=== PATIENT | female | born 1935 | race Caucasian/White ===

== ENCOUNTER → 2016-08-26 | Outpatient (CLI) | payer MEDICARE, OTHER ==
[~2016-08-26] MED LIST: ALPR.25 PO; ALPR.5 PO; ASPI-110 PO; ASPI1TAB69 PO; ATEN25TA PO; ATEN50TA PO; BIOT1SUB SL; CALC1TAB87 PO; CALC250 PO; COUM4TAB PO; DIFL100T PO; DYAZ37.5 PO; FERR325T20 PO; FOLI1TAB4 PO; FOLI1TAB6 PO; FURO20TA PO; GETGO ROLLING W1 MI1; HYDR-3583 PO; HYOS0.127 PO; IPRAAER INH; LACT PO; LACTCAP8 PO; LEVO.1 PO; MAXZ PO; MERO1INJ8 IV; MESA1TAB2 PO; OMEP40CA2 PO; POTA-243 PO; PRAV40TA PO; PROC10TA PO; PROM25TA5 PO; SPIRCAP INH; SYNT112T PO; VANC500I3 PO; VESI10TA PO; VITA100018 PO; VITA250T3 PO; VITA500T PO; WARF-23 PO; folic; shower tub chair
[2016-08-26 12:21] LABS: APTT (PATIENT) 43.9 SEC (24.3-30.1); INTERNATIONAL NORMALIZED RATIO 2.3 RATIO; PROTHROMBIN TIME - PATIENT 25.9 SEC (9.8-11.6)
[2016-08-26 12:41] LABS: ALKALINE PHOSPHATASE 83 U/L (45-117); ALT (GPT) 17 U/L (10-53); ANION GAP 8 MEQ/L (5-15); AST (GOT) 12 U/L (15-37); BICARBONATE 32.8 MEQ/L (21.0-32.0); BLOOD UREA NITROGEN 16 MG/DL (7-18); CHLORIDE 98 MEQ/L (98-107); GLOMERULAR FILTRATION RATE 74 ML/MIN (>89); GLUCOSE,FASTING 57 MG/DL (74-99); POTASSIUM 3.7 MEQ/L (3.5-5.1); SODIUM (NA) 139 MEQ/L (136-145); TOTAL BILIRUBIN ADULT 0.7 MG/DL (0.2-1.0)
[2016-08-26 12:50] LABS: BACTERIA, URINE RARE /hpf; BLOOD, URINE NEG (NEG); COMMENT (UR) CULT NOT INDICATED; CULTURE IF INDICATED CULT NOT INDICATED; GLUCOSE,URINE NEG (NEG); KETONE, URINE NEG (NEG); NITRITE,URINE NEG (NEG); PH, URINE 6.5 (5.0-8.5); SQUAMOUS EPITHELIAL CELL URINE <1 /hpf (0-5); URINE COLOR YELLOW (YELLW/STRAW)
[2016-08-26 13:25] LABS: AUTOMATED NEUTROPHIL # 8.6 TH/MM3 (1.8-7.7); BASOPHIL # 0.6 TH/MM3 (0-0.2); BASOPHIL % 6.2 % (0.0-2.0); EOSINOPHIL # 0.2 TH/MM3 (0-0.4); EOSINOPHIL % 2.2 % (0.0-4.0); HEMATOCRIT 42.7 % (35.0-46.0); LYMPH % 4.7 % (9.0-44.0); LYMPHOCYTE # 0.5 TH/MM3 (1.0-4.8); MEAN CELL VOLUME 62.6 FL (80.0-100.0); MEAN CORPUSCULAR HEMOGLOBIN 19.1 PG (27.0-34.0); MEAN CORPUSCULAR HGB CONC 30.6 % (32.0-36.0); MONO % 2.1 % (0.0-8.0); NEUT % 84.8 % (16.0-70.0); PLATELET COUNT 213 TH/MM3 (150-450); RED BLOOD COUNT 6.83 MIL/MM3 (4.00-5.30); RED CELL DISTRIBUTION WIDTH 22.7 % (11.6-17.2); WHITE BLOOD COUNT 10.1 TH/MM3 (4.0-11.0)
[2016-08-26 13:26] LABS: HEMO FLAGS AUTO DIFF
[2016-08-26 13:27] LABS: OVALOCYTES 2+ (NORMAL)
[2016-08-26 13:28] LABS: PLATELET ESTIMATE SMEAR LOW (NORMAL); PLATELET MORPHOLOGY ENLARGED (NORMAL); SCAN/DIFF AUTO DIFF CONFIRMED
== END ==
LOC: CPRE 09:41
PROVIDERS: ATTEND Neurological Surgery
DX: Z01.812 Encounter for preprocedural laboratory examination (principal); M51.26 Other intervertebral disc displacement, lumbar region; Z79.01 Long term (current) use of anticoagulants
CPT/HCPCS: 36415; 80053; 81001; 85025; 85610; 85730

== ENCOUNTER 2016-09-03 09:10 | Observation (INO) | payer MEDICARE, OTHER ==
[~2016-09-03] VITALS: Ht 165.1 cm; Wt 63.4 kg
[~2016-09-03 09:10] MED LIST changes: -ALPR.25 PO; -ALPR.5 PO; -ASPI-110 PO; -CALC250 PO; -COUM4TAB PO; -DIFL100T PO; -FERR325T20 PO; -FOLI1TAB6 PO; -GETGO ROLLING W1 MI1; -HYDR-3583 PO; -LACT PO; -MAXZ PO; -MERO1INJ8 IV; -MESA1TAB2 PO; -POTA-243 PO; -PROM25TA5 PO; -SPIRCAP INH; -VANC500I3 PO; -VITA250T3 PO; -folic; -shower tub chair
[2016-09-03] MEDS ORDERED: METOPROLOL TARTRATE 25 MG TAB PO PRN (10:15)
[2016-09-03] MEDS ORDERED: LACTATED RINGER'S 1000 ML IV PRN (10:15)
[2016-09-03] MEDS ORDERED: POVIDONE IODINE 5% (ANTISEPSIS KIT) 4 APPLICATIONS EACH NARE PRN (10:15)
[2016-09-03] MEDS ORDERED: VANCOMYCIN HCL 1000 MG ON-CALL/NS 250 ML IV SCH ×2 (10:15)
[2016-09-03] MEDS ORDERED: INSULIN HUMAN REGULAR 1,000 UNITS/10 ML VIAL SQ PRN (10:15)
[2016-09-03] MEDS ORDERED: CHLORHEXIDINE GLUCONATE 2 % 1 PACK (2 CLOTHS) TOPICAL PRN (10:15)
[2016-09-03] MEDS ORDERED: SODIUM CHLORID 0.9% 500 ML IV PRN (10:15)
[2016-09-03] MEDS ORDERED: SODIUM CHLOR 0.9% 1000 ML INJ 1,000 ML IV SCH (10:15)
[2016-09-03 10:27] VITALS: BP 159/64; PULSE 61; RESP 20; TEMP 98.3; O2SAT 96
[2016-09-03] MEDS ORDERED: GELATIN POWDER 1 GM PACKET ONE (11:21)
[2016-09-03] MEDS ORDERED: GENTAMICIN SULFATE 80 MG/2 ML VIAL ONE (11:21)
[2016-09-03] MEDS ORDERED: methylPREDNISolone ACETATE 40 MG/ML VIAL ONE (11:21)
[2016-09-03] MEDS ORDERED: ceFAZolin 2 GM PREMIX 50 ML ONE (11:21)
[2016-09-03] MEDS ORDERED: THROMBIN (TOPICAL) 5,000 UNIT VIAL ONE (11:21)
[2016-09-03] MEDS ORDERED: BUPIVACAINE/EPINEPHRINE 0.5% PF 10 ML VIAL ONE (11:21)
[2016-09-03] MEDS ORDERED: GELFOAM SIZE 100 ONE (11:22)
[2016-09-03 12:06] LABS: PROTHROMBIN TIME - PATIENT 11.5 SEC (9.8-11.6)
[2016-09-03] MEDS ORDERED: ACETAMINOPHEN 1000 MG/100 ML VIAL IV ONE (12:45)
[2016-09-03] MEDS ORDERED: fentaNYL CITRATE 250 MCG/5 ML AMP ONE (12:46)
[2016-09-03] MEDS ORDERED: MIDAZOLAM HCL 2 MG/2 ML VIAL ONE (12:46)
[2016-09-03] MEDS ORDERED: FAMOTIDINE 20 MG/2 ML VIAL ONE (12:46)
[2016-09-03] MEDS ORDERED: ARTIFICIAL TEARS OPTH OINT 3.5 APPLIC/3.5 GM TUBO ONE (12:46)
[2016-09-03] MEDS ORDERED: GENTAMICIN SULFATE 80 MG/2 ML VIAL IRRIGATION ONE (14:11)
[2016-09-03] MEDS ORDERED: BUPIVACAINE/EPINEPHRINE 0.5% PF 30 ML VIAL INFIL ONE (14:11)
[2016-09-03] MEDS ORDERED: THROMBIN (TOPICAL) 5,000 UNIT VIAL TOP ONE (14:11)
[2016-09-03] MEDS ORDERED: GELFOAM SIZE 100 TOP ONE (14:11)
[2016-09-03] MEDS ORDERED: ONDANSETRON HCL 4 MG/2 ML VIAL IV PUSH ONE (15:04)
[2016-09-03] MEDS ORDERED: PROPOFOL 200 MG/20 ML AMP IV ONE (15:04)
[2016-09-03] MEDS ORDERED: NEOSTIGMINE 3 MG/3 ML SYR IV ONE (15:04)
[2016-09-03] MEDS ORDERED: LACTATED RINGER'S 1000 ML INJ 1,000 ML IV ONE (15:05)
[2016-09-03] MEDS ORDERED: ACETAMINOPHEN 325 MG TAB PO PRN (15:45)
[2016-09-03] MEDS ORDERED: RESP: ALBUTEROL 2.5 MG/3 ML NEB (PRN) INH (15:45)
[2016-09-03] MEDS ORDERED: SODIUM CHLORIDE 0.9% FLUSH 5 ML FLUSH IVF PRN (15:45)
[2016-09-03] MEDS ORDERED: ONDANSETRON HCL 4 MG/2 ML VIAL IV PRN (15:45)
[2016-09-03] MEDS ORDERED: NON-FORMULARY DRUG (Ipratropium-Albuterol Inh (Combivent Respimat Inh) 2 PUFF) INH PRN (15:45)
[2016-09-03] MEDS ORDERED: CYCLOBENZAPRINE HCL 10 MG TAB PO PRN (15:45)
[2016-09-03] MEDS ORDERED: ACETAMINOPHEN/HYDROcodone 325 MG/10 MG TAB PO PRN (15:45)
[2016-09-03] MEDS ORDERED: FUROSEMIDE 20 MG TAB PO PRN (15:45)
[2016-09-03] MEDS ORDERED: ZOLPIDEM TARTRATE 5 MG TAB PO PRN (15:45)
[2016-09-03] MEDS ORDERED: MORPHINE SULFATE 4 MG/ML INJ IV PUSH PRN ×2 (15:45)
[2016-09-03] MEDS ORDERED: MENTHOL LOZENGE BUCCAL PRN (15:45)
[2016-09-03] MEDS ORDERED: HYDR-3583 PO (16:07)
[2016-09-03] MEDS ORDERED: ALBUTEROL SULFATE 90 MCG/ACT HFA 18 GM INHALER INH PRN (16:15)
[2016-09-03] MEDS: NS + KCL 20 MEQ INJ 1,000 ML IV SCH (16:24)
[2016-09-03] MEDS ORDERED: RESP: IPRATROPIUM 0.5 MG/2.5 ML NEB NEB PRN (16:30)
--- NOTE | 2016-09-03 16:45 | RADRPT ---
EXAM DATE/TIME: 09/03/2016 13:47 [facility] COMPARISON: No previous studies available for comparison. INDICATIONS : Level localization for a L5-S1 laminectomy. MEDICAL HISTORY : Unobtainable. SURGICAL HISTORY : Unobtainable. ENCOUNTER: Initial ACUITY: 1 day PAIN SCORE: Non-responsive. LOCATION: Lumbar. FINDINGS: Localization marker approaches L5-S1. CONCLUSION: Localization L5-S1 Dariel Bishop MD on September 03, 2016 at 16:43 Board Certified Radiologist. This report was verified electronically.
[2016-09-03] MEDS: ACETAMINOPHEN/HYDROcodone 325 MG/10 MG TAB PO PRN ×2 (17:54→23:14)
[2016-09-03 18:20] VITALS: BP 142/58; PULSE 61; RESP 14; TEMP 96.5; O2SAT 98
[2016-09-03 20:26] VITALS: O2SAT 98
--- NOTE | 2016-09-03 20:46 | PD.OP ---
Operative Report Date of Surgery: September 03, 2016 Preoperative Diagnosis: L5-S1 disk herniation Postoperative Diagnosis: L5-S1 disk herniation Procedure: Right L5-S1 hemilaminectomy and microdiscectomy Anesthesia: general Surgeon: Austin Arana Certified Driver Examiner(s): brandon borjas Operation and Findings: INDICATIONS FOR THE SURGICAL PROCEDURE Ms Dougherty is a 81 year-old female who presented with intractable mechanical back pain and clinical evidence of right S1 lower extremity radiculopathy. She was found to have a disk herniation and extrusion significant stenosis with significant mass effect on the neural structures which correlated with her clinical symptoms. She failed maximum nonsurgical management including multiple modalities of conservative treatment as well as pain management interventions by an interventional pain specialist. A surgical decompression were indicated as a last resort. The [id number] details of the procedure, indications, alternatives, risks and potential complications were fully discussed with the patient. The patient fully understood. All the questions were answered. No guarantees were given. The patient voiced requesting the procedure and signed informed consents. He was offered the alternative of delaying the procedure and continuing with nonsurgical management. DETAILS OF THE SURGICAL PROCEDURE After the induction of general anesthesia, endotracheal intubation was performed. A Vergara catheter, bilateral ANYI hose and sequential compression devices were placed and kept throughout the procedure. The patient was positioned prone on a Karl table over a Lyle frame. All pressure points were carefully padded with eggcrate mattress. The eyes were tapped shut after ointment was applied by the anesthesiologist to prevent corneal abrasion. A Thomas hugger was placed over the exposed lower body to maintain control of the core body temperature. The lower lumbar region was prepped and draped in the usual sterile fashion. A spinal needle was placed for localization and an x- ray performed with a C-arm. A skin incision was made in the midline over the spinous processes L5-S1 with a #10 blade. Small subcutaneous bleeders were controlled with a bipolar and the dissection was carried out through the lumbar fascia exposing the spinous processes. A subperiosteal dissection was performed with a Chandler elevator and a Bovie over the L5-S1 spinous process lamina and facets. A microdiscectomy self- retaining retractor was placed on the incision and an x-ray was obtained with an instrument placed underneath the lamina. At this point in the procedure the operating microscope was draped in the usual sterile fashion and brought to the field. The rest of the surgical procedure was performed using microsurgical dissection technique with exception of the closure. Once the level was confirmed, a decompressive laminectomy was performed at L5- S1 on the right side, using the TPS drill with an AM-8 drill bit. A medial facetectomy was performed and the superior free border of the ligamentum flavum was dissected with a ligament dissector and removed with a thin footplate 2 mm Kerrison The medial facetectomy allowed me to expose the right S1 nerve root, which was identified and followed towards its exit in the foramen. Epidural veins located laterally to the dural sac were coagulated with a bipolar and incised with microscissors. Gentle medial retraction of the dural sac allowed inspection of the disc space. The patient had a disc herniation, causing mass effect over the exiting nerve root. The annulus fibrosus of the disc was coagulated with the bipolar and incised with an 11 blade. The extruded disc was carefully dissected from the surrounding tissue and removed with pituitary forceps. Then, a microdiscectomy was carried out in the standard fashion using straight and up-biting pituitary forceps. A good decompression of the dural sac and nerve root was achieved. The exit of the nerve root was inspected for residual disc fragments and hemostasis was secured with the bipolar. The incision was irrigated with a large amount of saline solution. A Valsalva maneuver failed to show any cerebrospinal fluid leak or bleeding. The decompression was assessed again and found to be satisfactory. 4m of Depomedrol was left over the epidural space. The incision was then closed in layers. The fascia was closed with 0 Vicryl sutures in an interrupted fashion. The superficial fascia was closed with 0 Vicryl sutures. The fascia was infiltrated with 0.5% Marcaine with epinephrine 1:100,000 dilution. The subcutaneous tissue was irrigated then closed with 0 Vicryl and 3-0 Vicryl. The skin was closed with 4-0 running subcuticular Vicryl. Dermabond was applied to the skin. A sterile dressing was applied. At the end of the procedure, the sponge, needle and instrument counts were all correct. Estimated blood loss was less than 50 cc. No blood transfusion was given. No intraoperative complications occurred. The patient received prophylactic antibiotics. The patient was then extubated and transferred to the recovery room in stable condition. Austin Arana MD September 03, 2016 20:46
[2016-09-03] MEDS ORDERED: ATENOLOL 25 MG TAB PO SCH (21:00)
[2016-09-03] MEDS: SODIUM CHLORIDE 0.9% FLUSH 5 ML FLUSH IVF SCH (21:00)
[2016-09-03] MEDS ORDERED: PRAVASTATIN SOD 40 MG TAB PO SCH (21:00)
[2016-09-03 21:30] VITALS: BP 156/69; PULSE 66; RESP 16; TEMP 96.7; O2SAT 95
[2016-09-03] MEDS: ceFAZolin 2 GM PREMIX 50 ML IV SCH (22:00)
[2016-09-03] MEDS: DOCUSATE SODIUM 100 MG CAP PO SCH (23:14)
[2016-09-04] VITALS: BP 163/70; PULSE 66; RESP 18; O2SAT 98
[2016-09-04] MEDS: NS + KCL 20 MEQ INJ 1,000 ML IV SCH (02:00)
[2016-09-04] MEDS: ACETAMINOPHEN/HYDROcodone 325 MG/10 MG TAB PO PRN ×2 (03:39→07:45)
[2016-09-04 04:00] VITALS: BP 151/71; PULSE 67; RESP 18; TEMP 97; O2SAT 94
[2016-09-04] MEDS: ceFAZolin 2 GM PREMIX 50 ML IV SCH (07:46)
[2016-09-04 08:00] VITALS: BP 150/66; PULSE 65; RESP 18; TEMP 96.8; O2SAT 95
[2016-09-04] MEDS ORDERED: CHOLECALCIFEROL (VIT D3) 1000 UNIT TAB PO SCH (09:00)
[2016-09-04] MEDS ORDERED: NON-FORMULARY DRUG (Biotin 5,000 MCG) SL SCH (09:00)
[2016-09-04] MEDS ORDERED: ATENOLOL 50 MG TAB PO SCH (09:00)
[2016-09-04] MEDS ORDERED: TOLTERODINE TARTRATE 4 MG CAP LA PO SCH (09:00)
[2016-09-04] MEDS ORDERED: PANTOPRAZOLE SOD 40 MG DELAYED RELEASE TAB PO SCH (09:00)
[2016-09-04] MEDS: SODIUM CHLORIDE 0.9% FLUSH 5 ML FLUSH IVF SCH (09:00)
[2016-09-04] MEDS ORDERED: TRIAMTERENE/HCTZ 37.5 MG/25 MG CAP PO SCH (09:00)
[2016-09-04] MEDS ORDERED: HYOSCYAMINE 0.125 MG TAB PO SCH (09:00)
[2016-09-04] MEDS ORDERED: ASCORBIC ACID 500 MG TAB PO SCH (09:00)
[2016-09-04] MEDS ORDERED: FOLIC ACID 1 MG TAB PO SCH (09:00)
[2016-09-04] MEDS: DOCUSATE SODIUM 100 MG CAP PO SCH (10:22)
--- NOTE | 2016-09-04 10:53 | HHI.DS ---
Discharge Summary Admission Date September 03, 2016 at 15:38 Discharge Date: September 04, 2016 Admitting Diagnosis s/p lumbar laminectomy (1) S/P lumbar laminectomy ICD Code: Z98.890 Brief History Ms Dougherty is a 81 year-old female who presented with intractable mechanical back pain and clinical evidence of right S1 lower extremity radiculopathy. She was found to have a disk herniation and extrusion significant stenosis with significant mass effect on the neural structures which correlated with her clinical symptoms. She failed maximum nonsurgical management including multiple modalities of conservative treatment as well as pain management interventions by an interventional pain specialist. A surgical decompression were indicated as a last resort. Imaging Last Impressions Lumbar Spine X-Ray 09/03/16 0000 Signed Impressions: Service Date/Time: Saturday, September 03, 2016 13:47 - CONCLUSION: Localization L5-S1 Dariel Bishop MD Hospital Course Ms. Dougherty underwent a right L5-S1 hemilaminectomy and microdiscectomy on September 03, 2016. Her surgery went well without complications. She reports of resolution of her previous radicular pain. Activity restrictions, wound care, and signs and symptoms to watch for were fully discussed with the patient. She will be discharged home in stable conditions. Pt Condition on Discharge: Stable Discharge Disposition: Discharge Home Discharge Instructions DIET: Follow Instructions for: Heart Healthy Diet ACTIVITIES You can perform: Weight Bearing As Mary Carmen ADDITIONAL Activity Instructio: Avoid strenuous activities, heavy lifting, overhead activities, repetitive bending, twisting, pushing, pulling or any activities which might result in stress over the spine. Avoid situtation that will put at risk for falls. Use assistive device as needed for walking. Wear lumbar brace when out of bed. New Medications: Hydrocodone-Acetaminophen (Hydrocodone-Acetaminophen) 10-325 mg Tab 1 TAB PO Q8HR PRN PAIN SCALE 1 TO 10 #90 Ref 0 TAB Continued Medications: Ascorbic Acid (Vitamin C) 500 Mg Tab 500 MG PO DAILY Nutritional Supplement Ref 0 TAB Aspirin (Aspirin) 81 Mg Tabdr 81 MG PO DAILY TAB Atenolol (Atenolol) 50 Mg Tab 50 MG PO DAILY Blood Pressure Management #30 Ref 0 TAB Atenolol (Atenolol) 25 Mg Tab 25 MG PO HS Blood Pressure Management #30 TAB Biotin (Biotin) 5,000 Mcg Subl 5000 MCG SL DAILY Nutritional Supplement #1 Ref 0 BOTTLE Calcium Carbonate-Cholecalciferol (Calcium 600 with Vitamin D) 600-400 mg-Unit Tab 1 TAB PO DAILY Calcium Supplement Ref 0 TAB Cholecalciferol (Vitamin D3) 1,000 Unit Tab 1000 UNITS PO DAILY Nutritional Supplement #1 Ref 0 BOTTLE Folic Acid (Folate) 1 Mg Tab 1 MG PO DAILY Nutritional Supplement Ref 0 TAB Furosemide (Furosemide) 20 Mg Tab 20 MG PO DAILY SWELLING PRN SEE LABEL COMMENTS #30 Ref 0 TAB Hyoscyamine Sulfate (Hyoscyamine Sulfate) 0.125 Mg Sub 1 TAB PO DAILY Ipratropium-Albuterol Inh (Combivent Respimat Inh) 20-100 Care Home/Act Aero 2 PUFF INH QID PRN SHORTNESS OF BREATH #1 Ref 0 INHALER Lactobacillus Acidophilus (Probiotic) 1 Cap Cap 1 CAP PO DAILY Nutritional Supplement #90 Ref 0 CAP Levothyroxine (Synthroid) 100 Mcg Tab 100 MCG PO EVERY OTHER DAY Thyroid #30 Ref 0 TAB Levothyroxine (Synthroid) 112 Mcg Tab 112 MCG PO EVERY OTHER DAY Thyroid #30 Ref 0 TAB Omeprazole (Omeprazole) 40 Mg Cap 40 MG PO DAILY #30 Ref 0 CAP Pravastatin (Pravachol) 40 Mg Tab 40 MG PO HS Cholesterol Management #30 Ref 0 TAB Solifenacin (Vesicare) 10 Mg Tab 10 MG PO DAILY Urinary Symptom Managemen #30 Ref 0 TAB Triamterene-Hydrochlorothiazide (Dyazide) 37.5-25 Mg Cap 1 CAP PO DAILY #30 Ref 0 CAP Warfarin (Warfarin) 5 Mg Tab 5 MG PO DIRECTED DOSE VARIES OFTEN PER PT, DR ABRAMS REGULATES DOSE EVERY 2-4 WEEKS Blood Clot Prevention #30 Ref 0 TAB Asha Salas September 04, 2016 10:53
--- NOTE | 2016-09-04 10:53 | HHI.DCPOC ---
Discharge Care Plan Diagnosis: (1) S/P lumbar laminectomy Goals to Promote Your Health * To prevent worsening of your condition and complications * To maintain your health at the optimal level Directions to Meet Your Goals Take your medications as prescribed Follow your dietary instruction Follow activity as directed Keep your appointments as scheduled Take your immunizations and boosters as scheduled If your symptoms worsen call your PCP, if no PCP go to Urgent Care Center or Emergency Room Smoking is Dangerous to Your Health. Avoid second hand smoke Call the 24-hour hour crisis hotline for domestic abuse at Asha Salas September 04, 2016 10:53
[2016-09-04 11:54] VITALS: BP 150/73; PULSE 62; RESP 18; TEMP 97.3; O2SAT 95
[2016-09-05] MEDS ORDERED: LEVOTHYROXINE SODIUM 100 MCG TAB PO SCH (06:00)
[2016-09-05] MEDS ORDERED: PROM25TA5 PO (15:40)
[2016-10-07] MEDS ORDERED: FOLI1TAB6 PO (22:19)
[2016-10-14] MEDS ORDERED: MERO1INJ8 IV (13:12)
[2016-10-14] MEDS ORDERED: GETGO ROLLING W1 MI1 (14:25)
[2016-10-14] MEDS ORDERED: shower tub chair (14:25)
[2016-10-16] MEDS ORDERED: SPIRCAP INH (15:32)
[2016-10-16] MEDS ORDERED: PRAV40TA PO (15:32)
[2016-10-16] MEDS ORDERED: ASPI-110 PO (15:32)
[2016-10-16] MEDS ORDERED: MAXZ PO (15:32)
[2016-10-16] MEDS ORDERED: ALPR.5 PO (15:32)
[2016-10-16] MEDS ORDERED: OMEP40CA2 PO (15:32)
[2016-10-16] MEDS ORDERED: LACT PO (15:32)
[2016-10-16] MEDS ORDERED: FOLI1TAB6 PO (15:32)
[2016-10-16] MEDS ORDERED: VITA250T3 PO (15:32)
[2016-10-16] MEDS ORDERED: HYDR-3583 PO (15:32)
[2016-10-16] MEDS ORDERED: ATEN50TA PO (15:32)
[2016-10-16] MEDS ORDERED: IPRAAER INH (15:32)
[2016-10-16] MEDS ORDERED: POTA-243 PO (15:32)
[2016-10-16] MEDS ORDERED: VANC500I3 PO (15:32)
[2016-10-16] MEDS ORDERED: COUM4TAB PO (15:32)
[2016-10-16] MEDS ORDERED: VESI10TA PO (15:32)
[2016-10-16] MEDS ORDERED: VITA100018 PO (15:32)
[2016-10-16] MEDS ORDERED: LEVO.1 PO (15:32)
[2016-10-16] MEDS ORDERED: CALC250 PO (15:32)
== END 2016-09-04 13:17 | disposition home or self-care (01) ==
LOC: HSDC 09:10 → HSDI 15:38 → N06A 17:47
PROVIDERS: ADMIT Neurological Surgery; ATTEND Neurological Surgery
DX: M51.17 Intervertebral disc disorders with radiculopathy, lumbosacral region (principal); M48.07 Spinal stenosis, lumbosacral region; I10 Essential (primary) hypertension; E78.5 Hyperlipidemia, unspecified; Z87.891 Personal history of nicotine dependence; J44.9 Chronic obstructive pulmonary disease, unspecified; E03.9 Hypothyroidism, unspecified; K21.9 Gastro-esophageal reflux disease without esophagitis; G62.9 Polyneuropathy, unspecified; Z86.718 Personal history of other venous thrombosis and embolism
CPT/HCPCS: 63030; 72020; 76000; 85610; 94150; 97161; G0378; G8987; G8988; J0131; J0690; J1030; J1580; J2250; J2405; J2710; J3010; J3370; J3480; J7050; J7120; L0627

== ENCOUNTER 2016-09-21 11:04 | Inpatient (IN) | payer MEDICARE, OTHER ==
[~2016-09-21] VITALS: Ht 165.1 cm; Wt 65.2 kg
[~2016-09-21 11:04] MED LIST changes: +HYDR-3583 PO; -PROC10TA PO; +PROM25TA5 PO
[2016-09-21 11:06] VITALS: BP 187/74; PULSE 100; RESP 18; TEMP 99.4; O2SAT 97
[2016-09-21 11:09] LABS: MEAN CORPUSCULAR HGB CONC 29.7 % (32.0-36.0)
[2016-09-21] MEDS ORDERED: SODIUM CHLOR 0.9% 1000 ML INJ 1,000 ML IV ONE (11:15)
--- NOTE | 2016-09-21 11:15 | PD ---
HPI Chief Complaint: Complaint Time Seen by Provider: 11:09 Travel History International Travel<30 days: No Contact w/Intl Traveler<30days: No Traveled to known affect area: No History of Present Illness HPI Patient comes in complaining of generalized weakness over the past 2-3 days. Patient denies any chest pain, shortness of breath, nausea, vomiting, fevers, loss of change in bowel or bladder, back pain, headache, or dizziness. Patient states she has urinary frequency but this is not out of the ordinary. Patient denies anything making it better or worse. Patient reports a history of cervical cancer last chemotherapy radiation 5 years ago July. Patient's primary care doctor is Dr. Bedolla. [facility] Past Medical History Arthritis: Yes Asthma: No Autoimmune Disease: No Blood Disorders: Yes (POLYCYTHEMIA) Anxiety: No Depression: No Heart Rhythm Problems: Yes (MURMUR) Cancer: Yes (cervical gastrointestinal tumor) Cardiovascular Problems: No High Cholesterol: Yes [facility] Chest Pain: No Congestive Heart Failure: No COPD: Yes Cerebrovascular Accident: Yes (TIA ) Diabetes: No Diminished Hearing: No Endocrine: Yes Gastrointestinal Disorders: Yes (bottom part of the colon burned due to radiation with some bleeding) GERD: Yes Genitourinary: Yes (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., FREQ URINATION) Headaches: Yes Hepatitis: No Hiatal Hernia: No Hypertension: Yes Immune Disorder: No Implanted Vascular Access Dvce: Yes Kidney Stones: No Musculoskeletal: Yes (arthritis neck and back problems, LOSS OF BALANCE) Neurologic: Yes (TIA, NUMBNESS IN TOES AND HANDS, NUMBNESS IN R LEG,) Psychiatric: No Reproductive: Yes (HX CERVICAL CA) Respiratory: Yes (PMH PE) Immunizations Current: Yes Migraines: Yes Myocardial Infarction: No Radiation Therapy: Yes Renal Failure: No Seizures: No Sleep Apnea: No Thyroid Disease: Yes (HYPO) Ulcer: No Menopausal: Yes Dilation and Curettage (D&C): Yes Past Surgical History Abdominal Surgery: Yes (paratracheal node remove STOMACH tumor removed) AICD: No Body Medical Devices: IVC FILTER, Cardiac Surgery: Yes (VENOUS CAVAS) Ear Surgery: No Endocrine Surgery: No Eye Surgery: Yes (marissa cataract removal) Genitourinary Surgery: No Gynecologic Surgery: Yes (D & C, TANDEM AND OVOID X4) Joint Replacement: No Oral Surgery: Yes (SKIN GRAFT OF GUMS) Pacemaker: No Thoracic Surgery: Yes (right breast tumor removed which was benign) Tonsillectomy: Yes Other Surgery: Yes Social History Alcohol Use: Yes (3/week) Tobacco Use: No (QUIT 30 YRS AGO) Substance Use: No Allergies-Medications (Allergen,Severity, Reaction): Coded Allergies: No Known Allergies (Verified , 09/21/16) Reported Meds & Prescriptions Reported Meds & Active Scripts Active Phenergan (Promethazine HCl) 25 Mg Tab 25 Mg PO Q6H PRN Hydrocodone-Acetaminophen 10-325 mg Tab 1 Tab PO Q8HR PRN Reported Klor-Con 10 (Potassium Chloride) 10 Meq Tab 10 Meq PO DAILY Warfarin 5 Mg Tab 7.5 Mg PO DIRECTED DOSE VARIES OFTEN PER PT, DR ABRAMS REGULATES DOSE EVERY 2-4 WEEKS Dyazide (Triamterene-Hydrochlorothiazide) 37.5-25 Mg Cap 1 Cap PO DAILY Synthroid (Levothyroxine Sodium) 100 Mcg Tab 100 Mcg PO EVERY OTHER DAY Probiotic (Lactobacillus Acidophilus) 1 Cap Cap 1 Cap PO DAILY Pravachol (Pravastatin) 40 Mg Tab 40 Mg PO HS Omeprazole 40 Mg Cap 40 Mg PO DAILY Combivent Respimat Inh (Ipratropium-Albuterol Inh) 20-100 Alf/Act Aero 2 Puff INH QID PRN Furosemide 20 Mg Tab 20 Mg PO DAILY PRN SWELLING Folate (Folic Acid) 1 Mg Tab 1 Mg PO DAILY Vitamin D3 (Cholecalciferol) 1,000 Unit Tab 1,000 Units PO DAILY Calcium 600 with Vitamin D (Calcium Carbonate-Cholecalciferol) 600-400 mg-Unit Tab 1 Tab PO DAILY Biotin 5,000 Mcg Subl 5,000 Mcg SL DAILY Atenolol 25 Mg Tab 25 Mg PO HS Atenolol 50 Mg Tab 50 Mg PO DAILY Aspirin 81 Mg Tabdr 81 Mg PO DAILY Vitamin C (Ascorbic Acid) 500 Mg Tab 500 Mg PO DAILY Vesicare (Solifenacin) 10 Mg Tab 10 Mg PO DAILY Review of Systems Except as stated in HPI: all other systems reviewed are Neg Physical Exam Narrative GENERAL: Well-developed, well nourished, in no acute distress, and ill appearing. SKIN: Focused skin assessment warm and dry. HEAD: Atraumatic. Normocephalic. EYES: Pupils equal and round. EOMI. No scleral icterus. No injection or drainage. ENT: No nasal bleeding or discharge. Mucous membranes pink and dry. NECK: Trachea midline. No JVD. Supple. No nuclear rigidity. CARDIOVASCULAR: Regular rate and rhythm. No murmur appreciated. RESPIRATORY: No accessory muscle use. No respiratory distress. Clear to auscultation. Breath sounds equal bilaterally. GASTROINTESTINAL: Abdomen soft, non-tender, nondistended. Hepatic and splenic margins not palpable. Normal bowel sounds 4. No pulsatile mass. MUSCULOSKELETAL: No obvious deformities. No clubbing. No cyanosis. No edema. Full range of motion. NEUROLOGICAL: Awake and alert. No obvious cranial nerve deficits. Motor grossly within normal limits. Normal speech. PSYCHIATRIC: Appropriate mood and affect; insight and judgment normal. Data Data Last Documented VS Vital Signs Date Time Temp Pulse Resp B/P Pulse Ox O2 Delivery O2 Flow Rate FiO2 09/21/16 13:03 97 18 128/69 95 Room Air 09/21/16 11:06 99.4 Orders Electrocardiogram (09/21/16 11:07) Complete Blood Count With Diff (09/21/16 11:07) Comprehensive Metabolic Panel (09/21/16 11:07) Prothrombin Time / Inr (Pt) (09/21/16 11:07) Act Partial Throm Time (Ptt) (09/21/16 11:07) Lactic Acid Sepsis Protocol (09/21/16 11:07) Magnesium (Mg) (09/21/16 11:07) Ckmb (Isoenzyme) Profile (09/21/16 11:07) Troponin I (09/21/16 11:07) Urinalysis - C+S If Indicated (09/21/16 11:07) Blood Culture (09/21/16 11:07) Chest, Single Ap (09/21/16 11:07) Ecg Monitoring (09/21/16 11:07) Iv Access Insert/Monitor (09/21/16 11:07) Oxygen Administration (09/21/16 11:07) Sodium Chlor 0.9% 1000 Ml Inj (Ns 1000 M (09/21/16 11:15) Continue Vergara/Suprapubic Cath (09/21/16 11:10) Urine Culture (09/21/16 11:20) Vancomycin Inj (Vancomycin Inj) (09/21/16 12:20) Piperacil-Tazo 4.5 Gm Premix (Zosyn 4.5 (09/21/16 12:20) Sodium Chlor 0.9% 1000 Ml Inj (Ns 1000 M (09/21/16 12:30) CKMB (09/21/16 11:20) CKMB% (09/21/16 11:20) Potassium Chloride (Kcl) (09/21/16 12:30) Potassium Chlor 20 Meq Premix (Kcl 20 Me (09/21/16 12:30) Ct Brain W/O Iv Contrast(Rout) (09/21/16 ) Thyroid Stimulating Hormone (09/21/16 13:02) Consult Cardiology (09/21/16 ) Admit Order (Ed Use Only) (09/21/16 13:02) Heparin Infusion DAVID.Q1H (09/21/16 13:02) Heparin-D5w Inj (Heparin-D5w Inj) (09/21/16 13:15) Act Partial Throm Time (Ptt) (09/21/16 13:02) Prothrombin Time / Inr (Pt) (09/21/16 13:02) Cbc No Diff, Includes Plts (09/21/16 13:02) Cbc No Diff, Includes Plts (09/24/16 06:00) Act Partial Throm Time (Ptt) (09/21/16 20:02) Occult Blood (Hemoccult) Stool (09/21/16 13:02) Labs Laboratory Tests Test 09/21/16 09/21/16 11:20 11:22 White Blood Count 14.6 TH/MM3 Red Blood Count 6.96 MIL/MM3 Hemoglobin 13.0 GM/DL Hematocrit 43.7 % Mean Corpuscular Volume 62.8 FL Mean Corpuscular Hemoglobin 18.6 PG Mean Corpuscular Hemoglobin 29.7 % Concent Red Cell Distribution Width 22.4 % Platelet Count 180 TH/MM3 Mean Platelet Volume 9.5 FL Neutrophils (%) (Auto) 96.5 % Lymphocytes (%) (Auto) 1.3 % Monocytes (%) (Auto) 1.4 % Eosinophils (%) (Auto) 0.0 % Basophils (%) (Auto) 0.8 % Neutrophils # (Auto) 14.1 TH/MM3 Lymphocytes # (Auto) 0.2 TH/MM3 Monocytes # (Auto) 0.2 TH/MM3 Eosinophils # (Auto) 0.0 TH/MM3 Basophils # (Auto) 0.1 TH/MM3 CBC Comment AUTO DIFF Differential Total Cells 100 Counted Neutrophils % (Manual) 70 % Band Neutrophils % 19 % Lymphocytes % 4 % Monocytes % 5 % Neutrophils # (Manual) 13.3 TH/MM3 Metamyelocytes 2 % Nucleated Red Blood Cells 1 /100 WBC Differential Comment FINAL DIFF MANUAL Toxic Vacuolation PRESENT Platelet Estimate NORMAL Platelet Morphology Comment NORMAL Tear Drop Cells 1+ Ovalocytes 1+ Prothrombin Time 20.0 SEC Prothromb Time International 1.8 RATIO Ratio Activated Partial 43.0 SEC Thromboplast Time Urine Color YELLOW Urine Turbidity HAZY Urine pH 5.5 Urine Specific Gattman 1.017 Urine Protein 30 mg/dL Urine Glucose (UA) NEG mg/dL Urine Ketones TRACE mg/dL Urine Occult Blood NEG Urine Nitrite NEG Urine Bilirubin NEG Urine Urobilinogen LESS THAN 2.0 MG/DL Urine Leukocyte Esterase NEG Urine RBC 1 /hpf Urine WBC 1 /hpf Urine Squamous Epithelial <1 /hpf Cells Urine Amorphous Sediment OCC Urine Bacteria RARE /hpf Urine Mucus FEW /lpf Microscopic Urinalysis Comment CATH-CULTURE IND Sodium Level 136 MEQ/L Potassium Level 2.9 MEQ/L Chloride Level 96 MEQ/L Carbon Dioxide Level 24.4 MEQ/L Anion Gap 16 MEQ/L Blood Urea Nitrogen 21 MG/DL Creatinine 1.23 MG/DL Estimat Glomerular Filtration 42 ML/MIN Rate Random Glucose 163 MG/DL Calcium Level 9.0 MG/DL Magnesium Level 1.7 MG/DL Total Bilirubin 3.2 MG/DL Aspartate Amino Transf 27 U/L (AST/SGOT) Alanine Aminotransferase 17 U/L (ALT/SGPT) Alkaline Phosphatase 160 U/L Total Creatine Kinase 135 U/L Creatine Kinase MB 2.2 NG/ML Troponin I 2.68 NG/ML Total Protein 6.6 GM/DL Albumin 3.2 GM/DL Lactic Acid Level 5.9 mmol/L [facility] Medical Decision Making Medical Screen Exam Complete: Yes Emergency Medical Condition: Yes Interpretation(s) EKG reviewed by Dr. Merchant shows sinus rhythm with sinus arrhythmia ventricular rate of 97. Repeat EKG shows same with a ventricular rate of 108. No STEMI. Differential Diagnosis GI bleed, sepsis, pneumonia, acute coronary syndrome, electrolyte abnormality, dehydration, Coumadin toxicity, acute renal insufficiency, UTI, other Narrative Course 1240 patient's has not bedside states that his was a little bit altered yesterday as well as this morning, which is why he called the ambulance to bring her in for evaluation. Initial laboratory, radiological, and IV meds were ordered. Discussed patient with Dr. Merchant who saw and evaluated the patient and is in agreement with plan of care and disposition. Recommends giving Zosyn and vancomycin secondary to elevated white cell count and certainly patient on a normal saline 100 mL's per hour. Discussed all findings and plan of care with patient and her . Patient is agreeable for admission. All questions were answered. Heparin drip was ordered per request of cardiology however will be held until CT results show no active bleed. RN is aware of this. HemaPrompt Point of Care Internal Pos. & Neg. Controls: Passed Fecal Specimen Occult Blood: Negative Comment Patient had a bowel movement stool sample was obtained. Stool specimen applied and test interpreted between 1 and 3 minutes of application and the result was negative. Internal Controls: Both positive and negative controls were validated. print shop chief clerk was present during this exam. Sepsis Criteria SIRS Criteria (2 or more): Heart rate over 90, WBC > 91837, < 4000 or > 10% bands Severe Sepsis (+one): Lactate >2 Physician Communication Physician Communication [address] Abbott, who is agreeable to admit the patient to ICU, but wants us to discuss elevated troponin with her flour mixer. [address] Santoyo who is on-call for patient's flour mixer Dr. Willis, recommends holding Coumadin starting heparin drip on DVT/PE protocol as well as checking a TSH. [address] Santoyo recommendations with Dr. Abbott, once the heparin drip held until CT is read. OLGA Velasquez was made aware of this. Diagnosis Primary Impression: Sepsis Qualified Code: A41.9 - Sepsis, due to unspecified organism Additional Impressions: Elevated troponin I level Hypokalemia Admitting Information Admitting Physician Requests: Admit Condition: Stable Jose Johnson September 21, 2016 11:15
[2016-09-21 11:36] LABS: AUTOMATED NEUTROPHIL # 14.1 TH/MM3 (1.8-7.7); BASOPHIL # 0.1 TH/MM3 (0-0.2); BASOPHIL % 0.8 % (0.0-2.0); HEMATOCRIT 43.7 % (35.0-46.0); LYMPH % 1.3 % (9.0-44.0); LYMPHOCYTE # 0.2 TH/MM3 (1.0-4.8); MEAN CELL VOLUME 62.8 FL (80.0-100.0); MEAN CORPUSCULAR HEMOGLOBIN 18.6 PG (27.0-34.0); MONO % 1.4 % (0.0-8.0); NEUT % 96.5 % (16.0-70.0); PLATELET COUNT 180 TH/MM3 (150-450); RED BLOOD COUNT 6.96 MIL/MM3 (4.00-5.30); RED CELL DISTRIBUTION WIDTH 22.4 % (11.6-17.2); WHITE BLOOD COUNT 14.6 TH/MM3 (4.0-11.0)
[2016-09-21 11:39] LABS: HEMO FLAGS AUTO DIFF
--- NOTE | 2016-09-21 11:41 | PD ---
Physical Exam Narrative Patient was seen and examined with my religious assistant. Data Data Last Documented VS Vital Signs Date Time Temp Pulse Resp B/P Pulse Ox O2 Delivery O2 Flow Rate FiO2 09/21/16 11:06 99.4 100 18 187/74 97 Orders Electrocardiogram (09/21/16 11:07) Complete Blood Count With Diff (09/21/16 11:07) Comprehensive Metabolic Panel (09/21/16 11:07) Prothrombin Time / Inr (Pt) (09/21/16 11:07) Act Partial Throm Time (Ptt) (09/21/16 11:07) Lactic Acid Sepsis Protocol (09/21/16 11:07) Magnesium (Mg) (09/21/16 11:07) Ckmb (Isoenzyme) Profile (09/21/16 11:07) Troponin I (09/21/16 11:07) Urinalysis - C+S If Indicated (09/21/16 11:07) Blood Culture (09/21/16 11:07) Chest, Single Ap (09/21/16 11:07) Ecg Monitoring (09/21/16 11:07) Iv Access Insert/Monitor (09/21/16 11:07) Oxygen Administration (09/21/16 11:07) Sodium Chlor 0.9% 1000 Ml Inj (Ns 1000 M (09/21/16 11:15) Continue Vergara/Suprapubic Cath (09/21/16 11:10) MDM Supervised Visit with EMELY: Yes Lorenzo Merchant MD September 21, 2016 11:41
[2016-09-21 11:46] LABS: INTERNATIONAL NORMALIZED RATIO 1.8 RATIO
[2016-09-21 11:55] LABS: BLOOD, URINE NEG (NEG); GLUCOSE,URINE NEG (NEG); KETONE, URINE TRACE mg/dL (NEG); MUCUS URINE FEW /lpf (OCC); NITRITE,URINE NEG (NEG); PH, URINE 5.5 (5.0-8.5); SQUAMOUS EPITHELIAL CELL URINE <1 /hpf (0-5); URINE COLOR YELLOW (YELLW/STRAW)
[2016-09-21] MEDS ORDERED: POTA-243 PO (11:58)
[2016-09-21 12:02] LABS: BACTERIA, URINE RARE /hpf; COMMENT (UR) CATH-CULTURE IND; CULTURE IF INDICATED CATH CULTURE IND
--- NOTE | 2016-09-21 12:18 | RADRPT ---
EXAM DATE/TIME: 09/21/2016 11:38 [facility] COMPARISON: CHEST SINGLE AP, June 17, 2015, 4:19. INDICATIONS : Fever. MEDICAL HISTORY : None. SURGICAL HISTORY : None. ENCOUNTER: Initial ACUITY: 1 day PAIN SCORE: 0/10 LOCATION: Bilateral chest FINDINGS: Cardia megaly. Clear lungs. Aortic calcification. Osseous structures are intact. CONCLUSION: No acute disease. Omi Mora MD on September 21, 2016 at 12:16 Board Certified Radiologist. This report was verified electronically.
[2016-09-21 12:20] LABS: BANDS 19 % (0-6); CORRECTED NUCLEATED RBC 1 /100 WBC (0-0); METAMYELOCYTES 2 % (0-1); NEUTROPHIL # MANUAL DIFF 13.3 TH/MM3 (1.8-7.7); POLYS (SEG NEUTROPHILS) 70 % (16-70); WBC DIFF SAMPLE 100
[2016-09-21] MEDS ORDERED: VANCOMYCIN INJ 1,000 MG in SODIUM CHLOR 0.9% 250 ML INJ 250 ML IV STA (12:20)
[2016-09-21] MEDS ORDERED: PIPERACIL-TAZO 4.5 GM PREMIX 100 ML IV STA (12:20)
[2016-09-21 12:21] LABS: OVALOCYTES 1+ (NORMAL); PLATELET ESTIMATE SMEAR NORMAL (NORMAL); PLATELET MORPHOLOGY NORMAL (NORMAL); SCAN/DIFF FINAL DIFF MANUAL; TEARDROP RBCS 1+ (NORMAL)
[2016-09-21 12:22] LABS: TOXIC VACUOLATION PRESENT (NONE SEEN)
[2016-09-21 12:27] LABS: ALKALINE PHOSPHATASE 160 U/L (45-117); ALT (GPT) 17 U/L (10-53); ANION GAP 16 MEQ/L (5-15); AST (GOT) 27 U/L (15-37); BICARBONATE 24.4 MEQ/L (21.0-32.0); BLOOD UREA NITROGEN 21 MG/DL (7-18); CHLORIDE 96 MEQ/L (98-107); CREATINE KINASE 135 U/L (26-192); GLOMERULAR FILTRATION RATE 42 ML/MIN (>89); MAGNESIUM 1.7 MG/DL (1.5-2.5); SODIUM (NA) 136 MEQ/L (136-145); TOTAL BILIRUBIN ADULT 3.2 MG/DL (0.2-1.0)
[2016-09-21 12:30] LABS: POTASSIUM 2.9 MEQ/L (3.5-5.1)
[2016-09-21] MEDS ORDERED: POTASSIUM CHLORIDE 20 MEQ CONTROLLED RELEASE TAB PO ONE (12:30)
[2016-09-21] MEDS ORDERED: SODIUM CHLOR 0.9% 1000 ML INJ 1,000 ML IV SCH (12:30)
[2016-09-21] MEDS ORDERED: POTASSIUM CHLOR 20 MEQ PREMIX 100 ML IV ONE (12:30)
[2016-09-21 12:42] LABS: CKMB 2.2 NG/ML (0.5-3.6)
[2016-09-21 13:03] VITALS: BP 128/69; PULSE 97; RESP 18; O2SAT 95
[2016-09-21 13:29] LABS: LACTIC ACID GHOST NOT REPORTABLE
[2016-09-21] MEDS ORDERED: NALOXONE HCL 0.4 MG/ML AMP IV PRN (13:30)
[2016-09-21] MEDS ORDERED: Vancomycin Consult Pharmacy 1 EA OTHER PRN (13:30)
--- NOTE | 2016-09-21 13:38 | HHI.HP ---
HPI Service [facility] Primary Care Physician Chris Bedolla MD Admission Diagnosis sepsis, elevated troponin, hypokalemia Diagnoses: Chief Complaint: Weakness (Lisa Mcfarland) Travel History International Travel<30 Days: No Contact w/Intl Traveler <30 Da: No Traveled to Known Affected Are: No (Lisa Mcfarland) History of Present Illness This is an 81-year-old elderly white female with history of polycythemia vera, murmur, antiphospholipid syndrome, pulmonary emboli, TIA. Patient presented to the emergency room complaining of generalized weakness with the last 2-3 days. Patient denies any fever, chills, has a dry cough, no sputum, no chest week, no shortness of breath. Has occasional dysuria. No diarrhea, no nausea, no vomiting. Patient states that on September 03 she had Right L5-S1 hemilaminectomy and microdiscectomy. Postop she did well, pain was resolving she was ambulatory. In the emergency room, patient was evaluated and laboratory workup was completed. CBC was remarkable for leukocytosis, WBC 14.6, hemoglobin 13, hematocrit 43.7. Platelets 180. BMP remarkable for hypokalemia, potassium 2.9. She was noted dehydrated with BUN of 21, creatinine 1.23. Lactic acid 5.9. Troponin was elevated, 2.68. Urinalysis showed concentrated urine, rare bacteriuria. Cultures pending. Chest x-ray did not reveal acute findings. Patient denies any history of coronary disease, she follows up annually with Dr. Nevarez for regular cardiac checkups. Patient was fluid resuscitated, cultures were obtained and patient was started on empiric antibiotics. Cardiology was contacted and requested a heparin drip to be started. Patient's INR is 1.8. A CT of the head to rule out bleed has been ordered because patient 's weakness and being unsteady. At this time, patient is resting comfortably. She is hemodynamically stable. She was admitted for further evaluation and treatment. (Lisa Mcfarland) Review of Systems Constitutional: DENIES: Diaphoretic episodes, Fatigue, Fever, Weight gain, Weight loss, Chills, Dizziness, Change in appetite, Night Sweats Endocrine: DENIES: Abnorml menstrual pattern, Heat/cold intolerance, Polydipsia , Polyuria, Polyphagia Eyes: DENIES: Blurred vision, Diplopia, Eye inflammation, Eye pain, Vision loss , Photosensitivity, Double Vision Ears, nose, mouth, throat: DENIES: Tinnitus, Hearing loss, Vertigo, Nasal discharge, Oral lesions, Throat pain, Hoarseness, Ear Pain, Running Nose, Epistaxis, Sinus Pain, Toothache, Odynophagia Respiratory: DENIES: Apneas, Cough, Snoring, Wheezing, Hemoptysis, Sputum production, Shortness of breath Cardiovascular: DENIES: Chest pain, Palpitations, Syncope, Dyspnea on Exertion , PND, Lower Extremity Edema, Orthopnea, Claudication Gastrointestinal: DENIES: Abdominal pain, Black stools, Bloody stools, Constipation, Diarrhea, Nausea, Vomiting, Difficulty Swallowing, Anorexia Genitourinary: COMPLAINS OF: Dysuria, DENIES: Abnormal vaginal bleeding, Dysmenorrhea, Dyspareunia, Sexual dysfunction, Urinary frequency, Urinary incontinence, Urgency, Hematuria, Nocturia, Vaginal discharge Musculoskeletal: COMPLAINS OF: Back pain, DENIES: Joint pain, Muscle aches, Stiffness, Joint Swelling, Neck pain Integumentary: DENIES: Abnormal pigmentation, Pruritus, Rash, Nail changes, Breast masses, Breast skin changes, Nipple discharge Hematologic/lymphatic: DENIES: Bruising, Lymphadenopathy Immunologic/allergic: DENIES: Eczema, Urticaria Neurologic: DENIES: Abnormal gait, Headache, Localized weakness, Paresthesias, Seizures, Speech Problems, Tremor, Poor Balance Psychiatric: DENIES: Anxiety, Confusion, Mood changes, Depression, Hallucinations, Agitation, Suicidal Ideation, Homicidal Ideation, Delusions Other weakness (Lisa Mcfarland) Past Family Social History Past Medical History Polycythemia vera History of PE , antiphospholipid syndrome-on chronic anticoagulation with Coumadin TIA Radiculopathy Arthritis Cervical cancer, status post radiation and chemotherapy in 2010. 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 Hypothyroid Radiation colitis Uterine fibroids Gist tumor Brain AVM Past Surgical History Right L5-S1 hemilaminectomy and microdiscectomy 5/3 Breast biopsy Tonsillectomy Mediastinoscopy Partial gastrectomy Biopsy of cervix Amadeo filter in 2012 Mediastinoscopy Reported Medications Reported Meds & Active Scripts Active Phenergan (Promethazine HCl) 25 Mg Tab 25 Mg PO Q6H PRN Hydrocodone-Acetaminophen 10-325 mg Tab 1 Tab PO Q8HR PRN Reported Klor-Con 10 (Potassium Chloride) 10 Meq Tab 10 Meq PO DAILY Warfarin 5 Mg Tab 7.5 Mg PO DIRECTED DOSE VARIES OFTEN PER PT, DR ABRAMS REGULATES DOSE EVERY 2-4 WEEKS Dyazide (Triamterene-Hydrochlorothiazide) 37.5-25 Mg Cap 1 Cap PO DAILY Synthroid (Levothyroxine Sodium) 100 Mcg Tab 100 Mcg PO EVERY OTHER DAY Probiotic (Lactobacillus Acidophilus) 1 Cap Cap 1 Cap PO DAILY Pravachol (Pravastatin) 40 Mg Tab 40 Mg PO HS Omeprazole 40 Mg Cap 40 Mg PO DAILY Combivent Respimat Inh (Ipratropium-Albuterol Inh) 20-100 [facility]/Act Aero 2 Puff INH QID PRN Furosemide 20 Mg Tab 20 Mg PO DAILY PRN SWELLING Folate (Folic Acid) 1 Mg Tab 1 Mg PO DAILY Vitamin D3 (Cholecalciferol) 1,000 Unit Tab 1,000 Units PO DAILY Calcium 600 with Vitamin D (Calcium Carbonate-Cholecalciferol) 600-400 mg-Unit Tab 1 Tab PO DAILY Biotin 5,000 Mcg Subl 5,000 Mcg SL DAILY Atenolol 25 Mg Tab 25 Mg PO HS Atenolol 50 Mg Tab 50 Mg PO DAILY Aspirin 81 Mg Tabdr 81 Mg PO DAILY Vitamin C (Ascorbic Acid) 500 Mg Tab 500 Mg PO DAILY Vesicare (Solifenacin) 10 Mg Tab 10 Mg PO DAILY (Lisa Mcfarland) Allergies: Coded Allergies: No Known Allergies (Verified , 09/21/16) Active Ordered Medications Inpatient Medications Acetaminophen (Tylenol) 650 mg Q4H PRN PO TEMP > 100.4; Start 09/21/16 at 13:30 Acetaminophen/ Hydrocodone Bitart ([place] 10-325 Mg) 1 tab Q8HR PRN PO PAIN SCALE 1 TO 10; Start 09/21/16 at 13:45 Albuterol Sulfate 2 puff 2 puff QID INH ; Start 09/21/16 at 18:00 Ascorbic Acid (Vitamin C) 500 mg DAILY PO ; Start 09/21/16 at 13:45 Aspirin (Ecotrin Ec) 81 mg DAILY PO ; Start 09/22/16 at 09:00 Atenolol (Tenormin) 50 mg DAILY PO ; Start 09/22/16 at 09:00 Calcium/Vitamin D (Oscal-D 250-125) 250 mg DAILY PO ; Start 09/22/16 at 09:00 Cholecalciferol (Vitamin D3) 1,000 units DAILY PO ; Start 09/22/16 at 09:00 Folic Acid (Folate) 1 mg DAILY PO ; Start 09/22/16 at 09:00 Heparin Sodium/ Dextrose 250 ml @ 0 mls/hr TITRATE IV ; Start 09/21/16 at 13:15 Lactobacillus Acidophilus (Lactinex) 1 tab DAILY PO ; Start 09/22/16 at 09:00 Levothyroxine Sodium (Synthroid) 100 mcg Q48H PO ; Start 09/23/16 at 06:00 Miscellaneous Information SPECIFIC LAB TO BE ADRIA... ONCE ONCE .XX ; Start 09/24 at 12:45; Stop 09/24/16 at 12:46 Naloxone HCl 0.4 mg 0.4 mg UNSCH PRN IV SEE LABEL COMMENTS; Start 09/21/16 at 13:30 Non-Formulary Medication 2 puff QID PRN INH SHORTNESS OF BREATH; Start at 13:45; Stop 09/21/16 at 13:52; Status DC Ondansetron HCl (Zofran Inj) 4 mg Q6H PRN IVP NAUSEA OR VOMITING; Start at 13:30 Pantoprazole Sodium (Protonix) 20 mg DAILY PO ; Start 09/22/16 at 09:00 Pharmacy Profile Note (Vancomycin Consult Pharmacy) 0 ml @ 0 mls/hr UNSCH PRN OTHER ADJUST FOR CREATININE CLRNCE; Start 09/21/16 at 13:30 Piperacillin Sod/ Tazobactam Sod 50 ml @ 100 mls/hr Q6H IV ; Start 09/21/16 at 17:00 Piperacillin Sod/ Tazobactam Sod (Zosyn 4.5 Gm Premix) 100 ml @ 200 mls/hr ONCE STAT IV Last administered on 09/21/16 13:18; Start 09/21/16 at 12:20; Stop 09/21/16 at 12:49; Status DC Potassium Chloride 40 meq 40 meq ONCE ONCE PO Last administered on 09/21/16t 13:17; Start 09/21/16 at 12:30; Stop 09/21/16 at 12:31; Status DC Potassium Chloride (KCl) 10 meq DAILY PO ; Start 09/22/16 at 09:00 Pravastatin Sodium (Pravachol) 40 mg HS PO ; Start 09/21/16 at 21:00 Promethazine HCl (Phenergan) 25 mg Q6H PRN PO Nausea/Vomiting; Start 09/21/16 at 13:45 Sodium Chloride (NS 1000 ml Inj) 1,000 ml @ 75 mls/hr [id number] IV ; Start at 13:29 Sodium Chloride (NS Flush) 2 ml BID IV FLUSH ; Start 09/21/16 at 21:00 Tiotropium [place] (Spiriva Inh) 18 mcg DAILY INH ; Start 09/22/16 at 09:00 Tolterodine Tartrate (Detrol La) 4 mg DAILY PO ; Start 09/22/16 at 09:00 Vancomycin HCl 1000 mg/Sodium Chloride 250 ml @ 250 mls/hr ONCE STAT IV ; Start 09/21/16 at 12:20; Stop 09/21/16 at 13:19; Status DC Vancomycin HCl/ Sodium Chloride (Vancomycin Inj/ NS 250 ml Inj) 250 ml @ 250 mls/hr Q24H IV ; Start 09/22/16 at 13:00 Family History Reviewed, noncontributory Social History Lives with , no tobacco, no EtOH, no substance abuse. (Lisa Mcfarland) Physical Exam Vital Signs Vital Signs Date Time Temp Pulse Resp B/P Pulse Ox O2 Delivery O2 Flow Rate FiO2 09/21/16 13:03 97 18 128/69 95 Room Air 09/21/16 11:06 99.4 100 18 187/74 97 Physical Exam GENERAL: This is a well-nourished, well-developed patient, in no apparent distress. SKIN: No rashes, ecchymoses or lesions. Cool and dry. HEAD: Atraumatic. Normocephalic. No temporal or scalp tenderness. EYES: Pupils equal round and reactive. Extraocular motions intact. No scleral icterus. No injection or drainage. ENT: Nose without bleeding, purulent drainage or septal hematoma. Throat without erythema, tonsillar hypertrophy or exudate. Uvula midline. Airway patent. NECK: Trachea midline. No JVD or lymphadenopathy. Supple, nontender, no meningeal signs. CARDIOVASCULAR: Regular rate and rhythm with murmur. No gallops no rubs. RESPIRATORY: Noted with bibasilar crackles, right lower base greater than left. GASTROINTESTINAL: Abdomen soft, non-tender, nondistended. No hepato-splenomegaly , or palpable masses. No guarding. MUSCULOSKELETAL: Extremities without clubbing, cyanosis, or edema. No joint tenderness, effusion, or edema noted. No calf tenderness. Negative Homans sign bilaterally. Lumbar spine with Band-Aid that is dry and intact. There is no erythema noted. NEUROLOGICAL: Awake, alert oriented 3. Slightly slow to respond but otherwise appropriate. No focal deficits. Laboratory Laboratory Tests Test 09/21/16 09/21/16 11:20 11:22 White Blood Count 14.6 Red Blood Count 6.96 Hemoglobin 13.0 Hematocrit 43.7 Mean Corpuscular Volume 62.8 Mean Corpuscular Hemoglobin 18.6 Mean Corpuscular Hemoglobin 29.7 Concent Red Cell Distribution Width 22.4 Platelet Count 180 Mean Platelet Volume 9.5 Neutrophils (%) (Auto) 96.5 Lymphocytes (%) (Auto) 1.3 Monocytes (%) (Auto) 1.4 Eosinophils (%) (Auto) 0.0 Basophils (%) (Auto) 0.8 Neutrophils # (Auto) 14.1 Lymphocytes # (Auto) 0.2 Monocytes # (Auto) 0.2 Eosinophils # (Auto) 0.0 Basophils # (Auto) 0.1 CBC Comment AUTO DIFF Differential Total Cells 100 Counted Neutrophils % (Manual) 70 Band Neutrophils % 19 Lymphocytes % 4 Monocytes % 5 Neutrophils # (Manual) 13.3 Metamyelocytes 2 Nucleated Red Blood Cells 1 Differential Comment FINAL DIFF MANUAL Toxic Vacuolation PRESENT Platelet Estimate NORMAL Platelet Morphology Comment NORMAL Tear Drop Cells 1+ Ovalocytes 1+ Prothrombin Time 20.0 Prothromb Time International 1.8 Ratio Activated Partial 43.0 Thromboplast Time Urine Color YELLOW Urine Turbidity HAZY Urine pH 5.5 Urine Specific [place] 1.017 Urine Protein 30 Urine Glucose (UA) NEG Urine Ketones TRACE Urine Occult Blood NEG Urine Nitrite NEG Urine Bilirubin NEG Urine Urobilinogen LESS THAN 2.0 Urine Leukocyte Esterase NEG Urine RBC 1 Urine WBC 1 Urine Squamous Epithelial <1 Cells Urine Amorphous Sediment OCC Urine Bacteria RARE Urine Mucus FEW Microscopic Urinalysis Comment CATH-CULTURE IND Sodium Level 136 Potassium Level 2.9 Chloride Level 96 Carbon Dioxide Level 24.4 Anion Gap 16 Blood Urea Nitrogen 21 Creatinine 1.23 Estimat Glomerular Filtration 42 Rate Random Glucose 163 Calcium Level 9.0 Magnesium Level 1.7 Total Bilirubin 3.2 Aspartate Amino Transf 27 (AST/SGOT) Alanine Aminotransferase 17 (ALT/SGPT) Alkaline Phosphatase 160 Total Creatine Kinase 135 Creatine Kinase MB 2.2 Troponin I 2.68 Total Protein 6.6 Albumin 3.2 Lactic Acid Level 5.9 Date/Time Procedure Status Source Growth 09/21/16 11:22 Aerobic Blood Culture Received Blood Peripheral Pending 09/21/16 11:22 Anaerobic Blood Culture Received Blood Peripheral Pending 09/21/16 11:20 Urine Culture Received Urine Clean Catch Pending (Lisa Mcfarland) Result Diagram: 09/21/16 1120 09/21/16 1120 Imaging Last Impressions Chest X-Ray 09/21/16 1107 Signed Impressions: Service Date/Time: Wednesday, September 21, 2016 11:38 - CONCLUSION: No acute disease. Omi Mora MD Head CT 09/21/16 0000 Signed Impressions: Service Date/Time: Wednesday, September 21, 2016 13:58 - CONCLUSION: No acute disease. Omi Mora MD (Lisa Mcfarland) Assessment and Plan Problem List: (1) Sepsis (2) Hypokalemia (3) Elevated troponin I level (4) S/P lumbar laminectomy (5) Hyperlipidemia (6) HTN (hypertension) (7) Hx pulmonary embolism (8) Hx TIA/stroke w/o resid (9) Murmur Assessment and Plan Admit to Dr. Abbott 81-year-old elderly female presented to emergency room with complaint of generalized weakness for the past 2-3 days. Status post Right L5-S1 hemilaminectomy and microdiscectomy 09/03, uneventful postop status. Had been ambulating well. Evaluated in the emergency room, found septic with elevated lactic acid and leukocytosis and bandemia. Urine culture pending -Continue with IV fluids, decreased to 75 an hour. Patient noted with crackles. We will monitor for fluid overload -Continue with empiric antibiotics follow cultures. Elevated troponin, patient denies any chest pain Noted with murmur, patient states that she has a history of. Cardiology has been consulted Continue with serial cardiac enzymes Patient was put on heparin drip, no bolus. We will stop Coumadin. -We will do a CT of the head to rule out bleed before starting heparin drip. Profile in the morning -Continue with Atenolol 50 mg by mouth daily & Aspirin 81 mg by mouth daily -We'll check a 2-D echo L5-S1 disk herniation, S/P Right L5-S1 hemilaminectomy and microdiscectomy /3 -Monitor surgical site Physical therapy for evaluation and treatment Hypertension, stable Continue home medications Hyperlipidemia, stable Continue home medications We'll check lipid profile in the morning History of pulmonary emboli, antiphospholipid syndrome. Has IVC filter Off Coumadin at this time, continue with heparin History of TIA, stable Continue with aspirin Home medications reviewed, initiated as indicated Continue with heparin for DVT prophylaxis Plan of care has been discussed with the patient and her , attending and RN. Further management of the patient will be dependent on the hospital course This patient was seen by myself and Dr. Abbott, this H&P is written his behalf ( Lisa Mcfarland) Assessment and Plan pt seen and examined as above dw pt and at bedside chart reviewed pranay limap aboutplan of care dw rn in ER (Helena Abbott MD) Physician Certification 2 Midnight Certification Type: Admission for Inpatient Services Order for Inpatient Services The services are ordered in accordance with Medicare regulations or non- Medicare payer requirements, as applicable. In the case of services not specified as inpatient-only, they are appropriately provided as inpatient services in accordance with the 2-midnight benchmark. Estimated LOS (days): 2 days is the estimated time the patient will need to remain in the hospital, assuming treatment plan goals are met and no additional complications. Post-Hospital Plan: Not yet determined (Lisa Mcfarland) Problem Qualifiers (1) Sepsis: Qualified Code: A41.9 - Sepsis, due to unspecified organism (2) Hyperlipidemia: Qualified Code: E78.5 - Hyperlipidemia, unspecified hyperlipidemia type (3) HTN (hypertension): Qualified Code: I10 - Essential hypertension Lisa Mcfarland September 21, 2016 13:38 Helena Abbott MD September 21, 2016 22:18
[2016-09-21] MEDS: ASCORBIC ACID 500 MG TAB PO SCH (13:45)
[2016-09-21] MEDS ORDERED: NON-FORMULARY DRUG (Ipratropium-Albuterol Inh (Combivent Respimat Inh) 2 PUFF) INH PRN (13:45)
[2016-09-21] MEDS ORDERED: PROMETHAZINE HCL 25 MG TAB PO PRN (13:45)
--- NOTE | 2016-09-21 14:09 | RADRPT ---
EXAM DATE/TIME: 09/21/2016 13:58 [facility] COMPARISON: No previous studies available for comparison. INDICATIONS : Patient fall hitting the back of her head. RADIATION DOSE: 38.64 CTDIvol (mGy) MEDICAL HISTORY : Cardiovascular disease. Stroke Gastroesophageal reflux disease.TB,Cervical ca with chemo and rad tx SURGICAL HISTORY : None provided ENCOUNTER: Initial ACUITY: 1 day PAIN SCALE: 7/10 LOCATION: cranial back of head TECHNIQUE: Multiple contiguous axial images were obtained of the head. Using automated exposure control and adj ustment of the mA and/or kV according to patient size, radiation dose was kept as low as reasonably a chievable to obtain optimal diagnostic quality images. FINDINGS: CEREBRUM: The ventricles are normal for age. No evidence of midline shift, mass lesion, hemorrhage or acute in farction. No extra-axial fluid collections are seen. POSTERIOR FOSSA: The cerebellum and brainstem are intact. The 4th ventricle is midline. The cerebellopontine angle i s unremarkable. EXTRACRANIAL: The visualized portion of the orbits is intact. SKULL: The calvaria is intact. No evidence of skull fracture. CONCLUSION: No acute disease. Omi Mora MD on September 21, 2016 at 14:06 Board Certified Radiologist. This report was verified electronically.
[2016-09-21 14:47] LABS: HEMATOCRIT 40.9 % (35.0-46.0); MEAN CORPUSCULAR HEMOGLOBIN 18.9 PG (27.0-34.0); MEAN CORPUSCULAR HGB CONC 30.1 % (32.0-36.0); PLATELET COUNT 170 TH/MM3 (150-450); RED BLOOD COUNT 6.49 MIL/MM3 (4.00-5.30)
[2016-09-21 14:49] LABS: REVIEW FLAG FINAL
[2016-09-21 14:57] LABS: APTT (PATIENT) 45.9 SEC (24.3-30.1); INTERNATIONAL NORMALIZED RATIO 1.6 RATIO; PROTHROMBIN TIME - PATIENT 17.8 SEC (9.8-11.6)
[2016-09-21] MEDS: HEPARIN-D5W INJ 250 ML IV SCH (15:41)
--- NOTE | 2016-09-21 16:52 | EC ---
Study Study Date:09/21/2016 STUDY CONCLUSIONS SUMMARY - Left ventricle: The cavity size was normal. Wall thickness was increased in a pattern of mild LVH. Systolic function was normal. The estimated ejection fraction was in the range of 55% to 60%. Wall motion was normal; there were no regional wall motion abnormalities. - Aortic valve: Valve area: 1.61cm^2(VTI). Valve area: 1.4cm^2 (Vmax). - Mitral valve: Mild to moderate regurgitation. - Tricuspid valve: Mild regurgitation. - Pulmonary arteries: Systolic pressure was moderately increased. If LV function is below 40, please consider prescribing an ACEI or ARB or document rationale for non-use. PROCEDURE DATA STUDY STATUS: Elective. Procedure: Transthoracic echocardiography. Image quality was good. Scanning was performed from the parasternal, apical, and subcostal acoustic windows. Study completion: The patient tolerated the procedure well. Transthoracic echocardiography. M-mode, complete 2D, complete spectral Doppler, and color Doppler. Height: Height: 65in. Weight: Weight: 126.7lb. Body mass index: BMI: 21.1kg/m^2. Body surface area: BSA: 1.63m^2. Patient status: Inpatient. CARDIAC ANATOMY LEFT VENTRICLE: The cavity size was normal. Wall thickness was increased in a pattern of mild LVH. Systolic function was normal. The estimated ejection fraction was in the range of 55% to 60%. Wall motion was normal; there were no regional wall motion abnormalities. AORTIC VALVE: Trileaflet; normal thickness leaflets. Doppler: Transvalvular velocity was within the normal range. There was no stenosis. No regurgitation. Valve area: 1.61cm^2(VTI). Indexed valve area: 0.99cm^2/m^2 (VTI). Valve area: 1.4cm^2 (Vmax). Indexed valve area: 0.86cm^2/m^2 (Vmax). Mean gradient: 13mm Hg (S). Peak gradient: 26mm Hg (S). AORTA: Aortic root: The aortic root was normal in size. MITRAL VALVE: Structurally normal valve. Doppler: Transvalvular velocity was within the normal range. There was no evidence for stenosis. Mild to moderate regurgitation. Valve area by pressure half-time: 4.4cm^2. Indexed valve area by pressure half-time: 2.7cm^2/m^2. Peak gradient: 6mm Hg (D). LEFT ATRIUM: The atrium was normal in size. RIGHT VENTRICLE: The cavity size was normal. Wall thickness was normal. PULMONIC VALVE: Doppler: Transvalvular velocity was within the normal range. There was no evidence for stenosis. No regurgitation. TRICUSPID VALVE: Structurally normal valve. Doppler: Transvalvular velocity was within the normal range. Mild regurgitation. Peak gradient: 42mm Hg (D). PULMONARY ARTERY: The main pulmonary artery was normal-sized. Systolic pressure was moderately increased. RIGHT ATRIUM: The atrium was normal in size. PERICARDIUM: There was no pericardial effusion. SYSTEMIC VEINS: Inferior vena cava: The vessel was normal in size. Patient weight: 126.7lb _Ejection fraction:_ 65-75% _Fractional shortening:_ 32% up to 5Kg 5-11.5Kg 11.6-22.9Kg 23-45Kg 45-57Kg Aortic Root 7-13 <17 13-22 17-27 17-27 LA diam 6-13 <23 24-38 33-47 37-40 RVID 10-17 7-15 7-15 7-18 8-17 LVIDd 12-22 <32 24-38 33-47 37-40 LVPW 2-4 3-6 5-7 6-8 7-8 IVS 2-4 3-6 5-7 6-8 7-8 BASIC MEASUREMENTS ADULT NORMAL Left ventricle LV internal dimension, ED, chordal 43.4 mm 43-52 level, PLAX LV internal dimension, ES, chordal 26.6 mm 23-38 level, PLAX Fractional shortening, chordal level, 39 % >29 PLAX LV posterior wall thickness, ED 12.2 mm IVS/LVPW ratio, ED 0.96 <1.3 Volume, ED, MOD, 1-plane 70 ml Volume, ES, MOD, 1-plane 22 ml Ejection fraction, MOD, 1-plane 69 % Stroke volume, MOD, 1-plane 48 ml Volume index, ED, MOD, 1-plane 43 ml/m^2 Volume index, ES, MOD, 1-plane 13 ml/m^2 Stroke index, MOD, 1-plane 29.4 ml/m^2 Ventricular septum Septal thickness, ED 11.7 mm Aortic valve Leaflet separation *12 mm 15-26 Left atrium Anterior-posterior dimension 36 mm Anterior-posterior dimension index *2.21 cm/m^2 <2.2 Right ventricle RV internal dimension, ED, PLAX 25.4 mm 19-38 BASIC MEASUREMENTS ADULT NORMAL Aortic valve Leaflet separation *12 mm 15-26 Aorta Root diameter, ED 32 mm 20-37 DOPPLER MEASUREMENTS ADULT NORMAL Aortic valve Peak velocity, S 253 cm/s Mean velocity, S 167 cm/s VTI, S 40.6 cm Mean gradient, S 13 mm Hg Peak gradient, S 26 mm Hg Valve area, VTI 1.61 cm^2 Valve area index, VTI 0.99 cm^2/m^2 Valve area, Vmax 1.4 cm^2 Valve area index, Vmax 0.86 cm^2/m^2 Regurgitant velocity, ED 346 cm/s Regurgitant deceleration 2100 cm/s^2 Regurgitant pressure half-time 483 ms Regurgitant gradient, ED 48 mm Hg Mitral valve Peak E-wave velocity 120 cm/s Peak A-wave velocity 84.9 cm/s Pressure half-time 50 ms Peak gradient, D 6 mm Hg Peak E/A ratio 1.4 Valve area, pressure half-time 4.4 cm^2 Valve area index, pressure half-time 2.7 cm^2/m^2 Tricuspid valve Peak gradient, D 42 mm Hg Maximal inflow velocity 271 cm/s Systemic veins Estimated CVP 10 mm Hg Pulmonic valve Peak velocity, S 126 cm/s LEGEND: Mean values are shown as u=mean value. Asterisk (*) cronin values outside specified normal range. Prepared and signed by Miriam Juarez [id number]
[2016-09-21 17:18] VITALS: BP 174/78; PULSE 91; RESP 17; O2SAT 96
[2016-09-21] MEDS: SODIUM CHLOR 0.9% 1000 ML INJ 1,000 ML IV SCH (17:20)
[2016-09-21] MEDS: ALBUTEROL SULFATE 90 MCG/ACT HFA 18 GM INHALER INH SCH ×2 (18:00→23:22)
[2016-09-21 20:00] VITALS: PULSE 83; RESP 31; TEMP 98.3; O2SAT 89
[2016-09-21] MEDS ORDERED: ATENOLOL 50 MG TAB PO SCH (21:00)
[2016-09-21] MEDS: SODIUM CHLORIDE 0.9% FLUSH 10 ML FLUSH IV FLUSH SCH (21:00)
[2016-09-21 21:03] LABS: MEAN CORPUSCULAR HGB CONC 29.9 % (32.0-36.0)
[2016-09-21 21:09] LABS: APTT (PATIENT) 94.1 SEC (24.3-30.1)
[2016-09-21] MEDS: PIPERACIL-TAZO 3.375 GM PREMIX 50 ML IV SCH ×2 (21:11→23:21)
[2016-09-21] MEDS: PRAVASTATIN SOD 40 MG TAB PO SCH (21:12)
[2016-09-21] MEDS: ACETAMINOPHEN/HYDROcodone 325 MG/10 MG TAB PO PRN (21:13)
[2016-09-21 22:00] VITALS: PULSE 80
--- NOTE | 2016-09-21 22:00 | MB ---
cc: FREDRICK ROSEN M.D., MARK B. M.D. FARACH, JAVIER M.D. DATE OF CONSULTATION 09/21/2016 REASON FOR CONSULTATION Elevated troponin. HISTORY OF THE PRESENT ILLNESS Mrs. Dougherty is a pleasant 81-year-old lady with history of hypertension, hyperlipidemia and family history of coronary artery disease. She used to smoke but stopped about 30 years ago. No history of diabetes. She comes in with progressive weakness and an elevated white count. A troponin was drawn in the emergency room and it was elevated. She denies chest pain or shortness of breath. Denies palpitations, dizziness or syncope. Yesterday, however, she was getting out of her bed at night and felt off balance. No syncope. Sleeps on two pillows. Denies paroxysmal nocturnal dyspnea. Has occasional ankle swelling. She exercises on the treadmill about three times a week and goes to the gym with no chest pain or shortness of breath, and she has done that up to 3 weeks ago. About 2 weeks ago she had a lumbar laminectomy and her activity has been limited since that time. ALLERGIES NO KNOWN DRUG ALLERGIES. FAMILY HISTORY Positive for coronary artery disease and cancer and hypertension. Negative for diabetes. SOCIAL HISTORY Used to smoke up to 30 years ago. Denies EtOH abuse or recreational drug use. She is and lives with her . PAST MEDICAL AND SURGICAL HISTORY Includes what is mentioned above. 1. History of carotid artery disease. 2. Antiphospholipid antibody and polycythemia vera. 3. Status post thrombotic events in the past including a PE. 4. She is status post IVC filter. 5. History of uterine cancer. 6. She had tumor removal in the past. 7. History of radiation colitis. 8. And urethritis. 9. Past history of hypothyroidism. 10. Monoclonal gammopathy. 11. Gastroesophageal reflux disease. 12. COPD. 13. Degenerative joint disease. 14. Partial gastrectomy. 15. Mediastinoscopy and removal of paratracheal lymph nodes which were benign. REVIEW OF SYSTEMS A 12-point system review was unremarkable except what is mentioned in the history of present illness. She had seen Dr. Willis a few years ago because of shortness of breath and workup was unremarkable. She was told that she has had mitral valve prolapse and mitral regurgitation. Echocardiogram today in the hospital shows normal LV systolic function, normal wall motion with mild to moderate mitral regurgitation ( reported as ) and mild tricuspid regurgitation with PA systolic pressure of 42 mmHg. MEDICATIONS At home includes the followin. Warfarin 7.5 milligrams p.o. daily. 2. Lactobacillus. 3. Vesicare 10 n.p.o. daily. 4. Atrovent inhaler. 5. Atenolol 50 milligrams p.o. every morning and 25 milligrams p.o. q.h.s. 6. Pravastatin 40 milligrams p.o. q.h.s. 7. Lasix 20 milligrams p.r.n. with ankle edema. 8. Aspirin 81 grams p.o. daily. 9. Hydrocodone p.r.n. with pain. 10. Promethazine 25 milligrams p.o. q.6h p.r.n. with nausea and vomiting. 11. Dyazide 1 capsule daily. 12. Omeprazole 40 milligrams p.o. daily. 13. Calcium supplements. 14. Potassium chloride 10 milliequivalents p.o. daily. 15. Synthroid 100 micrograms p.o. daily. 16. Biotin 5000 micrograms sublingual daily. 17. Folic acid 1 milligrams daily. 18. Vitamin C 500 milligrams p.o. daily. 19. Vitamin D3 supplement. PHYSICAL EXAMINATION GENERAL: An 81-year-old lady lying in bed in no apparent distress, alert and oriented times three, answering questions appropriately. Somewhat apprehensive and concerned about her illness. VITAL SIGNS: Blood pressure was 128/69 and then up to 174/78 mmHg. Pulse 86 beats per minute and regular with occasional extra beats. Respiration at 16-18 per minute. Temperature 99.4. HEENT: Shows head is normocephalic. Pupils equal, active. Throat is within normal limits. NECK: Supple. No jugular venous distension noted. No thyromegaly. Bilateral carotid bruit noted. LUNGS: Exam shows a few rhonchi at the right base but overall clear to auscultation and percussion. CARDIOVASCULAR: S1-S2 are normal with 2-3/6 somewhat harsh but pansystolic across the precordium suggestive of mitral regurgitation murmur. Cannot rule out a faint opening snap. S4 gallop. ABDOMEN: Lax. Nontender. Normoactive bowel sounds. No organomegaly or masses felt. EXTREMITIES: No clubbing, cyanosis or edema. PULSES: 2+ bilaterally. Bruit noted at the carotids. NEUROLOGIC: Grossly intact with no focal deficits. RECTAL: Examination deferred. EKG showed sinus rhythm with somewhat poor baseline recording but no acute ischemic changes. On the monitor she his frequent atrial ectopies and possibly brief bouts of atrial fibrillation. Again strips are not very cleanly recorded. LABORATORY Shows a white count of 22,000, hemoglobin of 12.3 and platelet count of 170. Chemistry shows sodium 136, potassium 2.9 and is being supplemented. BUN of 21, creatinine 1.23 and bilirubin of 3.2. Alkaline phosphatase of 160. Troponin I is 2.68 and the repeat was 2.47. TSH is low 0.24. CPK, MB and CPK itself are normal. Coags shows an INR of 1.8, repeat was 1.6. A urinalysis was hazy and culture is pending but rare bacteria and only one white blood cell. IMAGING Head CT scan showed no acute disease. A chest x-ray showed also no acute disease. ASSESSMENT AND RECOMMENDATIONS Elevated troponin in the setting of possible sepsis with leukocytosis. She is chest pain free. Her EKG does not show dynamic ST changes or any suggestive of an acute coronary event at the present time. She is subtherapeutic on the Coumadin and heparin will be started. We will trend her troponin and repeat it in the morning with a repeat EKG. But at this point I do not see the need for acute coronary intervention. Her troponin is somewhat elevated but part of that could be because of some degree of renal insufficiency and possibly sepsis. Her liver enzymes are enlarged and suggestive of possible obstructive disease and I would leave further workup of that aspect up to the medical team. Treatment of sepsis per the medical team as well. She has had an echocardiogram reported as normal LV systolic function, wall motion and the above-mentioned findings. Her systolic murmur is more impressive than the findings on the echo but further followup with Dr. Willis. Hypertension. Continue on metoprolol, increase the dose to 50 milligrams p.o. b.i.d. and follow up her clinical response. Carotid disease. Can be followed as an outpatient. Hypothyroidism and low TSH. Should check free T4 levels and further adjustments per the medical team. Lipid panel fasting could be checked in the morning. Dr. Willis will resume her cardiac care from tomorrow. I thank you for the consultation. MD FAY Rojas/GEM /8:07 PM /9:38 PM
[2016-09-21] MEDS ORDERED: FUROSEMIDE 20 MG TAB PO PRN (22:15)
[2016-09-21] MEDS ORDERED: WARFARIN SOD 5 MG TAB PO SCH (22:30)
[2016-09-21] MEDS: WARFARIN SOD 7.5 MG TAB PO SCH (22:30)
[2016-09-21] MEDS ORDERED: CHLORHEXIDINE GLUCONATE 2 % 1 PACK (2 CLOTHS)(extra cloths) TOPICAL PRN (22:45)
[2016-09-22] VITALS (17 sets, daily range): BP systolic 92–149; BP diastolic 50–64; PULSE 57–98; RESP 17–35; TEMP 98.3–99.2; O2SAT 69–100
[2016-09-22 01:28] LABS: APTT (PATIENT) 119.3 SEC (24.3-30.1)
[2016-09-22] MEDS: SODIUM CHLOR 0.9% 1000 ML INJ 1,000 ML IV SCH ×2 (03:20→13:09)
[2016-09-22 03:23] LABS: AUTOMATED NEUTROPHIL # 12.8 TH/MM3 (1.8-7.7); BASOPHIL # 0.1 TH/MM3 (0-0.2); BASOPHIL % 0.7 % (0.0-2.0); HEMATOCRIT 37.2 % (35.0-46.0); LYMPHOCYTE # 0.3 TH/MM3 (1.0-4.8); MEAN CELL VOLUME 62.5 FL (80.0-100.0); MEAN CORPUSCULAR HEMOGLOBIN 18.7 PG (27.0-34.0); MONO % 2.8 % (0.0-8.0); NEUT % 94.5 % (16.0-70.0); PLATELET COUNT 158 TH/MM3 (150-450); RED BLOOD COUNT 5.95 MIL/MM3 (4.00-5.30); RED CELL DISTRIBUTION WIDTH 22.5 % (11.6-17.2); WHITE BLOOD COUNT 13.6 TH/MM3 (4.0-11.0)
[2016-09-22] MEDS: CHLORHEXIDINE GLUCONATE 2 % 1 PACK (2 CLOTHS)(taper/protocol) TOPICAL SCH (03:29)
[2016-09-22] MEDS: ACETAMINOPHEN 325 MG TAB PO PRN ×3 (03:29→23:24)
[2016-09-22 03:36] LABS: APTT (PATIENT) 73.7 SEC (24.3-30.1)
[2016-09-22 04:01] LABS: HEMO FLAGS AUTO DIFF
[2016-09-22 04:05] LABS: BANDS 16 % (0-6); BASOPHILS 2 % (0-2); DOHLE BODIES PRESENT (NONE SEEN); METAMYELOCYTES 1 % (0-1); NEUTROPHIL # MANUAL DIFF 12.9 TH/MM3 (1.8-7.7); PLATELET ESTIMATE SMEAR NORMAL (NORMAL); PLATELET MORPHOLOGY NORMAL (NORMAL); POLYS (SEG NEUTROPHILS) 78 % (16-70); SCAN/DIFF FINAL DIFF MANUAL; WBC DIFF SAMPLE 100
[2016-09-22 04:06] LABS: OVALOCYTES 2+ (NORMAL)
[2016-09-22 04:07] LABS: ACANTHOCYTES OCC (NORMAL); KERATOCYTES OCC (NORMAL); TOXIC VACUOLATION PRESENT (NONE SEEN)
[2016-09-22 04:27] LABS: ALKALINE PHOSPHATASE 74 U/L (45-117); ALT (GPT) 18 U/L (10-53); ANION GAP 9 MEQ/L (5-15); AST (GOT) 36 U/L (15-37); BLOOD UREA NITROGEN 24 MG/DL (7-18); CHLORIDE 99 MEQ/L (98-107); GLOMERULAR FILTRATION RATE 61 ML/MIN (>89); HDL CHOLESTEROL 27.2 MG/DL (40.0-60.0); LDL CHOLESTEROL 28 MG/DL (0-99); POTASSIUM 3.6 MEQ/L (3.5-5.1); SODIUM (NA) 134 MEQ/L (136-145); TOTAL BILIRUBIN ADULT 1.7 MG/DL (0.2-1.0)
[2016-09-22] MEDS: PIPERACIL-TAZO 3.375 GM PREMIX 50 ML IV SCH ×2 (06:00→10:44)
[2016-09-22] MEDS: ALBUTEROL SULFATE 90 MCG/ACT HFA 18 GM INHALER INH SCH ×4 (08:08→22:07)
[2016-09-22] MEDS: ASCORBIC ACID 500 MG TAB PO SCH (08:09)
[2016-09-22] MEDS: SODIUM CHLORIDE 0.9% FLUSH 10 ML FLUSH IV FLUSH SCH ×2 (08:09→22:07)
[2016-09-22] MEDS: SODIUM CHLORIDE 0.9% FLUSH 10 ML FLUSH IV FLUSH PRN (08:09)
[2016-09-22] MEDS: ASPIRIN EC 81 MG TABEC PO SCH (08:09)
[2016-09-22] MEDS: LACTOBACILLUS ACIDOPHILUS TAB PO SCH (08:09)
[2016-09-22] MEDS: TOLTERODINE TARTRATE 4 MG CAP LA PO SCH (08:09)
[2016-09-22] MEDS: FOLIC ACID 1 MG TAB PO SCH (08:10)
[2016-09-22] MEDS: POTASSIUM CHLORIDE 10 MEQ CONTROLLED RELEASE TAB PO SCH (08:10)
[2016-09-22] MEDS: CHOLECALCIFEROL (VIT D3) 1000 UNIT TAB PO SCH (08:10)
[2016-09-22] MEDS: PANTOPRAZOLE SOD 40 MG DELAYED RELEASE TAB PO SCH (08:10)
[2016-09-22] MEDS: TRIAMTERENE/HCTZ 37.5 MG/25 MG CAP PO SCH (08:10)
[2016-09-22] MEDS: CALCIUM/VITAMIN D 250 MG/125 U TAB PO SCH (08:11)
--- NOTE | 2016-09-22 08:17 | PD.CARD.PN ---
Subjective Subjective Remarks Severe chills/rigors this AM. Mild abdominal pain and distension. Mild diarrhea. No CP or SOB. Objective Medications Current Medications Medications (Trade) Dose Ordered Sig/Gypsy Route PRN Reason Start Time Stop Time Status Last Admin Dose Admin Heparin Sodium/ Dextrose 250 ml @ 0 mls/hr TITRATE IV 09/21/16 13:15 09/21/16 15:41 Sodium Chloride (NS 1000 ml Inj) 1,000 ml @ 75 mls/hr [id number] IV 09/21/16 13:29 09/22/16 03:20 Sodium Chloride (NS Flush) 2 ml UNSCH PRN IV FLUSH FLUSH AFTER USING IV ACCESS 09/21/16 13:30 Sodium Chloride (NS Flush) 2 ml BID IV FLUSH 09/21/16 21:00 09/21/16 21:00 Acetaminophen (Tylenol) 650 mg Q4H PRN PO TEMP > 100.4 09/21/16 13:30 09/22/16 03:29 Ondansetron HCl (Zofran Inj) 4 mg Q6H PRN IVP NAUSEA OR VOMITING 09/21/16 13:30 Naloxone HCl 0.4 mg 0.4 mg UNSCH PRN IV SEE LABEL COMMENTS 09/21/16 13:30 Piperacillin Sod/ Tazobactam Sod 50 ml @ 100 mls/hr Q6H IV 09/21/16 17:00 09/22/16 06:00 Pharmacy Profile Note (Vancomycin Consult Pharmacy) 0 ml @ 0 mls/hr UNSCH PRN OTHER ADJUST FOR CREATININE CLRNCE 09/21/16 13:30 Ascorbic Acid (Vitamin C) 500 mg DAILY PO 09/21/16 13:45 Aspirin (Ecotrin Ec) 81 mg DAILY PO 09/22/16 09:00 Calcium/Vitamin D (Oscal-D 250-125) 250 mg DAILY PO 09/22/16 09:00 Cholecalciferol (Vitamin D3) 1,000 units DAILY PO 09/22/16 09:00 Folic Acid (Folate) 1 mg DAILY PO 09/22/16 09:00 Acetaminophen/ Hydrocodone Bitart ([place] 10-325 Mg) 1 tab Q8HR PRN PO PAIN SCALE 1 TO 10 09/21/16 13:45 09/21/16 21:13 Lactobacillus Acidophilus (Lactinex) 1 tab DAILY PO 09/22/16 09:00 Levothyroxine Sodium (Synthroid) 100 mcg Q48H PO 09/23/16 06:00 Potassium Chloride (KCl) 10 meq DAILY PO 09/22/16 09:00 Pravastatin Sodium (Pravachol) 40 mg HS PO 09/21/16 21:00 09/21/16 21:12 Promethazine HCl (Phenergan) 25 mg Q6H PRN PO Nausea/Vomiting 09/21/16 13:45 Tolterodine Tartrate (Detrol La) 4 mg DAILY PO 09/22/16 09:00 Tiotropium [place] (Spiriva Inh) 18 mcg DAILY INH 09/22/16 09:00 Albuterol Sulfate 2 puff 2 puff QID INH 09/21/16 18:00 09/21/16 23:22 Vancomycin HCl/ Sodium Chloride (Vancomycin Inj/ NS 250 ml Inj) 250 ml @ 250 mls/hr Q24H IV 09/22/16 13:00 Miscellaneous Information SPECIFIC LAB TO BE ADRIA... ONCE ONCE .XX 09/24/16 12:45 09/24/16 12:46 Atenolol (Tenormin) 25 mg HS PO 09/22/16 21:00 Furosemide (Lasix) 20 mg DAILY PRN PO SEE LABEL COMMENTS 09/21/16 22:15 Triamterene/HCTZ (Dyazide 37.5-25 Mg) 1 cap DAILY PO 09/22/16 09:00 Pantoprazole Sodium (Protonix) 40 mg DAILY PO 09/22/16 09:00 Warfarin Sodium (Coumadin) 7.5 mg DAILY@1600 PO 09/21/16 22:30 Miscellaneous Information Patient in critical care unit? Ass... [id number] .XX 09/21/16 22:45 Chlorhexidine Gluconate (Chlorhexidine 2% Cloth) 3 pack DAILY@04 TOPICAL 09/22/16 04:00 09/26/16 04:01 09/22/16 03:29 Chlorhexidine Gluconate (Chlorhexidine 2% Cloth) 3 pack UNSCH PRN TOPICAL HYGIENIC CARE 09/21/16 22:45 09/26/16 22:43 Vital Signs / I&O Vital Signs Date Time Temp Pulse Resp B/P Pulse Ox O2 Delivery O2 Flow Rate FiO2 09/22/16 06:00 57 09/22/16 04:00 64 09/22/16 04:00 99.2 64 19 106/50 99 09/22/16 02:00 63 09/22/16 00:00 98.5 63 24 102/50 97 09/22/16 00:00 63 09/21/16 22:00 80 09/21/16 20:00 83 09/21/16 20:00 98.3 83 31 89 09/21/16 17:18 91 17 174/78 96 Room Air 09/21/16 13:03 97 18 128/69 95 Room Air 09/21/16 11:06 99.4 100 18 187/74 97 I/O 09/21/16 09/21/16 09/21/16 09/22/16 09/22/16 09/22/16 07:00 15:00 23:00 07:00 15:00 23:00 Intake Total 2540 ml 240 ml Output Total 800 ml 500 ml Balance 1740 ml -260 ml Intake Oral 480 ml 240 ml IV Total 2060 ml 0 ml Output Urine Total 800 ml 500 ml # Voids 1 # Bowel Movements 0 1 Physical Exam Vital Signs Date Time Temp Pulse Resp B/P Pulse Ox O2 Delivery O2 Flow Rate FiO2 09/22/16 06:00 57 09/22/16 04:00 99.2 19 106/50 99 09/21/16 17:18 Room Air Mucus membranes: clear. No JVD Lungs: CTA heart: RRR, 2/6 systolic murmur, MR. Ext: Warm, no C/C/E Skin: No rash or lesions. Neuro: non-focal. Laboratory Laboratory Tests Test 09/21/16 09/21/16 09/21/16 09/21/16 11:20 11:22 13:40 14:30 White Blood Count 14.6 TH/MM3 22.0 TH/MM3 Red Blood Count 6.96 MIL/MM3 6.49 MIL/MM3 Hemoglobin 13.0 GM/DL 12.3 GM/DL Hematocrit 43.7 % 40.9 % Mean Corpuscular Volume 62.8 FL 63.0 FL Mean Corpuscular Hemoglobin 18.6 PG 18.9 PG Mean Corpuscular Hemoglobin 29.7 % 30.1 % Concent Red Cell Distribution Width 22.4 % 22.0 % Platelet Count 180 TH/MM3 170 TH/MM3 Mean Platelet Volume 9.5 FL 8.7 FL Neutrophils (%) (Auto) 96.5 % Lymphocytes (%) (Auto) 1.3 % Monocytes (%) (Auto) 1.4 % Eosinophils (%) (Auto) 0.0 % Basophils (%) (Auto) 0.8 % Neutrophils # (Auto) 14.1 TH/MM3 Lymphocytes # (Auto) 0.2 TH/MM3 Monocytes # (Auto) 0.2 TH/MM3 Eosinophils # (Auto) 0.0 TH/MM3 Basophils # (Auto) 0.1 TH/MM3 CBC Comment AUTO DIFF Differential Total Cells 100 Counted Neutrophils % (Manual) 70 % Band Neutrophils % 19 % Lymphocytes % 4 % Monocytes % 5 % Neutrophils # (Manual) 13.3 TH/MM3 Metamyelocytes 2 % Nucleated Red Blood Cells 1 /100 WBC Differential Comment FINAL DIFF MANUAL Toxic Vacuolation PRESENT Platelet Estimate NORMAL Platelet Morphology Comment NORMAL Tear Drop Cells 1+ Ovalocytes 1+ Prothrombin Time 20.0 SEC 17.8 SEC Prothromb Time International 1.8 RATIO 1.6 RATIO Ratio Activated Partial 43.0 SEC 45.9 SEC Thromboplast Time Urine Color YELLOW Urine Turbidity HAZY Urine pH 5.5 Urine Specific [place] 1.017 Urine Protein 30 mg/dL Urine Glucose (UA) NEG mg/dL Urine Ketones TRACE mg/dL Urine Occult Blood NEG Urine Nitrite NEG Urine Bilirubin NEG Urine Urobilinogen LESS THAN 2.0 MG/DL Urine Leukocyte Esterase NEG Urine RBC 1 /hpf Urine WBC 1 /hpf Urine Squamous Epithelial <1 /hpf Cells Urine Amorphous Sediment OCC Urine Bacteria RARE /hpf Urine Mucus FEW /lpf Microscopic Urinalysis Comment CATH-CULTURE IND Sodium Level 136 MEQ/L Potassium Level 2.9 MEQ/L Chloride Level 96 MEQ/L Carbon Dioxide Level 24.4 MEQ/L Anion Gap 16 MEQ/L Blood Urea Nitrogen 21 MG/DL Creatinine 1.23 MG/DL Estimat Glomerular Filtration 42 ML/MIN Rate Random Glucose 163 MG/DL Calcium Level 9.0 MG/DL Magnesium Level 1.7 MG/DL Total Bilirubin 3.2 MG/DL Aspartate Amino Transf 27 U/L (AST/SGOT) Alanine Aminotransferase 17 U/L (ALT/SGPT) Alkaline Phosphatase 160 U/L Total Creatine Kinase 135 U/L Creatine Kinase MB 2.2 NG/ML Troponin I 2.68 NG/ML 2.47 NG/ML Total Protein 6.6 GM/DL Albumin 3.2 GM/DL Lactic Acid Level 5.9 mmol/L 1.8 mmol/L 5.3 mmol/L Thyroid Stimulating Hormone 0.240 uIU/ML 3rd Gen Test 09/21/16 09/21/16 09/22/16 09/22/16 19:03 20:00 00:05 03:11 Nasal Screen MRSA (PCR) MRSA NOT DETECTED Activated Partial 94.1 SEC 119.3 SEC 73.7 SEC Thromboplast Time Troponin I 2.26 NG/ML 1.99 NG/ML White Blood Count 13.6 TH/MM3 Red Blood Count 5.95 MIL/MM3 Hemoglobin 11.1 GM/DL Hematocrit 37.2 % Mean Corpuscular Volume 62.5 FL Mean Corpuscular Hemoglobin 18.7 PG Mean Corpuscular Hemoglobin 29.9 % Concent Red Cell Distribution Width 22.5 % Platelet Count 158 TH/MM3 Mean Platelet Volume 9.1 FL Neutrophils (%) (Auto) 94.5 % Lymphocytes (%) (Auto) 2.0 % Monocytes (%) (Auto) 2.8 % Eosinophils (%) (Auto) 0.0 % Basophils (%) (Auto) 0.7 % Neutrophils # (Auto) 12.8 TH/MM3 Lymphocytes # (Auto) 0.3 TH/MM3 Monocytes # (Auto) 0.4 TH/MM3 Eosinophils # (Auto) 0.0 TH/MM3 Basophils # (Auto) 0.1 TH/MM3 CBC Comment AUTO DIFF Differential Total Cells 100 Counted Neutrophils % (Manual) 78 % Band Neutrophils % 16 % Lymphocytes % 1 % Monocytes % 2 % Basophils % 2 % Neutrophils # (Manual) 12.9 TH/MM3 Metamyelocytes 1 % Differential Comment FINAL DIFF MANUAL Toxic Vacuolation PRESENT Dohle Bodies PRESENT Platelet Estimate NORMAL Platelet Morphology Comment NORMAL Ovalocytes 2+ Acanthocytes OCC Keratocytes OCC Sodium Level 134 MEQ/L Potassium Level 3.6 MEQ/L Chloride Level 99 MEQ/L Carbon Dioxide Level 26.0 MEQ/L Anion Gap 9 MEQ/L Blood Urea Nitrogen 24 MG/DL Creatinine 0.89 MG/DL Estimat Glomerular Filtration 61 ML/MIN Rate Random Glucose 103 MG/DL Lactic Acid Level 1.3 mmol/L Calcium Level 7.6 MG/DL Total Bilirubin 1.7 MG/DL Aspartate Amino Transf 36 U/L (AST/SGOT) Alanine Aminotransferase 18 U/L (ALT/SGPT) Alkaline Phosphatase 74 U/L Total Protein 5.5 GM/DL Albumin 2.5 GM/DL Triglycerides Level 91 MG/DL Cholesterol Level 73 MG/DL LDL Cholesterol 28 MG/DL HDL Cholesterol 27.2 MG/DL Cholesterol/HDL Ratio 2.68 RATIO Imaging Echo report reviewed. LVEF normal mild-mod MR. No vegetations seen. Last 48 hours Impressions Chest X-Ray 09/21/16 1107 Signed Impressions: Service Date/Time: Wednesday, September 21, 2016 11:38 - CONCLUSION: No acute disease. Omi Mora MD Head CT 09/21/16 0000 Signed Impressions: Service Date/Time: Wednesday, September 21, 2016 13:58 - CONCLUSION: No acute disease. Omi Mora MD Assessment and Plan Problem List: (1) Sepsis (2) Rigors (3) Elevated troponin I level Assessment and Plan: Likely related to underlying sepsis/infection but (NSTEMI ) Type II AL cannot be completely excluded. (4) HTN (hypertension) (5) S/P lumbar laminectomy Assessment and Plan Awaiting Blood and urine cultures. CT abdomen to evaluate distension and r/o abdominal sourse of infection. ID consult. Following with you. Discussed Condition With Discussed with patient and technical staff engineer. Problem Qualifiers (1) Sepsis: Qualified Code: A41.9 - Sepsis, due to unspecified organism (2) HTN (hypertension): Qualified Code: I10 - Essential hypertension Andres Willis MD September 22, 2016 08:17
[2016-09-22] MEDS ORDERED: DIATRIZOATE MEGLUM/DIATRIZOATE SOD 9 ML CUP PO ONE (08:25)
[2016-09-22] MEDS: ONDANSETRON HCL 4 MG/2 ML VIAL IVP PRN (08:34)
[2016-09-22] MEDS ORDERED: NON-FORMULARY DRUG (Biotin 5,000 MCG) SL SCH (09:00)
[2016-09-22] MEDS ORDERED: PANTOPRAZOLE SOD 20 MG DELAYED RELEASE TAB PO SCH (09:00)
[2016-09-22] MEDS: TIOTROPIUM BROMIDE 18 MCG INH INH SCH (10:44)
--- NOTE | 2016-09-22 11:14 | HHI.PR ---
Subjective Interval History awake alert and oriented BP stable severe chills and rigors this am 08/05 blood cultures + for GNR 2 episodes of diarrhea no other complaints no family at bed side Vitals/Results Intake & Output 09/21/16 09/21/16 09/22/16 15:00 23:00 07:00 Intake Total 2540 ml 240 ml Output Total 800 ml 500 ml Balance 1740 ml -260 ml Intake Oral 480 ml 240 ml IV Total 2060 ml 0 ml Output Urine Total 800 ml 500 ml # Voids 1 # Bowel Movements 0 1 Vital Signs Vital Signs Date Time Temp Pulse Resp B/P Pulse Ox O2 Delivery O2 Flow Rate FiO2 09/22/16 10:00 90 09/22/16 10:00 90 26 108/54 96 09/22/16 09:00 98 33 149/64 98 09/22/16 08:00 95 09/22/16 08:00 98.5 95 35 69 09/22/16 07:00 58 17 110/52 99 09/22/16 06:00 57 09/22/16 04:00 64 09/22/16 04:00 99.2 64 19 106/50 99 09/22/16 02:00 63 09/22/16 00:00 98.5 63 24 102/50 97 09/22/16 00:00 63 09/21/16 22:00 80 09/21/16 20:00 83 09/21/16 20:00 98.3 83 31 89 09/21/16 17:18 91 17 174/78 96 Room Air 09/21/16 13:03 97 18 128/69 95 Room Air CBC/BMP: 09/22/16 0311 09/22/16 0311 Lab Results Laboratory Tests Test 09/21/16 09/21/16 09/21/16 09/21/16 11:20 11:22 13:40 14:30 White Blood Count 14.6 TH/MM3 22.0 TH/MM3 Red Blood Count 6.96 MIL/MM3 6.49 MIL/MM3 Hemoglobin 13.0 GM/DL 12.3 GM/DL Hematocrit 43.7 % 40.9 % Mean Corpuscular Volume 62.8 FL 63.0 FL Mean Corpuscular Hemoglobin 18.6 PG 18.9 PG Mean Corpuscular Hemoglobin 29.7 % 30.1 % Concent Red Cell Distribution Width 22.4 % 22.0 % Platelet Count 180 TH/MM3 170 TH/MM3 Mean Platelet Volume 9.5 FL 8.7 FL Neutrophils (%) (Auto) 96.5 % Lymphocytes (%) (Auto) 1.3 % Monocytes (%) (Auto) 1.4 % Eosinophils (%) (Auto) 0.0 % Basophils (%) (Auto) 0.8 % Neutrophils # (Auto) 14.1 TH/MM3 Lymphocytes # (Auto) 0.2 TH/MM3 Monocytes # (Auto) 0.2 TH/MM3 Eosinophils # (Auto) 0.0 TH/MM3 Basophils # (Auto) 0.1 TH/MM3 CBC Comment AUTO DIFF Differential Total Cells 100 Counted Neutrophils % (Manual) 70 % Band Neutrophils % 19 % Lymphocytes % 4 % Monocytes % 5 % Neutrophils # (Manual) 13.3 TH/MM3 Metamyelocytes 2 % Nucleated Red Blood Cells 1 /100 WBC Differential Comment FINAL DIFF MANUAL Toxic Vacuolation PRESENT Platelet Estimate NORMAL Platelet Morphology Comment NORMAL Tear Drop Cells 1+ Ovalocytes 1+ Prothrombin Time 20.0 SEC 17.8 SEC Prothromb Time International 1.8 RATIO 1.6 RATIO Ratio Activated Partial 43.0 SEC 45.9 SEC Thromboplast Time Urine Color YELLOW Urine Turbidity HAZY Urine pH 5.5 Urine Specific [place] 1.017 Urine Protein 30 mg/dL Urine Glucose (UA) NEG mg/dL Urine Ketones TRACE mg/dL Urine Occult Blood NEG Urine Nitrite NEG Urine Bilirubin NEG Urine Urobilinogen LESS THAN 2.0 MG/DL Urine Leukocyte Esterase NEG Urine RBC 1 /hpf Urine WBC 1 /hpf Urine Squamous Epithelial <1 /hpf Cells Urine Amorphous Sediment OCC Urine Bacteria RARE /hpf Urine Mucus FEW /lpf Microscopic Urinalysis Comment CATH-CULTURE IND Sodium Level 136 MEQ/L Potassium Level 2.9 MEQ/L Chloride Level 96 MEQ/L Carbon Dioxide Level 24.4 MEQ/L Anion Gap 16 MEQ/L Blood Urea Nitrogen 21 MG/DL Creatinine 1.23 MG/DL Estimat Glomerular Filtration 42 ML/MIN Rate Random Glucose 163 MG/DL Calcium Level 9.0 MG/DL Magnesium Level 1.7 MG/DL Total Bilirubin 3.2 MG/DL Aspartate Amino Transf 27 U/L (AST/SGOT) Alanine Aminotransferase 17 U/L (ALT/SGPT) Alkaline Phosphatase 160 U/L Total Creatine Kinase 135 U/L Creatine Kinase MB 2.2 NG/ML Troponin I 2.68 NG/ML 2.47 NG/ML Total Protein 6.6 GM/DL Albumin 3.2 GM/DL Lactic Acid Level 5.9 mmol/L 1.8 mmol/L 5.3 mmol/L Thyroid Stimulating Hormone 0.240 uIU/ML 3rd Gen Test 09/21/16 09/21/16 09/22/16 09/22/16 19:03 20:00 00:05 03:11 Nasal Screen MRSA (PCR) MRSA NOT DETECTED Activated Partial 94.1 SEC 119.3 SEC 73.7 SEC Thromboplast Time Troponin I 2.26 NG/ML 1.99 NG/ML White Blood Count 13.6 TH/MM3 Red Blood Count 5.95 MIL/MM3 Hemoglobin 11.1 GM/DL Hematocrit 37.2 % Mean Corpuscular Volume 62.5 FL Mean Corpuscular Hemoglobin 18.7 PG Mean Corpuscular Hemoglobin 29.9 % Concent Red Cell Distribution Width 22.5 % Platelet Count 158 TH/MM3 Mean Platelet Volume 9.1 FL Neutrophils (%) (Auto) 94.5 % Lymphocytes (%) (Auto) 2.0 % Monocytes (%) (Auto) 2.8 % Eosinophils (%) (Auto) 0.0 % Basophils (%) (Auto) 0.7 % Neutrophils # (Auto) 12.8 TH/MM3 Lymphocytes # (Auto) 0.3 TH/MM3 Monocytes # (Auto) 0.4 TH/MM3 Eosinophils # (Auto) 0.0 TH/MM3 Basophils # (Auto) 0.1 TH/MM3 CBC Comment AUTO DIFF Differential Total Cells 100 Counted Neutrophils % (Manual) 78 % Band Neutrophils % 16 % Lymphocytes % 1 % Monocytes % 2 % Basophils % 2 % Neutrophils # (Manual) 12.9 TH/MM3 Metamyelocytes 1 % Differential Comment FINAL DIFF MANUAL Toxic Vacuolation PRESENT Dohle Bodies PRESENT Platelet Estimate NORMAL Platelet Morphology Comment NORMAL Ovalocytes 2+ Acanthocytes OCC Keratocytes OCC Sodium Level 134 MEQ/L Potassium Level 3.6 MEQ/L Chloride Level 99 MEQ/L Carbon Dioxide Level 26.0 MEQ/L Anion Gap 9 MEQ/L Blood Urea Nitrogen 24 MG/DL Creatinine 0.89 MG/DL Estimat Glomerular Filtration 61 ML/MIN Rate Random Glucose 103 MG/DL Lactic Acid Level 1.3 mmol/L Calcium Level 7.6 MG/DL Total Bilirubin 1.7 MG/DL Aspartate Amino Transf 36 U/L (AST/SGOT) Alanine Aminotransferase 18 U/L (ALT/SGPT) Alkaline Phosphatase 74 U/L Total Protein 5.5 GM/DL Albumin 2.5 GM/DL Triglycerides Level 91 MG/DL Cholesterol Level 73 MG/DL LDL Cholesterol 28 MG/DL HDL Cholesterol 27.2 MG/DL Cholesterol/HDL Ratio 2.68 RATIO Microbiology Microbiology 09/21/16 Urine Culture, Received Pending 09/21/16 Aerobic Blood Culture, Received Pending 09/21/16 Anaerobic Blood Culture, Received Pending 09/22/16 Stool Occult Blood (LAMAR) - Final, Complete HEMOCCULT NEGATIVE Physical Exam General General Appearance: Well Nourished, No Acute Distress Eyes Eye Exam: Pupils Equal, Pupils Reactive, Sclera White, Extraocular Movement Intact Throat Throat Exam: Oral Mucosa [place] & Moist Neck Neck Exam: Neck Supple, Trachea Midline Pulmonary Resp Exam: Clear Bilaterally, Breath Sounds Equal, No Distress Cardiology CV Exam: Regular, Normal Sinus Rhythm, Good Perfusion Gastrointestinal/Abdomen GI Exam: Soft, Non-Tender, Bowel Sounds Present, Distended Musculoskeletal MS Exam: Joints Intact Integumentary Skin Exam: Clear, Warm, Dry, Intact Extremeties Extremities Exam: No Edema Neurologic Neuro Exam: Alert, Awake, Oriented, Speech Clear, Moving All Extremities, Rat Culturist Equal, No Focal Deficits Psychiatric Psych Exam: Appropriate Responses Assessment/Plan Assessment/Plan Assessment and Plan Assessment and Plan Problem List: (1) Sepsis (2) Hypokalemia (3) Elevated troponin I level (4) S/P lumbar laminectomy (5) Hyperlipidemia (6) HTN (hypertension) (7) Hx pulmonary embolism (8) Hx TIA/stroke w/o resid (9) Murmur Assessment and Plan Admit to Dr. Abbott 81-year-old elderly female presented to emergency room with complaint of generalized weakness for the past 2-3 days. Status post Right L5-S1 hemilaminectomy and microdiscectomy 09/03, uneventful postop status. Had been ambulating well. Evaluated in the emergency room, found septic with elevated lactic acid and leukocytosis and bandemia. Urine culture pending -Continue with IV fluids, decreased to 75 an hour. monitor for fluid overload -Continue with empiric antibiotics VAnco /Zosyn -GNR bacteremia / bottles +, follow cultures. -ID consulted -lactic acidosis resolved - CT abd/Pelvis pending -r/o C diff Elevated troponin, patient denies any chest pain Noted with murmur, patient states that she has a history of. Appreciate Cardiology input Continue with serial cardiac enzymes Continue heparin drip, no bolus. holding Coumadin. - NSTEMI -Continue with Atenolol 50 mg by mouth daily & Aspirin 81 mg by mouth daily -2-D echo: EF 55-60% L5-S1 disk herniation, S/P Right L5-S1 hemilaminectomy and microdiscectomy 09/03 -Monitor surgical site Physical therapy for evaluation and treatment Hypertension, stable Continue home medications Hyperlipidemia, stable Continue home medications -check lipid profile History of pulmonary emboli, antiphospholipid syndrome. Has IVC filter Off Coumadin at this time, continue with heparin History of TIA, stable Continue with aspirin Home medications reviewed, initiated as indicated Continue with heparin for DVT prophylaxis Plan of care discussed with patient and nursing staff no family at bed side labs in Monique Vazquez MD September 22, 2016 11:14
[2016-09-22 11:35] LABS: C. DIFF EPI 027 PRESUMPTIVE NEGATIVE (NEGATIVE)
[2016-09-22 12:14] LABS: C. DIFF TOXIN PCR POSITIVE (NEGATIVE)
[2016-09-22] MEDS ORDERED: VANCOMYCIN INJ 750 MG in SODIUM CHLOR 0.9% 250 ML INJ 250 ML IV SCH (13:00)
[2016-09-22] MEDS: cefTRIAXone INJ 2,000 MG in SODIUM CHLORIDE 0.9% INJ 100 ML IV SCH (13:08)
[2016-09-22] MEDS: VANCOMYCIN 500 MG VIAL (FOR ORAL USE ONLY) PO SCH ×3 (13:08→22:09)
--- NOTE | 2016-09-22 13:08 | MB ---
cc: CAMILO WILLIS M.D., FRANKLYN F. MD DATE OF CONSULTATION: 09/22/[address] Willis REASON FOR CONSULTATION Sepsis. Rigors. HISTORY OF PRESENT ILLNESS This is an 81-year-old white female who was brought to the emergency department after she developed generalized weakness and fell. The patient's reported that she was weak and could not stand up and therefore he called 911. The patient states she was also having shaking chills yesterday. The patient was evaluated in the emergency department and her temperature was 99.4 degrees and the white count was elevated at 14.6 and lactic acid level was 5.9. Blood cultures were taken and she was admitted to the intensive care unit. She also had elevated troponin and hypokalemia. The patient is currently awake and alert. She states that she feels better. She is having diarrhea. Stool sample sent for C. difficile has come back positive. All four bottles of the blood cultures obtained on 09/21/2016 have gram-negative jerman. Urine culture is pending. Urinalysis revealed 1 white cell per high power field but rare urine bacteria. The patient states that she has burning on urination but she always had this problem since she had surgery for cervical cancer five years ago. She had been treated with radiation therapy. She mentions that every time a urine sample is taken from her it comes back negative for urinary tract infection. She had surgery for lumbar problems in September which consisted of a right L5-S1 hemilaminectomy and microdiscectomy for a L5-S1 disc herniation. She reportedly has a little serous fluid from the surgical incision. She denies any problems from the surgery but states that she had a little back pain yesterday. PAST MEDICAL HISTORY 1. Coronary artery disease. 2. Hypertension. 3. Arthritis. 4. COPD. 5. Gastroesophageal reflux disease. 6. History of PE. 7. TIA. 8. Radiculopathy. 9. Hypothyroidism. 10.Uterine fibroids. 11.Monoclonal gammopathy. 12.Brain AVM. 13.L5-S1 hemilaminectomy and microdiscectomy. 14.Partial gastrectomy. 15.Cervical cancer. 16.Amadeo filter. 17.Tonsillectomy. 18.History of mitral valve prolapse. ALLERGIES No known drug allergies. MEDICATIONS 1. Vancomycin. 2. Piperacillin/tazobactam. 3. Folate. 4. Lactinex. 5. Vitamin-D3. 6. Os-Ronn D. 7. Synthroid. 8. Tenormin. 9. Protonix. 10.Pravachol. 11.Vitamin-C. 12.[place] 10 p.r.n. SOCIAL HISTORY The patient is . No tobacco. Moderate alcohol. No illicit drugs. FAMILY HISTORY Noncontributory. REVIEW OF SYSTEMS GENERAL: Positive chills. No fever. HEAD, EYES, EARS, NOSE, AND THROAT: No visual blurring or diplopia. No nasal discharge. No difficulty swallowing or soreness of the throat. NECK: No neck swelling or pain. CARDIOVASCULAR: No palpitations. No chest pain. RESPIRATORY: No cough. No shortness of breath. GASTROINTESTINAL: Positive for abdominal pain. Positive diarrhea. No constipation. No nausea or vomiting. GENITOURINARY: Positive dysuria. MUSCULOSKELETAL: Positive low back pain. No joint ache or muscle aches. INTEGUMENTARY: No skin rash. No itching. HEMATOPOIETIC: Denies easy bruising or bleeding. ENDOCRINE: Denies polyuria or polydipsia. NEUROLOGIC: Denies problems with coordination. Positive weakness. PSYCHIATRIC: Denies mood changes, depression or hallucinations. PHYSICAL EXAMINATION GENERAL: This is a thin female who is in no acute distress. She appears well-nourished. VITAL SIGNS: Temperature 98.5, BP 108/54, respirations 24, heart rate 86. HEENT: Head is atraumatic. Extraocular movements grossly intact. Pupils reactive to light. No icterus. Oropharynx no visible lesions. NECK: Supple without adenopathy. LUNGS: Clear breath sounds bilaterally. HEART: A 2/6 systolic murmur at the left sternal border. No rubs or gallops. ABDOMEN: Bowel sounds present. Soft, nontender. No palpable masses. RECTAL: Not performed. EXTREMITIES: No clubbing, cyanosis or edema. SKIN: No rash. NEUROLOGIC: Patient alert and oriented x3. No gross focal findings. PSYCHIATRIC: The patient is calm, pleasant and cooperative. LABORATORY WBC 13.6, platelets 158, 94% neutrophils, 16% bands, hemoglobin 11.1. Creatinine 0.89, BUN 24, estimated GFR 61, sodium 134. Liver function tests normal. Lactic acid 1.3. IMAGING Head CT: No acute disease. IMPRESSION 1. Gram-negative sepsis. The patient presented with leukocytosis and elevated lactic acid level. The patient very likely has urine as the source of the sepsis. 2. C. difficile colitis. 3. Leukocytosis secondary to infection, C. difficile. RECOMMENDATIONS 1. Discontinue piperacillin/tazobactam. 2. Discontinue vancomycin. 3. Begin ceftriaxone for the gram-negative bacteria in the blood. 4. Follow the urine culture. 5. Follow blood cultures for identity of the gram-negative bacteria. 6. Begin oral vancomycin for C. difficile. 7. Add intravenous Flagyl since she likely may have complicated C. difficile infection. 8. Monitor clinical status. Thank you for this consultation. The patient's progress will be monitored and further recommendations will be given on followup. Julito Albarran MD FD/CYRUS /12:24 PM /12:49 PM
[2016-09-22] MEDS: metroNIDAZOLE 500 MG INJ 100 ML IV SCH ×2 (13:09→22:20)
--- NOTE | 2016-09-22 13:11 | EKG ---
Date Performed: 09/22/2016 Time Performed: 07:22:06 PTAGE: 81 years EKG: Sinus rhythm NONSPECIFIC T-WAVE ABNORMALITY BORDERLINE ECG Compared to prior tracing no significant change PREVIOUS TRACING : 09/21/2016 19.45 DOCTOR: Lawrence Alvarenga Interpretating Date/Time 09/22/2016 13:09:37
[2016-09-22 13:19] LABS: APTT (PATIENT) 57.9 SEC (24.3-30.1)
[2016-09-22] MEDS: ACETAMINOPHEN/HYDROcodone 325 MG/10 MG TAB PO PRN (15:19)
[2016-09-22] MEDS: WARFARIN SOD 7.5 MG TAB PO SCH (15:19)
[2016-09-22] MEDS ORDERED: ENOXAPARIN SODIUM 40 MG/0.4 ML SYRINGE SQ SCH (18:00)
--- NOTE | 2016-09-22 21:08 | RADRPT ---
EXAM DATE/TIME: 09/22/2016 18:19 [place] COMPARISON: No previous studies available for comparison. INDICATIONS : Abdomen pain bloating. ORAL CONTRAST: Prescribed oral contrast ingested. RADIATION DOSE: 9.96 CTDIvol (mGy) MEDICAL HISTORY : Cardiovascular disease. Hypertension. Chronic obstructive pulmonary disease.cervical ca SURGICAL HISTORY : partial gastrectomy ENCOUNTER: Initial ACUITY: 2 days PAIN SCALE: 3/10 LOCATION: Abdomen TECHNIQUE: Volumetric scanning of the abdomen and pelvis was performed. Using automated exposure control and ad justment of the mA and/or kV according to patient size, radiation dose was kept as low as reasonably achievable to obtain optimal diagnostic quality images. FINDINGS: There are small bilateral pleural effusions with dependent air space disease in the lungs. No pneumot horax. The liver is enlarged to 24 cm and spleen to 17.4 cm. Kidneys, adrenals and pancreas unremarkable. Inferior vena cava filter noted. No calcified gallstones or biliary ductal dilatation. There is a mild ileus. No definite bowel obstruction. There is mural thickening of the rectum and sig moid. Mild anasarca. Vergara catheter present in the bladder. There is moderate to severe arthritis of the left hip and moderate osteoarthritis of the right hip. CONCLUSION: 1. Dependent atelectasis in the lungs with small pleural effusions. 2. Hepatosplenomegaly. 3. Mural thickening of sigmoid and rectum most characteristic of a mild colitis and proctitis. 4. Inferior vena cava filter present. Vergara catheter in the bladder. 5. Mild ileus without definite evidence for obstruction. Anirudh Hanna MD on September 22, 2016 at 20:59 Board Certified Radiologist. This report was verified electronically.
[2016-09-22 21:12] LABS: MEAN CORPUSCULAR HGB CONC 29.6 % (32.0-36.0)
[2016-09-22] MEDS: PRAVASTATIN SOD 40 MG TAB PO SCH (22:08)
[2016-09-22] MEDS: ATENOLOL 25 MG TAB PO SCH (22:09)
[2016-09-23] VITALS (17 sets, daily range): BP systolic 96–138; BP diastolic 49–78; PULSE 58–108; RESP 13–38; TEMP 97.6–98.4; O2SAT 70–100
[2016-09-23] MEDS: metroNIDAZOLE 500 MG INJ 100 ML IV SCH ×4 (02:21→20:15)
[2016-09-23] MEDS: HEPARIN-D5W INJ 250 ML IV SCH (02:22)
[2016-09-23] MEDS: CHLORHEXIDINE GLUCONATE 2 % 1 PACK (2 CLOTHS)(taper/protocol) TOPICAL SCH (04:00)
[2016-09-23 05:48] LABS: AUTOMATED NEUTROPHIL # 5.5 TH/MM3 (1.8-7.7); BASOPHIL # 0.1 TH/MM3 (0-0.2); EOSINOPHIL # 0.1 TH/MM3 (0-0.4); EOSINOPHIL % 1.3 % (0.0-4.0); HEMATOCRIT 33.4 % (35.0-46.0); LYMPHOCYTE # 0.2 TH/MM3 (1.0-4.8); MEAN CELL VOLUME 62.5 FL (80.0-100.0); MEAN CORPUSCULAR HEMOGLOBIN 18.5 PG (27.0-34.0); NEUT % 92.7 % (16.0-70.0); PLATELET COUNT 65 TH/MM3 (150-450); RED BLOOD COUNT 5.35 MIL/MM3 (4.00-5.30); RED CELL DISTRIBUTION WIDTH 22.4 % (11.6-17.2); WHITE BLOOD COUNT 5.9 TH/MM3 (4.0-11.0)
[2016-09-23 05:49] LABS: APTT (PATIENT) 57.6 SEC (24.3-30.1)
[2016-09-23 05:50] LABS: HEMO FLAGS AUTO DIFF
[2016-09-23 06:06] LABS: BICARBONATE 25.7 MEQ/L (21.0-32.0); INDIRECT BILIRUBIN 0.3 MG/DL (0.0-0.8); POTASSIUM 3.3 MEQ/L (3.5-5.1); TOTAL BILIRUBIN ADULT 0.6 MG/DL (0.2-1.0)
[2016-09-23 06:09] LABS: CALCIUM-PROTEIN CORRECTED 8.2 MG/DL (8.5-10.1)
[2016-09-23] MEDS: LEVOTHYROXINE SODIUM 100 MCG TAB PO SCH (06:45)
[2016-09-23] MEDS: SODIUM CHLOR 0.9% 1000 ML INJ 1,000 ML IV SCH ×2 (06:46→17:41)
[2016-09-23] MEDS: ACETAMINOPHEN/HYDROcodone 325 MG/10 MG TAB PO PRN ×3 (06:52→23:53)
[2016-09-23 07:02] LABS: BANDS 37 % (0-6); BASOPHILS 1 % (0-2); NEUTROPHIL # MANUAL DIFF 5.7 TH/MM3 (1.8-7.7); POLYS (SEG NEUTROPHILS) 60 % (16-70); WBC DIFF SAMPLE 100
[2016-09-23 07:04] LABS: DOHLE BODIES PRESENT (NONE SEEN); KERATOCYTES OCC (NORMAL); OVALOCYTES 2+ (NORMAL)
[2016-09-23 07:05] LABS: PLATELET ESTIMATE SMEAR LOW (NORMAL); PLATELET MORPHOLOGY NORMAL (NORMAL); SCAN/DIFF FINAL DIFF MANUAL
[2016-09-23] MEDS: ALBUTEROL SULFATE 90 MCG/ACT HFA 18 GM INHALER INH SCH ×4 (07:43→20:16)
[2016-09-23] MEDS: TIOTROPIUM BROMIDE 18 MCG INH INH SCH (07:43)
[2016-09-23] MEDS: VANCOMYCIN 500 MG VIAL (FOR ORAL USE ONLY) PO SCH ×4 (07:44→20:16)
[2016-09-23] MEDS: POTASSIUM CHLORIDE 10 MEQ CONTROLLED RELEASE TAB PO SCH (07:45)
[2016-09-23] MEDS: CHOLECALCIFEROL (VIT D3) 1000 UNIT TAB PO SCH (07:45)
[2016-09-23] MEDS: SODIUM CHLORIDE 0.9% FLUSH 10 ML FLUSH IV FLUSH SCH ×2 (07:45→20:17)
[2016-09-23] MEDS: ASCORBIC ACID 500 MG TAB PO SCH (07:45)
[2016-09-23] MEDS: TOLTERODINE TARTRATE 4 MG CAP LA PO SCH (07:45)
[2016-09-23] MEDS: CALCIUM/VITAMIN D 250 MG/125 U TAB PO SCH (07:45)
[2016-09-23] MEDS: FOLIC ACID 1 MG TAB PO SCH (07:45)
[2016-09-23] MEDS: SODIUM CHLORIDE 0.9% FLUSH 10 ML FLUSH IV FLUSH PRN (07:45)
[2016-09-23] MEDS: PANTOPRAZOLE SOD 40 MG DELAYED RELEASE TAB PO SCH (07:46)
[2016-09-23] MEDS: LACTOBACILLUS ACIDOPHILUS TAB PO SCH (07:46)
[2016-09-23] MEDS: TRIAMTERENE/HCTZ 37.5 MG/25 MG CAP PO SCH (07:46)
--- NOTE | 2016-09-23 08:19 | PD.CARD.PN ---
Subjective Subjective Remarks Feeling better this AM. BC and C.Diff. toxin results noted. Denies CP or SOB. Objective Medications Current Medications Medications (Trade) Dose Ordered Sig/Gypsy Route PRN Reason Start Time Stop Time Status Last Admin Dose Admin Sodium Chloride (NS 1000 ml Inj) 1,000 ml @ 75 mls/hr [id number] IV 09/21/16 13:29 09/23/16 06:46 Sodium Chloride (NS Flush) 2 ml UNSCH PRN IV FLUSH FLUSH AFTER USING IV ACCESS 09/21/16 13:30 09/23/16 07:45 Sodium Chloride (NS Flush) 2 ml BID IV FLUSH 09/21/16 21:00 09/23/16 07:45 Acetaminophen (Tylenol) 650 mg Q4H PRN PO TEMP > 100.4 09/21/16 13:30 09/22/16 23:24 Ondansetron HCl (Zofran Inj) 4 mg Q6H PRN IVP NAUSEA OR VOMITING 09/21/16 13:30 09/22/16 08:34 Naloxone HCl (Narcan Inj) 0.4 mg UNSCH PRN IV SEE LABEL COMMENTS 09/21/16 13:30 Ascorbic Acid (Vitamin C) 500 mg DAILY PO 09/21/16 13:45 09/23/16 07:45 Aspirin (Ecotrin Ec) 81 mg DAILY PO 09/22/16 09:00 09/22/16 08:09 Calcium/Vitamin D (Oscal-D 250-125) 250 mg DAILY PO 09/22/16 09:00 09/23/16 07:45 Cholecalciferol (Vitamin D3) 1,000 units DAILY PO 09/22/16 09:00 09/23/16 07:45 Folic Acid (Folate) 1 mg DAILY PO 09/22/16 09:00 09/23/16 07:45 Acetaminophen/ Hydrocodone Bitart ([place] 10-325 Mg) 1 tab Q8HR PRN PO PAIN SCALE 1 TO 10 09/21/16 13:45 09/23/16 06:52 Lactobacillus Acidophilus (Lactinex) 1 tab DAILY PO 09/22/16 09:00 09/23/16 07:46 Levothyroxine Sodium (Synthroid) 100 mcg Q48H PO 09/23/16 06:00 09/23/16 06:45 Potassium Chloride (KCl) 10 meq DAILY PO 09/22/16 09:00 09/23/16 07:45 Pravastatin Sodium (Pravachol) 40 mg HS PO 09/21/16 21:00 09/22/16 22:08 Promethazine HCl (Phenergan) 25 mg Q6H PRN PO Nausea/Vomiting 09/21/16 13:45 Tolterodine Tartrate (Detrol La) 4 mg DAILY PO 09/22/16 09:00 09/23/16 07:45 Tiotropium [place] (Spiriva Inh) 18 mcg DAILY INH 09/22/16 09:00 09/23/16 07:43 Albuterol Sulfate (Ventolin Hfa Inh) 2 puff QID INH 09/21/16 18:00 09/23/16 07:43 Atenolol (Tenormin) 25 mg HS PO 09/22/16 21:00 09/22/16 22:09 Furosemide (Lasix) 20 mg DAILY PRN PO SEE LABEL COMMENTS 09/21/16 22:15 Triamterene/HCTZ (Dyazide 37.5-25 Mg) 1 cap DAILY PO 09/22/16 09:00 09/23/16 07:46 Pantoprazole Sodium (Protonix) 40 mg DAILY PO 09/22/16 09:00 09/23/16 07:46 Warfarin Sodium (Coumadin) 7.5 mg DAILY@1600 PO 09/21/16 22:30 Hold 09/22/16 15:19 Miscellaneous Information Patient in critical care unit? Ass... [id number] .[id number] 09/21/16 22:45 Chlorhexidine Gluconate (Chlorhexidine 2% Cloth) 3 pack DAILY@04 TOPICAL 09/22/16 04:00 09/26/16 04:01 09/22/16 03:29 Chlorhexidine Gluconate (Chlorhexidine 2% Cloth) 3 pack UNSCH PRN TOPICAL HYGIENIC CARE 09/21/16 22:45 09/26/16 22:43 Vancomycin HCl 125 mg 125 mg QID PO 09/22/16 13:00 09/23/16 07:44 Metronidazole 100 ml @ 100 mls/hr Q6H IV 09/22/16 14:00 09/23/16 07:44 Ceftriaxone Sodium/Sodium Chloride (Rocephin Inj/NS Inj) 100 ml @ 200 mls/hr Q24H IV 09/22/16 13:00 09/22/16 13:08 Vital Signs / I&O Vital Signs Date Time Temp Pulse Resp B/P Pulse Ox O2 Delivery O2 Flow Rate FiO2 09/23/16 06:00 66 09/23/16 04:00 63 09/23/16 04:00 97.6 63 22 131/60 94 09/23/16 02:00 67 09/23/16 00:00 97.9 78 18 105/49 100 09/23/16 00:00 78 09/22/16 22:00 69 09/22/16 20:00 98.3 74 24 122/56 98 09/22/16 20:00 74 09/22/16 18:00 73 09/22/16 16:00 76 09/22/16 16:00 98.7 76 21 92/54 100 09/22/16 15:00 78 20 107/52 97 09/22/16 14:00 83 23 110/55 95 09/22/16 14:00 83 09/22/16 13:00 82 32 105/53 98 09/22/16 12:00 83 09/22/16 12:00 98.9 83 25 106/55 98 09/22/16 11:00 84 31 105/52 96 09/22/16 10:00 90 09/22/16 10:00 90 26 108/54 96 09/22/16 09:00 98 33 149/64 98 I/O 09/22/16 09/22/16 09/22/16 09/23/16 09/23/16 09/23/16 07:00 15:00 23:00 07:00 15:00 23:00 Intake Total 240 ml 1080 ml 992 ml 957 ml Output Total 500 ml 350 ml 800 ml 400 ml Balance -260 ml 730 ml 192 ml 557 ml Intake Oral 240 ml 720 ml 240 ml 240 ml IV Total 0 ml 360 ml 752 ml 717 ml Output Urine Total 500 ml 350 ml 800 ml 400 ml # Voids 1 # Bowel Movements 1 2 1 1 Physical Exam Vital Signs Date Time Temp Pulse Resp B/P Pulse Ox O2 Delivery O2 Flow Rate FiO2 09/22/16 06:00 57 09/22/16 04:00 99.2 19 106/50 99 09/21/16 17:18 Room Air Mucus membranes: clear. No JVD Lungs: CTA heart: RRR, 2/6 systolic murmur, MR. Ext: Warm, no C/C/E Skin: No rash or lesions. Neuro: non-focal. Laboratory Laboratory Tests Test 09/22/16 09/22/16 09/23/16 08:30 12:26 05:21 Stool C. difficile Toxin (PCR) POSITIVE Stl C. difficile Toxin PRESUMPTIVE Epiderm 027 NEGATIVE Activated Partial 57.9 SEC 57.6 SEC Thromboplast Time White Blood Count 5.9 TH/MM3 Red Blood Count 5.35 MIL/MM3 Hemoglobin 9.9 GM/DL Hematocrit 33.4 % Mean Corpuscular Volume 62.5 FL Mean Corpuscular Hemoglobin 18.5 PG Mean Corpuscular Hemoglobin 29.6 % Concent Red Cell Distribution Width 22.4 % Platelet Count 65 TH/MM3 Mean Platelet Volume 9.2 FL Neutrophils (%) (Auto) 92.7 % Lymphocytes (%) (Auto) 3.0 % Monocytes (%) (Auto) 2.0 % Eosinophils (%) (Auto) 1.3 % Basophils (%) (Auto) 1.0 % Neutrophils # (Auto) 5.5 TH/MM3 Lymphocytes # (Auto) 0.2 TH/MM3 Monocytes # (Auto) 0.1 TH/MM3 Eosinophils # (Auto) 0.1 TH/MM3 Basophils # (Auto) 0.1 TH/MM3 CBC Comment AUTO DIFF Differential Total Cells 100 Counted Neutrophils % (Manual) 60 % Band Neutrophils % 37 % Lymphocytes % 1 % Monocytes % 1 % Basophils % 1 % Neutrophils # (Manual) 5.7 TH/MM3 Differential Comment FINAL DIFF MANUAL Dohle Bodies PRESENT Platelet Estimate LOW Platelet Morphology Comment NORMAL Ovalocytes 2+ Keratocytes OCC Sodium Level 135 MEQ/L Potassium Level 3.3 MEQ/L Chloride Level 101 MEQ/L Carbon Dioxide Level 25.7 MEQ/L Anion Gap 8 MEQ/L Blood Urea Nitrogen 19 MG/DL Creatinine 0.86 MG/DL Estimat Glomerular Filtration 63 ML/MIN Rate Random Glucose 84 MG/DL Calcium Level 7.0 MG/DL Protein Corrected Calcium 8.2 MG/DL Total Bilirubin 0.6 MG/DL Direct Bilirubin 0.3 MG/DL Indirect Bilirubin 0.3 MG/DL Aspartate Amino Transf 37 U/L (AST/SGOT) Alanine Aminotransferase 20 U/L (ALT/SGPT) Alkaline Phosphatase 57 U/L Total Protein 4.8 GM/DL Albumin 2.0 GM/DL Imaging Last 48 hours Impressions Abdomen/Pelvis CT 09/22/16 0000 Signed Impressions: Service Date/Time: Thursday, September 22, 2016 18:19 - CONCLUSION: 1. Dependent atelectasis in the lungs with small pleural effusions. 2. Hepatosplenomegaly. 3. Mural thickening of sigmoid and rectum most characteristic of a mild colitis and proctitis. 4. Inferior vena cava filter present. Vergara catheter in the bladder. 5. Mild ileus without definite evidence for obstruction. Anirudh Hanna MD Chest X-Ray 09/21/16 1107 Signed Impressions: Service Date/Time: Wednesday, September 21, 2016 11:38 - CONCLUSION: No acute disease. Omi Mora MD Assessment and Plan Problem List: (1) Sepsis Assessment and Plan: Gr. neg. and C. Diff. colitis. (2) Rigors (3) Elevated troponin I level (4) HTN (hypertension) (5) S/P lumbar laminectomy (6) Thrombocytopenia Assessment and Plan CV stable. Awaiting final blood and urine cultures. CT abdomen results noted. Will check INR and resume warfarin. D/C Heparin in light of thrombocytopenia. Recheck platelet count and Hep induced AB.. ID consult appreciated. Following with you. Code Status Full Discussed Condition With Patient and staff research scientist. Problem Qualifiers (1) Sepsis: Qualified Code: A41.9 - Sepsis, due to unspecified organism (2) HTN (hypertension): Qualified Code: I10 - Essential hypertension Andres Willis MD September 23, 2016 08:19
[2016-09-23] MEDS: ASPIRIN EC 81 MG TABEC PO SCH (09:00)
[2016-09-23] MEDS: ACETAMINOPHEN 325 MG TAB PO PRN (09:33)
[2016-09-23 11:00] LABS: INTERNATIONAL NORMALIZED RATIO 1.4 RATIO; PROTHROMBIN TIME - PATIENT 15.7 SEC (9.8-11.6)
[2016-09-23] MEDS: cefTRIAXone INJ 2,000 MG in SODIUM CHLORIDE 0.9% INJ 100 ML IV SCH (11:54)
--- NOTE | 2016-09-23 12:37 | HHI.PR ---
Subjective Interval History awake alert and oriented had chills lasting more than an hour this am, leaving her fatigued BP better no fever 2 BMs overnight, none since am family at bed side Vitals/Results Intake & Output 09/22/16 09/22/16 09/23/16 14:59 22:59 06:59 Intake Total 1080 ml 992 ml 957 ml Output Total 350 ml 800 ml 400 ml Balance 730 ml 192 ml 557 ml Intake Oral 720 ml 240 ml 240 ml IV Total 360 ml 752 ml 717 ml Output Urine Total 350 ml 800 ml 400 ml # Bowel Movements 2 1 1 Vital Signs Vital Signs Date Time Temp Pulse Resp B/P Pulse Ox O2 Delivery O2 Flow Rate FiO2 09/23/16 12:00 84 09/23/16 12:00 98.4 84 27 105/54 97 09/23/16 11:00 94 29 112/56 95 09/23/16 10:00 108 38 70 09/23/16 10:00 108 09/23/16 09:00 75 25 114/56 97 09/23/16 08:00 72 09/23/16 08:00 98.0 72 27 124/59 91 09/23/16 07:00 70 28 138/59 95 09/23/16 06:00 66 09/23/16 04:00 63 09/23/16 04:00 97.6 63 22 131/60 94 09/23/16 02:00 67 09/23/16 00:00 97.9 78 18 105/49 100 09/23/16 00:00 78 09/22/16 22:00 69 09/22/16 20:00 98.3 74 24 122/56 98 09/22/16 20:00 74 09/22/16 18:00 73 09/22/16 16:00 76 09/22/16 16:00 98.7 76 21 92/54 100 09/22/16 15:00 78 20 107/52 97 09/22/16 14:00 83 23 110/55 95 09/22/16 14:00 83 09/22/16 13:00 82 32 105/53 98 CBC/BMP: 09/23/16 1028 09/23/16 0521 Lab Results Laboratory Tests Test 09/23/16 09/23/16 05:21 10:28 White Blood Count 5.9 TH/MM3 Red Blood Count 5.35 MIL/MM3 Hemoglobin 9.9 GM/DL Hematocrit 33.4 % Mean Corpuscular Volume 62.5 FL Mean Corpuscular Hemoglobin 18.5 PG Mean Corpuscular Hemoglobin 29.6 % Concent Red Cell Distribution Width 22.4 % Platelet Count 65 TH/MM3 72 TH/MM3 Mean Platelet Volume 9.2 FL Neutrophils (%) (Auto) 92.7 % Lymphocytes (%) (Auto) 3.0 % Monocytes (%) (Auto) 2.0 % Eosinophils (%) (Auto) 1.3 % Basophils (%) (Auto) 1.0 % Neutrophils # (Auto) 5.5 TH/MM3 Lymphocytes # (Auto) 0.2 TH/MM3 Monocytes # (Auto) 0.1 TH/MM3 Eosinophils # (Auto) 0.1 TH/MM3 Basophils # (Auto) 0.1 TH/MM3 CBC Comment AUTO DIFF Differential Total Cells 100 Counted Neutrophils % (Manual) 60 % Band Neutrophils % 37 % Lymphocytes % 1 % Monocytes % 1 % Basophils % 1 % Neutrophils # (Manual) 5.7 TH/MM3 Differential Comment FINAL DIFF MANUAL Dohle Bodies PRESENT Platelet Estimate LOW Platelet Morphology Comment NORMAL Ovalocytes 2+ Keratocytes OCC Activated Partial 57.6 SEC Thromboplast Time Sodium Level 135 MEQ/L Potassium Level 3.3 MEQ/L Chloride Level 101 MEQ/L Carbon Dioxide Level 25.7 MEQ/L Anion Gap 8 MEQ/L Blood Urea Nitrogen 19 MG/DL Creatinine 0.86 MG/DL Estimat Glomerular Filtration 63 ML/MIN Rate Random Glucose 84 MG/DL Calcium Level 7.0 MG/DL Protein Corrected Calcium 8.2 MG/DL Total Bilirubin 0.6 MG/DL Direct Bilirubin 0.3 MG/DL Indirect Bilirubin 0.3 MG/DL Aspartate Amino Transf 37 U/L (AST/SGOT) Alanine Aminotransferase 20 U/L (ALT/SGPT) Alkaline Phosphatase 57 U/L Total Protein 4.8 GM/DL Albumin 2.0 GM/DL Prothrombin Time 15.7 SEC Prothromb Time International 1.4 RATIO Ratio Physical Exam General General Appearance: Well Nourished, No Acute Distress Eyes Eye Exam: Pupils Equal, Pupils Reactive, Sclera White, Extraocular Movement Intact Throat Throat Exam: Oral Mucosa [place] & Moist Neck Neck Exam: Neck Supple, Trachea Midline Pulmonary Resp Exam: Clear Bilaterally, Breath Sounds Equal, No Distress Cardiology CV Exam: Regular, Normal Sinus Rhythm, Good Perfusion Gastrointestinal/Abdomen GI Exam: Soft, Non-Tender, Bowel Sounds Present, Distended Musculoskeletal MS Exam: Joints Intact Integumentary Skin Exam: Clear, Warm, Dry, Intact Extremeties Extremities Exam: No Edema Neurologic Neuro Exam: Alert, Awake, Oriented, Speech Clear, Moving All Extremities, [employer] Consultant Equal, No Focal Deficits Psychiatric Psych Exam: Appropriate Responses Assessment/Plan Assessment/Plan Assessment and Plan Assessment and Plan Problem List: (1) Sepsis: GNR bacteremia, C diff + (2) Hypokalemia (3) Elevated troponin I level (4) S/P lumbar laminectomy (5) Hyperlipidemia (6) HTN (hypertension) (7) Hx pulmonary embolism (8) Hx TIA/stroke w/o resid (9) Murmur (10) thrombocytopenia Assessment and Plan 81-year-old elderly female presented to emergency room with complaint of generalized weakness for the past 2-3 days. Status post Right L5-S1 hemilaminectomy and microdiscectomy 09/03, uneventful postop status. Had been ambulating well. Evaluated in the emergency room, found septic with elevated lactic acid and leukocytosis and bandemia. Urine culture pending -Continue with IV fluids, Appreciate ID input on Rocephin, PO vanco and Flagyl -GNR bacteremia 08/05 bottles +, follow cultures. Prelim E coli and Proteus -lactic acidosis resolved - CT abd/Pelvis noted - C diff + will make tylenol scheduled to avoid chills, rigors Elevated troponin, patient denies any chest pain Noted with murmur, patient states that she has a history of. Appreciate Cardiology input Continue with serial cardiac enzymes discontinue heparin gtt, sec to thrombocytopenia HIT panel sent and pending ok to restart Coumadin, no plan for immediate surgery - NSTEMI -Continue with Atenolol 50 mg by mouth daily & Aspirin 81 mg by mouth daily -2-D echo: EF 55-60% L5-S1 disk herniation, S/P Right L5-S1 hemilaminectomy and microdiscectomy 09/03 -Monitor surgical site Physical therapy for evaluation and treatment Hypertension, stable Continue home medications Hyperlipidemia, stable Continue home medications -check lipid profile History of pulmonary emboli, antiphospholipid syndrome. Has IVC filter coumadin resumed History of TIA, stable Continue with aspirin Home medications reviewed, initiated as indicated DVT prophylaxis: SCD/ coumadin replace potassium OOB to chair \ continue current care in ICU Plan of care discussed with patient and nursing staff family at bed side labs in Monique Forbes MD September 23, 2016 12:37
[2016-09-23] MEDS ORDERED: POTASSIUM CHLORIDE 20 MEQ CONTROLLED RELEASE TAB PO ONE (12:45)
[2016-09-23] MEDS: ACETAMINOPHEN 325 MG TAB PO SCH ×2 (13:49→21:58)
--- NOTE | 2016-09-23 15:12 | EKG ---
Date Performed: 09/21/2016 Time Performed: 11:10:02 PTAGE: 81 years EKG: ATRIAL FIBRILLATION POSSIBLE RIGHT VENTRICULAR CONDUCTION DELAY NONSPECIFIC ST & T-WAVE ABN ORMALITY Since previous tracing, no significant change noted ABNORMAL RHYTHM ECG PREVIOUS TRACING : 06/17/2015 03.05 DOCTOR: Laila Gramajo Interpretating Date/Time 09/23/2016 15:11:11
--- NOTE | 2016-09-23 15:14 | EKG ---
Date Performed: 09/21/2016 Time Performed: 19:40:46 PTAGE: 81 years EKG: Atrial fibrillation. Anterolateral T wave changes are nonspecific Since previous tracing, n o significant change noted Abnormal ECG PREVIOUS TRACING : 09/21/2016 11.29 DOCTOR: Laila Gramajo Interpretating Date/Time 09/23/2016 15:13:28
--- NOTE | 2016-09-23 15:14 | EKG ---
Date Performed: 09/21/2016 Time Performed: 11:29:32 PTAGE: 81 years EKG: ATRIAL FIBRILLATION WITH RAPID VENTRICULAR RESPONSE NONSPECIFIC ST & T-WAVE ABNORMALITY Whe n compared to previous tracing, no significant change. ABNORMAL RHYTHM ECG PREVIOUS TRACING : 09/21/2016 11.10 DOCTOR: Laila Gramajo Interpretating Date/Time 09/23/2016 15:13:19
--- NOTE | 2016-09-23 16:06 | HHI.IDPN ---
Note Infectious Disease Note Patient had episode of severe chills this am. Now feels tired. No other complaints. No BM this am. Denies SOB. RHOADES. Urine clear in chinchilla catheter. Blood culture has E. coli and proteus. Urine culture rhoades no growth. Presented to the emergency department after she developed generalized weakness and fell. PAST MEDICAL HISTORY 1. Coronary artery disease. 2. Hypertension. 3. Arthritis. 4. COPD. 5. Gastroesophageal reflux disease. 6. History of PE. 7. TIA. 8. Radiculopathy. 9. Hypothyroidism. 10.Uterine fibroids. 11.Monoclonal gammopathy. 12.Brain AVM. 13.L5-S1 hemilaminectomy and microdiscectomy. 09/17. 14.Partial gastrectomy. 15.Cervical cancer. 16.[place] filter. 17.Tonsillectomy. 18.History of mitral valve prolapse. ALLERGIES No known drug allergies. ANTIBIOTICS: Vancomycin PO. Ceftriaxone. OBJECTIVE: Vital Signs Date Time Temp Pulse Resp B/P Pulse Ox O2 Delivery O2 Flow Rate FiO2 09/23/16 14:00 77 09/23/16 12:00 84 09/23/16 12:00 98.4 84 27 105/54 97 09/23/16 11:00 94 29 112/56 95 09/23/16 10:00 108 38 70 09/23/16 10:00 108 09/23/16 09:00 75 25 114/56 97 09/23/16 08:00 72 09/23/16 08:00 98.0 72 27 124/59 91 09/23/16 07:00 70 28 138/59 95 09/23/16 06:00 66 09/23/16 04:00 63 09/23/16 04:00 97.6 63 22 131/60 94 09/23/16 02:00 67 09/23/16 00:00 97.9 78 18 105/49 100 09/23/16 00:00 78 09/22/16 22:00 69 09/22/16 20:00 98.3 74 24 122/56 98 09/22/16 20:00 74 09/22/16 18:00 73 09/22/16 09/22/16 09/23/16 14:59 22:59 06:59 Intake Total 1080 ml 992 ml 957 ml Output Total 350 ml 800 ml 400 ml Balance 730 ml 192 ml 557 ml Intake Oral 720 ml 240 ml 240 ml IV Total 360 ml 752 ml 717 ml Output Urine Total 350 ml 800 ml 400 ml # Bowel Movements 2 1 1 Laboratory Tests Test 09/22/16 09/23/16 09/23/16 03:11 05:21 10:28 White Blood Count 13.6 TH/MM3 5.9 TH/MM3 Red Blood Count 5.95 MIL/MM3 5.35 MIL/MM3 Hemoglobin 11.1 GM/DL 9.9 GM/DL Hematocrit 37.2 % 33.4 % Mean Corpuscular Volume 62.5 FL 62.5 FL Mean Corpuscular Hemoglobin 18.7 PG 18.5 PG Mean Corpuscular Hemoglobin 29.9 % 29.6 % Concent Red Cell Distribution Width 22.5 % 22.4 % Platelet Count 158 TH/MM3 65 TH/MM3 72 TH/MM3 Mean Platelet Volume 9.1 FL 9.2 FL Neutrophils (%) (Auto) 94.5 % 92.7 % Lymphocytes (%) (Auto) 2.0 % 3.0 % Monocytes (%) (Auto) 2.8 % 2.0 % Eosinophils (%) (Auto) 0.0 % 1.3 % Basophils (%) (Auto) 0.7 % 1.0 % Neutrophils # (Auto) 12.8 TH/MM3 5.5 TH/MM3 Lymphocytes # (Auto) 0.3 TH/MM3 0.2 TH/MM3 Monocytes # (Auto) 0.4 TH/MM3 0.1 TH/MM3 Eosinophils # (Auto) 0.0 TH/MM3 0.1 TH/MM3 Basophils # (Auto) 0.1 TH/MM3 0.1 TH/MM3 CBC Comment AUTO DIFF AUTO DIFF Differential Total Cells 100 100 Counted Neutrophils % (Manual) 78 % 60 % Band Neutrophils % 16 % 37 % Lymphocytes % 1 % 1 % Monocytes % 2 % 1 % Basophils % 2 % 1 % Neutrophils # (Manual) 12.9 TH/MM3 5.7 TH/MM3 Metamyelocytes 1 % Differential Comment FINAL DIFF FINAL DIFF MANUAL MANUAL Toxic Vacuolation PRESENT Dohle Bodies PRESENT PRESENT Platelet Estimate NORMAL LOW Platelet Morphology Comment NORMAL NORMAL Ovalocytes 2+ 2+ Acanthocytes OCC Keratocytes OCC OCC Laboratory Tests Test 09/21/16 09/22/16 09/23/16 20:00 03:11 05:21 Troponin I 2.26 NG/ML 1.99 NG/ML Sodium Level 134 MEQ/L 135 MEQ/L Potassium Level 3.6 MEQ/L 3.3 MEQ/L Chloride Level 99 MEQ/L 101 MEQ/L Carbon Dioxide Level 26.0 MEQ/L 25.7 MEQ/L Anion Gap 9 MEQ/L 8 MEQ/L Blood Urea Nitrogen 24 MG/DL 19 MG/DL Creatinine 0.89 MG/DL 0.86 MG/DL Estimat Glomerular Filtration 61 ML/MIN 63 ML/MIN Rate Random Glucose 103 MG/DL 84 MG/DL Lactic Acid Level 1.3 mmol/L Calcium Level 7.6 MG/DL 7.0 MG/DL Total Bilirubin 1.7 MG/DL 0.6 MG/DL Aspartate Amino Transf 36 U/L 37 U/L (AST/SGOT) Alanine Aminotransferase 18 U/L 20 U/L (ALT/SGPT) Alkaline Phosphatase 74 U/L 57 U/L Total Protein 5.5 GM/DL 4.8 GM/DL Albumin 2.5 GM/DL 2.0 GM/DL Triglycerides Level 91 MG/DL Cholesterol Level 73 MG/DL LDL Cholesterol 28 MG/DL HDL Cholesterol 27.2 MG/DL Cholesterol/HDL Ratio 2.68 RATIO Protein Corrected Calcium 8.2 MG/DL Direct Bilirubin 0.3 MG/DL Indirect Bilirubin 0.3 MG/DL Microbiology Date/Time Procedure Status Source Growth 09/21/16 11:12 Aerobic Blood Culture - Preliminary Resulted Blood Peripheral Escherichia Coli Proteus Species 09/21/16 11:12 Anaerobic Blood Culture - Preliminary Resulted Escherichia Coli Proteus Species 09/21/16 11:20 Urine Culture - Final Complete Urine Clean Catch NO GROWTH IN 48 HOURS. 09/21/16 11:22 Aerobic Blood Culture - Final Complete Blood Peripheral Escherichia Coli Proteus Mirabilis 09/21/16 11:22 Anaerobic Blood Culture - Final Complete Escherichia Coli Proteus Mirabilis 09/22/16 08:30 Stool Occult Blood ([facility]AR) - Final Complete Stool Stool HEMOCCULT NEGATIVE Last Impressions Abdomen/Pelvis CT 09/22/16 0000 Signed Impressions: Service Date/Time: Thursday, September 22, 2016 18:19 - CONCLUSION: 1. Dependent atelectasis in the lungs with small pleural effusions. 2. Hepatosplenomegaly. 3. Mural thickening of sigmoid and rectum most characteristic of a mild colitis and proctitis. 4. Inferior vena cava filter present. Chinchilla catheter in the bladder. 5. Mild ileus without definite evidence for obstruction. Anirudh Hanna MD Chest X-Ray 09/21/16 1107 Signed Impressions: Service Date/Time: Wednesday, September 21, 2016 11:38 - CONCLUSION: No acute disease. Omi Mora MD Head CT 09/21/16 0000 Signed Impressions: Service Date/Time: Wednesday, September 21, 2016 13:58 - CONCLUSION: No acute disease. Omi Mora MD PHYSICAL EXAMINATION GENERAL: No acute distress. She appears well-nourished. HEENT: No icterus. Oropharynx no visible lesions. NECK: Supple without adenopathy. LUNGS: Clear breath sounds bilaterally. HEART: A 2/6 systolic murmur at the left sternal border. No rubs or gallops. ABDOMEN: Bowel sounds present. Soft, nontender. No palpable masses. EXTREMITIES: No clubbing, cyanosis or edema. SKIN: No rash. NEUROLOGIC: Patient alert and oriented x3. No gross focal findings. PSYCHIATRIC: Calm, pleasant and cooperative. IMPRESSION 1. Gram-negative sepsis. Proteus and e. coli. The patient presented with leukocytosis and elevated lactic acid level. The patient very likely has urine as the source of the sepsis. 2. C. difficile colitis. 3. Leukocytosis secondary to infection, C. difficile. Improved. RECOMMENDATIONS 1. Continue Ceftriaxone for the gram-negative bacteria in the blood. Monitor blood culture sensitivities. 2. Continue oral vancomycin for C. difficile. 3. Repeat blood cultures. 4. Continue intravenous Flagyl. 5. Monitor clinical status. Julito Albarran MD September 23, 2016 16:06
[2016-09-23] MEDS: PRAVASTATIN SOD 40 MG TAB PO SCH (20:16)
[2016-09-23] MEDS: ATENOLOL 25 MG TAB PO SCH (20:17)
[2016-09-24] VITALS (12 sets, daily range): BP systolic 118–148; BP diastolic 58–86; PULSE 58–92; RESP 16–19; TEMP 97.4–98.5; O2SAT 82–99
[2016-09-24] MEDS: metroNIDAZOLE 500 MG INJ 100 ML IV SCH ×2 (02:27→09:01)
[2016-09-24] MEDS: CHLORHEXIDINE GLUCONATE 2 % 1 PACK (2 CLOTHS)(taper/protocol) TOPICAL SCH (04:00)
[2016-09-24] MEDS: ACETAMINOPHEN 325 MG TAB PO SCH ×5 (06:03→22:32)
[2016-09-24] MEDS: SODIUM CHLOR 0.9% 1000 ML INJ 1,000 ML IV SCH ×2 (07:55→21:15)
[2016-09-24] MEDS ORDERED: WARFARIN SOD 7.5 MG TAB PO ONE (08:45)
--- NOTE | 2016-09-24 08:48 | PD.CARD.PN ---
Subjective Subjective Remarks Improving. No rigors. Still has diarrhea. No CP or SOB. Objective Medications Current Medications Medications (Trade) Dose Ordered Sig/Gypsy Route PRN Reason Start Time Stop Time Status Last Admin Dose Admin Sodium Chloride (NS 1000 ml Inj) 1,000 ml @ 75 mls/hr [id number] IV 09/21/16 13:29 09/23/16 17:41 Sodium Chloride (NS Flush) 2 ml UNSCH PRN IV FLUSH FLUSH AFTER USING IV ACCESS 09/21/16 13:30 09/23/16 07:45 Sodium Chloride (NS Flush) 2 ml BID IV FLUSH 09/21/16 21:00 09/23/16 20:17 Acetaminophen (Tylenol) 650 mg Q4H PRN PO TEMP > 100.4 09/21/16 13:30 09/23/16 09:33 Ondansetron HCl (Zofran Inj) 4 mg Q6H PRN IVP NAUSEA OR VOMITING 09/21/16 13:30 09/22/16 08:34 Naloxone HCl (Narcan Inj) 0.4 mg UNSCH PRN IV SEE LABEL COMMENTS 09/21/16 13:30 Ascorbic Acid (Vitamin C) 500 mg DAILY PO 09/21/16 13:45 09/23/16 07:45 Aspirin (Ecotrin Ec) 81 mg DAILY PO 09/22/16 09:00 09/22/16 08:09 Calcium/Vitamin D (Oscal-D 250-125) 250 mg DAILY PO 09/22/16 09:00 09/23/16 07:45 Cholecalciferol (Vitamin D3) 1,000 units DAILY PO 09/22/16 09:00 09/23/16 07:45 Folic Acid (Folate) 1 mg DAILY PO 09/22/16 09:00 09/23/16 07:45 Acetaminophen/ Hydrocodone Bitart ([place] 10-325 Mg) 1 tab Q8HR PRN PO PAIN SCALE 1 TO 10 09/21/16 13:45 09/23/16 23:53 Lactobacillus Acidophilus (Lactinex) 1 tab DAILY PO 09/22/16 09:00 09/23/16 07:46 Levothyroxine Sodium (Synthroid) 100 mcg Q48H PO 09/23/16 06:00 09/23/16 06:45 Potassium Chloride (KCl) 10 meq DAILY PO 09/22/16 09:00 09/23/16 07:45 Pravastatin Sodium (Pravachol) 40 mg HS PO 09/21/16 21:00 09/23/16 20:16 Promethazine HCl (Phenergan) 25 mg Q6H PRN PO Nausea/Vomiting 09/21/16 13:45 Tolterodine Tartrate (Detrol La) 4 mg DAILY PO 09/22/16 09:00 09/23/16 07:45 Tiotropium [place] (Spiriva Inh) 18 mcg DAILY INH 09/22/16 09:00 09/23/16 07:43 Albuterol Sulfate (Ventolin Hfa Inh) 2 puff QID INH 09/21/16 18:00 09/23/16 20:16 Atenolol (Tenormin) 25 mg HS PO 09/22/16 21:00 09/23/16 20:17 Furosemide (Lasix) 20 mg DAILY PRN PO SEE LABEL COMMENTS 09/21/16 22:15 Triamterene/HCTZ (Dyazide 37.5-25 Mg) 1 cap DAILY PO 09/22/16 09:00 09/23/16 07:46 Pantoprazole Sodium (Protonix) 40 mg DAILY PO 09/22/16 09:00 09/23/16 07:46 Warfarin Sodium (Coumadin) 7.5 mg DAILY@1600 PO 09/21/16 22:30 Hold 09/22/16 15:19 Miscellaneous Information Patient in critical care unit? Ass... [id number] .XX 09/21/16 22:45 Chlorhexidine Gluconate (Chlorhexidine 2% Cloth) 3 pack DAILY@04 TOPICAL 09/22/16 04:00 09/26/16 04:01 09/22/16 03:29 Chlorhexidine Gluconate (Chlorhexidine 2% Cloth) 3 pack UNSCH PRN TOPICAL HYGIENIC CARE 09/21/16 22:45 09/26/16 22:43 Vancomycin HCl 125 mg 125 mg QID PO 09/22/16 13:00 09/23/16 20:16 Metronidazole 100 ml @ 100 mls/hr Q6H IV 09/22/16 14:00 09/24/16 02:27 Ceftriaxone Sodium/Sodium Chloride (Rocephin Inj/NS Inj) 100 ml @ 200 mls/hr Q24H IV 09/22/16 13:00 09/23/16 11:54 Acetaminophen (Tylenol) 325 mg Q8HR PO 09/23/16 14:00 09/25/16 13:59 09/24/16 06:03 Vital Signs / I&O Vital Signs Date Time Temp Pulse Resp B/P Pulse Ox O2 Delivery O2 Flow Rate FiO2 09/24/16 06:00 58 09/24/16 04:00 60 09/24/16 04:00 97.5 60 16 118/58 99 09/24/16 02:00 66 09/24/16 00:00 98.5 76 16 127/60 98 09/24/16 00:00 76 09/23/16 22:00 82 09/23/16 20:00 97.8 75 20 113/78 100 09/23/16 20:00 75 09/23/16 18:00 58 09/23/16 16:00 70 09/23/16 16:00 97.9 70 13 104/51 99 09/23/16 15:00 72 13 96/49 99 09/23/16 14:00 77 21 100/50 99 09/23/16 14:00 77 09/23/16 13:00 84 25 99/52 97 09/23/16 12:00 84 09/23/16 12:00 98.4 84 27 105/54 97 09/23/16 11:00 94 29 112/56 95 09/23/16 10:00 108 38 70 09/23/16 10:00 108 09/23/16 09:00 75 25 114/56 97 I/O 09/23/16 09/23/16 09/23/16 09/24/16 09/24/16 09/24/16 07:00 15:00 23:00 07:00 15:00 23:00 Intake Total 957 ml 1600 ml 1140 ml 738 ml Output Total 400 ml 425 ml 1200 ml 1000 ml Balance 557 ml 1175 ml -60 ml -262 ml Intake Oral 240 ml 1000 ml 600 ml 200 ml IV Total 717 ml 600 ml 540 ml 538 ml Output Urine Total 400 ml 425 ml 1200 ml 1000 ml # Bowel Movements 1 0 0 0 Physical Exam Vital Signs Date Time Temp Pulse Resp B/P Pulse Ox O2 Delivery O2 Flow Rate FiO2 09/22/16 06:00 57 09/22/16 04:00 99.2 19 106/50 99 09/21/16 17:18 Room Air Mucus membranes: clear. No JVD Lungs: CTA heart: RRR, 2/6 systolic murmur, MR. Ext: Warm, no C/C/E Skin: No rash or lesions. Neuro: non-focal. Laboratory Laboratory Tests Test 09/23/16 10:28 Platelet Count 72 TH/MM3 Prothrombin Time 15.7 SEC Prothromb Time International 1.4 RATIO Ratio Assessment and Plan Problem List: (1) Sepsis Assessment and Plan: Improving. (2) Rigors Assessment and Plan: Resolved. (3) Elevated troponin I level Assessment and Plan: Falling with low CPK. Likely secondary to sepsis and rigors. (4) HTN (hypertension) (5) S/P lumbar laminectomy (6) Thrombocytopenia Assessment and Plan: Improving. No bleeding evident. (7) Hypokalemia Assessment and Plan: Replacing. Assessment and Plan CV stable. Awaiting final blood and urine cultures. CT abdomen results noted. Will check INR and resume warfarin. D/C Heparin in light of thrombocytopenia. Awaiting Hep induced AB.. ID consult appreciated. Resume warfarin. D/C O2 and chinchilla cath. OK to transfer to [facility]. I will sign off and follow PRN. F/U as outpatient arranged in 1-2 weeks. Following with you. Code Status Full Discussed Condition With Patient and balance staff inspector. Problem Qualifiers (1) Sepsis: Qualified Code: A41.9 - Sepsis, due to unspecified organism (2) HTN (hypertension): Qualified Code: I10 - Essential hypertension Andres Willis MD September 24, 2016 08:48
[2016-09-24] MEDS: ACETAMINOPHEN/HYDROcodone 325 MG/10 MG TAB PO PRN ×2 (09:00→21:09)
[2016-09-24] MEDS: TIOTROPIUM BROMIDE 18 MCG INH INH SCH (09:00)
[2016-09-24] MEDS: SODIUM CHLORIDE 0.9% FLUSH 10 ML FLUSH IV FLUSH SCH ×2 (09:00→21:01)
[2016-09-24] MEDS: PANTOPRAZOLE SOD 40 MG DELAYED RELEASE TAB PO SCH (09:01)
[2016-09-24] MEDS: TOLTERODINE TARTRATE 4 MG CAP LA PO SCH (09:03)
[2016-09-24] MEDS: ASPIRIN EC 81 MG TABEC PO SCH (09:03)
[2016-09-24] MEDS: CALCIUM/VITAMIN D 250 MG/125 U TAB PO SCH (09:03)
[2016-09-24] MEDS: LACTOBACILLUS ACIDOPHILUS TAB PO SCH (09:03)
[2016-09-24] MEDS: ASCORBIC ACID 500 MG TAB PO SCH (09:03)
[2016-09-24] MEDS: TRIAMTERENE/HCTZ 37.5 MG/25 MG CAP PO SCH (09:03)
[2016-09-24] MEDS: FOLIC ACID 1 MG TAB PO SCH (09:03)
[2016-09-24] MEDS: CHOLECALCIFEROL (VIT D3) 1000 UNIT TAB PO SCH (09:04)
[2016-09-24] MEDS: VANCOMYCIN 500 MG VIAL (FOR ORAL USE ONLY) PO SCH ×4 (09:04→21:00)
--- NOTE | 2016-09-24 10:44 | HHI.IDPN ---
Note Infectious Disease Note Patient feels better. Sitting up in chair. "forced myself to get out of bed". Mucus stool this am. Notes abdominal cramps. Denies SOB. Urine clear in chinchilla catheter. Blood culture has E. coli and proteus. Urine culture duarte no growth. Presented to the emergency department after she developed generalized weakness and fell. PAST MEDICAL HISTORY 1. Coronary artery disease. 2. Hypertension. 3. Arthritis. 4. COPD. 5. Gastroesophageal reflux disease. 6. History of PE. 7. TIA. 8. Radiculopathy. 9. Hypothyroidism. 10.Uterine fibroids. 11.Monoclonal gammopathy. 12.Brain AVM. 13.L5-S1 hemilaminectomy and microdiscectomy. 09/17. 14.Partial gastrectomy. 15.Cervical cancer. 16.[place] filter. 17.Tonsillectomy. 18.History of mitral valve prolapse. ALLERGIES No known drug allergies. ANTIBIOTICS: Vancomycin PO. Ceftriaxone. OBJECTIVE: Vital Signs Date Time Temp Pulse Resp B/P Pulse Ox O2 Delivery O2 Flow Rate FiO2 09/24/16 10:00 62 09/24/16 08:00 59 09/24/16 06:00 58 09/24/16 04:00 60 09/24/16 04:00 97.5 60 16 118/58 99 09/24/16 02:00 66 09/24/16 00:00 98.5 76 16 127/60 98 09/24/16 00:00 76 09/23/16 22:00 82 09/23/16 20:00 97.8 75 20 113/78 100 09/23/16 20:00 75 09/23/16 18:00 58 09/23/16 16:00 70 09/23/16 16:00 97.9 70 13 104/51 99 09/23/16 15:00 72 13 96/49 99 09/23/16 14:00 77 21 100/50 99 09/23/16 14:00 77 09/23/16 13:00 84 25 99/52 97 09/23/16 12:00 84 09/23/16 12:00 98.4 84 27 105/54 97 09/23/16 11:00 94 29 112/56 95 09/23/16 09/23/16 09/24/16 15:00 23:00 07:00 Intake Total 1600 ml 1140 ml 738 ml Output Total 425 ml 1200 ml 1000 ml Balance 1175 ml -60 ml -262 ml Intake Oral 1000 ml 600 ml 200 ml IV Total 600 ml 540 ml 538 ml Output Urine Total 425 ml 1200 ml 1000 ml # Bowel Movements 0 0 0 Laboratory Tests Test 09/23/16 09/23/16 05:21 10:28 White Blood Count 5.9 TH/MM3 Red Blood Count 5.35 MIL/MM3 Hemoglobin 9.9 GM/DL Hematocrit 33.4 % Mean Corpuscular Volume 62.5 FL Mean Corpuscular Hemoglobin 18.5 PG Mean Corpuscular Hemoglobin 29.6 % Concent Red Cell Distribution Width 22.4 % Platelet Count 65 TH/MM3 72 TH/MM3 Mean Platelet Volume 9.2 FL Neutrophils (%) (Auto) 92.7 % Lymphocytes (%) (Auto) 3.0 % Monocytes (%) (Auto) 2.0 % Eosinophils (%) (Auto) 1.3 % Basophils (%) (Auto) 1.0 % Neutrophils # (Auto) 5.5 TH/MM3 Lymphocytes # (Auto) 0.2 TH/MM3 Monocytes # (Auto) 0.1 TH/MM3 Eosinophils # (Auto) 0.1 TH/MM3 Basophils # (Auto) 0.1 TH/MM3 CBC Comment AUTO DIFF Differential Total Cells 100 Counted Neutrophils % (Manual) 60 % Band Neutrophils % 37 % Lymphocytes % 1 % Monocytes % 1 % Basophils % 1 % Neutrophils # (Manual) 5.7 TH/MM3 Differential Comment FINAL DIFF MANUAL [place]le Bodies PRESENT Platelet Estimate LOW Platelet Morphology Comment NORMAL Ovalocytes 2+ Keratocytes OCC Laboratory Tests Test 09/23/16 05:21 Sodium Level 135 MEQ/L Potassium Level 3.3 MEQ/L Chloride Level 101 MEQ/L Carbon Dioxide Level 25.7 MEQ/L Anion Gap 8 MEQ/L Blood Urea Nitrogen 19 MG/DL Creatinine 0.86 MG/DL Estimat Glomerular Filtration 63 ML/MIN Rate Random Glucose 84 MG/DL Calcium Level 7.0 MG/DL Protein Corrected Calcium 8.2 MG/DL Total Bilirubin 0.6 MG/DL Direct Bilirubin 0.3 MG/DL Indirect Bilirubin 0.3 MG/DL Aspartate Amino Transf 37 U/L (AST/SGOT) Alanine Aminotransferase 20 U/L (ALT/SGPT) Alkaline Phosphatase 57 U/L Total Protein 4.8 GM/DL Albumin 2.0 GM/DL Microbiology Date/Time Procedure Status Source Growth 09/21/16 11:12 Aerobic Blood Culture - Final Complete Blood Peripheral Escherichia Coli Proteus Mirabilis 09/21/16 11:12 Anaerobic Blood Culture - Final Complete Escherichia Coli Proteus Mirabilis 09/21/16 11:20 Urine Culture - Final Complete Urine Clean Catch NO GROWTH IN 48 HOURS. 09/21/16 11:22 Aerobic Blood Culture - Final Complete Blood Peripheral Escherichia Coli Proteus Mirabilis 09/21/16 11:22 Anaerobic Blood Culture - Final Complete Escherichia Coli Proteus Mirabilis 09/22/16 08:30 Stool Occult Blood (LAMAR) - Final Complete Stool Stool HEMOCCULT NEGATIVE 09/23/16 18:30 Aerobic Blood Culture Received Blood Peripheral Pending 09/23/16 18:30 Anaerobic Blood Culture Received Blood Peripheral Pending IMAGING: Abdomen/Pelvis CT 09/22/16 0000 Signed Impressions: Service Date/Time: Thursday, September 22, 2016 18:19 - CONCLUSION: 1. Dependent atelectasis in the lungs with small pleural effusions. 2. Hepatosplenomegaly. 3. Mural thickening of sigmoid and rectum most characteristic of a mild colitis and proctitis. 4. Inferior vena cava filter present. Chinchilla catheter in the bladder. 5. Mild ileus without definite evidence for obstruction. Anirudh Hanna MD Chest X-Ray 09/21/16 1107 Signed Impressions: Service Date/Time: Wednesday, September 21, 2016 11:38 - CONCLUSION: No acute disease. Omi Mora MD Head CT 09/21/16 0000 Signed Impressions: Service Date/Time: Wednesday, September 21, 2016 13:58 - CONCLUSION: No acute disease. Omi Mora MD PHYSICAL EXAMINATION GENERAL: No acute distress. Awake and alert. HEENT: No icterus. Oropharynx no visible lesions. NECK: Supple without adenopathy. LUNGS: Clear breath sounds. HEART: A 2/6 systolic murmur at the left sternal border. No rubs or gallops. ABDOMEN: Bowel markedly diminished. Distended. Soft, nontender. EXTREMITIES: No clubbing, cyanosis or edema. SKIN: No rash. Warm and moist. NEUROLOGIC: Patient alert and oriented x3. No gross focal findings. PSYCHIATRIC: Calm, pleasant and cooperative. IMPRESSION 1. Gram-negative sepsis. Proteus and e. coli. The patient presented with leukocytosis and elevated lactic acid level. The patient very likely has urine as the source of the sepsis. 2. C. difficile colitis. 3. Leukocytosis secondary to infection, C. difficile. Improved. RECOMMENDATIONS 1. Continue Ceftriaxone for the gram-negative bacteria in the blood. Monitor blood culture sensitivities. 2. Continue oral vancomycin for C. difficile. 3. Follow repeat blood cultures. 4. Stop intravenous Flagyl. 5. PIC catheter for antibiotics. 6. Monitor clinical status. PIC line ordered. I am aware of the pending blood cultures and it is okay in my opinion to place PICC catheter. Julito Albarran MD September 24, 2016 10:44
[2016-09-24 11:01] LABS: INTERNATIONAL NORMALIZED RATIO 1.5 RATIO; PROTHROMBIN TIME - PATIENT 17.4 SEC (9.8-11.6)
[2016-09-24 11:06] LABS: BICARBONATE 22.9 MEQ/L (21.0-32.0); POTASSIUM 3.7 MEQ/L (3.5-5.1)
[2016-09-24 11:10] LABS: AUTOMATED NEUTROPHIL # 5.6 TH/MM3 (1.8-7.7); BASOPHIL # 0.1 TH/MM3 (0-0.2); BASOPHIL % 1.9 % (0.0-2.0); EOSINOPHIL # 0.1 TH/MM3 (0-0.4); EOSINOPHIL % 1.3 % (0.0-4.0); HEMATOCRIT 34.1 % (35.0-46.0); LYMPH % 2.1 % (9.0-44.0); LYMPHOCYTE # 0.1 TH/MM3 (1.0-4.8); MEAN CELL VOLUME 61.4 FL (80.0-100.0); MEAN CORPUSCULAR HEMOGLOBIN 18.9 PG (27.0-34.0); MEAN CORPUSCULAR HGB CONC 30.9 % (32.0-36.0); MONO % 2.4 % (0.0-8.0); NEUT % 92.3 % (16.0-70.0); PLATELET COUNT 81 TH/MM3 (150-450); RED BLOOD COUNT 5.55 MIL/MM3 (4.00-5.30); RED CELL DISTRIBUTION WIDTH 21.8 % (11.6-17.2)
[2016-09-24 11:12] LABS: HEMO FLAGS AUTO DIFF
[2016-09-24] MEDS: POTASSIUM CHLORIDE 10 MEQ CONTROLLED RELEASE TAB PO SCH (12:02)
[2016-09-24] MEDS: ALBUTEROL SULFATE 90 MCG/ACT HFA 18 GM INHALER INH SCH ×4 (12:03→21:00)
[2016-09-24] MEDS ORDERED: PHARMACY ORDERED LAB ONE (12:45)
[2016-09-24 12:52] LABS: BANDS 24 % (0-6); KERATOCYTES OCC (NORMAL); NEUTROPHIL # MANUAL DIFF 5.9 TH/MM3 (1.8-7.7); OVALOCYTES 2+ (NORMAL); PLATELET ESTIMATE SMEAR LOW (NORMAL); PLATELET MORPHOLOGY NORMAL (NORMAL); POLYS (SEG NEUTROPHILS) 75 % (16-70); SCAN/DIFF FINAL DIFF MANUAL; WBC DIFF SAMPLE 100
[2016-09-24] MEDS: ONDANSETRON HCL 4 MG/2 ML VIAL IVP PRN (13:15)
[2016-09-24] MEDS: cefTRIAXone INJ 2,000 MG in SODIUM CHLORIDE 0.9% INJ 100 ML IV SCH (13:16)
--- NOTE | 2016-09-24 13:34 | HHI.PR ---
Subjective Interval History awake alert and oriented had chills lasting 30 min this am BP stable decreased appetite no fever no BM per nursing staff, bowel distended at bed side no other complaints Vitals/Results Intake & Output 09/23/16 09/23/16 09/24/16 15:00 23:00 07:00 Intake Total 1600 ml 1140 ml 738 ml Output Total 425 ml 1200 ml 1000 ml Balance 1175 ml -60 ml -262 ml Intake Oral 1000 ml 600 ml 200 ml IV Total 600 ml 540 ml 538 ml Output Urine Total 425 ml 1200 ml 1000 ml # Bowel Movements 0 0 0 Vital Signs Vital Signs Date Time Temp Pulse Resp B/P Pulse Ox O2 Delivery O2 Flow Rate FiO2 09/24/16 10:00 62 09/24/16 08:00 59 09/24/16 06:00 58 09/24/16 04:00 60 09/24/16 04:00 97.5 60 16 118/58 99 09/24/16 02:00 66 09/24/16 00:00 98.5 76 16 127/60 98 09/24/16 00:00 76 09/23/16 22:00 82 09/23/16 20:00 97.8 75 20 113/78 100 09/23/16 20:00 75 09/23/16 18:00 58 09/23/16 16:00 70 09/23/16 16:00 97.9 70 13 104/51 99 09/23/16 15:00 72 13 96/49 99 09/23/16 14:00 77 21 100/50 99 09/23/16 14:00 77 CBC/BMP: 09/24/16 1020 09/24/16 1020 Lab Results Laboratory Tests Test 09/24/16 10:20 White Blood Count 6.0 TH/MM3 Red Blood Count 5.55 MIL/MM3 Hemoglobin 10.5 GM/DL Hematocrit 34.1 % Mean Corpuscular Volume 61.4 FL Mean Corpuscular Hemoglobin 18.9 PG Mean Corpuscular Hemoglobin 30.9 % Concent Red Cell Distribution Width 21.8 % Platelet Count 81 TH/MM3 Mean Platelet Volume 9.6 FL Neutrophils (%) (Auto) 92.3 % Lymphocytes (%) (Auto) 2.1 % Monocytes (%) (Auto) 2.4 % Eosinophils (%) (Auto) 1.3 % Basophils (%) (Auto) 1.9 % Neutrophils # (Auto) 5.6 TH/MM3 Lymphocytes # (Auto) 0.1 TH/MM3 Monocytes # (Auto) 0.1 TH/MM3 Eosinophils # (Auto) 0.1 TH/MM3 Basophils # (Auto) 0.1 TH/MM3 CBC Comment AUTO DIFF Differential Total Cells 100 Counted Neutrophils % (Manual) 75 % Band Neutrophils % 24 % Lymphocytes % 1 % Neutrophils # (Manual) 5.9 TH/MM3 Differential Comment FINAL DIFF MANUAL Platelet Estimate LOW Platelet Morphology Comment NORMAL Ovalocytes 2+ Keratocytes OCC Prothrombin Time 17.4 SEC Prothromb Time International 1.5 RATIO Ratio Sodium Level 136 MEQ/L Potassium Level 3.7 MEQ/L Chloride Level 104 MEQ/L Carbon Dioxide Level 22.9 MEQ/L Anion Gap 9 MEQ/L Blood Urea Nitrogen 13 MG/DL Creatinine 0.64 MG/DL Estimat Glomerular Filtration 89 ML/MIN Rate Random Glucose 119 MG/DL Calcium Level 7.9 MG/DL Microbiology Microbiology 09/23/16 Aerobic Blood Culture - Preliminary, Resulted NO GROWTH IN 1 DAY 09/23/16 Anaerobic Blood Culture - Preliminary, Resulted NO GROWTH IN 1 DAY Physical Exam General General Appearance: Well Nourished, No Acute Distress Eyes Eye Exam: Pupils Equal, Pupils Reactive, Sclera White, Extraocular Movement Intact Throat Throat Exam: Oral Mucosa [place] & Moist Neck Neck Exam: Neck Supple, Trachea Midline Pulmonary Resp Exam: Clear Bilaterally, Breath Sounds Equal, No Distress Cardiology CV Exam: Regular, Normal Sinus Rhythm, Good Perfusion Gastrointestinal/Abdomen GI Exam: Soft, Bowel Sounds Present, Distended Musculoskeletal MS Exam: Joints Intact Integumentary Skin Exam: Clear, Warm, Dry, Intact Extremeties Extremities Exam: No Edema Neurologic Neuro Exam: Alert, Awake, Oriented, Speech Clear, Moving All Extremities, Program Or Project Administrator Equal, No Focal Deficits Psychiatric Psych Exam: Appropriate Responses Assessment/Plan Assessment/Plan Assessment and Plan Assessment and Plan Problem List: (1) Sepsis: GNR bacteremia, C diff + (2) Hypokalemia (3) Elevated troponin I level (4) S/P lumbar laminectomy (5) Hyperlipidemia (6) HTN (hypertension) (7) Hx pulmonary embolism (8) Hx TIA/stroke w/o resid (9) Murmur (10) thrombocytopenia Assessment and Plan 81-year-old elderly female presented to emergency room with complaint of generalized weakness for the past 2-3 days. Status post Right L5-S1 hemilaminectomy and microdiscectomy 09/03, uneventful postop status. Had been ambulating well. Evaluated in the emergency room, found septic with elevated lactic acid and leukocytosis and bandemia. Urine culture pending -Continue with IV fluids, Appreciate ID input on Rocephin, PO vanco -GNR bacteremia / bottles +, follow cultures. Prelim E coli and Proteus -lactic acidosis resolved - CT abd/Pelvis noted - C diff + tylenol scheduled to avoid chills, rigors Elevated troponin, patient denies any chest pain Noted with murmur, patient states that she has a history of. Appreciate Cardiology input Continue with serial cardiac enzymes discontinue heparin gtt, sec to thrombocytopenia HIT panel sent and pending ok to restart Coumadin, no plan for immediate surgery - NSTEMI -Continue with Atenolol 50 mg by mouth daily & Aspirin 81 mg by mouth daily -2-D echo: EF 55-60% L5-S1 disk herniation, S/P Right L5-S1 hemilaminectomy and microdiscectomy 09/03 -Monitor surgical site Physical therapy for evaluation and treatment Hypertension, stable Continue home medications Hyperlipidemia, stable Continue home medications lipid profile History of pulmonary emboli, antiphospholipid syndrome. Has IVC filter coumadin resumed History of TIA, stable Continue with aspirin Home medications reviewed, initiated as indicated DVT prophylaxis: SCD/ coumadin OOB to chair ok to transfer to floor with tele Plan of care discussed with patient and nursing staff family at bed side labs in Monique Vazquez MD September 24, 2016 13:34
[2016-09-24 14:20] LABS: HEPARIN AB OD 0.039 O.D. (0.000-0.300); HEPARIN INDUCED PLATELET AB NEGATIVE (NEGATIVE)
--- NOTE | 2016-09-24 14:55 | RADRPT ---
EXAM DATE/TIME: 09/24/2016 14:20 [facility] COMPARISON: CHEST SINGLE AP, September 21, 2016, 11:38. INDICATIONS : PICC line placement. MEDICAL HISTORY : None. SURGICAL HISTORY : None. ENCOUNTER: Initial ACUITY: 1 day PAIN SCORE: 0/10 LOCATION: Bilateral chest FINDINGS: A single view of the chest demonstrates bibasilar densities. Borderline cardia megaly. Right-sided PI CC line with tip at the cavoatrial junction. Osseous structures are intact. CONCLUSION: Adequate placement of right-sided PICC line. Camilo aVldez MD on September 24, 2016 at 14:51 Board Certified Radiologist. This report was verified electronically.
[2016-09-24] MEDS: ATENOLOL 25 MG TAB PO SCH (20:59)
[2016-09-24] MEDS: PRAVASTATIN SOD 40 MG TAB PO SCH (21:00)
[2016-09-24 21:12] LABS: MEAN CORPUSCULAR HGB CONC 29.6 % (32.0-36.0)
[2016-09-25] VITALS (12 sets, daily range): BP systolic 122–156; BP diastolic 58–67; PULSE 61–82; RESP 15–27; TEMP 96.9–99.3; O2SAT 92–100
[2016-09-25] MEDS: CHLORHEXIDINE GLUCONATE 2 % 1 PACK (2 CLOTHS)(taper/protocol) TOPICAL SCH (04:00)
[2016-09-25] MEDS: LEVOTHYROXINE SODIUM 100 MCG TAB PO SCH (05:05)
[2016-09-25 06:59] LABS: INTERNATIONAL NORMALIZED RATIO 2.5 RATIO; PROTHROMBIN TIME - PATIENT 28.2 SEC (9.8-11.6)
[2016-09-25 07:11] LABS: AUTOMATED NEUTROPHIL # 4.5 TH/MM3 (1.8-7.7); BASOPHIL # 0.1 TH/MM3 (0-0.2); BASOPHIL % 1.9 % (0.0-2.0); EOSINOPHIL # 0.1 TH/MM3 (0-0.4); HEMATOCRIT 32.5 % (35.0-46.0); LYMPH % 3.4 % (9.0-44.0); LYMPHOCYTE # 0.2 TH/MM3 (1.0-4.8); MEAN CORPUSCULAR HEMOGLOBIN 18.4 PG (27.0-34.0); MONO % 4.7 % (0.0-8.0); PLATELET COUNT 85 TH/MM3 (150-450); RED BLOOD COUNT 5.23 MIL/MM3 (4.00-5.30); WHITE BLOOD COUNT 5.1 TH/MM3 (4.0-11.0)
[2016-09-25 07:13] LABS: BICARBONATE 26.6 MEQ/L (21.0-32.0); POTASSIUM 3.7 MEQ/L (3.5-5.1)
[2016-09-25 07:19] LABS: HEMO FLAGS AUTO DIFF
[2016-09-25] MEDS: LACTOBACILLUS ACIDOPHILUS TAB PO SCH (08:21)
[2016-09-25] MEDS: TRIAMTERENE/HCTZ 37.5 MG/25 MG CAP PO SCH (08:21)
[2016-09-25] MEDS: SODIUM CHLORIDE 0.9% FLUSH 10 ML FLUSH IV FLUSH SCH ×2 (08:22→20:35)
[2016-09-25] MEDS: CHOLECALCIFEROL (VIT D3) 1000 UNIT TAB PO SCH (08:22)
[2016-09-25] MEDS: PANTOPRAZOLE SOD 40 MG DELAYED RELEASE TAB PO SCH (08:22)
[2016-09-25] MEDS: ASCORBIC ACID 500 MG TAB PO SCH (08:22)
[2016-09-25] MEDS: CALCIUM/VITAMIN D 250 MG/125 U TAB PO SCH (08:22)
[2016-09-25] MEDS: ACETAMINOPHEN 325 MG TAB PO SCH (08:22)
[2016-09-25] MEDS: TOLTERODINE TARTRATE 4 MG CAP LA PO SCH (08:22)
[2016-09-25] MEDS: POTASSIUM CHLORIDE 10 MEQ CONTROLLED RELEASE TAB PO SCH (08:22)
[2016-09-25] MEDS: FOLIC ACID 1 MG TAB PO SCH (08:22)
[2016-09-25] MEDS: ASPIRIN EC 81 MG TABEC PO SCH (08:22)
[2016-09-25] MEDS: VANCOMYCIN 500 MG VIAL (FOR ORAL USE ONLY) PO SCH ×4 (08:23→20:34)
[2016-09-25] MEDS: ALBUTEROL SULFATE 90 MCG/ACT HFA 18 GM INHALER INH SCH ×4 (08:23→20:35)
[2016-09-25] MEDS: TIOTROPIUM BROMIDE 18 MCG INH INH SCH (09:00)
[2016-09-25 09:28] LABS: BANDS 8 % (0-6); BASOPHILS 2 % (0-2); EOSINOPHILS 4 % (0-4); NEUTROPHIL # MANUAL DIFF 4.4 TH/MM3 (1.8-7.7); PLATELET ESTIMATE SMEAR LOW (NORMAL); PLATELET MORPHOLOGY NORMAL (NORMAL); POLYS (SEG NEUTROPHILS) 78 % (16-70); SCAN/DIFF FINAL DIFF MANUAL; WBC DIFF SAMPLE 100
[2016-09-25 09:29] LABS: ACANTHOCYTES 1+ (NORMAL); OVALOCYTES 1+ (NORMAL); TEARDROP RBCS 1+ (NORMAL)
[2016-09-25] MEDS: SODIUM CHLOR 0.9% 1000 ML INJ 1,000 ML IV SCH ×2 (10:35→23:55)
[2016-09-25] MEDS: ACETAMINOPHEN/HYDROcodone 325 MG/10 MG TAB PO PRN (11:20)
--- NOTE | 2016-09-25 11:54 | HHI.IDPN ---
Note Infectious Disease Note Patient feels worse today. Complains of chills and back pain. Has rectal bag in place. Loose stools. Notes SOB when she got to the bed. Blood culture has E. coli and proteus. Urine culture duarte no growth. Presented to the emergency department after she developed generalized weakness and fell. Noted to have chills on day before admission. PAST MEDICAL HISTORY 1. Coronary artery disease. 2. Hypertension. 3. Arthritis. 4. COPD. 5. Gastroesophageal reflux disease. 6. History of PE. 7. TIA. 8. Radiculopathy. 9. Hypothyroidism. 10.Uterine fibroids. 11.Monoclonal gammopathy. 12.Brain AVM. 13.L5-S1 hemilaminectomy and microdiscectomy. 09/17. 14.Partial gastrectomy. 15.Cervical cancer. 16.[place] filter. 17.Tonsillectomy. 18.History of mitral valve prolapse. ALLERGIES No known drug allergies. ANTIBIOTICS: Vancomycin PO. Ceftriaxone. OBJECTIVE: Vital Signs Date Time Temp Pulse Resp B/P Pulse Ox O2 Delivery O2 Flow Rate FiO2 09/25/16 10:00 69 09/25/16 08:00 65 09/25/16 06:00 67 09/25/16 04:00 96.9 67 18 154/66 100 09/25/16 04:00 67 09/25/16 02:00 66 09/25/16 00:00 62 09/25/16 00:00 97.1 62 15 134/60 93 09/24/16 22:09 24 09/24/16 22:00 69 09/24/16 20:00 97.4 71 19 148/67 99 09/24/16 20:00 71 09/24/16 18:00 65 09/24/16 16:00 98.2 80 16 140/65 95 09/24/16 16:00 61 09/24/16 14:00 64 09/24/16 12:00 63 09/24/16 12:00 98.3 92 17 125/86 82 09/24/16 09/24/16 09/25/16 15:00 23:00 07:00 Intake Total 663 ml 480 ml 1344 ml Output Total 550 ml 800 ml 1000 ml Balance 113 ml -320 ml 344 ml Intake Oral 480 ml 360 ml IV Total 663 ml 984 ml Output Urine Total 550 ml 800 ml 1000 ml Stool Total 0 ml 0 ml Laboratory Tests Test 09/24/16 09/25/16 10:20 04:52 White Blood Count 6.0 TH/MM3 5.1 TH/MM3 Red Blood Count 5.55 MIL/MM3 5.23 MIL/MM3 Hemoglobin 10.5 GM/DL 9.6 GM/DL Hematocrit 34.1 % 32.5 % Mean Corpuscular Volume 61.4 FL 62.0 FL Mean Corpuscular Hemoglobin 18.9 PG 18.4 PG Mean Corpuscular Hemoglobin 30.9 % 29.6 % Concent Red Cell Distribution Width 21.8 % 22.0 % Platelet Count 81 TH/MM3 85 TH/MM3 Mean Platelet Volume 9.6 FL 10.7 FL Neutrophils (%) (Auto) 92.3 % 88.0 % Lymphocytes (%) (Auto) 2.1 % 3.4 % Monocytes (%) (Auto) 2.4 % 4.7 % Eosinophils (%) (Auto) 1.3 % 2.0 % Basophils (%) (Auto) 1.9 % 1.9 % Neutrophils # (Auto) 5.6 TH/MM3 4.5 TH/MM3 Lymphocytes # (Auto) 0.1 TH/MM3 0.2 TH/MM3 Monocytes # (Auto) 0.1 TH/MM3 0.2 TH/MM3 Eosinophils # (Auto) 0.1 TH/MM3 0.1 TH/MM3 Basophils # (Auto) 0.1 TH/MM3 0.1 TH/MM3 CBC Comment AUTO DIFF AUTO DIFF Differential Total Cells 100 100 Counted Neutrophils % (Manual) 75 % 78 % Band Neutrophils % 24 % 8 % Lymphocytes % 1 % 4 % Neutrophils # (Manual) 5.9 TH/MM3 4.4 TH/MM3 Differential Comment FINAL DIFF FINAL DIFF MANUAL MANUAL Platelet Estimate LOW LOW Platelet Morphology Comment NORMAL NORMAL Ovalocytes 2+ 1+ Keratocytes OCC Monocytes % 4 % Eosinophils % 4 % Basophils % 2 % Tear Drop Cells 1+ Acanthocytes 1+ Laboratory Tests Test 09/24/16 09/25/16 10:20 04:52 Sodium Level 136 MEQ/L 134 MEQ/L Potassium Level 3.7 MEQ/L 3.7 MEQ/L Chloride Level 104 MEQ/L 101 MEQ/L Carbon Dioxide Level 22.9 MEQ/L 26.6 MEQ/L Anion Gap 9 MEQ/L 6 MEQ/L Blood Urea Nitrogen 13 MG/DL 8 MG/DL Creatinine 0.64 MG/DL 0.43 MG/DL Estimat Glomerular Filtration 89 ML/MIN 141 ML/MIN Rate Random Glucose 119 MG/DL 78 MG/DL Calcium Level 7.9 MG/DL 7.5 MG/DL Microbiology Date/Time Procedure Status Source Growth 09/23/16 18:30 Aerobic Blood Culture - Preliminary Resulted Blood Peripheral NO GROWTH IN 2 DAYS 09/23/16 18:30 Anaerobic Blood Culture - Preliminary Resulted Blood Peripheral NO GROWTH IN 2 DAYS Microbiology Date/Time Procedure Status Source Growth 09/21/16 11:12 Aerobic Blood Culture - Final Complete Blood Peripheral Escherichia Coli Proteus Mirabilis 09/21/16 11:12 Anaerobic Blood Culture - Final Complete Escherichia Coli Proteus Mirabilis 09/21/16 11:20 Urine Culture - Final Complete Urine Clean Catch NO GROWTH IN 48 HOURS. 09/21/16 11:22 Aerobic Blood Culture - Final Complete Blood Peripheral Escherichia Coli Proteus Mirabilis 09/21/16 11:22 Anaerobic Blood Culture - Final Complete Escherichia Coli Proteus Mirabilis 09/22/16 08:30 Stool Occult Blood (LAMAR) - Final Complete Stool Stool HEMOCCULT NEGATIVE 09/23/16 18:30 Aerobic Blood Culture Received Blood Peripheral Pending 09/23/16 18:30 Anaerobic Blood Culture Received Blood Peripheral Pending IMAGING: Chest X-Ray 09/24/16 0000 Signed Impressions: Service Date/Time: Saturday, September 24, 2016 14:20 - CONCLUSION: Adequate placement of right-sided PICC line. Camilo Valdez MD Abdomen/Pelvis CT 09/22/16 0000 Signed Impressions: Service Date/Time: Thursday, September 22, 2016 18:19 - CONCLUSION: 1. Dependent atelectasis in the lungs with small pleural effusions. 2. Hepatosplenomegaly. 3. Mural thickening of sigmoid and rectum most characteristic of a mild colitis and proctitis. 4. Inferior vena cava filter present. [place] catheter in the bladder. 5. Mild ileus without definite evidence for obstruction. Anirudh Hanna MD Chest X-Ray 09/21/16 1107 Signed Impressions: Service Date/Time: Wednesday, September 21, 2016 11:38 - CONCLUSION: No acute disease. Omi Mora MD Head CT 09/21/16 0000 Signed Impressions: Service Date/Time: Wednesday, September 21, 2016 13:58 - CONCLUSION: No acute disease. Omi Mora MD PHYSICAL EXAMINATION GENERAL: No acute distress. Awake and alert. HEENT: No icterus. Oropharynx no visible lesions. NECK: Supple without adenopathy. LUNGS: Breath sounds clear. HEART: A 2/6 systolic murmur at the left sternal border. No rubs or gallops. ABDOMEN: Bowel sounds markedly diminished. Distended. Soft, nontender. EXTREMITIES: No clubbing, cyanosis or edema. SKIN: No rash. Warm and moist. NEUROLOGIC: Patient alert and oriented x3. No gross focal findings. PSYCHIATRIC: Calm, pleasant and cooperative. IMPRESSION 1. Sepsis. Proteus and e. coli. The patient presented with leukocytosis and elevated lactic acid level. The patient very likely has urine as the source of the sepsis. 2. C. difficile colitis. 3. Leukocytosis secondary to infection, C. difficile. Improved. 4. Chills and back pain. RECOMMENDATIONS 1. Stop Ceftriaxone. 2. Start Aztreonam. 3 Continue PO Vancomycin for c. difficile. 4. Repeat blood culture. 5. Monitor temp. 6. Monitor clinical status. 7. MRI of the lumbar spine to evaluate the back pain. Recent surgery and now worsening back pain. Julito Albarran MD September 25, 2016 11:54
--- NOTE | 2016-09-25 13:39 | HHI.PR ---
Subjective Interval History awake alert oriented feeling lousy today BP, HR better complaining of severe back pain had BMs today sat in chair for 2 hours no fever at bed side Vitals/Results Intake & Output 09/24/16 09/24/16 09/25/16 15:00 23:00 07:00 Intake Total 663 ml 480 ml 1344 ml Output Total 550 ml 800 ml 1000 ml Balance 113 ml -320 ml 344 ml Intake Oral 480 ml 360 ml IV Total 663 ml 984 ml Output Urine Total 550 ml 800 ml 1000 ml Stool Total 0 ml 0 ml Vital Signs Vital Signs Date Time Temp Pulse Resp B/P Pulse Ox O2 Delivery O2 Flow Rate FiO2 09/25/16 12:00 61 09/25/16 10:00 69 09/25/16 08:00 65 09/25/16 06:00 67 09/25/16 04:00 96.9 67 18 154/66 100 09/25/16 04:00 67 09/25/16 02:00 66 09/25/16 00:00 62 09/25/16 00:00 97.1 62 15 134/60 93 09/24/16 22:09 24 09/24/16 22:00 69 09/24/16 20:00 97.4 71 19 148/67 99 09/24/16 20:00 71 09/24/16 18:00 65 09/24/16 16:00 98.2 80 16 140/65 95 09/24/16 16:00 61 09/24/16 14:00 64 CBC/BMP: 09/25/16 0452 09/25/16 0452 Lab Results Laboratory Tests Test 09/25/16 04:52 White Blood Count 5.1 TH/MM3 Red Blood Count 5.23 MIL/MM3 Hemoglobin 9.6 GM/DL Hematocrit 32.5 % Mean Corpuscular Volume 62.0 FL Mean Corpuscular Hemoglobin 18.4 PG Mean Corpuscular Hemoglobin 29.6 % Concent Red Cell Distribution Width 22.0 % Platelet Count 85 TH/MM3 Mean Platelet Volume 10.7 FL Neutrophils (%) (Auto) 88.0 % Lymphocytes (%) (Auto) 3.4 % Monocytes (%) (Auto) 4.7 % Eosinophils (%) (Auto) 2.0 % Basophils (%) (Auto) 1.9 % Neutrophils # (Auto) 4.5 TH/MM3 Lymphocytes # (Auto) 0.2 TH/MM3 Monocytes # (Auto) 0.2 TH/MM3 Eosinophils # (Auto) 0.1 TH/MM3 Basophils # (Auto) 0.1 TH/MM3 CBC Comment AUTO DIFF Differential Total Cells 100 Counted Neutrophils % (Manual) 78 % Band Neutrophils % 8 % Lymphocytes % 4 % Monocytes % 4 % Eosinophils % 4 % Basophils % 2 % Neutrophils # (Manual) 4.4 TH/MM3 Differential Comment FINAL DIFF MANUAL Platelet Estimate LOW Platelet Morphology Comment NORMAL Tear Drop Cells 1+ Ovalocytes 1+ Acanthocytes 1+ Prothrombin Time 28.2 SEC Prothromb Time International 2.5 RATIO Ratio Sodium Level 134 MEQ/L Potassium Level 3.7 MEQ/L Chloride Level 101 MEQ/L Carbon Dioxide Level 26.6 MEQ/L Anion Gap 6 MEQ/L Blood Urea Nitrogen 8 MG/DL Creatinine 0.43 MG/DL Estimat Glomerular Filtration 141 ML/MIN Rate Random Glucose 78 MG/DL Calcium Level 7.5 MG/DL Physical Exam General General Appearance: Well Nourished, No Acute Distress Eyes Eye Exam: Pupils Equal, Pupils Reactive, Sclera White, Extraocular Movement Intact Throat Throat Exam: Oral Mucosa [place] & Moist Neck Neck Exam: Neck Supple, Trachea Midline Pulmonary Resp Exam: Clear Bilaterally, Breath Sounds Equal, No Distress Cardiology CV Exam: Regular, Normal Sinus Rhythm, Good Perfusion Gastrointestinal/Abdomen GI Exam: Soft, Bowel Sounds Present, Distended Musculoskeletal MS Exam: Joints Intact Integumentary Skin Exam: Clear, Warm, Dry, Intact Extremeties Extremities Exam: No Edema Neurologic Neuro Exam: Alert, Awake, Oriented, Speech Clear, Moving All Extremities, Malted Milk Supervisor Equal, No Focal Deficits Psychiatric Psych Exam: Appropriate Responses Assessment/Plan Assessment/Plan Assessment and Plan Assessment and Plan Problem List: (1) Sepsis: GNR bacteremia, C diff + (2) Hypokalemia (3) Elevated troponin I level (4) S/P lumbar laminectomy (5) Hyperlipidemia (6) HTN (hypertension) (7) Hx pulmonary embolism (8) Hx TIA/stroke w/o resid (9) Murmur (10) thrombocytopenia Assessment and Plan 81-year-old elderly female presented to emergency room with complaint of generalized weakness for the past 2-3 days. Status post Right L5-S1 hemilaminectomy and microdiscectomy 09/03, uneventful postop status. Had been ambulating well. Evaluated in the emergency room, found septic with elevated lactic acid and leukocytosis and bandemia. Urine culture pending -Continue with IV fluids, Appreciate ID input PO vanco antibiotics switched to Azactam E coli and Proteus bacteremia, repeat Blood cultures neg so far -lactic acidosis resolved - CT abd/Pelvis noted - C diff + tylenol scheduled to avoid chills, rigors MRI Spine ordered Elevated troponin, patient denies any chest pain Noted with murmur, patient states that she has a history of. Appreciate Cardiology input Continue with serial cardiac enzymes discontinue heparin gtt, sec to thrombocytopenia HIT panel neg platelets improving INR therapeutic on coumadin - NSTEMI -Continue with Atenolol 50 mg by mouth daily & Aspirin 81 mg by mouth daily -2-D echo: EF 55-60% L5-S1 disk herniation, S/P Right L5-S1 hemilaminectomy and microdiscectomy 5/3 -Monitor surgical site Physical therapy for evaluation and treatment Hypertension, stable Continue home medications Hyperlipidemia, stable Continue home medications lipid profile History of pulmonary emboli, antiphospholipid syndrome. Has IVC filter coumadin resumed History of TIA, stable Continue with aspirin Home medications reviewed, initiated as indicated DVT prophylaxis: SCD/ coumadin OOB to chair ok to transfer to floor with tele Plan of care discussed with patient and nursing staff family at bed side labs in Monique Vazquez MD September 25, 2016 13:39
[2016-09-25] MEDS: AZTREONAM INJ 1,000 MG in SODIUM CHLORIDE 0.9% INJ 100 ML IV SCH ×2 (14:54→20:34)
[2016-09-25] MEDS ORDERED: LORazepam 2 MG/ML VIAL ONE (16:16)
[2016-09-25] MEDS ORDERED: LORazepam 2 MG/ML VIAL IV ONE (16:45)
[2016-09-25] MEDS ORDERED: GADODIAMIDE PF 287 MG/ML 5 ML VIAL (for RAD MRI) IV ONE (16:55)
--- NOTE | 2016-09-25 17:24 | RADRPT ---
EXAM DATE/TIME: 09/25/2016 16:33 [facility] COMPARISON: No previous studies available for comparison. INDICATIONS : Osteomyelitis. Back pain. Lumbar surgery three weeks ago. CONTRAST: 13 cc Prohance (gadoteridol) IV MEDICAL HISTORY : Hypertension. Chronic obstructive pulmonary disease. Gastroesophageal reflux disease. Coronary artery disease. SURGICAL HISTORY : Lumbar surgery and IVC filter. ENCOUNTER: Initial ACUITY: 1 week PAIN SCORE: 3/10 LOCATION: Back. TECHNIQUE: Multiplanar multisequence MRI of the lumbar spine was performed with and without contrast. FINDINGS: T12-L1: The thecal sac has a normal diameter. No evidence of disc bulge or protrusion. The neural foramina are patent bilaterally. L1-L2: The thecal sac has a normal diameter. No evidence of disc bulge or protrusion. The neural foramina are patent bilaterally. L2-L3: Mild posterior disc osteophyte complex and facet arthropathy with minimal encroachment on the lateral recesses. No significant canal or foraminal stenosis minimal retrolisthesis. L3-L4: The thecal sac has a normal diameter. No evidence of disc bulge or protrusion. The neural foramina are patent bilaterally. L4-L5: Mild posterior ossific ridging and facet arthropathy. No canal stenosis. Mild bilateral foraminal andreas nosis. L5-S1: There is a large right-sided laminectomy defect with fluid signal extending into the right lateral re cess. No rim enhancement to suggest abscess. Minimal enhancement around the right L5 nerve root later ally. There is some stenosis of the right lateral recess. CONCLUSION: 1. No evidence for osteomyelitis or discitis. 2. Large laminectomy defect on the right at L5-S1 with fluid extending into the right lateral recess. There is right lateral recess stenosis and mild enhancement around the right L5 nerve root probably some postsurgical change or early epidural fibrosis. No enhancing fluid collection seen to suggest abscess. There is fluid in the subcutaneous tissues of the lower back as well. Anirudh Hanna MD on September 25, 2016 at 17:15 Board Certified Radiologist. This report was verified electronically.
[2016-09-25] MEDS: WARFARIN SOD 7.5 MG TAB PO SCH (18:00)
[2016-09-25] MEDS: ATENOLOL 25 MG TAB PO SCH (20:34)
[2016-09-25] MEDS: PRAVASTATIN SOD 40 MG TAB PO SCH (21:00)
[2016-09-26] VITALS (12 sets, daily range): BP systolic 128–156; BP diastolic 54–69; PULSE 65–82; RESP 17–24; TEMP 97–101; O2SAT 98–100
[2016-09-26] MEDS: CHLORHEXIDINE GLUCONATE 2 % 1 PACK (2 CLOTHS)(taper/protocol) TOPICAL SCH (04:00)
[2016-09-26] MEDS: AZTREONAM INJ 1,000 MG in SODIUM CHLORIDE 0.9% INJ 100 ML IV SCH ×3 (05:50→20:47)
[2016-09-26 07:24] LABS: PROTHROMBIN TIME - PATIENT 46.9 SEC (9.8-11.6)
[2016-09-26 07:37] LABS: AUTOMATED NEUTROPHIL # 4.6 TH/MM3 (1.8-7.7); BASOPHIL % 0.9 % (0.0-2.0); EOSINOPHIL # 0.1 TH/MM3 (0-0.4); EOSINOPHIL % 1.3 % (0.0-4.0); HEMATOCRIT 31.3 % (35.0-46.0); LYMPH % 4.8 % (9.0-44.0); LYMPHOCYTE # 0.3 TH/MM3 (1.0-4.8); MEAN CELL VOLUME 61.3 FL (80.0-100.0); MEAN CORPUSCULAR HEMOGLOBIN 18.9 PG (27.0-34.0); MEAN CORPUSCULAR HGB CONC 30.8 % (32.0-36.0); MONO % 5.4 % (0.0-8.0); NEUT % 87.6 % (16.0-70.0); PLATELET COUNT 103 TH/MM3 (150-450); RED CELL DISTRIBUTION WIDTH 21.2 % (11.6-17.2); WHITE BLOOD COUNT 5.2 TH/MM3 (4.0-11.0)
[2016-09-26 07:43] LABS: HEMO FLAGS AUTO DIFF
[2016-09-26 07:56] LABS: POTASSIUM 3.8 MEQ/L (3.5-5.1)
[2016-09-26 08:30] LABS: BANDS 10 % (0-6); BASOPHILS 4 % (0-2); EOSINOPHILS 1 % (0-4); NEUTROPHIL # MANUAL DIFF 4.3 TH/MM3 (1.8-7.7); POLYS (SEG NEUTROPHILS) 73 % (16-70); WBC DIFF SAMPLE 100
[2016-09-26 08:32] LABS: KERATOCYTES OCC (NORMAL); OVALOCYTES 1+ (NORMAL)
[2016-09-26 08:33] LABS: PLATELET ESTIMATE SMEAR LOW (NORMAL); PLATELET MORPHOLOGY NORMAL (NORMAL); SCAN/DIFF FINAL DIFF MANUAL
[2016-09-26] MEDS: CALCIUM/VITAMIN D 250 MG/125 U TAB PO SCH (08:58)
[2016-09-26] MEDS: TOLTERODINE TARTRATE 4 MG CAP LA PO SCH (08:58)
[2016-09-26] MEDS: LACTOBACILLUS ACIDOPHILUS TAB PO SCH (08:58)
[2016-09-26] MEDS: ASCORBIC ACID 500 MG TAB PO SCH (08:58)
[2016-09-26] MEDS: CHOLECALCIFEROL (VIT D3) 1000 UNIT TAB PO SCH (08:58)
[2016-09-26] MEDS: TRIAMTERENE/HCTZ 37.5 MG/25 MG CAP PO SCH (08:58)
[2016-09-26] MEDS: FOLIC ACID 1 MG TAB PO SCH (08:58)
[2016-09-26] MEDS: ASPIRIN EC 81 MG TABEC PO SCH (08:58)
[2016-09-26] MEDS: PANTOPRAZOLE SOD 40 MG DELAYED RELEASE TAB PO SCH (08:58)
[2016-09-26] MEDS: TIOTROPIUM BROMIDE 18 MCG INH INH SCH (08:59)
[2016-09-26] MEDS: POTASSIUM CHLORIDE 10 MEQ CONTROLLED RELEASE TAB PO SCH (08:59)
[2016-09-26] MEDS: VANCOMYCIN 500 MG VIAL (FOR ORAL USE ONLY) PO SCH ×4 (08:59→20:48)
[2016-09-26] MEDS: ALBUTEROL SULFATE 90 MCG/ACT HFA 18 GM INHALER INH SCH ×4 (08:59→20:47)
[2016-09-26] MEDS: SODIUM CHLORIDE 0.9% FLUSH 10 ML FLUSH IV FLUSH SCH ×2 (08:59→20:47)
[2016-09-26] MEDS: ACETAMINOPHEN/HYDROcodone 325 MG/10 MG TAB PO PRN ×2 (09:42→21:30)
--- NOTE | 2016-09-26 10:04 | HHI.NSPN ---
(Asha Salas) Note Status Status: Progress Note (Asha Salas) Interval History Interval History Ms. Dougherty is a 81 year old female who underwent a right L5-S1 hemilaminectomy and microdiscectomy on September 04, 2016. Her surgery went well without complications and the patient report she had resolution of her lumbar and radicular symptoms. She was doing well for the past 2 weeks following her operation until a few days ago she started to feel progressive generalized weakness. An MRI of her lumbar spine was obtained which showed subcutaneous fluid collection without enhancements, there was no evidence of epidural abscess. Infectious Disease is following and patient found with UTI and C. Difficile colitis on IV Vancomycin. (Asha Salas) Labs, Micro, & Vital Signs Results Date Time Temp Pulse Resp B/P Pulse Ox O2 Delivery O2 Flow Rate FiO2 09/26/16 08:00 72 09/26/16 06:00 66 09/26/16 04:00 66 09/26/16 04:00 97.0 66 21 156/67 98 09/26/16 02:00 70 09/26/16 00:00 97.1 70 22 153/69 99 09/26/16 00:00 71 09/25/16 22:00 75 09/25/16 20:00 97.6 82 27 153/67 98 09/25/16 20:00 82 09/25/16 18:00 70 09/25/16 16:00 99.3 80 18 122/58 93 09/25/16 16:00 74 09/25/16 14:00 68 09/25/16 12:00 61 09/25/16 12:00 98.8 69 17 156/65 94 09/25/16 10:00 69 09/26/16 07:00 Intake Total 1928 ml Output Total 2811 ml Balance -883 ml Constitutional Vital Signs Date Time Temp Pulse Resp B/P Pulse Ox O2 Delivery O2 Flow Rate FiO2 09/26/16 08:00 72 09/26/16 06:00 66 09/26/16 04:00 66 09/26/16 04:00 97.0 66 21 156/67 98 09/26/16 02:00 70 09/26/16 00:00 97.1 70 22 153/69 99 09/26/16 00:00 71 09/25/16 22:00 75 09/25/16 20:00 97.6 82 27 153/67 98 09/25/16 20:00 82 09/25/16 18:00 70 09/25/16 16:00 99.3 80 18 122/58 93 09/25/16 16:00 74 09/25/16 14:00 68 09/25/16 12:00 61 09/25/16 12:00 98.8 69 17 156/65 94 09/25/16 10:00 69 09/26/16 07:00 Intake Total 1928 ml Output Total 2811 ml Balance -883 ml (Asha Salas) Review of Systems/Exam Exam Wound with small area of dehiscence, her dressing was wet and appeared yellow, no active drainage seen from wound. New dry dressing placed. No erythema, warmth, or tracking noted. Alert, oriented x 3. Speech is fluent. Sitting up in chair. CN: pupils equal, facial motor symmetric Neck: soft, supple Motor: moves lower extremities 5/5 Sensory: intact to light touch x 4 Plantars downgoing b/l, no ankle clonus (Asha Salas) Medications Current Medications Current Medications Medications (Trade) Dose Ordered Sig/Gypsy Route PRN Reason Start Time Stop Time Status Last Admin Dose Admin Sodium Chloride (NS 1000 ml Inj) 1,000 ml @ 75 mls/hr [id number] IV 09/21/16 13:29 09/25/16 10:35 Sodium Chloride (NS Flush) 2 ml UNSCH PRN IV FLUSH FLUSH AFTER USING IV ACCESS 09/21/16 13:30 09/23/16 07:45 Sodium Chloride (NS Flush) 2 ml BID IV FLUSH 09/21/16 21:00 09/26/16 08:59 Acetaminophen (Tylenol) 650 mg Q4H PRN PO TEMP > 100.4 09/21/16 13:30 09/23/16 09:33 Ondansetron HCl (Zofran Inj) 4 mg Q6H PRN IVP NAUSEA OR VOMITING 09/21/16 13:30 09/24/16 13:15 Naloxone HCl (Narcan Inj) 0.4 mg UNSCH PRN IV SEE LABEL COMMENTS 09/21/16 13:30 Ascorbic Acid (Vitamin C) 500 mg DAILY PO 09/21/16 13:45 09/26/16 08:58 Aspirin (Ecotrin Ec) 81 mg DAILY PO 09/22/16 09:00 09/26/16 08:58 Calcium/Vitamin D (Oscal-D 250-125) 250 mg DAILY PO 09/22/16 09:00 09/26/16 08:58 Cholecalciferol (Vitamin D3) 1,000 units DAILY PO 09/22/16 09:00 09/26/16 08:58 Folic Acid (Folate) 1 mg DAILY PO 09/22/16 09:00 09/26/16 08:58 Acetaminophen/ Hydrocodone Bitart (Cavour 10-325 Mg) 1 tab Q8HR PRN PO PAIN SCALE 1 TO 10 09/21/16 13:45 09/26/16 09:42 Lactobacillus Acidophilus (Lactinex) 1 tab DAILY PO 09/22/16 09:00 09/26/16 08:58 Levothyroxine Sodium (Synthroid) 100 mcg Q48H PO 09/23/16 06:00 09/25/16 05:05 Pravastatin Sodium (Pravachol) 40 mg HS PO 09/21/16 21:00 09/25/16 21:00 Promethazine HCl (Phenergan) 25 mg Q6H PRN PO Nausea/Vomiting 09/21/16 13:45 Tolterodine Tartrate (Detrol La) 4 mg DAILY PO 09/22/16 09:00 09/26/16 08:58 Tiotropium [place] (Spiriva Inh) 18 mcg DAILY INH 09/22/16 09:00 09/26/16 08:59 Albuterol Sulfate (Ventolin Hfa Inh) 2 puff QID INH 09/21/16 18:00 09/26/16 08:59 Atenolol (Tenormin) 25 mg HS PO 09/22/16 21:00 09/25/16 20:34 Furosemide (Lasix) 20 mg DAILY PRN PO SEE LABEL COMMENTS 09/21/16 22:15 Triamterene/HCTZ (Dyazide 37.5-25 Mg) 1 cap DAILY PO 09/22/16 09:00 09/26/16 08:58 Pantoprazole Sodium (Protonix) 40 mg DAILY PO 09/22/16 09:00 09/26/16 08:58 Miscellaneous Information Patient in critical care unit? Ass... [id number] .XX 09/21/16 22:45 Chlorhexidine Gluconate (Chlorhexidine 2% Cloth) 3 pack UNSCH PRN TOPICAL HYGIENIC CARE 09/21/16 22:45 09/26/16 22:43 Vancomycin HCl (VANCOMYCIN for oral use only) 125 mg QID PO 09/22/16 13:00 09/26/16 08:59 Potassium Chloride (KCl) 20 meq DAILY PO 09/24/16 09:00 09/26/16 08:59 Warfarin Sodium 7.5 mg 7.5 mg DAILY@16 PO 09/25/16 16:00 09/25/16 18:00 Aztreonam/Sodium Chloride (Azactam Inj/NS Inj) 100 ml @ 200 mls/hr Q8H IV 09/25/16 12:00 09/26/16 05:50 (Asha Salas) Medical Decision Making MDM Remarks 81 y/o female s/p lumbar laminectomy 09/04/16 presented with generalized weakness MRI Lumbar spine shows subcutaneous fluid collection w/o enhancement UTI C. Difficile Colitis (Asha Salas) Plan Plan Remarks recommend CT guided aspiration of fluid collection and send for cultures, will leave drain if possible unfortunately, pt has been on Coumadin. Hold Coumadin, IR will need 5 day hold prior to lumbar fluid aspiration cont medical management change wound dressing daily, keep clean and dry cont abx per ID (Asha Salas) Attending Statement The exam, history, and the medical decision-making described in the above note were completed with the assistance of the mid-level provider. I reviewed and agree with the findings presented. I attest that I had a [id number] encounter with the patient on the same day, and personally performed and documented my assessment and findings in the medical record. (Austin Arana MD) Asha Salas September 26, 2016 10:03 Austin Arana MD September 29, 2016 12:49
--- NOTE | 2016-09-26 12:15 | HHI.IDPN ---
Note Infectious Disease Note Patient feels okay. Was up in chair for 3 hours. Feels tired. Still complains of back pain. No chills. Stools forming. rectal bag removed. No SOB. on 2L NC. MRI of back noted. No abscess but fluid at surgical site. Aspirate ordered but INR is elevated and the procedure was post phoned. Presented to the emergency department after she developed generalized weakness and fell. Noted to have chills on day before admission. PAST MEDICAL HISTORY 1. Coronary artery disease. 2. Hypertension. 3. Arthritis. 4. COPD. 5. Gastroesophageal reflux disease. 6. History of PE. 7. TIA. 8. Radiculopathy. 9. Hypothyroidism. 10.Uterine fibroids. 11.Monoclonal gammopathy. 12.Brain AVM. 13.L5-S1 hemilaminectomy and microdiscectomy. 09/17. 14.Partial gastrectomy. 15.Cervical cancer. 16.[place] filter. 17.Tonsillectomy. 18.History of mitral valve prolapse. ALLERGIES No known drug allergies. ANTIBIOTICS: Vancomycin PO. Ceftriaxone. OBJECTIVE: Vital Signs Date Time Temp Pulse Resp B/P Pulse Ox O2 Delivery O2 Flow Rate FiO2 09/26/16 08:00 72 09/26/16 06:00 66 09/26/16 04:00 66 09/26/16 04:00 97.0 66 21 156/67 98 09/26/16 02:00 70 09/26/16 00:00 97.1 70 22 153/69 99 09/26/16 00:00 71 09/25/16 22:00 75 09/25/16 20:00 97.6 82 27 153/67 98 09/25/16 20:00 82 09/25/16 18:00 70 09/25/16 16:00 99.3 80 18 122/58 93 09/25/16 16:00 74 09/25/16 14:00 68 09/25/16 09/25/16 09/26/16 15:00 23:00 07:00 Intake Total 624 ml 534 ml 770 ml Output Total 911 ml 1000 ml 900 ml Balance -287 ml -466 ml -130 ml Intake Oral 120 ml 240 ml IV Total 624 ml 414 ml 530 ml Output Urine Total 910 ml 1000 ml 900 ml Stool Total 1 ml Laboratory Tests Test 09/25/16 09/26/16 04:52 05:42 White Blood Count 5.1 TH/MM3 5.2 TH/MM3 Red Blood Count 5.23 MIL/MM3 5.10 MIL/MM3 Hemoglobin 9.6 GM/DL 9.6 GM/DL Hematocrit 32.5 % 31.3 % Mean Corpuscular Volume 62.0 FL 61.3 FL Mean Corpuscular Hemoglobin 18.4 PG 18.9 PG Mean Corpuscular Hemoglobin 29.6 % 30.8 % Concent Red Cell Distribution Width 22.0 % 21.2 % Platelet Count 85 TH/MM3 103 TH/MM3 Mean Platelet Volume 10.7 FL 9.9 FL Neutrophils (%) (Auto) 88.0 % 87.6 % Lymphocytes (%) (Auto) 3.4 % 4.8 % Monocytes (%) (Auto) 4.7 % 5.4 % Eosinophils (%) (Auto) 2.0 % 1.3 % Basophils (%) (Auto) 1.9 % 0.9 % Neutrophils # (Auto) 4.5 TH/MM3 4.6 TH/MM3 Lymphocytes # (Auto) 0.2 TH/MM3 0.3 TH/MM3 Monocytes # (Auto) 0.2 TH/MM3 0.3 TH/MM3 Eosinophils # (Auto) 0.1 TH/MM3 0.1 TH/MM3 Basophils # (Auto) 0.1 TH/MM3 0.0 TH/MM3 CBC Comment AUTO DIFF AUTO DIFF Differential Total Cells 100 100 Counted Neutrophils % (Manual) 78 % 73 % Band Neutrophils % 8 % 10 % Lymphocytes % 4 % 6 % Monocytes % 4 % 6 % Eosinophils % 4 % 1 % Basophils % 2 % 4 % Neutrophils # (Manual) 4.4 TH/MM3 4.3 TH/MM3 Differential Comment FINAL DIFF FINAL DIFF MANUAL MANUAL Platelet Estimate LOW LOW Platelet Morphology Comment NORMAL NORMAL Tear Drop Cells 1+ Ovalocytes 1+ 1+ Acanthocytes 1+ Keratocytes OCC Laboratory Tests Test 09/25/16 09/26/16 04:52 05:42 Sodium Level 134 MEQ/L 133 MEQ/L Potassium Level 3.7 MEQ/L 3.8 MEQ/L Chloride Level 101 MEQ/L 100 MEQ/L Carbon Dioxide Level 26.6 MEQ/L 25.0 MEQ/L Anion Gap 6 MEQ/L 8 MEQ/L Blood Urea Nitrogen 8 MG/DL 5 MG/DL Creatinine 0.43 MG/DL 0.37 MG/DL Estimat Glomerular Filtration 141 ML/MIN 168 ML/MIN Rate Random Glucose 78 MG/DL 72 MG/DL Calcium Level 7.5 MG/DL 7.7 MG/DL Microbiology Date/Time Procedure Status Source Growth 09/23/16 18:30 Aerobic Blood Culture - Preliminary Resulted Blood Peripheral NO GROWTH IN 3 DAYS 09/23/16 18:30 Anaerobic Blood Culture - Preliminary Resulted Blood Peripheral NO GROWTH IN 3 DAYS 09/25/16 13:00 Aerobic Blood Culture - Preliminary Resulted Blood Line NO GROWTH IN 1 DAY 09/25/16 13:00 Anaerobic Blood Culture - Preliminary Resulted Blood Line NO GROWTH IN 1 DAY Microbiology Date/Time Procedure Status Source Growth 09/21/16 11:12 Aerobic Blood Culture - Final Complete Blood Peripheral Escherichia Coli Proteus Mirabilis 09/21/16 11:12 Anaerobic Blood Culture - Final Complete Escherichia Coli Proteus Mirabilis 09/21/16 11:20 Urine Culture - Final Complete Urine Clean Catch NO GROWTH IN 48 HOURS. 09/21/16 11:22 Aerobic Blood Culture - Final Complete Blood Peripheral Escherichia Coli Proteus Mirabilis 09/21/16 11:22 Anaerobic Blood Culture - Final Complete Escherichia Coli Proteus Mirabilis 09/22/16 08:30 Stool Occult Blood (LAMAR) - Final Complete Stool Stool HEMOCCULT NEGATIVE 09/23/16 18:30 Aerobic Blood Culture Received Blood Peripheral Pending 09/23/16 18:30 Anaerobic Blood Culture Received Blood Peripheral Pending IMAGING: Lumbar Spine MRI 09/25/16 0000 Signed Impressions: Service Date/Time: September 16:33 - CONCLUSION: 1. No evidence for osteomyelitis or discitis. 2. Large laminectomy defect on the right at L5- S1 with fluid extending into the right lateral recess. There is right lateral recess stenosis and mild enhancement around the right L5 nerve root probably some postsurgical change or early epidural fibrosis. No enhancing fluid collection seen to suggest abscess. There is fluid in the subcutaneous tissues of the lower back as well. Anirudh Hanna MD Chest X-Ray 09/24/16 0000 Signed Impressions: Service Date/Time: Saturday, September 24, 2016 14:20 - CONCLUSION: Adequate placement of right-sided PICC line. Camilo Valdez MD Abdomen/Pelvis CT 09/22/16 0000 Signed Impressions: Service Date/Time: Thursday, September 22, 2016 18:19 - CONCLUSION: 1. Dependent atelectasis in the lungs with small pleural effusions. 2. Hepatosplenomegaly. 3. Mural thickening of sigmoid and rectum most characteristic of a mild colitis and proctitis. 4. Inferior vena cava filter present. Vergara catheter in the bladder. 5. Mild ileus without definite evidence for obstruction. Anirudh Hanna MD Chest X-Ray 09/21/16 1107 Signed Impressions: Service Date/Time: Wednesday, September 21, 2016 11:38 - CONCLUSION: No acute disease. Omi Mora MD Head CT 09/21/16 0000 Signed Impressions: Service Date/Time: Wednesday, September 21, 2016 13:58 - CONCLUSION: No acute disease. Omi Mora MD PHYSICAL EXAMINATION GENERAL: No acute distress. Awake and alert. HEENT: No icterus. Oropharynx no visible lesions. NECK: Supple without adenopathy. LUNGS: Breath sounds clear. HEART: A 2/6 systolic murmur at the left sternal border and URSB. No rubs or gallops. ABDOMEN: Bowel sounds markedly diminished. Distended. Soft, nontender. EXTREMITIES: No clubbing, cyanosis or edema. SKIN: No rash. Warm and moist. NEUROLOGIC: Patient alert and oriented x3. No gross focal findings. PSYCHIATRIC: Calm, pleasant and cooperative. IMPRESSION 1. Sepsis. Proteus and e. coli. The patient presented with leukocytosis and elevated lactic acid level. The patient very likely has urine as the source of the sepsis. 2. C. difficile colitis. 3. Leukocytosis (secondary to infection, C. difficile). Improved. 4. Chills and back pain. RECOMMENDATIONS 1. Continue Aztreonam. 2. Continue PO Vancomycin for c. difficile. 3. Monitor repeat blood culture. 4. Monitor temp. 5. Monitor clinical status. Julito Albarran MD September 26, 2016 12:15
[2016-09-26] MEDS: SODIUM CHLOR 0.9% 1000 ML INJ 1,000 ML IV SCH ×2 (13:15→20:46)
--- NOTE | 2016-09-26 14:28 | RADRPT ---
EXAM DATE/TIME: 09/26/2016 00:00 [facility] COMPARISON: MRI LUMBAR SPINE W & W/O CONTRAST, September 25, 2016, 16:33. INDICATIONS : Subcutaneous fluid collection, lumbar region. INR is 4.0 FINDINGS: Patient has an INR of 4.0. When INR comes down to normal range or less than 1.5 then image guided samanta inage catheter can be placed. The current order will be canceled. CONCLUSION: The patient's INR is too high. When patient's INR comes below 1.5 image guided drainage catheter can be placed with a new order. Camilo Valdez MD on September 26, 2016 at 14:24 Board Certified Radiologist. This report was verified electronically.
--- NOTE | 2016-09-26 14:51 | HHI.PR ---
Subjective Interval History awake alert and oriented confused last night after Ativan was given BP and heart rate better back pain diarrhea slowing down at bed side no fevers or chills Vitals/Results Intake & Output 09/25/16 09/25/16 09/26/16 15:00 23:00 07:00 Intake Total 624 ml 534 ml 770 ml Output Total 911 ml 1000 ml 900 ml Balance -287 ml -466 ml -130 ml Intake Oral 120 ml 240 ml IV Total 624 ml 414 ml 530 ml Output Urine Total 910 ml 1000 ml 900 ml Stool Total 1 ml Vital Signs Vital Signs Date Time Temp Pulse Resp B/P Pulse Ox O2 Delivery O2 Flow Rate FiO2 09/26/16 14:00 71 09/26/16 12:00 74 09/26/16 10:00 69 09/26/16 08:00 72 09/26/16 06:00 66 09/26/16 04:00 66 09/26/16 04:00 97.0 66 21 156/67 98 09/26/16 02:00 70 09/26/16 00:00 97.1 70 22 153/69 99 09/26/16 00:00 71 09/25/16 22:00 75 09/25/16 20:00 97.6 82 27 153/67 98 09/25/16 20:00 82 09/25/16 18:00 70 09/25/16 16:00 99.3 80 18 122/58 93 09/25/16 16:00 74 CBC/BMP: 09/26/16 0542 09/26/16 0542 Lab Results Laboratory Tests Test 09/26/16 05:42 White Blood Count 5.2 TH/MM3 Red Blood Count 5.10 MIL/MM3 Hemoglobin 9.6 GM/DL Hematocrit 31.3 % Mean Corpuscular Volume 61.3 FL Mean Corpuscular Hemoglobin 18.9 PG Mean Corpuscular Hemoglobin 30.8 % Concent Red Cell Distribution Width 21.2 % Platelet Count 103 TH/MM3 Mean Platelet Volume 9.9 FL Neutrophils (%) (Auto) 87.6 % Lymphocytes (%) (Auto) 4.8 % Monocytes (%) (Auto) 5.4 % Eosinophils (%) (Auto) 1.3 % Basophils (%) (Auto) 0.9 % Neutrophils # (Auto) 4.6 TH/MM3 Lymphocytes # (Auto) 0.3 TH/MM3 Monocytes # (Auto) 0.3 TH/MM3 Eosinophils # (Auto) 0.1 TH/MM3 Basophils # (Auto) 0.0 TH/MM3 CBC Comment AUTO DIFF Differential Total Cells 100 Counted Neutrophils % (Manual) 73 % Band Neutrophils % 10 % Lymphocytes % 6 % Monocytes % 6 % Eosinophils % 1 % Basophils % 4 % Neutrophils # (Manual) 4.3 TH/MM3 Differential Comment FINAL DIFF MANUAL Platelet Estimate LOW Platelet Morphology Comment NORMAL Ovalocytes 1+ Keratocytes OCC Prothrombin Time 46.9 SEC Prothromb Time International 4.0 RATIO Ratio Sodium Level 133 MEQ/L Potassium Level 3.8 MEQ/L Chloride Level 100 MEQ/L Carbon Dioxide Level 25.0 MEQ/L Anion Gap 8 MEQ/L Blood Urea Nitrogen 5 MG/DL Creatinine 0.37 MG/DL Estimat Glomerular Filtration 168 ML/MIN Rate Random Glucose 72 MG/DL Calcium Level 7.7 MG/DL Physical Exam General General Appearance: Well Nourished, No Acute Distress Eyes Eye Exam: Pupils Equal, Pupils Reactive, Sclera White, Extraocular Movement Intact Throat Throat Exam: Oral Mucosa [place] & Moist Neck Neck Exam: Neck Supple, Trachea Midline Pulmonary Resp Exam: Clear Bilaterally, Breath Sounds Equal, No Distress Cardiology CV Exam: Regular, Normal Sinus Rhythm, Good Perfusion Gastrointestinal/Abdomen GI Exam: Soft, Bowel Sounds Present, Distended Musculoskeletal MS Exam: Joints Intact Integumentary Skin Exam: Clear, Warm, Dry, Intact Extremeties Extremities Exam: No Edema Neurologic Neuro Exam: Alert, Awake, Oriented, Speech Clear, Moving All Extremities, Scrap Crane Operator Equal, No Focal Deficits Psychiatric Psych Exam: Appropriate Responses Assessment/Plan Assessment/Plan Assessment and Plan Assessment and Plan Problem List: (1) Sepsis: GNR bacteremia, C diff + (2) Hypokalemia (3) Elevated troponin I level (4) S/P lumbar laminectomy (5) Hyperlipidemia (6) HTN (hypertension) (7) Hx pulmonary embolism (8) Hx TIA/stroke w/o resid (9) Murmur (10) thrombocytopenia Assessment and Plan 81-year-old elderly female presented to emergency room with complaint of generalized weakness for the past 2-3 days. Status post Right L5-S1 hemilaminectomy and microdiscectomy 5/, uneventful postop status. Had been ambulating well. Evaluated in the emergency room, found septic with elevated lactic acid and leukocytosis and bandemia. -Continue with IV fluids, Appreciate ID input PO vanco Azactam E coli and Proteus bacteremia, repeat Blood cultures neg so far -lactic acidosis resolved - CT abd/Pelvis noted - C diff + tylenol scheduled to avoid chills, rigors MRI Spine noted, appreciate NSR input, advised CT guided aspiration, but postponed sec to Elevated INR Elevated troponin, patient denies any chest pain Noted with murmur, patient states that she has a history of. Appreciate Cardiology input Continue with serial cardiac enzymes discontinue heparin gtt, sec to thrombocytopenia HIT panel neg platelets improving INR supra therapeutic hold coumadin - NSTEMI -Continue with Atenolol 50 mg by mouth daily & Aspirin 81 mg by mouth daily -2-D echo: EF 55-60% L5-S1 disk herniation, S/P Right L5-S1 hemilaminectomy and microdiscectomy 5/3 -Monitor surgical site Physical therapy for evaluation and treatment Hypertension, stable Continue home medications Hyperlipidemia, stable Continue home medications lipid profile History of pulmonary emboli, antiphospholipid syndrome. Has IVC filter coumadin held History of TIA, stable Continue with aspirin Home medications reviewed, initiated as indicated DVT prophylaxis: SCD/ coumadin OOB to chair ok to transfer to floor with tele Plan of care discussed with patient and nursing staff family at bed side labs in Monique Vazquez MD September 26, 2016 14:51
[2016-09-26] MEDS: ATENOLOL 25 MG TAB PO SCH (20:47)
[2016-09-26] MEDS: PRAVASTATIN SOD 40 MG TAB PO SCH (20:47)
[2016-09-27] VITALS: BP 120/56; PULSE 83; RESP 18; TEMP 98.9; O2SAT 97
[2016-09-27] MEDS: AZTREONAM INJ 1,000 MG in SODIUM CHLORIDE 0.9% INJ 100 ML IV SCH ×3 (03:58→20:37)
[2016-09-27 04:00] VITALS: BP 137/60; PULSE 57; RESP 17; TEMP 96; O2SAT 100
[2016-09-27] MEDS: LEVOTHYROXINE SODIUM 100 MCG TAB PO SCH (05:31)
[2016-09-27] MEDS: ACETAMINOPHEN/HYDROcodone 325 MG/10 MG TAB PO PRN ×3 (05:34→22:45)
[2016-09-27 06:03] LABS: AUTOMATED NEUTROPHIL # 5.3 TH/MM3 (1.8-7.7); BASOPHIL # 0.1 TH/MM3 (0-0.2); BASOPHIL % 1.4 % (0.0-2.0); EOSINOPHIL # 0.1 TH/MM3 (0-0.4); EOSINOPHIL % 2.1 % (0.0-4.0); HEMATOCRIT 28.5 % (35.0-46.0); LYMPH % 5.2 % (9.0-44.0); LYMPHOCYTE # 0.3 TH/MM3 (1.0-4.8); MEAN CORPUSCULAR HEMOGLOBIN 18.9 PG (27.0-34.0); MONO % 4.8 % (0.0-8.0); NEUT % 86.5 % (16.0-70.0); PLATELET COUNT 148 TH/MM3 (150-450); RED BLOOD COUNT 4.67 MIL/MM3 (4.00-5.30); RED CELL DISTRIBUTION WIDTH 21.2 % (11.6-17.2); WHITE BLOOD COUNT 6.1 TH/MM3 (4.0-11.0)
[2016-09-27 06:18] LABS: INTERNATIONAL NORMALIZED RATIO 5.2 RATIO; PROTHROMBIN TIME - PATIENT 61.2 SEC (9.8-11.6)
[2016-09-27 06:26] LABS: BICARBONATE 28.3 MEQ/L (21.0-32.0); POTASSIUM 4.1 MEQ/L (3.5-5.1)
[2016-09-27 06:38] LABS: CALCIUM-PROTEIN CORRECTED 8.8 MG/DL (8.5-10.1)
[2016-09-27 06:56] LABS: HEMO FLAGS AUTO DIFF
[2016-09-27 07:03] LABS: BANDS 11 % (0-6); EOSINOPHILS 2 % (0-4); NEUTROPHIL # MANUAL DIFF 5.6 TH/MM3 (1.8-7.7); POLYS (SEG NEUTROPHILS) 80 % (16-70); WBC DIFF SAMPLE 100
[2016-09-27 07:04] LABS: OVALOCYTES 1+ (NORMAL); PLATELET ESTIMATE SMEAR NORMAL (NORMAL); PLATELET MORPHOLOGY NORMAL (NORMAL); SCAN/DIFF FINAL DIFF MANUAL
[2016-09-27 07:06] LABS: KERATOCYTES OCC (NORMAL)
[2016-09-27 08:58] VITALS: BP 137/60; PULSE 57; RESP 20; TEMP 96; O2SAT 99
[2016-09-27] MEDS: TIOTROPIUM BROMIDE 18 MCG INH INH SCH (09:00)
[2016-09-27] MEDS: ALBUTEROL SULFATE 90 MCG/ACT HFA 18 GM INHALER INH SCH ×4 (09:00→20:38)
[2016-09-27] MEDS: TRIAMTERENE/HCTZ 37.5 MG/25 MG CAP PO SCH (10:13)
[2016-09-27] MEDS: LACTOBACILLUS ACIDOPHILUS TAB PO SCH (10:13)
[2016-09-27] MEDS: PANTOPRAZOLE SOD 40 MG DELAYED RELEASE TAB PO SCH (10:13)
[2016-09-27] MEDS: ASPIRIN EC 81 MG TABEC PO SCH (10:13)
[2016-09-27] MEDS: ASCORBIC ACID 500 MG TAB PO SCH (10:13)
[2016-09-27] MEDS: POTASSIUM CHLORIDE 10 MEQ CONTROLLED RELEASE TAB PO SCH (10:13)
[2016-09-27] MEDS: FOLIC ACID 1 MG TAB PO SCH (10:13)
[2016-09-27] MEDS: CHOLECALCIFEROL (VIT D3) 1000 UNIT TAB PO SCH (10:13)
[2016-09-27] MEDS: CALCIUM/VITAMIN D 250 MG/125 U TAB PO SCH (10:13)
[2016-09-27] MEDS: VANCOMYCIN 500 MG VIAL (FOR ORAL USE ONLY) PO SCH ×4 (10:13→20:37)
[2016-09-27] MEDS: SODIUM CHLORIDE 0.9% FLUSH 10 ML FLUSH IV FLUSH SCH ×2 (10:14→20:38)
[2016-09-27] MEDS: SODIUM CHLOR 0.9% 1000 ML INJ 1,000 ML IV SCH (11:31)
[2016-09-27 12:19] VITALS: BP 129/56; PULSE 82; RESP 19; TEMP 96.5; O2SAT 96
[2016-09-27] MEDS: TOLTERODINE TARTRATE 4 MG CAP LA PO SCH (14:27)
--- NOTE | 2016-09-27 14:40 | HHI.PR ---
Subjective Subjective Remarks Patient's sitting up on bedside commode Alert, communicative Vergara catheter in place I'll regimen with BM today Afebrile (Arti Villa) Review of Systems Constitutional Constitutional Remarks 10 point ROS done positives noted at the systems negative or unremarkable. Contact isolation (Arti Villa) GI/Abdomen GI/Abdomen Remarks Normal BM (Arti Villa) Musculoskeletal MS: Weakness, Stiffness (Arti Villa) Psychiatric Psychiatric: Normal Mood, Anxiety (Arti Villa) Vitals/Results Intake & Output 09/26/16 09/26/16 09/27/16 15:00 23:00 07:00 Intake Total 1075 ml 480 ml Output Total 1302 ml 2000 ml Balance -227 ml 480 ml -2000 ml Intake Oral 480 ml IV Total 1075 ml Output Urine Total 1300 ml 2000 ml Stool Total 2 ml # Bowel Movements 1 Vital Signs Vital Signs Date Time Temp Pulse Resp B/P Pulse Ox O2 Delivery O2 Flow Rate FiO2 09/27/16 12:19 96.5 82 19 129/56 96 09/27/16 08:58 96.0 57 20 137/60 99 09/27/16 04:00 96.0 57 17 137/60 100 09/27/16 00:00 98.9 83 18 120/56 97 09/26/16 20:00 82 09/26/16 20:00 99.4 81 17 128/54 98 09/26/16 18:00 77 09/26/16 16:45 101.0 82 24 150/60 100 09/26/16 16:00 65 (Arti Villa) CBC/BMP: 09/27/16 0403 09/27/16 0403 Lab Results Laboratory Tests Test 09/27/16 04:03 White Blood Count 6.1 TH/MM3 Red Blood Count 4.67 MIL/MM3 Hemoglobin 8.8 GM/DL Hematocrit 28.5 % Mean Corpuscular Volume 61.0 FL Mean Corpuscular Hemoglobin 18.9 PG Mean Corpuscular Hemoglobin 31.0 % Concent Red Cell Distribution Width 21.2 % Platelet Count 148 TH/MM3 Mean Platelet Volume 9.8 FL Neutrophils (%) (Auto) 86.5 % Lymphocytes (%) (Auto) 5.2 % Monocytes (%) (Auto) 4.8 % Eosinophils (%) (Auto) 2.1 % Basophils (%) (Auto) 1.4 % Neutrophils # (Auto) 5.3 TH/MM3 Lymphocytes # (Auto) 0.3 TH/MM3 Monocytes # (Auto) 0.3 TH/MM3 Eosinophils # (Auto) 0.1 TH/MM3 Basophils # (Auto) 0.1 TH/MM3 CBC Comment AUTO DIFF Differential Total Cells 100 Counted Neutrophils % (Manual) 80 % Band Neutrophils % 11 % Lymphocytes % 4 % Monocytes % 3 % Eosinophils % 2 % Neutrophils # (Manual) 5.6 TH/MM3 Differential Comment FINAL DIFF MANUAL Platelet Estimate NORMAL Platelet Morphology Comment NORMAL Ovalocytes 1+ Keratocytes OCC Prothrombin Time 61.2 SEC Prothromb Time International 5.2 RATIO Ratio Sodium Level 138 MEQ/L Potassium Level 4.1 MEQ/L Chloride Level 103 MEQ/L Carbon Dioxide Level 28.3 MEQ/L Anion Gap 7 MEQ/L Blood Urea Nitrogen 5 MG/DL Creatinine 0.44 MG/DL Estimat Glomerular Filtration 137 ML/MIN Rate Random Glucose 89 MG/DL Calcium Level 7.4 MG/DL Protein Corrected Calcium 8.8 MG/DL Total Protein 4.6 GM/DL Other EMR Data Microbiology Date/Time Procedure Status Source Growth 09/26/16 10:03 Gram Stain - Final Resulted Wound Back 09/26/16 10:03 Wound Culture - Preliminary Resulted Pseudomonas Species 09/25/16 13:00 Aerobic Blood Culture - Preliminary Resulted Blood Line NO GROWTH IN 2 DAYS 09/25/16 13:00 Anaerobic Blood Culture - Preliminary Resulted Blood Line NO GROWTH IN 2 DAYS Current Medications Administered Medications Medications (Trade) Dose Ordered Sig/Gypsy Route PRN Reason Start Time Stop Time Status Last Admin Dose Admin Sodium Chloride (NS 1000 ml Inj) 1,000 ml @ 75 mls/hr [id number] IV 09/21/16 13:29 09/27/16 11:31 Sodium Chloride (NS Flush) 2 ml UNSCH PRN IV FLUSH FLUSH AFTER USING IV ACCESS 09/21/16 13:30 09/23/16 07:45 Sodium Chloride (NS Flush) 2 ml BID IV FLUSH 09/21/16 21:00 09/27/16 10:14 Acetaminophen (Tylenol) 650 mg Q4H PRN PO TEMP > 100.4 09/21/16 13:30 09/23/16 09:33 Ondansetron HCl (Zofran Inj) 4 mg Q6H PRN IVP NAUSEA OR VOMITING 09/21/16 13:30 09/24/16 13:15 Ascorbic Acid (Vitamin C) 500 mg DAILY PO 09/21/16 13:45 09/27/16 10:13 Aspirin (Ecotrin Ec) 81 mg DAILY PO 09/22/16 09:00 09/27/16 10:13 Calcium/Vitamin D (Oscal-D 250-125) 250 mg DAILY PO 09/22/16 09:00 09/27/16 10:13 Cholecalciferol (Vitamin D3) 1,000 units DAILY PO 09/22/16 09:00 09/27/16 10:13 Folic Acid (Folate) 1 mg DAILY PO 09/22/16 09:00 09/27/16 10:13 Acetaminophen/ Hydrocodone Bitart ([place] 10-325 Mg) 1 tab Q8HR PRN PO PAIN SCALE 1 TO 10 09/21/16 13:45 09/27/16 14:27 Lactobacillus Acidophilus (Lactinex) 1 tab DAILY PO 09/22/16 09:00 09/27/16 10:13 Levothyroxine Sodium (Synthroid) 100 mcg Q48H PO 09/23/16 06:00 09/27/16 05:31 Pravastatin Sodium (Pravachol) 40 mg HS PO 09/21/16 21:00 09/26/16 20:47 Tolterodine Tartrate (Detrol La) 4 mg DAILY PO 09/22/16 09:00 09/27/16 14:27 Tiotropium [place] (Spiriva Inh) 18 mcg DAILY INH 09/22/16 09:00 09/26/16 08:59 Albuterol Sulfate (Ventolin Hfa Inh) 2 puff QID INH 09/21/16 18:00 09/26/16 20:47 Atenolol (Tenormin) 25 mg HS PO 09/22/16 21:00 09/26/16 20:47 Triamterene/HCTZ (Dyazide 37.5-25 Mg) 1 cap DAILY PO 09/22/16 09:00 09/27/16 10:13 Pantoprazole Sodium (Protonix) 40 mg DAILY PO 09/22/16 09:00 09/27/16 10:13 Vancomycin HCl (VANCOMYCIN for oral use only) 125 mg QID PO 09/22/16 13:00 09/27/16 14:28 Potassium Chloride (KCl) 20 meq DAILY PO 09/24/16 09:00 09/27/16 10:13 Warfarin Sodium 7.5 mg 7.5 mg DAILY@16 PO 09/25/16 16:00 Hold 09/25/16 18:00 Aztreonam/Sodium Chloride (Azactam Inj/NS Inj) 100 ml @ 200 mls/hr Q8H IV 09/25/16 12:00 09/27/16 11:31 (Arti VillaP) Physical Exam General General Appearance: Well Nourished, No Acute Distress (Arti VillaP) Eyes Eye Exam: Pupils Equal, Pupils Reactive, Sclera White, Extraocular Movement Intact (Arti VillaP) Throat Throat Exam: Oral Mucosa [place] & Moist (Arti VillaP) Neck Neck Exam: Neck Supple, Trachea Midline (Arti VillaP) Pulmonary Resp Exam: Clear Bilaterally, Breath Sounds Equal, No Distress (Arti VillaP) Cardiology CV Exam: Regular, Normal Sinus Rhythm, Good Perfusion (Arti VillaP) Gastrointestinal/Abdomen GI Exam: Soft, Bowel Sounds Present, Distended (Arti VillaP) Genitourinary Remarks Vergara catheter (Arti VillaP) Musculoskeletal MS Exam: Joints Intact (Arti VillaP) Integumentary Skin Exam: Clear, Warm, Dry, Intact (Arti VillaP) Extremeties Extremities Exam: No Edema (Arti Villa [employer]) Neurologic Neuro Exam: Alert, Awake, Oriented, Speech Clear, Moving All Extremities, Cloth Calender Equal, No Focal Deficits (Arti Villa. [employer]PORATE TRAV[employer]ANT) Psychiatric Psych Exam: Appropriate Responses (Arti VillaP) Assessment/Plan Assessment/Plan Problem List: (1) Sepsis: GNR bacteremia, C diff + (2) Hypokalemia (3) Elevated troponin I level (4) S/P lumbar laminectomy (5) Hyperlipidemia (6) HTN (hypertension) (7) Hx pulmonary embolism (8) Hx TIA/stroke w/o resid (9) Murmur (10) thrombocytopenia Assessment and Plan 81-year-old elderly female presented to emergency room with complaint of generalized weakness for the past 2-3 days. Status post Right L5-S1 hemilaminectomy and microdiscectomy 09/03, uneventful postop status. Had been ambulating well. Evaluated in the emergency room, found septic with elevated lactic acid and leukocytosis and bandemia. -Continue with IV fluids, Appreciate ID input , continue antibiotic therapy, , Azactam, E coli and Proteus bacteremia, Contact isolation for C diff +, by mouth vancomycin MRI Spine noted, appreciate NSR input, advised CT guided aspiration, but postponed sec to Elevated INR Elevated troponin, patient denies any chest pain Appreciate Cardiology input Continue with serial cardiac enzymes, trending low, Negative for non-STEMI, positive troponins probably due to sepsis and rigors. We'll sign off NC when necessary INR supra therapeutic and is continuing to climb, 5.2 today hold coumadin, no vitamin K for Now, will recheck PT/INR in the a.m. -Continue with Atenolol 50 mg by mouth daily & Aspirin 81 mg by mouth daily -2-D echo: EF 55-60% L5-S1 disk herniation, S/P Right L5-S1 hemilaminectomy and microdiscectomy 09/03, surgical site clean Physical therapy for evaluation and treatment Hypertension, stable Continue home medications Hyperlipidemia, stable Continue home medications lipid profile History of pulmonary emboli, antiphospholipid syndrome. Has IVC filter coumadin held History of TIA, stable Continue with aspirin Home medications reviewed, initiated as indicated DVT prophylaxis: SCD/ coumadin Vital signs reviewed Vergara catheter (Arti Villa) Assessment/Plan patient seen and examined continue antibiotics continue to hold coumadin, may need some Vit K in am, if INR remains high continue current care discussed with patient, at bed side and Arti EDMOND platelets improving (Monique Forbes MD) Arti Villa September 27, 2016 14:39 Monique Forbes MD September 27, 2016 15:15
[2016-09-27 16:51] VITALS: BP 135/58; PULSE 70; RESP 20; TEMP 98.7; O2SAT 98
[2016-09-27 20:00] VITALS: BP 141/60; PULSE 72; RESP 19; TEMP 97.9; O2SAT 100
[2016-09-27] MEDS: PRAVASTATIN SOD 40 MG TAB PO SCH (20:37)
[2016-09-27] MEDS: ATENOLOL 25 MG TAB PO SCH (20:38)
[2016-09-28] VITALS (10 sets, daily range): BP systolic 136–160; BP diastolic 59–73; PULSE 62–114; RESP 18–20; TEMP 96.6–99.8; O2SAT 97–100
[2016-09-28] MEDS: ACETAMINOPHEN 325 MG TAB PO PRN (00:22)
[2016-09-28] MEDS ORDERED: RESP: ALBUTEROL 2.5 MG/IPRATROPIUM 0.5 MG NEB (PRN) NEB (00:45)
[2016-09-28 03:15] LABS: INTERNATIONAL NORMALIZED RATIO 4.2 RATIO; PROTHROMBIN TIME - PATIENT 49.1 SEC (9.8-11.6)
[2016-09-28] MEDS: SODIUM CHLOR 0.9% 1000 ML INJ 1,000 ML IV SCH ×3 (04:03→12:28)
[2016-09-28] MEDS: AZTREONAM INJ 1,000 MG in SODIUM CHLORIDE 0.9% INJ 100 ML IV SCH ×3 (04:03→20:52)
[2016-09-28] MEDS: ACETAMINOPHEN/HYDROcodone 325 MG/10 MG TAB PO PRN ×2 (06:49→15:11)
[2016-09-28] MEDS: SODIUM CHLORIDE 0.9% FLUSH 10 ML FLUSH IV FLUSH SCH ×2 (09:00→21:06)
[2016-09-28] MEDS: ASPIRIN EC 81 MG TABEC PO SCH (10:01)
[2016-09-28] MEDS: VANCOMYCIN 500 MG VIAL (FOR ORAL USE ONLY) PO SCH ×4 (10:01→20:49)
[2016-09-28] MEDS: ASCORBIC ACID 500 MG TAB PO SCH (10:01)
[2016-09-28] MEDS: POTASSIUM CHLORIDE 10 MEQ CONTROLLED RELEASE TAB PO SCH (10:01)
[2016-09-28] MEDS: PANTOPRAZOLE SOD 40 MG DELAYED RELEASE TAB PO SCH (10:01)
[2016-09-28] MEDS: FOLIC ACID 1 MG TAB PO SCH (10:01)
[2016-09-28] MEDS: TOLTERODINE TARTRATE 4 MG CAP LA PO SCH (10:02)
[2016-09-28] MEDS: LACTOBACILLUS ACIDOPHILUS TAB PO SCH (10:02)
[2016-09-28] MEDS: CHOLECALCIFEROL (VIT D3) 1000 UNIT TAB PO SCH (10:02)
[2016-09-28] MEDS: CALCIUM/VITAMIN D 250 MG/125 U TAB PO SCH (10:02)
[2016-09-28] MEDS: TIOTROPIUM BROMIDE 18 MCG INH INH SCH (10:02)
[2016-09-28] MEDS: TRIAMTERENE/HCTZ 37.5 MG/25 MG CAP PO SCH (10:02)
[2016-09-28] MEDS: ALBUTEROL SULFATE 90 MCG/ACT HFA 18 GM INHALER INH SCH ×4 (10:02→21:05)
--- NOTE | 2016-09-28 10:03 | HHI.PR ---
Subjective Subjective Remarks episode of chest pressure, feel panicky has had before at home and was resolved with inhaler feels anxious, would like Xanax did not think it was heart attack no sob no palpitation stools more formed now no abd. pain no fever at bsd Review of Systems Constitutional Constitutional Remarks 12 point ROS completed, negative except as noted above Musculoskeletal MS: Weakness, Stiffness Psychiatric Psychiatric: Normal Mood, Anxiety Vitals/Results Intake & Output 09/27/16 09/27/16 09/28/16 15:00 23:00 07:00 Intake Total 1872 ml 240 ml Output Total 550 ml 1400 ml Balance 1322 ml -1160 ml Intake Oral 240 ml 240 ml IV Total 1632 ml Output Urine Total 550 ml 1400 ml # Voids 7 # Bowel Movements 3 Vital Signs Vital Signs Date Time Temp Pulse Resp B/P Pulse Ox O2 Delivery O2 Flow Rate FiO2 09/28/16 07:50 96.7 62 20 136/59 100 09/28/16 04:00 97.1 66 19 142/60 100 09/28/16 01:02 97 Nasal Cannula 2.00 09/28/16 00:25 99.1 09/28/16 00:08 76 09/28/16 00:00 98.6 79 18 144/67 100 09/27/16 20:00 97.9 72 19 141/60 100 09/27/16 16:51 98.7 70 20 135/58 98 09/27/16 12:19 96.5 82 19 129/56 96 CBC/BMP: 09/27/16 0403 09/27/16 0403 Lab Results Laboratory Tests Test 09/28/16 02:40 Prothrombin Time 49.1 SEC Prothromb Time International 4.2 RATIO Ratio Troponin I 0.05 NG/ML Physical Exam General General Appearance: Well Nourished, No Acute Distress, Anxious Eyes Eye Exam: Pupils Equal, Pupils Reactive, Sclera White, Extraocular Movement Intact Ears & Nose Ears & Nose Exam: Nasal Mucosa [place] Throat Throat Exam: Oral Mucosa [place] & Moist Neck Neck Exam: Neck Supple, Trachea Midline Pulmonary Resp Exam: Clear Bilaterally, Breath Sounds Equal, No Distress Cardiology CV Exam: Regular, Normal Sinus Rhythm, Good Perfusion Gastrointestinal/Abdomen GI Exam: Soft, Non-Tender, Bowel Sounds Present Genitourinary Exam: Clear Urine Remarks GARCIA Musculoskeletal MS Exam: Joints Intact Integumentary Skin Exam: Clear, Warm, Dry, Intact Extremeties Extremities Exam: No Edema, Pedal Pulses Palpable Neurologic Neuro Exam: Alert, Awake, Oriented, Speech Clear, Moving All Extremities, [employer] Equal, No Focal Deficits Psychiatric Psych Exam: Appropriate Responses VTE Prophylaxis VTE Prophylaxis Device: SCDs Assessment/Plan Problem List: (1) Sepsis (2) Hypokalemia (3) Hyperlipidemia (4) Murmur (5) HTN (hypertension) (6) Hx TIA/stroke w/o resid (7) Elevated troponin I level (8) Hx pulmonary embolism (9) Rigors (10) Thrombocytopenia (11) S/P lumbar laminectomy (12) Clostridium difficile diarrhea (13) Lumbar surgical wound fluid collection (14) Anemia Assessment/Plan 81-year-old elderly female presented to emergency room with complaint of generalized weakness for the past 2-3 days. Status post Right L5-S1 hemilaminectomy and microdiscectomy 09/03, uneventful postop status. Had been ambulating well. Evaluated in the emergency room, found septic with elevated lactic acid and leukocytosis and bandemia. Sepsis -lactic acidosis resolving -Blood cultures positive for Proteus and Escherichia coli, repeat blood cultures negative so far Continue with Azactam Positive for C. difficile, continue with by mouth Merari Appreciate ID input -Lumbar spine MRI results noted, fluid collection L5-S1. No abscess noted. IR consult for CT guided aspiration, INR elevated, proc. on hold -continue Tylenol PRN rigors, chills. Elevated troponin, patient denies any chest pain. +NSTEMI Noted with murmur, patient states that she has a history of. Appreciate Cardiology input, card. signed off -medical management for now -Continue with Atenolol 50 mg by mouth daily & Aspirin 81 mg by mouth daily -2-D echo: EF 55-60% -discontinued heparin gtt, sec to thrombocytopenia -HIT panel neg; platelets improving INR supra therapeutic -hold coumadin -INR 4.2 -Vit K 5 mg po today Anemia, HH Hbg 13 now 8.8. Microcytic, hypochromic -checks stools for OB -iron studies -follow HH, may need PRBC if Hgb <8. L5-S1 disk herniation, S/P Right L5-S1 hemilaminectomy and microdiscectomy 09/03 -Monitor surgical site Physical therapy for evaluation and treatment -Lumbar spine MRI results noted, fluid collection L5-S1. Hypertension, stable Continue home medications Hyperlipidemia, stable Continue home medications - lipid profile done, results noted History of pulmonary emboli, antiphospholipid syndrome. Has IVC filter -coumadin on hold -INR supratherapeutic History of TIA, stable monitor closely -continue ASA Thrombocytopenia -plat. better -HIT negative -off Heparin gtt DVT prophylaxis: SCD/ off coumadin DC SansanKaleb activity, OOB with PT Labs in am D/W pt and D/W Dr. Forbes D/W RN This patient was seen by myself and Dr. Forbes, this note is written on her behalf. Problem Qualifiers (1) Sepsis: Qualified Code: A41.9 - Sepsis, due to unspecified organism (2) Hyperlipidemia: Qualified Code: E78.5 - Hyperlipidemia, unspecified hyperlipidemia type (3) HTN (hypertension): Qualified Code: I10 - Essential hypertension (4) Lumbar surgical wound fluid collection: Qualified Code: T81.89XA - Lumbar surgical wound fluid collection, initial encounter (5) Anemia: Qualified Code: D64.9 - Anemia, unspecified type Lisa Mcfarland September 28, 2016 10:03
[2016-09-28] MEDS ORDERED: PHYTONADIONE 5 MG TAB PO ONE (10:30)
[2016-09-28] MEDS: ALPRAZolam 0.25 MG TAB PO PRN ×3 (12:26→23:14)
[2016-09-28 14:42] LABS: TRANSFERRIN IRON PROFILE 123 MG/DL (200-360)
[2016-09-28 15:07] LABS: FERRITIN 89 NG/ML (8-252)
--- NOTE | 2016-09-28 15:28 | EKG ---
Date Performed: 09/28/2016 Time Performed: 03:21:42 PTAGE: 81 years EKG: Baseline artiofact in leads II, III, and AVF, make interpretation of Those leads difficult. Tracing otherwise within normal limits, with borderline first degree AV block present. When compared to previous tracing, no change other than Baseline artifact in leads II, III, and AVF. Borderline EC G PREVIOUS TRACING : 09/22/2016 07.22.06 DOCTOR: Ramón Cowart Interpretating Date/Time 09/28/2016 15:27:49
[2016-09-28 18:15] LABS: RETIC % 1.2 % (0.4-3.0)
[2016-09-28 18:17] LABS: REVIEW FLAG FINAL
[2016-09-28] MEDS: ATENOLOL 25 MG TAB PO SCH (20:54)
[2016-09-28] MEDS: PRAVASTATIN SOD 40 MG TAB PO SCH (20:55)
[2016-09-28] MEDS ORDERED: ALPRAZolam 0.25 MG TAB PO SCH (23:30)
[2016-09-29] VITALS (8 sets, daily range): BP systolic 147–164; BP diastolic 69–98; PULSE 66–91; RESP 18–20; TEMP 96.3–100.6; O2SAT 97–100
[2016-09-29] MEDS: AZTREONAM INJ 1,000 MG in SODIUM CHLORIDE 0.9% INJ 100 ML IV SCH (03:01)
[2016-09-29] MEDS: SODIUM CHLOR 0.9% 1000 ML INJ 1,000 ML IV SCH (03:01)
[2016-09-29] MEDS: SODIUM CHLORIDE 0.9% FLUSH 10 ML FLUSH IV FLUSH PRN ×2 (03:30→23:21)
[2016-09-29 04:43] LABS: HEMATOCRIT 28.6 % (35.0-46.0); MEAN CELL VOLUME 61.4 FL (80.0-100.0); MEAN CORPUSCULAR HEMOGLOBIN 19.1 PG (27.0-34.0); MEAN CORPUSCULAR HGB CONC 31.1 % (32.0-36.0); PLATELET COUNT 296 TH/MM3 (150-450); RED BLOOD COUNT 4.66 MIL/MM3 (4.00-5.30); REVIEW FLAG FINAL; WHITE BLOOD COUNT 7.9 TH/MM3 (4.0-11.0)
[2016-09-29 04:53] LABS: INTERNATIONAL NORMALIZED RATIO 1.4 RATIO; PROTHROMBIN TIME - PATIENT 16.2 SEC (9.8-11.6)
[2016-09-29 04:58] LABS: BICARBONATE 26.9 MEQ/L (21.0-32.0); MAGNESIUM 1.7 MG/DL (1.5-2.5); POTASSIUM 3.8 MEQ/L (3.5-5.1)
[2016-09-29] MEDS: LEVOTHYROXINE SODIUM 100 MCG TAB PO SCH (05:25)
[2016-09-29] MEDS: PANTOPRAZOLE SOD 40 MG DELAYED RELEASE TAB PO SCH (08:20)
[2016-09-29] MEDS: LACTOBACILLUS ACIDOPHILUS TAB PO SCH (08:20)
[2016-09-29] MEDS: ASCORBIC ACID 500 MG TAB PO SCH (08:20)
[2016-09-29] MEDS: CHOLECALCIFEROL (VIT D3) 1000 UNIT TAB PO SCH (08:20)
[2016-09-29] MEDS: ASPIRIN EC 81 MG TABEC PO SCH (08:20)
[2016-09-29] MEDS: FOLIC ACID 1 MG TAB PO SCH (08:21)
[2016-09-29] MEDS: CALCIUM/VITAMIN D 250 MG/125 U TAB PO SCH (08:21)
[2016-09-29] MEDS: ALPRAZolam 0.25 MG TAB PO PRN ×2 (08:21→21:23)
[2016-09-29] MEDS: VANCOMYCIN 500 MG VIAL (FOR ORAL USE ONLY) PO SCH ×4 (08:21→21:26)
[2016-09-29] MEDS: TRIAMTERENE/HCTZ 37.5 MG/25 MG CAP PO SCH (08:21)
[2016-09-29] MEDS: ALBUTEROL SULFATE 90 MCG/ACT HFA 18 GM INHALER INH SCH ×3 (08:25→21:29)
[2016-09-29] MEDS: TOLTERODINE TARTRATE 4 MG CAP LA PO SCH (08:26)
[2016-09-29] MEDS: TIOTROPIUM BROMIDE 18 MCG INH INH SCH (08:26)
[2016-09-29] MEDS: POTASSIUM CHLORIDE 10 MEQ CONTROLLED RELEASE TAB PO SCH (08:29)
[2016-09-29] MEDS: SODIUM CHLORIDE 0.9% FLUSH 10 ML FLUSH IV FLUSH SCH ×2 (09:00→21:29)
[2016-09-29] MEDS: ACETAMINOPHEN/HYDROcodone 325 MG/10 MG TAB PO PRN ×2 (10:14→21:23)
--- NOTE | 2016-09-29 11:46 | HHI.IDPN ---
Note Infectious Disease Note Patient note frequent urination. No back pain. No chills. Stools form Denies back pain. No SOB. On 2L NC. Aspirate of back fluid not yet done. Culture of fluid from back has pseudomonas. Presented to the emergency department after she developed generalized weakness and fell. Noted to have chills on day before admission. PAST MEDICAL HISTORY 1. Coronary artery disease. 2. Hypertension. 3. Arthritis. 4. COPD. 5. Gastroesophageal reflux disease. 6. History of PE. 7. TIA. 8. Radiculopathy. 9. Hypothyroidism. 10.Uterine fibroids. 11.Monoclonal gammopathy. 12.Brain AVM. 13.L5-S1 hemilaminectomy and microdiscectomy. 09/17. 14.Partial gastrectomy. 15.Cervical cancer. 16.[place] filter. 17.Tonsillectomy. 18.History of mitral valve prolapse. ALLERGIES No known drug allergies. ANTIBIOTICS: Vancomycin PO. Aztreonam. OBJECTIVE: Vital Signs Date Time Temp Pulse Resp B/P Pulse Ox O2 Delivery O2 Flow Rate FiO2 09/29/16 08:00 98.5 75 18 159/70 100 09/29/16 04:00 99.8 78 18 157/72 97 09/29/16 00:00 99.0 91 18 158/81 98 09/28/16 20:08 83 09/28/16 20:00 99.8 83 19 156/72 99 09/28/16 16:00 97.8 114 18 142/59 100 09/28/16 12:00 96.6 98 18 160/73 100 09/28/16 09/28/16 09/29/16 15:00 23:00 07:00 Intake Total 1723 ml 840 ml 845 ml Output Total 150 ml 1000 ml Balance 1723 ml 690 ml -155 ml Intake Oral 240 ml 240 ml IV Total 1723 ml 600 ml 605 ml Output Urine Total 150 ml 1000 ml # Voids 1 # Bowel Movements 1 Laboratory Tests Test 09/28/16 09/29/16 17:30 03:30 Reticulocyte Count 1.2 % Absolute Reticulocyte Count 59.7 MIL/L White Blood Count 7.9 TH/MM3 Red Blood Count 4.66 MIL/MM3 Hemoglobin 8.9 GM/DL Hematocrit 28.6 % Mean Corpuscular Volume 61.4 FL Mean Corpuscular Hemoglobin 19.1 PG Mean Corpuscular Hemoglobin 31.1 % Concent Red Cell Distribution Width 22.0 % Platelet Count 296 TH/MM3 Mean Platelet Volume 9.1 FL Laboratory Tests Test 09/28/16 09/29/16 02:40 03:30 Iron Level 17 MCG/DL Total Iron Binding Capacity 172 MCG/DL Percent Iron Saturation 9.9 % Ferritin 89 NG/ML Troponin I 0.05 NG/ML Vitamin B12 Level 1204 PG/ML Sodium Level 134 MEQ/L Potassium Level 3.8 MEQ/L Chloride Level 100 MEQ/L Carbon Dioxide Level 26.9 MEQ/L Anion Gap 7 MEQ/L Blood Urea Nitrogen 3 MG/DL Creatinine 0.44 MG/DL Estimat Glomerular Filtration 137 ML/MIN Rate Random Glucose 80 MG/DL Calcium Level 7.7 MG/DL Magnesium Level 1.7 MG/DL Microbiology Date/Time Procedure Status Source Growth 09/21/16 11:12 Aerobic Blood Culture - Final Complete Blood Peripheral Escherichia Coli Proteus Mirabilis 09/21/16 11:12 Anaerobic Blood Culture - Final Complete Escherichia Coli Proteus Mirabilis 09/21/16 11:20 Urine Culture - Final Complete Urine Clean Catch NO GROWTH IN 48 HOURS. 09/21/16 11:22 Aerobic Blood Culture - Final Complete Blood Peripheral Escherichia Coli Proteus Mirabilis 09/21/16 11:22 Anaerobic Blood Culture - Final Complete Escherichia Coli Proteus Mirabilis 09/22/16 08:30 Stool Occult Blood (LAMAR) - Final Complete Stool Stool HEMOCCULT NEGATIVE 09/23/16 18:30 Aerobic Blood Culture Received Blood Peripheral Pending 09/23/16 18:30 Anaerobic Blood Culture Received Blood Peripheral Pending IMAGING: Lumbar Spine MRI 09/25/16 0000 Signed Impressions: Service Date/Time: September 16:33 - CONCLUSION: 1. No evidence for osteomyelitis or discitis. 2. Large laminectomy defect on the right at L5- S1 with fluid extending into the right lateral recess. There is right lateral recess stenosis and mild enhancement around the right L5 nerve root probably some postsurgical change or early epidural fibrosis. No enhancing fluid collection seen to suggest abscess. There is fluid in the subcutaneous tissues of the lower back as well. Anirudh Hanna MD Chest X-Ray 09/24/16 0000 Signed Impressions: Service Date/Time: Saturday, September 24, 2016 14:20 - CONCLUSION: Adequate placement of right-sided PICC line. Camilo Valdez MD Abdomen/Pelvis CT 09/22/16 0000 Signed Impressions: Service Date/Time: Thursday, September 22, 2016 18:19 - CONCLUSION: 1. Dependent atelectasis in the lungs with small pleural effusions. 2. Hepatosplenomegaly. 3. Mural thickening of sigmoid and rectum most characteristic of a mild colitis and proctitis. 4. Inferior vena cava filter present. Vergara catheter in the bladder. 5. Mild ileus without definite evidence for obstruction. Anirudh Hanna MD Chest X-Ray 09/21/16 1107 Signed Impressions: Service Date/Time: Wednesday, September 21, 2016 11:38 - CONCLUSION: No acute disease. Omi Mora MD Head CT 09/21/16 0000 Signed Impressions: Service Date/Time: Wednesday, September 21, 2016 13:58 - CONCLUSION: No acute disease. Omi Mora MD PHYSICAL EXAMINATION GENERAL: No acute distress. Awake and alert. HEENT: No icterus. Oropharynx no visible lesions. NECK: Supple without adenopathy. LUNGS: Breath sounds clear. HEART: 2/6 systolic murmur at the left sternal border and URSB. No rubs or gallops. ABDOMEN: Bowel sounds diminished. Distended. Soft, nontender. EXTREMITIES: No clubbing, cyanosis or edema. SKIN: No rash. Warm and moist. NEUROLOGIC: Alert and oriented x3. No gross focal findings. PSYCHIATRIC: Calm, pleasant and cooperative. IMPRESSION 1. Sepsis. Proteus and e. coli. The patient presented with leukocytosis and elevated lactic acid level. The patient very likely has urine as the source of the sepsis. 2. C. difficile colitis. 3. Leukocytosis (secondary to infection, C. difficile). Improved. 4. Pseudomonas lumbar wound infection. Post op. Organism intermediate sensitivity to Aztreonam. RECOMMENDATIONS 1. Discontinue Aztreonam. 2. Begin Meropenem. In light of C. diff would avoid Levaquin. 3. Continue PO Vancomycin for c. difficile. 4. Monitor temp. 5. Monitor clinical status. 6. Aspiration of fluid in the lumbar region as planned. Julito Albarran MD September 29, 2016 11:46
--- NOTE | 2016-09-29 11:54 | HHI.PR ---
Subjective Subjective Remarks very anxious, woke up with chest pressure sensation last night has a lot of stress at home, pt.'s needs valve replacement Xanax working okay c/o low back pain, non radiating. Only has been getting up to use commode. No leg weakness voiding okay no cp no sob low grade fever, max 99.8 Review of Systems Constitutional Constitutional Remarks 12 point ROS completed, negative except as noted above Musculoskeletal MS: Weakness, Stiffness Psychiatric Psychiatric: Normal Mood, Anxiety Vitals/Results Intake & Output 09/28/16 09/28/16 09/29/16 15:00 23:00 07:00 Intake Total 1723 ml 840 ml 845 ml Output Total 150 ml 1000 ml Balance 1723 ml 690 ml -155 ml Intake Oral 240 ml 240 ml IV Total 1723 ml 600 ml 605 ml Output Urine Total 150 ml 1000 ml # Voids 1 # Bowel Movements 1 Vital Signs Vital Signs Date Time Temp Pulse Resp B/P Pulse Ox O2 Delivery O2 Flow Rate FiO2 09/29/16 08:00 98.5 75 18 159/70 100 09/29/16 04:00 99.8 78 18 157/72 97 09/29/16 00:00 99.0 91 18 158/81 98 09/28/16 20:08 83 09/28/16 20:00 99.8 83 19 156/72 99 09/28/16 16:00 97.8 114 18 142/59 100 09/28/16 12:00 96.6 98 18 160/73 100 CBC/BMP: 09/29/16 0330 09/29/16 0330 Lab Results Laboratory Tests Test 09/28/16 09/29/16 17:30 03:30 Reticulocyte Count 1.2 % Absolute Reticulocyte Count 59.7 MIL/L White Blood Count 7.9 TH/MM3 Red Blood Count 4.66 MIL/MM3 Hemoglobin 8.9 GM/DL Hematocrit 28.6 % Mean Corpuscular Volume 61.4 FL Mean Corpuscular Hemoglobin 19.1 PG Mean Corpuscular Hemoglobin 31.1 % Concent Red Cell Distribution Width 22.0 % Platelet Count 296 TH/MM3 Mean Platelet Volume 9.1 FL Prothrombin Time 16.2 SEC Prothromb Time International 1.4 RATIO Ratio Sodium Level 134 MEQ/L Potassium Level 3.8 MEQ/L Chloride Level 100 MEQ/L Carbon Dioxide Level 26.9 MEQ/L Anion Gap 7 MEQ/L Blood Urea Nitrogen 3 MG/DL Creatinine 0.44 MG/DL Estimat Glomerular Filtration 137 ML/MIN Rate Random Glucose 80 MG/DL Calcium Level 7.7 MG/DL Magnesium Level 1.7 MG/DL Physical Exam General General Appearance: Well Nourished, No Acute Distress, Anxious Eyes Eye Exam: Pupils Equal, Pupils Reactive, Sclera White, Extraocular Movement Intact Ears & Nose Ears & Nose Exam: Nasal Mucosa [place] Throat Throat Exam: Oral Mucosa [place] & Moist Neck Neck Exam: Neck Supple, Trachea Midline Pulmonary Resp Exam: Clear Bilaterally, Breath Sounds Equal, No Distress Cardiology CV Exam: Regular, Normal Sinus Rhythm, Good Perfusion Gastrointestinal/Abdomen GI Exam: Soft, Non-Tender, Bowel Sounds Present Genitourinary Exam: Clear Urine Remarks GARCIA Musculoskeletal MS Exam: Joints Intact Integumentary Skin Exam: Clear, Warm, Dry, Intact Extremeties Extremities Exam: No Edema, Pedal Pulses Palpable Neurologic Neuro Exam: Alert, Awake, Oriented, Speech Clear, Moving All Extremities, Scientific Affairs Manager Equal, No Focal Deficits Psychiatric Psych Exam: Appropriate Responses VTE Prophylaxis VTE Prophylaxis Device: SCDs Assessment/Plan Problem List: (1) Sepsis (2) Hypokalemia (3) Hyperlipidemia (4) Murmur (5) HTN (hypertension) (6) Hx TIA/stroke w/o resid (7) Elevated troponin I level (8) Hx pulmonary embolism (9) Rigors (10) Thrombocytopenia (11) S/P lumbar laminectomy (12) Clostridium difficile diarrhea (13) Lumbar surgical wound fluid collection (14) Anemia Assessment/Plan 81-year-old elderly female presented to emergency room with complaint of generalized weakness for the past 2-3 days. Status post Right L5-S1 hemilaminectomy and microdiscectomy 5, uneventful postop status. Had been ambulating well. Evaluated in the emergency room, found septic with elevated lactic acid and leukocytosis and bandemia. Sepsis, poss. source, urine, vs lumbar fluid collection -Blood cultures positive for Proteus and Escherichia coli, repeat blood cultures negative so far -back, fluid culture + pseudomona -Azactam dc, started on Meropenem Positive for C. difficile, continue with by mouth Vanco Appreciate ID input, d/w Dr. Albarran -continue Tylenol PRN rigors, chills. -Lumbar spine MRI results noted, fluid collection L5-S1. No abscess noted. -IR consult for evaluation and poss. drain placement, cultures to be obtained. INR now 1.4. Elevated troponin, patient denies any chest pain. +NSTEMI Noted with murmur, patient states that she has a history of. Appreciate Cardiology input, card. signed off -medical management for now -Continue with Atenolol 50 mg by mouth daily & Aspirin 81 mg by mouth daily -2-D echo: EF 55-60% -discontinued heparin gtt, sec to thrombocytopenia -HIT panel neg; platelets improving INR supra therapeutic -hold coumadin -INR 1.4 now Anemia, HH Hbg 13 now 8.8. Microcytic, hypochromic -checks stools for OB-pending -low iron studies -start PO iron -follow HH, may need PRBC if Hgb <8 -HH stable L5-S1 disk herniation, S/P Right L5-S1 hemilaminectomy and microdiscectomy / -Monitor surgical site Physical therapy for evaluation and treatment -Lumbar spine MRI results noted, fluid collection L5-S1. -c/o low back pain, not radiculopathy. Inc. activity, OOB at least 3 x, Lidocaine patch ordered. Hypertension, stable Continue home medications Hyperlipidemia, stable Continue home medications - lipid profile done, results noted History of pulmonary emboli, antiphospholipid syndrome. Has IVC filter -coumadin on hold History of TIA, stable monitor closely -continue ASA Thrombocytopenia -plat. better -HIT negative -off Heparin gtt Anxiety -continue Xanax PRN DVT prophylaxis: SCD/ off coumadin IR to drain fluid collection tomorrow need to inc. activity Labs reviewed, stable Labs in am D/W pt D/W Dr. Forbes D/W RN This patient was seen by myself and Dr. Forbes, this note is written on her behalf. Problem Qualifiers (1) Sepsis: Qualified Code: A41.9 - Sepsis, due to unspecified organism (2) Hyperlipidemia: Qualified Code: E78.5 - Hyperlipidemia, unspecified hyperlipidemia type (3) HTN (hypertension): Qualified Code: I10 - Essential hypertension (4) Lumbar surgical wound fluid collection: Qualified Code: T81.89XA - Lumbar surgical wound fluid collection, initial encounter (5) Anemia: Qualified Code: D64.9 - Anemia, unspecified type Lisa Mcfarland September 29, 2016 11:54
[2016-09-29] MEDS ORDERED: ASP: Path resistant to other antimicrobials, culture proven PRN (12:00)
[2016-09-29] MEDS ORDERED: MISCELLANEOUS PHARMACY INFORMATION XX PRN ×2 (12:00)
[2016-09-29] MEDS: MEROPENEM INJ 1,000 MG in SODIUM CHLORIDE 0.9% INJ 100 ML IV SCH ×2 (13:06→23:20)
[2016-09-29] MEDS: LIDOCAINE HCL 5% PATCH T-DERMAL SCH (13:06)
[2016-09-29] MEDS: PRAVASTATIN SOD 40 MG TAB PO SCH (21:23)
[2016-09-29] MEDS: FERROUS SULFATE 325 MG (65 MG ELEMENTAL IRON) TAB PO SCH (21:23)
[2016-09-29] MEDS: ATENOLOL 25 MG TAB PO SCH (21:23)
[2016-09-30] VITALS (7 sets, daily range): BP systolic 134–163; BP diastolic 67–78; PULSE 70–86; RESP 18–20; TEMP 97–101.1; O2SAT 96–100
[2016-09-30] MEDS: REMOVE OLD PATCH T-DERMAL SCH ×2 (02:00→08:39)
[2016-09-30] MEDS: MEROPENEM INJ 1,000 MG in SODIUM CHLORIDE 0.9% INJ 100 ML IV SCH ×3 (05:08→21:44)
[2016-09-30] MEDS: ACETAMINOPHEN/HYDROcodone 325 MG/10 MG TAB PO PRN ×3 (05:26→21:43)
[2016-09-30] MEDS: ALPRAZolam 0.25 MG TAB PO PRN ×3 (05:26→21:43)
[2016-09-30 05:27] LABS: HEMATOCRIT 29.8 % (35.0-46.0); MEAN CORPUSCULAR HEMOGLOBIN 18.7 PG (27.0-34.0); MEAN CORPUSCULAR HGB CONC 30.1 % (32.0-36.0); PLATELET COUNT 321 TH/MM3 (150-450); RED BLOOD COUNT 4.81 MIL/MM3 (4.00-5.30); RED CELL DISTRIBUTION WIDTH 21.7 % (11.6-17.2); REVIEW FLAG FINAL; WHITE BLOOD COUNT 8.8 TH/MM3 (4.0-11.0)
[2016-09-30 05:32] LABS: INTERNATIONAL NORMALIZED RATIO 1.1 RATIO; PROTHROMBIN TIME - PATIENT 12.2 SEC (9.8-11.6)
[2016-09-30 05:35] LABS: BICARBONATE 27.8 MEQ/L (21.0-32.0); POTASSIUM 3.8 MEQ/L (3.5-5.1)
[2016-09-30] MEDS ORDERED: PICC PRN After Blood Draw NS Lock Flush IV FLUSH (08:30)
[2016-09-30] MEDS: ASPIRIN EC 81 MG TABEC PO SCH (08:31)
[2016-09-30] MEDS: VANCOMYCIN 500 MG VIAL (FOR ORAL USE ONLY) PO SCH ×4 (08:35→20:26)
[2016-09-30] MEDS: POTASSIUM CHLORIDE 10 MEQ CONTROLLED RELEASE TAB PO SCH (08:36)
[2016-09-30] MEDS: LIDOCAINE HCL 5% PATCH T-DERMAL SCH (08:36)
[2016-09-30] MEDS: FOLIC ACID 1 MG TAB PO SCH (08:37)
[2016-09-30] MEDS: TRIAMTERENE/HCTZ 37.5 MG/25 MG CAP PO SCH (08:37)
[2016-09-30] MEDS: PANTOPRAZOLE SOD 40 MG DELAYED RELEASE TAB PO SCH (08:37)
[2016-09-30] MEDS: CALCIUM/VITAMIN D 250 MG/125 U TAB PO SCH (08:37)
[2016-09-30] MEDS: CHOLECALCIFEROL (VIT D3) 1000 UNIT TAB PO SCH (08:37)
[2016-09-30] MEDS: FERROUS SULFATE 325 MG (65 MG ELEMENTAL IRON) TAB PO SCH ×2 (08:37→20:26)
[2016-09-30] MEDS: ASCORBIC ACID 500 MG TAB PO SCH (08:37)
[2016-09-30] MEDS: TOLTERODINE TARTRATE 4 MG CAP LA PO SCH (08:37)
[2016-09-30] MEDS: LACTOBACILLUS ACIDOPHILUS TAB PO SCH (08:37)
[2016-09-30] MEDS: PICC Daily Heparin 100 unit/mL Lock Flush IV FLUSH SCH (08:38)
[2016-09-30] MEDS: SODIUM CHLORIDE 0.9% FLUSH 10 ML FLUSH IV FLUSH SCH ×2 (08:38→20:27)
[2016-09-30] MEDS: TIOTROPIUM BROMIDE 18 MCG INH INH SCH (08:39)
[2016-09-30] MEDS: ALBUTEROL SULFATE 90 MCG/ACT HFA 18 GM INHALER INH SCH ×4 (08:39→20:26)
[2016-09-30] MEDS: ATENOLOL 50 MG TAB PO SCH (08:39)
--- NOTE | 2016-09-30 10:16 | HHI.PR ---
Subjective Subjective Remarks doing better, mobilizing more using walker low back pain fair no cp no sob only 2 stools, more formed fever last night, max 100.6 NPO for IR procedure Review of Systems Constitutional Constitutional Remarks 12 point ROS completed, negative except as noted above Musculoskeletal MS: Weakness, Stiffness Psychiatric Psychiatric: Normal Mood, Anxiety Vitals/Results Intake & Output 09/29/16 09/29/16 09/30/16 15:00 23:00 07:00 Intake Total 1140 ml 235 ml Output Total 1450 ml 450 ml 900 ml Balance -310 ml -450 ml -665 ml Intake Oral 440 ml IV Total 700 ml 235 ml Output Urine Total 1450 ml 450 ml 900 ml Vital Signs Vital Signs Date Time Temp Pulse Resp B/P Pulse Ox O2 Delivery O2 Flow Rate FiO2 09/30/16 04:30 98.3 73 20 162/72 96 09/30/16 00:00 97.3 70 18 134/67 97 09/29/16 20:04 85 09/29/16 20:00 99.8 85 20 155/70 98 09/29/16 18:50 100.6 09/29/16 16:00 97.1 84 18 164/98 100 09/29/16 12:00 96.3 66 18 147/69 99 CBC/BMP: 09/30/16 0500 09/30/16 0500 Lab Results Laboratory Tests Test 09/30/16 05:00 White Blood Count 8.8 TH/MM3 Red Blood Count 4.81 MIL/MM3 Hemoglobin 9.0 GM/DL Hematocrit 29.8 % Mean Corpuscular Volume 62.0 FL Mean Corpuscular Hemoglobin 18.7 PG Mean Corpuscular Hemoglobin 30.1 % Concent Red Cell Distribution Width 21.7 % Platelet Count 321 TH/MM3 Mean Platelet Volume 8.5 FL Prothrombin Time 12.2 SEC Prothromb Time International 1.1 RATIO Ratio Sodium Level 135 MEQ/L Potassium Level 3.8 MEQ/L Chloride Level 99 MEQ/L Carbon Dioxide Level 27.8 MEQ/L Anion Gap 8 MEQ/L Blood Urea Nitrogen 3 MG/DL Creatinine 0.38 MG/DL Estimat Glomerular Filtration 163 ML/MIN Rate Random Glucose 86 MG/DL Calcium Level 7.7 MG/DL Microbiology Microbiology 09/30/16 Stool Occult Blood (LAMAR), Received Pending Physical Exam General General Appearance: Well Nourished, No Acute Distress Eyes Eye Exam: Pupils Equal, Pupils Reactive, Sclera White, Extraocular Movement Intact Ears & Nose Ears & Nose Exam: Nasal Mucosa [place] Throat Throat Exam: Oral Mucosa [place] & Moist Neck Neck Exam: Neck Supple, Trachea Midline Pulmonary Resp Exam: Clear Bilaterally, Breath Sounds Equal, No Distress Cardiology CV Exam: Regular, Normal Sinus Rhythm, Good Perfusion Gastrointestinal/Abdomen GI Exam: Soft, Non-Tender, Bowel Sounds Present Genitourinary Exam: Clear Urine Remarks GARCIA Musculoskeletal MS Exam: Joints Intact Integumentary Skin Exam: Clear, Warm, Dry, Intact Extremeties Extremities Exam: No Edema, Pedal Pulses Palpable Neurologic Neuro Exam: Alert, Awake, Oriented, Speech Clear, Moving All Extremities, Commissary Superintendent Equal, No Focal Deficits Psychiatric Psych Exam: Appropriate Responses VTE Prophylaxis VTE Prophylaxis Device: SCDs Assessment/Plan Problem List: (1) Sepsis (2) Hypokalemia (3) Hyperlipidemia (4) Murmur (5) HTN (hypertension) (6) Hx TIA/stroke w/o resid (7) Elevated troponin I level (8) Hx pulmonary embolism (9) Rigors (10) Thrombocytopenia (11) S/P lumbar laminectomy (12) Clostridium difficile diarrhea (13) Lumbar surgical wound fluid collection (14) Anemia Assessment/Plan 81-year-old elderly female presented to emergency room with complaint of generalized weakness for the past 2-3 days. Status post Right L5-S1 hemilaminectomy and microdiscectomy 5, uneventful postop status. Had been ambulating well. Evaluated in the emergency room, found septic with elevated lactic acid and leukocytosis and bandemia. Sepsis, poss. source, urine, vs lumbar fluid collection -Blood cultures positive for Proteus and Escherichia coli, repeat blood cultures negative so far -back, fluid culture + pseudomona, continue Meropenem Positive for C. difficile, continue with by mouth Vanco Appreciate ID input -Lumbar spine MRI results noted, fluid collection L5-S1. No abscess noted. -IR consult for evaluation and poss. drain placement today, cultures to be obtained. INR okay. Elevated troponin, patient denies any chest pain. +NSTEMI Noted with murmur, patient states that she has a history of. Appreciate Cardiology input, card. signed off -medical management for now -Continue with Atenolol 50 mg by mouth daily & Aspirin 81 mg by mouth daily -2-D echo: EF 55-60% -discontinued heparin gtt, sec to thrombocytopenia -HIT panel neg; platelets improving INR supra therapeutic -hold coumadin -INR 1.1 Anemia, HH Hbg 13 initially, now 9. Microcytic, hypochromic -checks stools for OB-pending -low iron studies -start PO iron -HH 01/30.8, improved L5-S1 disk herniation, S/P Right L5-S1 hemilaminectomy and microdiscectomy 5/3 -Monitor surgical site Physical therapy for evaluation and treatment -Lumbar spine MRI results noted, fluid collection L5-S1. -c/o low back pain, not radiculopathy. Inc. activity, OOB at least 3 x, Lidocaine patch ordered. Hypertension, stable Continue home medications Hyperlipidemia, stable Continue home medications - lipid profile done, results noted History of pulmonary emboli, antiphospholipid syndrome. Has IVC filter -coumadin on hold History of TIA, stable monitor closely -continue ASA Thrombocytopenia -plat. better -HIT negative -off Heparin gtt Anxiety -continue Xanax PRN DVT prophylaxis: SCD/ off coumadin IR to drain fluid collection today Labs reviewed, stable D/W pt D/W Dr. Forbes D/W RN This patient was seen by myself and Dr. Forbes, this note is written on her behalf. Problem Qualifiers (1) Sepsis: Qualified Code: A41.9 - Sepsis, due to unspecified organism (2) Hyperlipidemia: Qualified Code: E78.5 - Hyperlipidemia, unspecified hyperlipidemia type (3) HTN (hypertension): Qualified Code: I10 - Essential hypertension (4) Lumbar surgical wound fluid collection: Qualified Code: T81.89XA - Lumbar surgical wound fluid collection, initial encounter (5) Anemia: Qualified Code: D64.9 - Anemia, unspecified type Lisa Mcfarland September 30, 2016 10:15
[2016-09-30] MEDS: WARFARIN SOD 7.5 MG TAB PO SCH (18:19)
--- NOTE | 2016-09-30 18:21 | PD.RAD ---
Post Procedure Progress Note Pre Procedure Diagnosis: (1) Lumbar surgical wound fluid collection Post Procedure Diagnosis: (1) Lumbar surgical wound fluid collection Procedure Date: September 30, 2016 Supervising Radiologist: Brent Ricardo Proceduralist/Assist: RT Homer(R) Anesthesia: Local Plan of Activity Patient to Unit: Nursing Unit Patient Condition: Good See PACS Report for procedural detail/treatment Drainage Procedure Procedure 1 Imaging Guidance: Ultrasound Procedure Type: Aspiration (Fluid collection in surgical bed of back) Drainage: Suction (Syringe aspiration) Fluid Removal (CCs): 6 Fluid Description: Killian Red Brent Ricardo MD September 30, 2016 18:21
[2016-09-30] MEDS: PRAVASTATIN SOD 40 MG TAB PO SCH (20:26)
[2016-09-30] MEDS: ATENOLOL 25 MG TAB PO SCH (20:26)
--- NOTE | 2016-09-30 21:33 | RADRPT ---
EXAM DATE/TIME: 09/30/2016 21:02 [place] COMPARISON: CHEST SINGLE AP, September 24, 2016, 14:20. INDICATIONS : Fever. MEDICAL HISTORY : None. SURGICAL HISTORY : None. ENCOUNTER: Subsequent ACUITY: 1 month PAIN SCORE: 0/10 LOCATION: Bilateral chest FINDINGS: A single portable frontal view of the chest shows small bilateral pleural effusions and bibasilar inf iltrates which have both progress in the prior study. The heart is normal in size. Right-sided PICC l ine noted. CONCLUSION: Worsening bibasilar infiltrates and bilateral pleural effusions. Modesto Samano Jr., MD on September 30, 2016 at 21:30 Board Certified Radiologist. This report was verified electronically.
[2016-09-30 23:01] LABS: BLOOD, URINE NEG (NEG); GLUCOSE,URINE NEG (NEG); KETONE, URINE TRACE mg/dL (NEG); NITRITE,URINE NEG (NEG); SQUAMOUS EPITHELIAL CELL URINE 3 /hpf (0-5); TRANSITIONAL EPI CELLS, URINE 1 /hpf; URINE COLOR YELLOW (YELLW/STRAW)
[2016-09-30 23:03] LABS: COMMENT (UR) CULT NOT INDICATED; CULTURE IF INDICATED CULT NOT INDICATED
[2016-09-30] MEDS: PICC PRN Heparin 100 units/ml Lock Flush IV FLUSH (23:45)
[2016-09-30] MEDS: SODIUM CHLORIDE 0.9% FLUSH 10 ML FLUSH IV FLUSH PRN (23:46)
[2016-10-01] VITALS (8 sets, daily range): BP systolic 110–160; BP diastolic 55–74; PULSE 62–80; RESP 14–20; TEMP 96.4–98.1; O2SAT 93–97
[2016-10-01] MEDS: PICC PRN Heparin 100 units/ml Lock Flush IV FLUSH ×2 (04:09→07:41)
[2016-10-01] MEDS: LEVOTHYROXINE SODIUM 100 MCG TAB PO SCH (06:41)
[2016-10-01] MEDS: ACETAMINOPHEN/HYDROcodone 325 MG/10 MG TAB PO PRN ×3 (06:41→23:13)
[2016-10-01] MEDS: SODIUM CHLORIDE 0.9% FLUSH 10 ML FLUSH IV FLUSH PRN ×2 (06:41→07:41)
[2016-10-01] MEDS: MEROPENEM INJ 1,000 MG in SODIUM CHLORIDE 0.9% INJ 100 ML IV SCH ×3 (06:42→21:59)
[2016-10-01 06:47] LABS: INTERNATIONAL NORMALIZED RATIO 1.1 RATIO; PROTHROMBIN TIME - PATIENT 11.9 SEC (9.8-11.6)
[2016-10-01] MEDS: PICC Daily Heparin 100 unit/mL Lock Flush IV FLUSH SCH (08:14)
[2016-10-01] MEDS: ALBUTEROL SULFATE 90 MCG/ACT HFA 18 GM INHALER INH SCH ×4 (08:24→22:00)
[2016-10-01] MEDS: TIOTROPIUM BROMIDE 18 MCG INH INH SCH (08:25)
[2016-10-01] MEDS: LACTOBACILLUS ACIDOPHILUS TAB PO SCH (08:26)
[2016-10-01] MEDS: VANCOMYCIN 500 MG VIAL (FOR ORAL USE ONLY) PO SCH ×4 (08:26→21:59)
[2016-10-01] MEDS: PANTOPRAZOLE SOD 40 MG DELAYED RELEASE TAB PO SCH (08:26)
[2016-10-01] MEDS: ASCORBIC ACID 500 MG TAB PO SCH (08:27)
[2016-10-01] MEDS: ASPIRIN EC 81 MG TABEC PO SCH (08:27)
[2016-10-01] MEDS: TOLTERODINE TARTRATE 4 MG CAP LA PO SCH (08:27)
[2016-10-01] MEDS: CALCIUM/VITAMIN D 250 MG/125 U TAB PO SCH (08:27)
[2016-10-01] MEDS: CHOLECALCIFEROL (VIT D3) 1000 UNIT TAB PO SCH (08:27)
[2016-10-01] MEDS: FOLIC ACID 1 MG TAB PO SCH (08:27)
[2016-10-01] MEDS: POTASSIUM CHLORIDE 10 MEQ CONTROLLED RELEASE TAB PO SCH (08:27)
[2016-10-01] MEDS: TRIAMTERENE/HCTZ 37.5 MG/25 MG CAP PO SCH (08:27)
[2016-10-01] MEDS: LIDOCAINE HCL 5% PATCH T-DERMAL SCH (08:28)
[2016-10-01] MEDS: ATENOLOL 50 MG TAB PO SCH (08:28)
[2016-10-01] MEDS: FERROUS SULFATE 325 MG (65 MG ELEMENTAL IRON) TAB PO SCH ×2 (08:28→21:59)
[2016-10-01] MEDS: SODIUM CHLORIDE 0.9% FLUSH 10 ML FLUSH IV FLUSH SCH ×2 (08:30→22:01)
[2016-10-01] MEDS: ALPRAZolam 0.25 MG TAB PO PRN ×2 (08:43→16:51)
[2016-10-01] MEDS: REMOVE OLD PATCH T-DERMAL SCH (08:50)
--- NOTE | 2016-10-01 11:44 | HHI.IDPN ---
Note Infectious Disease Note Patient feels better. Notes back pain with exertion. No chills. Stools formed. No SOB. On 2L NC. Aspirate of back fluid done yesterday 09/30. Culture pending. Previous culture of fluid from back has pseudomonas. Presented to the emergency department after she developed generalized weakness and fell. Noted to have chills on day before admission. PAST MEDICAL HISTORY 1. Coronary artery disease. 2. Hypertension. 3. Arthritis. 4. COPD. 5. Gastroesophageal reflux disease. 6. History of PE. 7. TIA. 8. Radiculopathy. 9. Hypothyroidism. 10.Uterine fibroids. 11.Monoclonal gammopathy. 12.Brain AVM. 13.L5-S1 hemilaminectomy and microdiscectomy. 09/17. 14.Partial gastrectomy. 15.Cervical cancer. 16.[place] filter. 17.Tonsillectomy. 18.History of mitral valve prolapse. ALLERGIES No known drug allergies. ANTIBIOTICS: Vancomycin PO. Meropenem. OBJECTIVE: Vital Signs Date Time Temp Pulse Resp B/P Pulse Ox O2 Delivery O2 Flow Rate FiO2 10/01/16 08:00 98.1 68 20 120/59 97 10/01/16 08:00 98.1 68 10/01/16 04:15 96.4 66 18 160/74 96 10/01/16 00:00 96.8 62 16 110/55 95 09/30/16 20:15 101.1 86 18 155/72 96 09/30/16 20:13 85 09/30/16 16:00 97.4 78 18 146/73 100 09/30/16 12:00 98.9 74 18 163/78 99 09/30/16 09/30/16 10/01/16 15:00 23:00 07:00 Intake Total 1320 ml 240 ml Output Total 600 ml 500 ml Balance 720 ml -260 ml Intake Oral 1320 ml 240 ml Output Urine Total 600 ml 500 ml # Voids 4 # Bowel Movements 1 Laboratory Tests Test 09/30/16 05:00 White Blood Count 8.8 TH/MM3 Red Blood Count 4.81 MIL/MM3 Hemoglobin 9.0 GM/DL Hematocrit 29.8 % Mean Corpuscular Volume 62.0 FL Mean Corpuscular Hemoglobin 18.7 PG Mean Corpuscular Hemoglobin 30.1 % Concent Red Cell Distribution Width 21.7 % Platelet Count 321 TH/MM3 Mean Platelet Volume 8.5 FL Laboratory Tests Test 09/30/16 05:00 Sodium Level 135 MEQ/L Potassium Level 3.8 MEQ/L Chloride Level 99 MEQ/L Carbon Dioxide Level 27.8 MEQ/L Anion Gap 8 MEQ/L Blood Urea Nitrogen 3 MG/DL Creatinine 0.38 MG/DL Estimat Glomerular Filtration 163 ML/MIN Rate Random Glucose 86 MG/DL Calcium Level 7.7 MG/DL Microbiology Date/Time Procedure Status Source Growth 09/30/16 04:45 Stool Occult Blood (LAMAR) - Final Complete Stool Stool HEMOCCULT NEGATIVE 09/30/16 15:10 Gram Stain - Final Resulted Fluid Other 09/30/16 15:10 Body Fluid Culture Resulted Fluid Other Pending 09/30/16 21:22 Aerobic Blood Culture - Preliminary Resulted Blood Peripheral NO GROWTH IN 1 DAY 09/30/16 21:22 Anaerobic Blood Culture - Preliminary Resulted Blood Peripheral NO GROWTH IN 1 DAY 09/30/16 21:40 Aerobic Blood Culture - Preliminary Resulted Blood Line NO GROWTH IN 1 DAY 09/30/16 21:40 Anaerobic Blood Culture - Preliminary Resulted Blood Line NO GROWTH IN 1 DAY 09/30/16 22:00 Urine Culture Received Urine Clean Catch Pending Microbiology Date/Time Procedure Status Source Growth 09/21/16 11:12 Aerobic Blood Culture - Final Complete Blood Peripheral Escherichia Coli Proteus Mirabilis 09/21/16 11:12 Anaerobic Blood Culture - Final Complete Escherichia Coli Proteus Mirabilis 09/21/16 11:20 Urine Culture - Final Complete Urine Clean Catch NO GROWTH IN 48 HOURS. 09/21/16 11:22 Aerobic Blood Culture - Final Complete Blood Peripheral Escherichia Coli Proteus Mirabilis 09/21/16 11:22 Anaerobic Blood Culture - Final Complete Escherichia Coli Proteus Mirabilis 09/22/16 08:30 Stool Occult Blood (LAMAR) - Final Complete Stool Stool HEMOCCULT NEGATIVE 09/23/16 18:30 Aerobic Blood Culture Received Blood Peripheral Pending 09/23/16 18:30 Anaerobic Blood Culture Received Blood Peripheral Pending IMAGING: Lumbar Spine MRI 09/25/16 0000 Signed Impressions: Service Date/Time: September 16:33 - CONCLUSION: 1. No evidence for osteomyelitis or discitis. 2. Large laminectomy defect on the right at L5- S1 with fluid extending into the right lateral recess. There is right lateral recess stenosis and mild enhancement around the right L5 nerve root probably some postsurgical change or early epidural fibrosis. No enhancing fluid collection seen to suggest abscess. There is fluid in the subcutaneous tissues of the lower back as well. Anirudh Hanna MD Chest X-Ray 09/24/16 0000 Signed Impressions: Service Date/Time: Saturday, September 24, 2016 14:20 - CONCLUSION: Adequate placement of right-sided PICC line. Camilo Valdez MD Abdomen/Pelvis CT 09/22/16 0000 Signed Impressions: Service Date/Time: Thursday, September 22, 2016 18:19 - CONCLUSION: 1. Dependent atelectasis in the lungs with small pleural effusions. 2. Hepatosplenomegaly. 3. Mural thickening of sigmoid and rectum most characteristic of a mild colitis and proctitis. 4. Inferior vena cava filter present. [place] catheter in the bladder. 5. Mild ileus without definite evidence for obstruction. Anirudh Hanna MD Chest X-Ray 09/21/16 1107 Signed Impressions: Service Date/Time: Wednesday, September 21, 2016 11:38 - CONCLUSION: No acute disease. Omi Mora MD Head CT 09/21/16 0000 Signed Impressions: Service Date/Time: Wednesday, September 21, 2016 13:58 - CONCLUSION: No acute disease. Omi Mora MD PHYSICAL EXAMINATION GENERAL: No acute distress. Awake and alert. HEENT: No icterus. Oropharynx no visible lesions. NECK: Supple without adenopathy. LUNGS: Clear. HEART: 2/6 systolic murmur at the left sternal border and URSB. No rubs or gallops. ABDOMEN: Bowel sounds diminished. Distended. Soft, nontender. EXTREMITIES: No clubbing, cyanosis or edema. SKIN: No rash. Warm and moist. NEUROLOGIC: Alert and oriented x3. No gross focal findings. PSYCHIATRIC: Calm, pleasant and cooperative. IMPRESSION 1. Sepsis. Proteus and e. coli. The patient presented with leukocytosis and elevated lactic acid level. The patient very likely has urine as the source of the sepsis. 2. C. difficile colitis. Improved. 3. Leukocytosis (secondary to infection, C. difficile). Improved. 4. Pseudomonas lumbar wound infection. Post op. Organism intermediate sensitivity to Aztreonam. Repeat aspirate culture is pending. RECOMMENDATIONS 1. Continue Meropenem IV and monitor the new culture. If the new culture has no new organisms, I recommend treating with the Meropenem until October 24, 2016. In light of C. diff would avoid Levaquin. 2. Continue PO Vancomycin for c. difficile taper while on Meropenem. (125 mg PO Q6H x 7 days then 125 mg PO Q12H x 7 days then 125 mg PO Q24H x 7 days then 125 mg PO Q48H x 7 days. 3. Monitor temp. 4. Monitor Blood and urine culture. Call ID via call center if any positive culture. Patient already has a PIC line. I have written preliminary IV antibiotic on infusion form. Julito Albarran MD October 01, 2016 11:44
--- NOTE | 2016-10-01 11:59 | HHI.FF ---
Infusion Therapy Location of Infusion Therapy: Home [facility] Care IV Infusion Order Patient Information Patient Weight 72.7 kg Diagnosis: Coded Allergies: No Known Allergies (Verified , 09/21/16) Administer Medication Meropenem 1 garm IV Q8H Stop Treatment: Oct 24, 2016 Additional Information Venous access: PICC Line Additional Instructions [x] Peripheral flush and dressing changes per protocol [x] Implanted port and central personal lines account executive: * Implanted port: 10 ml Normal Saline followed by 5 ml Heparin 100 units/ml Heparin flush after each use and monthly to maintain. [] May leave port accessed during therapy. [] May leave peripheral site accessed for duration of therapy. [x] If patient has SOB or respiratory distress, check oxygen saturation. If less than 90% or clinical signs of respiratory distress, administer oxygen at 2 L/min. via nasal cannula and notify physician. [x] Anaphylaxis/Reaction orders: * Stop infusion. * Keep IV line open with saline flush. * Notify physician. * Monitor vital signs every 15 minutes until symptoms resolve. * Check Oxygen saturation; Oxygen at 2 L/min. via nasal cannula if less than 90% or clinical signs of respiratory distress. * Administer diphenhydramine (Benadryl) 25 mg IV STAT, (unless patient has received as pre-med). May repeat once, if necessary. * Solu-Cortef 250 mg IVP over 30-60 seconds, use 100 mg vials for each dissolution. * Epinephrine (1mg/1 ml) 0.3 mg subcutaneously or IVP now with any signs of respiratory distress. * Check with physician for new additional pre-med orders if patient is re- challenged or re-treated. [x] May remove PICC line when treatment complete, after confirming with Physician. [x] If the patient is admitted to the hospital, the ED, or transferred via [facility] , complete transfer form including medication reconciliation order sheet. Laboratory Tests Weekly Labs: BMP, CBC w/diff Julito Albarran MD October 01, 2016 11:59
--- NOTE | 2016-10-01 13:06 | HHI.PR ---
Subjective Subjective Remarks resting in bed Alert, communicative Afebrile low back pain , mild improvement family in rm (Jessica Villa) Review of Systems Constitutional Constitutional Remarks 10 point ROS done positives noted at the systems negative or unremarkable. Contact isolation (Jessica Villa) GI/Abdomen GI/Abdomen Remarks Normal BM (Jessica Villa) Musculoskeletal MS: Weakness, Stiffness (Jessica Villa) Psychiatric Psychiatric: Normal Mood, Anxiety (Jessica Villa) Vitals/Results Intake & Output 09/30/16 09/30/16 10/01/16 15:00 23:00 07:00 Intake Total 1320 ml 240 ml Output Total 600 ml 500 ml Balance 720 ml -260 ml Intake Oral 1320 ml 240 ml Output Urine Total 600 ml 500 ml # Voids 4 # Bowel Movements 1 Vital Signs Vital Signs Date Time Temp Pulse Resp B/P Pulse Ox O2 Delivery O2 Flow Rate FiO2 10/01/16 08:00 98.1 68 20 120/59 97 10/01/16 08:00 98.1 68 10/01/16 04:15 96.4 66 18 160/74 96 10/01/16 00:00 96.8 62 16 110/55 95 09/30/16 20:15 101.1 86 18 155/72 96 09/30/16 20:13 85 09/30/16 16:00 97.4 78 18 146/73 100 (Jessica Villa) CBC/BMP: 09/30/16 0500 09/30/16 0500 Lab Results Laboratory Tests Test 09/30/16 10/01/16 22:00 04:00 Urine Color YELLOW Urine Turbidity CLEAR Urine pH 7.0 Urine Specific [place] 1.011 Urine Protein NEG mg/dL Urine Glucose (UA) NEG mg/dL Urine Ketones TRACE mg/dL Urine Occult Blood NEG Urine Nitrite NEG Urine Bilirubin NEG Urine Urobilinogen LESS THAN 2.0 MG/DL Urine Leukocyte Esterase SMALL Urine RBC 2 /hpf Urine WBC 7 /hpf Urine Squamous Epithelial 3 /hpf Cells Urine Transitional Epithelial 1 /hpf Cells Microscopic Urinalysis Comment CULT NOT INDICATED Prothrombin Time 11.9 SEC Prothromb Time International 1.1 RATIO Ratio Microbiology Microbiology 09/30/16 Gram Stain - Final, Resulted 09/30/16 Body Fluid Culture, Resulted Pending 09/30/16 Aerobic Blood Culture - Preliminary, Resulted NO GROWTH IN 1 DAY 09/30/16 Anaerobic Blood Culture - Preliminary, Resulted NO GROWTH IN 1 DAY 09/30/16 Aerobic Blood Culture - Preliminary, Resulted NO GROWTH IN 1 DAY 09/30/16 Anaerobic Blood Culture - Preliminary, Resulted NO GROWTH IN 1 DAY 09/30/16 Urine Culture, Received Pending Current Medications Administered Medications Medications (Trade) Dose Ordered Sig/Gypsy Route PRN Reason Start Time Stop Time Status Last Admin Dose Admin Sodium Chloride (NS Flush) 2 ml UNSCH PRN IV FLUSH FLUSH AFTER USING IV ACCESS 09/21/16 13:30 10/01/16 06:41 Sodium Chloride (NS Flush) 2 ml BID IV FLUSH 09/21/16 21:00 09/30/16 20:27 Acetaminophen (Tylenol) 650 mg Q4H PRN PO TEMP > 100.4 09/21/16 13:30 09/28/16 00:22 Ondansetron HCl (Zofran Inj) 4 mg Q6H PRN IVP NAUSEA OR VOMITING 09/21/16 13:30 09/24/16 13:15 Ascorbic Acid (Vitamin C) 500 mg DAILY PO 09/21/16 13:45 10/01/16 08:27 Aspirin (Ecotrin Ec) 81 mg DAILY PO 09/22/16 09:00 10/01/16 08:27 Calcium/Vitamin D (Oscal-D 250-125) 250 mg DAILY PO 09/22/16 09:00 10/01/16 08:27 Cholecalciferol (Vitamin D3) 1,000 units DAILY PO 09/22/16 09:00 10/01/16 08:27 Folic Acid (Folate) 1 mg DAILY PO 09/22/16 09:00 10/01/16 08:27 Acetaminophen/ Hydrocodone Bitart ([place] 10-325 Mg) 1 tab Q8HR PRN PO PAIN SCALE 1 TO 10 09/21/16 13:45 10/01/16 06:41 Lactobacillus Acidophilus (Lactinex) 1 tab DAILY PO 09/22/16 09:00 10/01/16 08:26 Levothyroxine Sodium (Synthroid) 100 mcg Q48H PO 09/23/16 06:00 10/01/16 06:41 Pravastatin Sodium (Pravachol) 40 mg HS PO 09/21/16 21:00 09/30/16 20:26 Tolterodine Tartrate (Detrol La) 4 mg DAILY PO 09/22/16 09:00 10/01/16 08:27 Tiotropium [place] (Spiriva Inh) 18 mcg DAILY INH 09/22/16 09:00 10/01/16 08:25 Albuterol Sulfate (Ventolin Hfa Inh) 2 puff QID INH 09/21/16 18:00 10/01/16 13:48 Atenolol (Tenormin) 25 mg HS PO 09/22/16 21:00 09/30/16 20:26 Triamterene/HCTZ (Dyazide 37.5-25 Mg) 1 cap DAILY PO 09/22/16 09:00 10/01/16 08:27 Pantoprazole Sodium (Protonix) 40 mg DAILY PO 09/22/16 09:00 10/01/16 08:26 Vancomycin HCl (VANCOMYCIN for oral use only) 125 mg QID PO 09/22/16 13:00 10/01/16 13:44 Potassium Chloride (KCl) 20 meq DAILY PO 09/24/16 09:00 10/01/16 08:27 Warfarin Sodium (Coumadin) 7.5 mg DAILY@16 PO 09/25/16 16:00 09/30/16 18:19 Alprazolam 0.25 mg 0.25 mg Q8H PRN PO ANXIETY 09/28/16 11:00 10/01/16 08:43 Meropenem/Sodium Chloride (Merrem Inj/NS Inj) 100 ml @ 200 mls/hr Q8H IV 09/29/16 14:00 10/01/16 13:44 Lidocaine HCl (Lidoderm 5% Patch.12 Hr) 1 patch DAILY T-DERMAL 09/29/16 13:00 10/01/16 08:28 Ferrous Sulfate (Ferrous Sulfate) 325 mg BID PO 09/29/16 21:00 10/01/16 08:28 Miscellaneous Information 1 DAILY T-DERMAL 09/29/16 13:00 09/30/16 02:00 Atenolol (Tenormin) 50 mg DAILY PO 09/30/16 09:00 10/01/16 08:28 Sodium Chloride (NS Flush) 5 ml UNSCH PRN IV FLUSH SEE PROTOCOL TABLE 09/30/16 08:30 10/01/16 07:41 Heparin Sodium (Porcine) (Heparin Central Flush) 200 units UNSCH PRN IV FLUSH SEE PROTOCOL TABLE 09/30/16 08:30 10/01/16 07:41 Sodium Chloride (NS Flush) 5 ml UNSCH PRN IV FLUSH SEE PROTOCOL TABLE 09/30/16 08:30 10/01/16 04:04 (Jessica Villa. SR. MANAGER) Physical Exam General General Appearance: Well Nourished, No Acute Distress (Jessica Villa. SR. MANAGER) Eyes Eye Exam: Pupils Equal, Pupils Reactive, Sclera White, Extraocular Movement Intact (Jessica Villa. SR. MANAGER) Ears & Nose Ears & Nose Exam: Nasal Mucosa [place] (Jessica Villa M. SR. MANAGER) Throat Throat Exam: Oral Mucosa [place] & Moist (Jessica Villa M. SR. MANAGER) Neck Neck Exam: Neck Supple, Trachea Midline (Jessica Villa. SR. MANAGER) Pulmonary Resp Exam: Clear Bilaterally, Breath Sounds Equal, No Distress (Jessica Villa M. SR. MANAGER) Cardiology CV Exam: Regular, Normal Sinus Rhythm, Good Perfusion (Jessica Villa M. SR. MANAGER) Gastrointestinal/Abdomen GI Exam: Soft, Non-Tender, Bowel Sounds Present (Dede Villaan M. SR. MANAGER) Genitourinary Exam: Clear Urine Remarks Vergara catheter (Jessica Villa M. SR. MANAGER) Musculoskeletal MS Exam: Joints Intact (Jessica Villa. SR. MANAGER) Integumentary Skin Exam: Clear, Warm, Dry, Intact (Jessica Villa M. SR. MANAGER) Extremeties Extremities Exam: No Edema, Pedal Pulses Palpable (Dede Villaan M. SR. MANAGER) Neurologic Neuro Exam: Alert, Awake, Oriented, Speech Clear, Moving All Extremities, Private Duty Lpn Equal, No Focal Deficits (Jessica Villa M. SR. MANAGER) Psychiatric Psych Exam: Appropriate Responses (Jessica Villa. SR. MANAGER) VTE Prophylaxis VTE Prophylaxis Device: SCDs (Jessica Villa M. SR. MANAGER) Assessment/Plan Problem List: (1) Sepsis (2) Hypokalemia (3) Hyperlipidemia (4) Murmur (5) HTN (hypertension) (6) Hx TIA/stroke w/o resid (7) Elevated troponin I level (8) Hx pulmonary embolism (9) Rigors (10) Thrombocytopenia (11) S/P lumbar laminectomy (12) Clostridium difficile diarrhea (13) Lumbar surgical wound fluid collection (14) Anemia Assessment/Plan Positive for C. difficile, continue with by mouth Vanco Appreciate ID input -Lumbar spine MRI results noted, fluid collection L5-S1. Continue Meropenem IV and monitor the new culture, neg so far. It culture remains negative, Meropenem until October 24. Continue PO Vancomycin for c. difficile taper while on Meropenem. (125 mg PO Q6H x 7 days then 125 mg PO Q12H x 7 days then 125 mg PO Q24H x 7 days then 125 mg PO Q48H x 7 days. Appreciate Cardiology input, card. signed off -medical management for now INR supra therapeutic, now stable Back on by mouth Coumadin today 7.5 mg -INR 1.1, check daily Anemia, HH Hbg 13 initially, now 9. Microcytic, hypochromic probable chronic disease L5-S1 disk herniation, S/P Right L5-S1 hemilaminectomy and microdiscectomy / post op care. Positive wound culture, 2nd cultures, no growth so far Physical therapy for evaluation and treatment, patient requesting walker for her safety. -Lumbar spine MRI results noted, fluid collection L5-S1. drained on 09/30 LBP improving. History of pulmonary emboli, antiphospholipid syndrome. Has IVC filter Note, back on Coumadin today, monitor INR daily History of TIA, stable monitor closely -continue ASA Thrombocytopenia -plat. better -HIT negative -off Heparin gtt Hyponatremia mild, moniotr PO fluid intake. Anxiety -continue Xanax PRN DVT prophylaxis: SCD/ off coumadin Labs reviewed, stable DC planning for her safety, soon. D/W pt D/W Dr. Forbes, seen on her behalf (Jessica Villa) Assessment/Plan patient seen and examined fever of 101 s/p us guided drainage of lumbar fluid, follow cultures antibiotics per ID continue PT diarrhea resolved resume coumadin follow INR plan of care discussed with patient, at bed side, JESSICA BRYAN (Monique Forbes MD) Problem Qualifiers (1) Sepsis: Qualified Code: A41.9 - Sepsis, due to unspecified organism (2) Hyperlipidemia: Qualified Code: E78.5 - Hyperlipidemia, unspecified hyperlipidemia type (3) HTN (hypertension): Qualified Code: I10 - Essential hypertension (4) Lumbar surgical wound fluid collection: Qualified Code: T81.89XA - Lumbar surgical wound fluid collection, initial encounter (5) Anemia: Qualified Code: D64.9 - Anemia, unspecified type Jessica Villa October 01, 2016 13:05 Monique Forbes MD October 01, 2016 15:34
[2016-10-01] MEDS: WARFARIN SOD 7.5 MG TAB PO SCH (16:51)
[2016-10-01] MEDS: ATENOLOL 25 MG TAB PO SCH (21:59)
[2016-10-01] MEDS: PRAVASTATIN SOD 40 MG TAB PO SCH (21:59)
[2016-10-02] VITALS (9 sets, daily range): BP systolic 144–179; BP diastolic 63–81; PULSE 3–89; RESP 16–18; TEMP 96–99.5; O2SAT 95–100
[2016-10-02] MEDS: ALPRAZolam 0.25 MG TAB PO PRN ×3 (01:12→18:03)
[2016-10-02] MEDS: MEROPENEM INJ 1,000 MG in SODIUM CHLORIDE 0.9% INJ 100 ML IV SCH ×3 (05:36→21:15)
[2016-10-02 06:03] LABS: INTERNATIONAL NORMALIZED RATIO 1.3 RATIO; PROTHROMBIN TIME - PATIENT 14.8 SEC (9.8-11.6)
[2016-10-02] MEDS: TIOTROPIUM BROMIDE 18 MCG INH INH SCH (07:53)
[2016-10-02] MEDS: PICC Daily Heparin 100 unit/mL Lock Flush IV FLUSH SCH (07:53)
[2016-10-02] MEDS: ALBUTEROL SULFATE 90 MCG/ACT HFA 18 GM INHALER INH SCH ×4 (07:53→21:16)
[2016-10-02] MEDS: SODIUM CHLORIDE 0.9% FLUSH 10 ML FLUSH IV FLUSH SCH ×2 (07:59→21:20)
[2016-10-02] MEDS: FOLIC ACID 1 MG TAB PO SCH (08:00)
[2016-10-02] MEDS: ASPIRIN EC 81 MG TABEC PO SCH (08:00)
[2016-10-02] MEDS: TRIAMTERENE/HCTZ 37.5 MG/25 MG CAP PO SCH (08:00)
[2016-10-02] MEDS: POTASSIUM CHLORIDE 10 MEQ CONTROLLED RELEASE TAB PO SCH (08:00)
[2016-10-02] MEDS: FERROUS SULFATE 325 MG (65 MG ELEMENTAL IRON) TAB PO SCH ×2 (08:00→21:14)
[2016-10-02] MEDS: TOLTERODINE TARTRATE 4 MG CAP LA PO SCH (08:00)
[2016-10-02] MEDS: LACTOBACILLUS ACIDOPHILUS TAB PO SCH (08:01)
[2016-10-02] MEDS: PANTOPRAZOLE SOD 40 MG DELAYED RELEASE TAB PO SCH (08:01)
[2016-10-02] MEDS: CALCIUM/VITAMIN D 250 MG/125 U TAB PO SCH (08:01)
[2016-10-02] MEDS: ATENOLOL 50 MG TAB PO SCH (08:01)
[2016-10-02] MEDS: CHOLECALCIFEROL (VIT D3) 1000 UNIT TAB PO SCH (08:02)
[2016-10-02] MEDS: VANCOMYCIN 500 MG VIAL (FOR ORAL USE ONLY) PO SCH ×4 (08:02→21:14)
[2016-10-02] MEDS: REMOVE OLD PATCH T-DERMAL SCH (08:02)
[2016-10-02] MEDS: ASCORBIC ACID 500 MG TAB PO SCH (08:02)
[2016-10-02] MEDS: LIDOCAINE HCL 5% PATCH T-DERMAL SCH (08:02)
[2016-10-02] MEDS: ACETAMINOPHEN/HYDROcodone 325 MG/10 MG TAB PO PRN ×2 (08:03→15:58)
--- NOTE | 2016-10-02 11:02 | RADRPT ---
EXAM DATE/TIME: 09/30/2016 15:02 [facility] COMPARISON: No previous studies available for comparison. INDICATIONS : Patient in need of aspiration of fluid collection. MEDICAL HISTORY : Polycythemia vera History of PE , antiphospholipid syndrome-on chronic anticoagulation with Coumadin TIA Radiculopathy Arthritis Cervical cancer, status post radiation and chemotherapy in 2010. 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 Abscess drainage. The risks, benefits and alternatives to the procedure were explained and verbal and written consent w as obtained. The site was prepped in sterile fashion. Full sterile technique was used, including ca p, mask, sterile gloves and gown and a large sterile sheet. Hand hygiene and 2% chlorhexidine and/or betadine/alcohol prep was utilized per protocol for cutaneous antisepsis. The skin and subcutaneous tissues were infiltrated with local anesthetic solution. With ultrasound guidance, a short 18 gauge chart needle was advanced into the fluid collection identi fied midline in the lower back. A total of approximate 6 cc of yellow, slightly reddish fluid was asp irated and sent for laboratory analysis CONCLUSION: Uncomplicated drainage of midline fluid collection in the lower back. Brent Ricardo MD on October 02, 2016 at 10:57 Board Certified Radiologist. This report was verified electronically.
--- NOTE | 2016-10-02 13:48 | HHI.PR ---
Subjective Interval History awake alert and oreinted still having chills culture + GNR increased BM Review of Systems Musculoskeletal MS: Weakness, Stiffness Psychiatric Psychiatric: Normal Mood, Anxiety Vitals/Results Intake & Output 10/01/16 10/01/16 10/02/16 15:00 23:00 07:00 Intake Total 840 ml Output Total 675 ml 1200 ml 900 ml Balance -675 ml -360 ml -900 ml Intake Oral 840 ml Output Urine Total 675 ml 1200 ml 900 ml # Voids 2 # Bowel Movements 0 2 3 Vital Signs Vital Signs Date Time Temp Pulse Resp B/P Pulse Ox O2 Delivery O2 Flow Rate FiO2 10/02/16 12:00 96.6 65 18 147/67 97 10/02/16 10:23 98 10/02/16 08:00 96.3 67 18 144/63 99 10/02/16 04:45 96.8 65 18 171/72 100 10/02/16 00:00 96.8 72 18 163/81 98 10/01/16 20:15 97.8 80 18 143/67 97 10/01/16 20:00 80 10/01/16 16:00 98.1 76 14 136/59 CBC/BMP: 09/30/16 0500 09/30/16 0500 Lab Results Laboratory Tests Test 10/02/16 05:40 Prothrombin Time 14.8 SEC Prothromb Time International 1.3 RATIO Ratio Physical Exam General General Appearance: Well Nourished, No Acute Distress Eyes Eye Exam: Pupils Equal, Pupils Reactive, Sclera White, Extraocular Movement Intact Ears & Nose Ears & Nose Exam: Nasal Mucosa [place] Throat Throat Exam: Oral Mucosa [place] & Moist Neck Neck Exam: Neck Supple, Trachea Midline Pulmonary Resp Exam: Clear Bilaterally, Breath Sounds Equal, No Distress Cardiology CV Exam: Regular, Normal Sinus Rhythm, Good Perfusion Gastrointestinal/Abdomen GI Exam: Soft, Non-Tender, Bowel Sounds Present Genitourinary Exam: Clear Urine Musculoskeletal MS Exam: Joints Intact Integumentary Skin Exam: Clear, Warm, Dry, Intact Extremeties Extremities Exam: No Edema, Pedal Pulses Palpable Neurologic Neuro Exam: Alert, Awake, Oriented, Speech Clear, Moving All Extremities, Electronic Development Technician Equal, No Focal Deficits Psychiatric Psych Exam: Appropriate Responses VTE Prophylaxis VTE Prophylaxis Device: SCDs Assessment/Plan Problem List: (1) Sepsis (2) Hypokalemia (3) Hyperlipidemia (4) Murmur (5) HTN (hypertension) (6) Hx TIA/stroke w/o resid (7) Elevated troponin I level (8) Hx pulmonary embolism (9) Rigors (10) Thrombocytopenia (11) S/P lumbar laminectomy (12) Clostridium difficile diarrhea (13) Lumbar surgical wound fluid collection (14) Anemia Assessment/Plan Assessment/Plan Assessment/Plan Problem List: (1) Sepsis (2) Hypokalemia (3) Hyperlipidemia (4) Murmur (5) HTN (hypertension) (6) Hx TIA/stroke w/o resid (7) Elevated troponin I level (8) Hx pulmonary embolism (9) Rigors (10) Thrombocytopenia (11) S/P lumbar laminectomy (12) Clostridium difficile diarrhea (13) Lumbar surgical wound fluid collection (14) Anemia Assessment/Plan Positive for C. difficile, continue with by mouth Vanco Appreciate ID input -Lumbar spine MRI results noted, fluid collection L5-S1. Continue Meropenem IV and monitor the new culture prelim GNR. It culture remains negative, Meropenem until October 24. Continue PO Vancomycin for c. difficile taper while on Meropenem. (125 mg PO Q6H x 7 days then 125 mg PO Q12H x 7 days then 125 mg PO Q24H x 7 days then 125 mg PO Q48H x 7 days. will reconsult ID, d/w Dr Banks, covering for Dr Albarran reconsult NSR Appreciate Cardiology input, card. signed off -medical management for now INR supra therapeutic, now stable Back on by mouth Coumadin today 7.5 mg -INR 1.3, check daily may need NSR intervention , to clean the area hold coumadin for now NO heparin gtt, caused Thrombocytopenia HIT neg has IVC filter Anemia, HH Hbg 13 initially, now 9. Microcytic, hypochromic probable chronic disease L5-S1 disk herniation, S/P Right L5-S1 hemilaminectomy and microdiscectomy 5/ post op care. Positive wound culture, 2nd cultures, no growth so far Physical therapy for evaluation and treatment, patient requesting walker for her safety. -Lumbar spine MRI results noted, fluid collection L5-S1. drained on 09/30 LBP improving. History of pulmonary emboli, antiphospholipid syndrome. Has IVC filter History of TIA, stable monitor closely -continue ASA Thrombocytopenia -plat. better -HIT negative -off Heparin gtt Hyponatremia mild Anxiety -continue Xanax PRN DVT prophylaxis: SCD/ off coumadin Problem Qualifiers (1) Sepsis: Qualified Code: A41.9 - Sepsis, due to unspecified organism (2) Hyperlipidemia: Qualified Code: E78.5 - Hyperlipidemia, unspecified hyperlipidemia type (3) HTN (hypertension): Qualified Code: I10 - Essential hypertension (4) Lumbar surgical wound fluid collection: Qualified Code: T81.89XA - Lumbar surgical wound fluid collection, initial encounter (5) Anemia: Qualified Code: D64.9 - Anemia, unspecified type Monique Forbes MD Oct 02, 2016 13:48
--- NOTE | 2016-10-02 14:27 | HHI.NSPN ---
Note Status Status: Progress Note Interval History Interval History Ms. Dougherty is a 81 year old female who underwent a right L5-S1 hemilaminectomy and microdiscectomy on September 04, 2016. Her surgery went well without complications and the patient report she had resolution of her lumbar and radicular symptoms. She was doing well for the past 2 weeks following her operation until a few days ago she started to feel progressive generalized weakness. An MRI of her lumbar spine was obtained which showed subcutaneous fluid collection without enhancements, there was no evidence of epidural abscess. Infectious Disease is following and patient found with UTI and C. Difficile colitis on IV Vancomycin. 10/02: pt underwent CT guided aspiration of subcutaneous fluid collection on thursday, cultures were negative until today showed rare gram negative rods. Labs, Micro, & Vital Signs Results Date Time Temp Pulse Resp B/P Pulse Ox O2 Delivery O2 Flow Rate FiO2 10/02/16 12:00 96.6 65 18 147/67 97 10/02/16 10:23 98 10/02/16 08:00 96.3 67 18 144/63 99 10/02/16 04:45 96.8 65 18 171/72 100 10/02/16 00:00 96.8 72 18 163/81 98 10/01/16 20:15 97.8 80 18 143/67 97 10/01/16 20:00 80 10/01/16 16:00 98.1 76 14 136/59 10/02/16 07:00 Intake Total 840 ml Output Total 2775 ml Balance -1935 ml Constitutional Vital Signs Date Time Temp Pulse Resp B/P Pulse Ox O2 Delivery O2 Flow Rate FiO2 10/02/16 12:00 96.6 65 18 147/67 97 10/02/16 10:23 98 10/02/16 08:00 96.3 67 18 144/63 99 10/02/16 04:45 96.8 65 18 171/72 100 10/02/16 00:00 96.8 72 18 163/81 98 10/01/16 20:15 97.8 80 18 143/67 97 10/01/16 20:00 80 10/01/16 16:00 98.1 76 14 136/59 10/02/16 07:00 Intake Total 840 ml Output Total 2775 ml Balance -1935 ml Review of Systems/Exam Exam Wound with small area of dehiscence, her dressing was wet and appeared yellow, no active drainage seen from wound. New dry dressing placed. No erythema, warmth, or tracking noted. Alert, oriented x 3. Speech is fluent. Sitting up in chair. CN: pupils equal, facial motor symmetric Neck: soft, supple Motor: moves lower extremities 5/5 Sensory: intact to light touch x 4 Plantars downgoing b/l, no ankle clonus Medications Current Medications Current Medications Medications (Trade) Dose Ordered Sig/Gypsy Route PRN Reason Start Time Stop Time Status Last Admin Dose Admin Sodium Chloride (NS Flush) 2 ml UNSCH PRN IV FLUSH FLUSH AFTER USING IV ACCESS 09/21/16 13:30 10/01/16 06:41 Sodium Chloride (NS Flush) 2 ml BID IV FLUSH 09/21/16 21:00 10/02/16 07:59 Acetaminophen (Tylenol) 650 mg Q4H PRN PO TEMP > 100.4 09/21/16 13:30 09/28/16 00:22 Ondansetron HCl (Zofran Inj) 4 mg Q6H PRN IVP NAUSEA OR VOMITING 09/21/16 13:30 09/24/16 13:15 Naloxone HCl (Narcan Inj) 0.4 mg UNSCH PRN IV SEE LABEL COMMENTS 09/21/16 13:30 Ascorbic Acid (Vitamin C) 500 mg DAILY PO 09/21/16 13:45 10/02/16 08:02 Aspirin (Ecotrin Ec) 81 mg DAILY PO 09/22/16 09:00 10/02/16 08:00 Calcium/Vitamin D (Oscal-D 250-125) 250 mg DAILY PO 09/22/16 09:00 10/02/16 08:01 Cholecalciferol (Vitamin D3) 1,000 units DAILY PO 09/22/16 09:00 10/02/16 08:02 Folic Acid (Folate) 1 mg DAILY PO 09/22/16 09:00 10/02/16 08:00 Acetaminophen/ Hydrocodone Bitart ([place] 10-325 Mg) 1 tab Q8HR PRN PO PAIN SCALE 1 TO 10 09/21/16 13:45 10/02/16 08:03 Lactobacillus Acidophilus (Lactinex) 1 tab DAILY PO 09/22/16 09:00 10/02/16 08:01 Levothyroxine Sodium (Synthroid) 100 mcg Q48H PO 09/23/16 06:00 10/01/16 06:41 Pravastatin Sodium (Pravachol) 40 mg HS PO 09/21/16 21:00 10/01/16 21:59 Promethazine HCl (Phenergan) 25 mg Q6H PRN PO Nausea/Vomiting 09/21/16 13:45 Tolterodine Tartrate (Detrol La) 4 mg DAILY PO 09/22/16 09:00 10/02/16 08:00 Tiotropium [place] (Spiriva Inh) 18 mcg DAILY INH 09/22/16 09:00 10/02/16 07:53 Albuterol Sulfate (Ventolin Hfa Inh) 2 puff QID INH 09/21/16 18:00 10/02/16 13:35 Atenolol (Tenormin) 25 mg HS PO 09/22/16 21:00 10/01/16 21:59 Furosemide (Lasix) 20 mg DAILY PRN PO SEE LABEL COMMENTS 09/21/16 22:15 Triamterene/HCTZ (Dyazide 37.5-25 Mg) 1 cap DAILY PO 09/22/16 09:00 10/02/16 08:00 Pantoprazole Sodium (Protonix) 40 mg DAILY PO 09/22/16 09:00 10/02/16 08:01 Miscellaneous Information Patient in critical care unit? Ass... [id number] .XX 09/21/16 22:45 Vancomycin HCl (VANCOMYCIN for oral use only) 125 mg QID PO 09/22/16 13:00 10/02/16 13:27 Potassium Chloride (KCl) 20 meq DAILY PO 09/24/16 09:00 10/02/16 08:00 Warfarin Sodium (Coumadin) 7.5 mg DAILY@16 PO 09/25/16 16:00 Hold 10/01/16 16:51 Alprazolam 0.25 mg 0.25 mg Q8H PRN PO ANXIETY 09/28/16 11:00 10/02/16 10:13 Meropenem/Sodium Chloride (Merrem Inj/NS Inj) 100 ml @ 200 mls/hr Q8H IV 09/29/16 14:00 10/02/16 13:27 Lidocaine HCl (Lidoderm 5% Patch.12 Hr) 1 patch DAILY T-DERMAL 09/29/16 13:00 10/02/16 08:02 Ferrous Sulfate (Ferrous Sulfate) 325 mg BID PO 09/29/16 21:00 10/02/16 08:00 Miscellaneous Information 1 DAILY T-DERMAL 09/29/16 13:00 10/02/16 08:02 Atenolol (Tenormin) 50 mg DAILY PO 09/30/16 09:00 10/02/16 08:01 Heparin Sodium (Porcine) (Heparin Central Flush) 200 units DAILY IV FLUSH 09/30/16 09:00 10/02/16 07:53 Sodium Chloride (NS Flush) 5 ml UNSCH PRN IV FLUSH SEE PROTOCOL TABLE 09/30/16 08:30 10/01/16 07:41 Heparin Sodium (Porcine) (Heparin Central Flush) 200 units UNSCH PRN IV FLUSH SEE PROTOCOL TABLE 09/30/16 08:30 10/01/16 07:41 Sodium Chloride 5 ml 5 ml UNSCH PRN IV FLUSH SEE PROTOCOL TABLE 09/30/16 08:30 10/01/16 04:04 Pharmacy Profile Note (Coumadin Consult Pharmacy) 0 ml @ 0 mls/hr UNSCH OTHER 09/30/16 15:45 Medical Decision Making MDM Remarks 81 y/o female s/p lumbar laminectomy 09/04/16 presented with generalized weakness MRI Lumbar spine shows subcutaneous fluid collection w/o enhancement UTI C. Difficile Colitis Plan Plan Remarks obtain repeat MRI L spine w/wo contrast cont antibiotics, ID following dw patient Asha Salas Oct 02, 2016 14:27 cont abx per ID Asha Salas Oct 02, 2016 14:27
[2016-10-02] MEDS ORDERED: GADODIAMIDE PF 287 MG/ML 5 ML VIAL (for RAD MRI) IV ONE (15:51)
--- NOTE | 2016-10-02 18:07 | RADRPT ---
EXAM DATE/TIME: 10/02/2016 15:18 [facility] COMPARISON: MRI LUMBAR SPINE W & W/O CONTRAST, September 25, 2016, 16:33. INDICATIONS : Pain. CONTRAST: 13 cc Omniscan (gadodiamide) IV MEDICAL HISTORY : Chronic obstructive pulmonary disease. Gastroesophageal reflux disease. Hypertension. SURGICAL HISTORY : IVC Filter placement. Laminectomy. Discectomy. ENCOUNTER: Subsequent ACUITY: 1 month PAIN SCORE: 5/10 LOCATION: back. TECHNIQUE: Multiplanar multisequence MRI of the lumbar spine was performed with and without contrast. FINDINGS: Comparison is made to the prior examination of 09/25/2016. Postsurgical findings are again seen at L5- S1. Evidence of posterior laminectomy defect yn the right. Mild narrowing of the right lateral recess at this level is again seen. This appearance is unchanged from the prior study. Central canal diamet er is within normal limits at this level. Mild reactive bone edema and enhancement at the postsurgica l level unchanged. No evidence of abnormal enhancement within the L5-S1 disc. No disruption of the en dplates. There is prevertebral soft tissue edema and enhancement at L5 and in the presacral region. T his finding is slightly more prominent than on the comparison study. All the other intervertebral dis c levels are unchanged. CONCLUSION: Postsurgical findings again seen at L5-S1. No change in the appearance of the disc at this level. No evidence of abscess. Central canal diameter is within normal limits. Mild right lateral recess narrow ing again seen. The prevertebral/presacral edema/enhancement is slightly more prominent on the curren t study. This may be due to technical factors. Norbert Steen MD on October 02, 2016 at 17:51 Board Certified Radiologist. This report was verified electronically.
[2016-10-02] MEDS: PRAVASTATIN SOD 40 MG TAB PO SCH (21:14)
[2016-10-02] MEDS: ATENOLOL 25 MG TAB PO SCH (21:14)
[2016-10-03] VITALS (7 sets, daily range): BP systolic 138–170; BP diastolic 65–84; PULSE 62–98; RESP 18–22; TEMP 96.7–98; O2SAT 95–98
[2016-10-03] MEDS: ACETAMINOPHEN/HYDROcodone 325 MG/10 MG TAB PO PRN ×4 (01:03→21:27)
[2016-10-03] MEDS: ALPRAZolam 0.25 MG TAB PO PRN ×3 (03:33→21:26)
[2016-10-03] MEDS: LEVOTHYROXINE SODIUM 100 MCG TAB PO SCH (05:29)
[2016-10-03] MEDS: MEROPENEM INJ 1,000 MG in SODIUM CHLORIDE 0.9% INJ 100 ML IV SCH ×3 (05:29→21:28)
[2016-10-03 06:05] LABS: INTERNATIONAL NORMALIZED RATIO 1.5 RATIO
[2016-10-03] MEDS: SODIUM CHLORIDE 0.9% FLUSH 10 ML FLUSH IV FLUSH SCH ×2 (09:00→20:29)
[2016-10-03] MEDS: REMOVE OLD PATCH T-DERMAL SCH (09:00)
[2016-10-03] MEDS: ALBUTEROL SULFATE 90 MCG/ACT HFA 18 GM INHALER INH SCH ×4 (09:02→20:29)
[2016-10-03] MEDS: VANCOMYCIN 500 MG VIAL (FOR ORAL USE ONLY) PO SCH ×4 (09:02→20:29)
[2016-10-03] MEDS: PICC Daily Heparin 100 unit/mL Lock Flush IV FLUSH SCH (09:02)
[2016-10-03] MEDS: ATENOLOL 50 MG TAB PO SCH (09:03)
[2016-10-03] MEDS: ASPIRIN EC 81 MG TABEC PO SCH (09:03)
[2016-10-03] MEDS: ASCORBIC ACID 500 MG TAB PO SCH (09:03)
[2016-10-03] MEDS: FERROUS SULFATE 325 MG (65 MG ELEMENTAL IRON) TAB PO SCH ×2 (09:03→20:29)
[2016-10-03] MEDS: LACTOBACILLUS ACIDOPHILUS TAB PO SCH (09:03)
[2016-10-03] MEDS: CALCIUM/VITAMIN D 250 MG/125 U TAB PO SCH (09:03)
[2016-10-03] MEDS: FOLIC ACID 1 MG TAB PO SCH (09:03)
[2016-10-03] MEDS: CHOLECALCIFEROL (VIT D3) 1000 UNIT TAB PO SCH (09:03)
[2016-10-03] MEDS: PANTOPRAZOLE SOD 40 MG DELAYED RELEASE TAB PO SCH (09:14)
[2016-10-03] MEDS: TRIAMTERENE/HCTZ 37.5 MG/25 MG CAP PO SCH (09:15)
[2016-10-03] MEDS: TIOTROPIUM BROMIDE 18 MCG INH INH SCH (09:15)
[2016-10-03] MEDS: TOLTERODINE TARTRATE 4 MG CAP LA PO SCH (09:15)
[2016-10-03] MEDS: POTASSIUM CHLORIDE 10 MEQ CONTROLLED RELEASE TAB PO SCH (09:15)
[2016-10-03] MEDS: LIDOCAINE HCL 5% PATCH T-DERMAL SCH (09:18)
--- NOTE | 2016-10-03 13:59 | HHI.PR ---
Subjective Subjective Remarks feeling "terrible", very "weak" multiple stools, diarrhea again no cp no sob low back pain better no fever Review of Systems Constitutional Constitutional Remarks 12 point ROS completed, negative except as noted above Musculoskeletal MS: Weakness, Stiffness Psychiatric Psychiatric: Normal Mood, Anxiety Vitals/Results Intake & Output 10/02/16 10/02/16 10/03/16 15:00 23:00 07:00 Intake Total 720 ml 220 ml Output Total 600 ml 400 ml 500 ml Balance 120 ml -400 ml -280 ml Intake Oral 720 ml 220 ml Output Urine Total 600 ml 400 ml 500 ml # Voids 3 # Bowel Movements 3 1 0 Vital Signs Vital Signs Date Time Temp Pulse Resp B/P Pulse Ox O2 Delivery O2 Flow Rate FiO2 10/03/16 08:05 68 10/03/16 08:00 96.7 82 18 163/84 98 10/03/16 04:00 97.4 62 22 138/65 95 10/02/16 23:46 96.0 89 16 158/74 99 10/02/16 21:13 96.0 3 16 150/70 99 10/02/16 20:00 67 10/02/16 16:00 99.5 86 18 179/81 95 CBC/BMP: 09/30/16 0500 09/30/16 0500 Lab Results Laboratory Tests Test 10/03/16 05:34 Prothrombin Time 17.0 SEC Prothromb Time International 1.5 RATIO Ratio Physical Exam General General Appearance: Well Nourished, No Acute Distress Eyes Eye Exam: Pupils Equal, Pupils Reactive, Sclera White, Extraocular Movement Intact Ears & Nose Ears & Nose Exam: Nasal Mucosa [place] Throat Throat Exam: Oral Mucosa [place] & Moist Neck Neck Exam: Neck Supple, Trachea Midline Pulmonary Resp Exam: Clear Bilaterally, Breath Sounds Equal, No Distress Cardiology CV Exam: Regular, Normal Sinus Rhythm, Good Perfusion Gastrointestinal/Abdomen GI Exam: Soft, Non-Tender, Bowel Sounds Present Musculoskeletal MS Exam: Joints Intact MS Remarks low back dressing with serous drainage Integumentary Skin Exam: Clear, Warm, Dry, Intact Extremeties Extremities Exam: No Edema, Pedal Pulses Palpable Neurologic Neuro Exam: Alert, Awake, Oriented, Speech Clear, Moving All Extremities, Oil Field Laborer Equal, No Focal Deficits Psychiatric Psych Exam: Appropriate Responses VTE Prophylaxis VTE Prophylaxis Device: SCDs Assessment/Plan Problem List: (1) Sepsis (2) Hypokalemia (3) Hyperlipidemia (4) Murmur (5) HTN (hypertension) (6) Hx TIA/stroke w/o resid (7) Elevated troponin I level (8) Hx pulmonary embolism (9) Rigors (10) Thrombocytopenia (11) S/P lumbar laminectomy (12) Clostridium difficile diarrhea (13) Lumbar surgical wound fluid collection (14) Anemia Assessment/Plan Sepsis Positive for C. difficile, continue with by mouth Vanco -profuse diarrhea again, will check stool for cdiff Appreciate ID input-If culture remains negative, Meropenem until October 24. -Lumbar spine MRI results noted, fluid collection L5-S1. Continue Meropenem IV -Drainage of fluid collection lumbar spine 09/30 -Culture from 09/30 GNR, + ecoli -Per ID recommendation -Continue PO Vancomycin for c. difficile taper while on Meropenem. (125 mg PO Q6H x 7 days then 125 mg PO Q12H x 7 days then 125 mg PO Q24H x 7 days then 125 mg PO Q48H x 7 days. will reconsult ID, d/w Dr Banks, covering for Dr Albarran NSR reconsult, repeat lumbar MRI results noted Appreciate Cardiology input, card. signed off -medical management for now INR 1.5, check daily may need NSR intervention, to clean the area hold coumadin for now NO heparin gtt, caused Thrombocytopenia HIT neg has IVC filter Anemia, HH Hbg 13 initially, now 9. Microcytic, hypochromic probable chronic disease L5-S1 disk herniation, S/P Right L5-S1 hemilaminectomy and microdiscectomy 09/03 -post op care. Positive wound culture, 2nd cultures, + ecoli -ID and neurosurgery following -PT for mobility, OOB daily -Lumbar spine MRI results noted, fluid collection L5-S1. drained on 09/30 -LBP improving. -neurosurgery recommends CT guided aspiration and leave drain in place, needs to be off Coumadin History of pulmonary emboli, antiphospholipid syndrome. -Has IVC filter History of TIA, stable monitor closely -continue ASA Thrombocytopenia -plat. better -HIT negative -off Heparin gtt Hyponatremia mild Anxiety -continue Xanax PRN DVT prophylaxis: SCD/ off coumadin Labs in am D/W RN D/W Dr. Forbes D/W pt. This patient was seen by myself and Dr. Forbes, this note is written on her behalf Problem Qualifiers (1) Sepsis: Qualified Code: A41.9 - Sepsis, due to unspecified organism (2) Hyperlipidemia: Qualified Code: E78.5 - Hyperlipidemia, unspecified hyperlipidemia type (3) HTN (hypertension): Qualified Code: I10 - Essential hypertension (4) Lumbar surgical wound fluid collection: Qualified Code: T81.89XA - Lumbar surgical wound fluid collection, initial encounter (5) Anemia: Qualified Code: D64.9 - Anemia, unspecified type Lisa Mcfarland Oct 03, 2016 13:58
[2016-10-03] MEDS: CHOLESTYRAMINE 4 GM PACKET PO SCH ×2 (17:05→21:28)
[2016-10-03] MEDS: metroNIDAZOLE 500 MG INJ 100 ML IV SCH ×2 (17:07→23:07)
[2016-10-03] MEDS: FLUCONAZOLE 100 MG TAB PO SCH (17:09)
[2016-10-03] MEDS: ATENOLOL 25 MG TAB PO SCH (20:29)
[2016-10-03] MEDS: PRAVASTATIN SOD 40 MG TAB PO SCH (20:29)
[2016-10-04] VITALS: BP 163/84; PULSE 81; RESP 17; TEMP 96.7; O2SAT 97
[2016-10-04 04:00] VITALS: BP 152/76; PULSE 61; RESP 18; TEMP 96; O2SAT 99
[2016-10-04] MEDS: MEROPENEM INJ 1,000 MG in SODIUM CHLORIDE 0.9% INJ 100 ML IV SCH ×3 (05:33→22:00)
[2016-10-04] MEDS: CHOLESTYRAMINE 4 GM PACKET PO SCH ×3 (05:33→22:00)
[2016-10-04 06:03] LABS: AUTOMATED NEUTROPHIL # 6.5 TH/MM3 (1.8-7.7); BASOPHIL # 0.2 TH/MM3 (0-0.2); BASOPHIL % 2.6 % (0.0-2.0); EOSINOPHIL # 0.1 TH/MM3 (0-0.4); EOSINOPHIL % 1.7 % (0.0-4.0); HEMATOCRIT 28.4 % (35.0-46.0); HEMO FLAGS DIFF FINAL; LYMPH % 8.2 % (9.0-44.0); LYMPHOCYTE # 0.6 TH/MM3 (1.0-4.8); MEAN CELL VOLUME 64.2 FL (80.0-100.0); MEAN CORPUSCULAR HEMOGLOBIN 19.6 PG (27.0-34.0); MEAN CORPUSCULAR HGB CONC 30.5 % (32.0-36.0); MONO % 3.2 % (0.0-8.0); NEUT % 84.3 % (16.0-70.0); PLATELET COUNT 393 TH/MM3 (150-450); RED BLOOD COUNT 4.42 MIL/MM3 (4.00-5.30); RED CELL DISTRIBUTION WIDTH 23.5 % (11.6-17.2); WHITE BLOOD COUNT 7.8 TH/MM3 (4.0-11.0)
[2016-10-04 06:14] LABS: INTERNATIONAL NORMALIZED RATIO 1.5 RATIO; PROTHROMBIN TIME - PATIENT 17.2 SEC (9.8-11.6)
[2016-10-04 06:27] LABS: BICARBONATE 28.2 MEQ/L (21.0-32.0)
[2016-10-04] MEDS: metroNIDAZOLE 500 MG INJ 100 ML IV SCH (06:42)
[2016-10-04] MEDS: ALPRAZolam 0.25 MG TAB PO PRN (06:42)
[2016-10-04] MEDS: ACETAMINOPHEN/HYDROcodone 325 MG/10 MG TAB PO PRN ×2 (06:42→15:23)
[2016-10-04 08:00] VITALS: BP 168/81; PULSE 61; PULSE 72; RESP 20; TEMP 96.6; O2SAT 99
[2016-10-04] MEDS: VANCOMYCIN 500 MG VIAL (FOR ORAL USE ONLY) PO SCH ×4 (08:38→22:01)
[2016-10-04] MEDS: LIDOCAINE HCL 5% PATCH T-DERMAL SCH (08:39)
[2016-10-04] MEDS: REMOVE OLD PATCH T-DERMAL SCH (08:39)
[2016-10-04] MEDS: TRIAMTERENE/HCTZ 37.5 MG/25 MG CAP PO SCH (08:40)
[2016-10-04] MEDS: ATENOLOL 50 MG TAB PO SCH (08:40)
[2016-10-04] MEDS: CHOLECALCIFEROL (VIT D3) 1000 UNIT TAB PO SCH (08:40)
[2016-10-04] MEDS: ASPIRIN EC 81 MG TABEC PO SCH (08:40)
[2016-10-04] MEDS: FERROUS SULFATE 325 MG (65 MG ELEMENTAL IRON) TAB PO SCH ×2 (08:40→22:00)
[2016-10-04] MEDS: FOLIC ACID 1 MG TAB PO SCH (08:40)
[2016-10-04] MEDS: LACTOBACILLUS ACIDOPHILUS TAB PO SCH (08:40)
[2016-10-04] MEDS: CALCIUM/VITAMIN D 250 MG/125 U TAB PO SCH (08:40)
[2016-10-04] MEDS: PANTOPRAZOLE SOD 40 MG DELAYED RELEASE TAB PO SCH (08:41)
[2016-10-04] MEDS: TOLTERODINE TARTRATE 4 MG CAP LA PO SCH (08:41)
[2016-10-04] MEDS: ASCORBIC ACID 500 MG TAB PO SCH (08:41)
[2016-10-04] MEDS: TIOTROPIUM BROMIDE 18 MCG INH INH SCH (08:42)
[2016-10-04] MEDS: ALBUTEROL SULFATE 90 MCG/ACT HFA 18 GM INHALER INH SCH ×4 (08:43→21:00)
[2016-10-04] MEDS: POTASSIUM CHLORIDE 10 MEQ CONTROLLED RELEASE TAB PO SCH (08:48)
[2016-10-04] MEDS: SODIUM CHLORIDE 0.9% FLUSH 10 ML FLUSH IV FLUSH SCH ×2 (08:48→22:01)
[2016-10-04] MEDS: PICC Daily Heparin 100 unit/mL Lock Flush IV FLUSH SCH (08:48)
--- NOTE | 2016-10-04 11:01 | HHI.IDPN ---
Note Infectious Disease Note ID [facility]cover for . is an 81 y/o CF with PMhx of MGUS, s/p L5-S1 hemilaminectomy and microdiscectomy for a L5-S1 disc herniation on 09/17/16. She reportedly has a little serous fluid from the surgical incision. Presented to the emergency department after she developed generalized weakness and fell. Noted to have chills on day before admission. s/p IR guided drainage of fluid collection on imaging. Organisms Pseudomonas and e.coli. Patient also has been on treatment for Cdiff. I was asked to see patient by for persistent diarrhea cdiff and review of cultures. Patient reports ongoing large volume diarrhea almost all day yesterday. No N/V or abdominal pain. No chills No rash No SOB/CP PAST MEDICAL HISTORY 1. Coronary artery disease. 2. Hypertension. 3. Arthritis. 4. COPD. 5. Gastroesophageal reflux disease. 6. History of PE. 7. TIA. 8. Radiculopathy. 9. Hypothyroidism. 10.Uterine fibroids. 11.Monoclonal gammopathy. 12.Brain AVM. 13.L5-S1 hemilaminectomy and microdiscectomy. 09/17. 14.Partial gastrectomy. 15.Cervical cancer. 16.Amadeo filter. 17.Tonsillectomy. 18.History of mitral valve prolapse. ALLERGIES No known drug allergies. ANTIBIOTICS: Vancomycin PO. Meropenem. OBJECTIVE: Vital Signs Vital Signs Date Time Temp Pulse Resp B/P Pulse Ox O2 Delivery O2 Flow Rate FiO2 10/04/16 08:00 96.6 61 20 168/81 99 10/04/16 04:00 96.0 61 18 152/76 99 10/04/16 00:00 96.7 81 17 163/84 97 10/03/16 20:21 71 10/03/16 20:00 98.0 82 18 170/81 96 10/03/16 17:00 97.8 98 18 149/81 97 10/03/16 12:00 97.4 80 18 166/84 98 10/03/16 10/03/16 10/04/16 15:00 23:00 07:00 Intake Total 780 ml 630 ml Output Total 50 ml 1900 ml Balance 730 ml -1270 ml Intake Oral 480 ml 480 ml IV Total 300 ml 150 ml Output Urine Total 50 ml 1900 ml # Voids 1 # Bowel Movements 1 Laboratory Tests Test 10/02/16 10/03/16 10/04/16 05:40 05:34 05:30 Prothrombin Time 14.8 SEC 17.0 SEC 17.2 SEC Prothromb Time International 1.3 RATIO 1.5 RATIO 1.5 RATIO Ratio White Blood Count 7.8 TH/MM3 Red Blood Count 4.42 MIL/MM3 Hemoglobin 8.7 GM/DL Hematocrit 28.4 % Mean Corpuscular Volume 64.2 FL Mean Corpuscular Hemoglobin 19.6 PG Mean Corpuscular Hemoglobin 30.5 % Concent Red Cell Distribution Width 23.5 % Platelet Count 393 TH/MM3 Mean Platelet Volume 7.8 FL Neutrophils (%) (Auto) 84.3 % Lymphocytes (%) (Auto) 8.2 % Monocytes (%) (Auto) 3.2 % Eosinophils (%) (Auto) 1.7 % Basophils (%) (Auto) 2.6 % Neutrophils # (Auto) 6.5 TH/MM3 Lymphocytes # (Auto) 0.6 TH/MM3 Monocytes # (Auto) 0.3 TH/MM3 Eosinophils # (Auto) 0.1 TH/MM3 Basophils # (Auto) 0.2 TH/MM3 CBC Comment DIFF FINAL Differential Comment Sodium Level 136 MEQ/L Potassium Level 4.0 MEQ/L Chloride Level 102 MEQ/L Carbon Dioxide Level 28.2 MEQ/L Anion Gap 6 MEQ/L Blood Urea Nitrogen 5 MG/DL Creatinine 0.39 MG/DL Estimat Glomerular Filtration 158 ML/MIN Rate Random Glucose 89 MG/DL Calcium Level 7.9 MG/DL Microbiology Date/Time Procedure Status Source Growth 09/30/16 04:45 Stool Occult Blood ([facility]AR) - Final Complete Stool Stool HEMOCCULT NEGATIVE 09/30/16 15:10 Gram Stain - Final Resulted Fluid Other 09/30/16 15:10 Body Fluid Culture Resulted Fluid Other Pending 09/30/16 21:22 Aerobic Blood Culture - Preliminary Resulted Blood Peripheral NO GROWTH IN 1 DAY 09/30/16 21:22 Anaerobic Blood Culture - Preliminary Resulted Blood Peripheral NO GROWTH IN 1 DAY 09/30/16 21:40 Aerobic Blood Culture - Preliminary Resulted Blood Line NO GROWTH IN 1 DAY 09/30/16 21:40 Anaerobic Blood Culture - Preliminary Resulted Blood Line NO GROWTH IN 1 DAY 09/30/16 22:00 Urine Culture Received Urine Clean Catch Pending Microbiology Date/Time Procedure Status Source Growth 09/30/16 22:00 Urine Culture - Final Complete Urine Clean Catch Celeste Albicans 09/30/16 21:40 Aerobic Blood Culture - Preliminary Resulted Blood Line NO GROWTH IN 3 DAYS 09/30/16 21:40 Anaerobic Blood Culture - Preliminary Resulted Blood Line NO GROWTH IN 3 DAYS 09/30/16 15:10 Gram Stain - Final Complete Fluid Other 09/30/16 15:10 Body Fluid Culture - Final Complete Escherichia Coli 09/30/16 04:45 Stool Occult Blood ([facility]) - Final Complete Stool Stool HEMOCCULT NEGATIVE IMAGING: Last Impressions Lumbar Spine MRI 10/02/16 1410 Signed Impressions: Service Date/Time: October 15:18 - CONCLUSION: Postsurgical findings again seen at L5-S1. No change in the appearance of the disc at this level. No evidence of abscess. Central canal diameter is within normal limits. Mild right lateral recess narrowing again seen. The prevertebral/presacral edema/enhancement is slightly more prominent on the current study. This may be due to technical factors. Norbert Steen MD Chest X-Ray 09/30/16 0000 Signed Impressions: Service Date/Time: Friday, September 30, 2016 21:02 - CONCLUSION: Worsening bibasilar infiltrates and bilateral pleural effusions. Modesto Samano Jr., MD Abscess Drainage X-Ray 09/29/16 0000 Signed Impressions: Service Date/Time: Friday, September 30, 2016 15:02 - CONCLUSION: Uncomplicated drainage of midline fluid collection in the lower back. Brent Ricardo MD Consultation 09/26/16 0000 Signed Impressions: Service Date/Time: Monday, September 26, 2016 00:00 - CONCLUSION: The patient's INR is too high. When patient's INR comes below 1.5 image guided drainage catheter can be placed with a new order. Camilo Valdez MD Abdomen/Pelvis CT 09/22/16 0000 Signed Impressions: Service Date/Time: Thursday, September 22, 2016 18:19 - CONCLUSION: 1. Dependent atelectasis in the lungs with small pleural effusions. 2. Hepatosplenomegaly. 3. Mural thickening of sigmoid and rectum most characteristic of a mild colitis and proctitis. 4. Inferior vena cava filter present. Vergara catheter in the bladder. 5. Mild ileus without definite evidence for obstruction. Anirudh Hanna MD Head CT 09/21/16 0000 Signed Impressions: Service Date/Time: Wednesday, September 21, 2016 13:58 - CONCLUSION: No acute disease. Omi Mora MD PHYSICAL EXAMINATION GENERAL: No acute distress. Awake and alert. HEENT: No icterus. Oropharynx no visible lesions. NECK: Supple without adenopathy. LUNGS: Clear. HEART: 2/6 systolic murmur at the left sternal border and URSB. No rubs or gallops. ABDOMEN: Bowel sounds diminished. Distended. Soft, nontender. EXTREMITIES: No clubbing, cyanosis or edema. SKIN: No rash. Warm and moist. NEUROLOGIC: Alert and oriented x3. No gross focal findings. PSYCHIATRIC: Calm, pleasant and cooperative. IMPRESSION Sepsis. Pseudomonas and e. coli surgical site infection (fluid collected from surgical bed per IR note) C. difficile colitis, worsening diarrhea ? post infectious inflammatory colitis. Leukocytosis (secondary to infection, C. difficile). Pseudomonas lumbar wound infection. Post op. RECOMMENDATIONS Continue Meropenem IV per plan.( note: recommend treating with the Meropenem until October 24, 2016. In light of C. diff would avoid Levaquin). DC IV flagyl (not shown to be of benefit by IV route when able to tolerate oral. IV formulation not superior clinically at bowel level for Cdiff) Continue PO Vancomycin for c. difficile. The treatment for Cdiff starts upon completion of IV antibiotics for surgical site infection and thereafter a taper per last note. Start dificid (ASP criteria: pt has BNAP strain negative, on concomitant antibiotics, not responsive to first line antibiotics continues to have large volume diarrhea) Start Asacol ( for possible post infectious/Cdiff inflammatory bowel pattern), recommend a short 7 day course. Follow clinically to assess continuing need. Discontinue any promotility agents. Discontinue any stool softeners. I will follow prn over the weekend. back of Thursday please call him to follow up clinically and reassess discharge plans. Explained plan to patient in presence of RN. She was given opportunity to ask questions and was thankful of care provided. Jaycee Banks MD Oct 04, 2016 11:01
[2016-10-04 12:00] VITALS: BP 178/69; PULSE 61; RESP 20; TEMP 96.3; O2SAT 99
--- NOTE | 2016-10-04 12:02 | HHI.PR ---
Subjective Subjective Remarks less stools today no abd. pain no fever, no chills low back pain, stable no cp no sob no fever Review of Systems Constitutional Constitutional Remarks 12 point ROS completed, negative except as noted above Musculoskeletal MS: Weakness, Stiffness Psychiatric Psychiatric: Normal Mood, Anxiety Vitals/Results Intake & Output 10/03/16 10/03/16 10/04/16 15:00 23:00 07:00 Intake Total 780 ml 630 ml Output Total 50 ml 1900 ml Balance 730 ml -1270 ml Intake Oral 480 ml 480 ml IV Total 300 ml 150 ml Output Urine Total 50 ml 1900 ml # Voids 1 # Bowel Movements 1 Vital Signs Vital Signs Date Time Temp Pulse Resp B/P Pulse Ox O2 Delivery O2 Flow Rate FiO2 10/04/16 08:00 72 10/04/16 08:00 96.6 61 20 168/81 99 10/04/16 04:00 96.0 61 18 152/76 99 10/04/16 00:00 96.7 81 17 163/84 97 10/03/16 20:21 71 10/03/16 20:00 98.0 82 18 170/81 96 10/03/16 17:00 97.8 98 18 149/81 97 10/03/16 12:00 97.4 80 18 166/84 98 CBC/BMP: 10/04/16 0530 10/04/16 0530 Lab Results Laboratory Tests Test 10/04/16 05:30 White Blood Count 7.8 TH/MM3 Red Blood Count 4.42 MIL/MM3 Hemoglobin 8.7 GM/DL Hematocrit 28.4 % Mean Corpuscular Volume 64.2 FL Mean Corpuscular Hemoglobin 19.6 PG Mean Corpuscular Hemoglobin 30.5 % Concent Red Cell Distribution Width 23.5 % Platelet Count 393 TH/MM3 Mean Platelet Volume 7.8 FL Neutrophils (%) (Auto) 84.3 % Lymphocytes (%) (Auto) 8.2 % Monocytes (%) (Auto) 3.2 % Eosinophils (%) (Auto) 1.7 % Basophils (%) (Auto) 2.6 % Neutrophils # (Auto) 6.5 TH/MM3 Lymphocytes # (Auto) 0.6 TH/MM3 Monocytes # (Auto) 0.3 TH/MM3 Eosinophils # (Auto) 0.1 TH/MM3 Basophils # (Auto) 0.2 TH/MM3 CBC Comment DIFF FINAL Differential Comment Prothrombin Time 17.2 SEC Prothromb Time International 1.5 RATIO Ratio Sodium Level 136 MEQ/L Potassium Level 4.0 MEQ/L Chloride Level 102 MEQ/L Carbon Dioxide Level 28.2 MEQ/L Anion Gap 6 MEQ/L Blood Urea Nitrogen 5 MG/DL Creatinine 0.39 MG/DL Estimat Glomerular Filtration 158 ML/MIN Rate Random Glucose 89 MG/DL Calcium Level 7.9 MG/DL Physical Exam General General Appearance: Well Nourished, No Acute Distress Eyes Eye Exam: Pupils Equal, Pupils Reactive, Sclera White, Extraocular Movement Intact Ears & Nose Ears & Nose Exam: Nasal Mucosa [place] Throat Throat Exam: Oral Mucosa [place] & Moist Neck Neck Exam: Neck Supple, Trachea Midline Pulmonary Resp Exam: Clear Bilaterally, Breath Sounds Equal, No Distress Cardiology CV Exam: Regular, Normal Sinus Rhythm, Good Perfusion Gastrointestinal/Abdomen GI Exam: Soft, Non-Tender, Bowel Sounds Present Musculoskeletal MS Exam: Joints Intact MS Remarks low back dressing with serous drainage Integumentary Skin Exam: Clear, Warm, Dry, Intact Extremeties Extremities Exam: No Edema, Pedal Pulses Palpable Neurologic Neuro Exam: Alert, Awake, Oriented, Speech Clear, Moving All Extremities, Carpet Floor Layer Apprentice Equal, No Focal Deficits Psychiatric Psych Exam: Appropriate Responses VTE Prophylaxis VTE Prophylaxis Device: SCDs Assessment/Plan Problem List: (1) Sepsis (2) Hypokalemia (3) Hyperlipidemia (4) Murmur (5) HTN (hypertension) (6) Hx TIA/stroke w/o resid (7) Elevated troponin I level (8) Hx pulmonary embolism (9) Rigors (10) Thrombocytopenia (11) S/P lumbar laminectomy (12) Clostridium difficile diarrhea (13) Lumbar surgical wound fluid collection (14) Anemia Assessment/Plan Sepsis Positive for C. difficile, continue with by mouth Vanco Appreciate ID input-If culture remains negative, Meropenem until October 24. -Lumbar spine MRI results noted, fluid collection L5-S1. Continue Meropenem IV -Drainage of fluid collection lumbar spine 09/30 -Culture from 09/30 GNR, + ecoli -Per ID recommendation -Continue PO Vancomycin for c. difficile taper while on Meropenem. (125 mg PO Q6H x 7 days then 125 mg PO Q12H x 7 days then 125 mg PO Q24H x 7 days then 125 mg PO Q48H x 7 days. -continues to have lg. volume diarrhea, repeat cdiff pending. Dr. Banks recommends adding Dificid and Asacol. Flagyl IV d/cd. -Continue Questran -monitor electrolytes, diarrhea improving some Appreciate Cardiology input, card. signed off -medical management for now INR 1.5, check daily may need NSR intervention, to clean the area hold coumadin for now NO heparin gtt, caused Thrombocytopenia HIT neg has IVC filter Anemia, HH Hbg 13 initially, now 8. Microcytic, hypochromic probable chronic disease L5-S1 disk herniation, S/P Right L5-S1 hemilaminectomy and microdiscectomy 09/03 -post op care. Positive wound culture, 2nd cultures, + ecoli -ID and neurosurgery following -PT for mobility, OOB daily -Lumbar spine MRI results noted, fluid collection L5-S1. drained on 09/30 -LBP improving. -neurosurgery recommends CT guided aspiration and leave drain in place, needs to be off Coumadin History of pulmonary emboli, antiphospholipid syndrome. -Has IVC filter History of TIA, stable monitor closely -continue ASA Thrombocytopenia -plat. better -HIT negative -off Heparin gtt Hyponatremia mild Anxiety -continue Xanax PRN DVT prophylaxis: SCD/ off coumadin continue with present care. D/W RN D/W Dr. Forbes D/W pt. This patient was seen by myself and Dr. Forbes, this note is written on her behalf Problem Qualifiers (1) Sepsis: Qualified Code: A41.9 - Sepsis, due to unspecified organism (2) Hyperlipidemia: Qualified Code: E78.5 - Hyperlipidemia, unspecified hyperlipidemia type (3) HTN (hypertension): Qualified Code: I10 - Essential hypertension (4) Lumbar surgical wound fluid collection: Qualified Code: T81.89XA - Lumbar surgical wound fluid collection, initial encounter (5) Anemia: Qualified Code: D64.9 - Anemia, unspecified type Lisa Mcfarland Oct 04, 2016 12:01
[2016-10-04] MEDS: MESALAMINE HD 800 MG DELAYED RELEASE TAB PO SCH ×2 (13:17→22:00)
[2016-10-04] MEDS: FLUCONAZOLE 100 MG TAB PO SCH (15:23)
[2016-10-04 16:00] VITALS: BP 199/89; PULSE 74; RESP 20; TEMP 98; O2SAT 94
[2016-10-04 20:00] VITALS: BP 161/79; PULSE 76; RESP 18; TEMP 98.3; O2SAT 96
[2016-10-04] MEDS: ATENOLOL 25 MG TAB PO SCH (22:00)
[2016-10-04] MEDS: FIDAXOMICIN 200 MG TAB PO SCH (22:00)
[2016-10-04] MEDS: PRAVASTATIN SOD 40 MG TAB PO SCH (22:00)
[2016-10-05] VITALS (10 sets, daily range): BP systolic 141–190; BP diastolic 79–85; PULSE 66–81; RESP 16–22; TEMP 97–98.3; O2SAT 94–98
[2016-10-05 02:25] LABS: PROTHROMBIN TIME - PATIENT 10.9 SEC (9.8-11.6)
[2016-10-05] MEDS: CHOLESTYRAMINE 4 GM PACKET PO SCH ×3 (05:09→22:25)
[2016-10-05] MEDS: LEVOTHYROXINE SODIUM 100 MCG TAB PO SCH (05:09)
[2016-10-05] MEDS: ALPRAZolam 0.25 MG TAB PO PRN ×2 (05:09→22:25)
[2016-10-05] MEDS: MESALAMINE HD 800 MG DELAYED RELEASE TAB PO SCH ×3 (05:09→22:24)
[2016-10-05] MEDS: MEROPENEM INJ 1,000 MG in SODIUM CHLORIDE 0.9% INJ 100 ML IV SCH ×3 (05:10→22:26)
[2016-10-05] MEDS: TIOTROPIUM BROMIDE 18 MCG INH INH SCH (08:40)
[2016-10-05] MEDS: ALBUTEROL SULFATE 90 MCG/ACT HFA 18 GM INHALER INH SCH ×4 (08:40→22:26)
[2016-10-05] MEDS: ASPIRIN EC 81 MG TABEC PO SCH (08:42)
[2016-10-05] MEDS: CALCIUM/VITAMIN D 250 MG/125 U TAB PO SCH (08:43)
[2016-10-05] MEDS: TRIAMTERENE/HCTZ 37.5 MG/25 MG CAP PO SCH (08:43)
[2016-10-05] MEDS: PANTOPRAZOLE SOD 40 MG DELAYED RELEASE TAB PO SCH (08:43)
[2016-10-05] MEDS: CHOLECALCIFEROL (VIT D3) 1000 UNIT TAB PO SCH (08:43)
[2016-10-05] MEDS: POTASSIUM CHLORIDE 10 MEQ CONTROLLED RELEASE TAB PO SCH (08:43)
[2016-10-05] MEDS: ASCORBIC ACID 500 MG TAB PO SCH (08:43)
[2016-10-05] MEDS: ATENOLOL 50 MG TAB PO SCH (08:44)
[2016-10-05] MEDS: LACTOBACILLUS ACIDOPHILUS TAB PO SCH (08:44)
[2016-10-05] MEDS: VANCOMYCIN 500 MG VIAL (FOR ORAL USE ONLY) PO SCH ×4 (08:44→22:25)
[2016-10-05] MEDS: FERROUS SULFATE 325 MG (65 MG ELEMENTAL IRON) TAB PO SCH ×2 (08:44→22:23)
[2016-10-05] MEDS: TOLTERODINE TARTRATE 4 MG CAP LA PO SCH (08:44)
[2016-10-05] MEDS: SODIUM CHLORIDE 0.9% FLUSH 10 ML FLUSH IV FLUSH SCH ×2 (08:45→22:27)
[2016-10-05] MEDS: LIDOCAINE HCL 5% PATCH T-DERMAL SCH (08:50)
[2016-10-05] MEDS: FOLIC ACID 1 MG TAB PO SCH (08:50)
[2016-10-05] MEDS: PICC Daily Heparin 100 unit/mL Lock Flush IV FLUSH SCH (08:50)
[2016-10-05] MEDS: FIDAXOMICIN 200 MG TAB PO SCH ×2 (08:51→22:24)
[2016-10-05] MEDS: REMOVE OLD PATCH T-DERMAL SCH (08:52)
[2016-10-05] MEDS: ACETAMINOPHEN/HYDROcodone 325 MG/10 MG TAB PO PRN ×2 (09:15→22:26)
[2016-10-05] MEDS: FLUCONAZOLE 100 MG TAB PO SCH (13:45)
--- NOTE | 2016-10-05 16:10 | HHI.PR ---
Subjective Subjective Remarks no stools today "I"m feeling much better" no as weak eating no abd. pain no fever, no chills low back pain, stable worried about , wants to go home so that he is not depressed. He has medical problems himself, valvular disease etc. Review of Systems Constitutional Constitutional Remarks 12 point ROS completed, negative except as noted above Musculoskeletal MS: Weakness, Stiffness Psychiatric Psychiatric: Normal Mood, Anxiety Vitals/Results Intake & Output 10/04/16 10/04/16 10/05/16 15:00 23:00 07:00 Intake Total 600 ml 480 ml 240 ml Output Total 550 ml 725 ml Balance 600 ml -70 ml -485 ml Intake Oral 600 ml 480 ml 240 ml Output Urine Total 550 ml 725 ml # Voids 3 # Bowel Movements 3 1 Vital Signs Vital Signs Date Time Temp Pulse Resp B/P Pulse Ox O2 Delivery O2 Flow Rate FiO2 10/05/16 12:00 97.4 66 18 141/83 97 10/05/16 10:15 16 10/05/16 09:09 80 10/05/16 08:00 98.3 76 22 190/83 98 10/05/16 07:30 70 10/05/16 04:00 97.4 79 18 175/85 96 10/05/16 00:05 81 10/05/16 00:00 97.1 71 17 156/84 96 10/04/16 20:00 98.3 76 18 161/79 96 CBC/BMP: 10/04/16 0530 10/04/16 0530 Lab Results Laboratory Tests Test 10/05/16 01:45 Prothrombin Time 10.9 SEC Prothromb Time International 1.0 RATIO Ratio Physical Exam General General Appearance: Well Nourished, No Acute Distress Eyes Eye Exam: Pupils Equal, Pupils Reactive, Sclera White, Extraocular Movement Intact Ears & Nose Ears & Nose Exam: Nasal Mucosa [place] Throat Throat Exam: Oral Mucosa [place] & Moist Neck Neck Exam: Neck Supple, Trachea Midline Pulmonary Resp Exam: Clear Bilaterally, Breath Sounds Equal, No Distress Cardiology CV Exam: Regular, Normal Sinus Rhythm, Good Perfusion Gastrointestinal/Abdomen GI Exam: Soft, Non-Tender, Bowel Sounds Present Musculoskeletal MS Exam: Joints Intact MS Remarks low back dressing with serous drainage Integumentary Skin Exam: Clear, Warm, Dry, Intact Extremeties Extremities Exam: No Edema, Pedal Pulses Palpable Neurologic Neuro Exam: Alert, Awake, Oriented, Speech Clear, Moving All Extremities, Die Sinking Machine Operator Equal, No Focal Deficits Psychiatric Psych Exam: Appropriate Responses VTE Prophylaxis VTE Prophylaxis Device: SCDs Assessment/Plan Problem List: (1) Sepsis (2) Hypokalemia (3) Hyperlipidemia (4) Murmur (5) HTN (hypertension) (6) Hx TIA/stroke w/o resid (7) Elevated troponin I level (8) Hx pulmonary embolism (9) Rigors (10) Thrombocytopenia (11) S/P lumbar laminectomy (12) Clostridium difficile diarrhea (13) Lumbar surgical wound fluid collection (14) Anemia Assessment/Plan Sepsis Positive for C. difficile, continue with by mouth Vanco Appreciate ID input-If culture remains negative, Meropenem until October 24. -Lumbar spine MRI results noted, fluid collection L5-S1. Continue Meropenem IV -Drainage of fluid collection lumbar spine 09/30 -Culture from 09/30 GNR, + ecoli -Per ID recommendation -Continue PO Vancomycin for c. difficile taper while on Meropenem. (125 mg PO Q6H x 7 days then 125 mg PO Q12H x 7 days then 125 mg PO Q24H x 7 days then 125 mg PO Q48H x 7 days. -continues to have lg. volume diarrhea, repeat cdiff pending. Dr. Banks recommends adding Dificid and Asacol. Flagyl IV d/cd. -Continue Questran -continue Diflucan for UTI -diarrhea improving Appreciate Cardiology input, card. signed off -medical management for now INR 1, check daily restart Coumadin, no bridging for now has IVC NO heparin gtt, caused Thrombocytopenia HIT neg Anemia, HH Hbg 13 initially, now 8. Microcytic, hypochromic probable chronic disease L5-S1 disk herniation, S/P Right L5-S1 hemilaminectomy and microdiscectomy 09/03 -post op care. Positive wound culture, 2nd cultures, + ecoli -ID and neurosurgery following -PT for mobility, OOB daily -Lumbar spine MRI results noted, fluid collection L5-S1. drained on 09/30 -LBP improving. -no procedure recommended per neurosurgery History of pulmonary emboli, antiphospholipid syndrome. -Has IVC filter History of TIA, stable monitor closely -continue ASA Thrombocytopenia -plat. better -HIT negative -off Heparin gtt Anxiety -continue Xanax PRN DVT prophylaxis: SCD/Coumadin Improving, no fever, diarrhea tapering CM for dc planning, recommend SNF, pt. somewhat agreeable. She is worried about who is frail and has medical issues D/W RN D/W Dr. Forbes D/W pt. This patient was seen by myself and Dr. Forbes, this note is written on her behalf Problem Qualifiers (1) Sepsis: Qualified Code: A41.9 - Sepsis, due to unspecified organism (2) Hyperlipidemia: Qualified Code: E78.5 - Hyperlipidemia, unspecified hyperlipidemia type (3) HTN (hypertension): Qualified Code: I10 - Essential hypertension (4) Lumbar surgical wound fluid collection: Qualified Code: T81.89XA - Lumbar surgical wound fluid collection, initial encounter (5) Anemia: Qualified Code: D64.9 - Anemia, unspecified type Lisa Mcfarland Oct 05, 2016 16:09
[2016-10-05] MEDS: WARFARIN SOD 7.5 MG TAB PO SCH (16:24)
[2016-10-05] MEDS ORDERED: ATENOLOL 25 MG TAB PO SCH (21:00)
[2016-10-05] MEDS: PRAVASTATIN SOD 40 MG TAB PO SCH (22:23)
[2016-10-06] VITALS: BP 158/61; PULSE 80; RESP 17; TEMP 97; O2SAT 97
[2016-10-06 04:00] VITALS: BP 168/76; PULSE 72; RESP 16; TEMP 96; O2SAT 98
[2016-10-06] MEDS: CHOLESTYRAMINE 4 GM PACKET PO SCH ×2 (05:24→13:44)
[2016-10-06] MEDS: MEROPENEM INJ 1,000 MG in SODIUM CHLORIDE 0.9% INJ 100 ML IV SCH ×2 (05:24→13:44)
[2016-10-06] MEDS: MESALAMINE HD 800 MG DELAYED RELEASE TAB PO SCH ×2 (05:25→13:44)
[2016-10-06 06:00] VITALS: BP 162/79; PULSE 69
[2016-10-06 08:00] VITALS: BP 195/82; PULSE 61; RESP 20; TEMP 96.5; O2SAT 98
[2016-10-06 08:25] VITALS: PULSE 75
[2016-10-06] MEDS: PICC Daily Heparin 100 unit/mL Lock Flush IV FLUSH SCH (09:00)
[2016-10-06] MEDS: SODIUM CHLORIDE 0.9% FLUSH 10 ML FLUSH IV FLUSH SCH (09:00)
[2016-10-06] MEDS ORDERED: TRIAMTERENE/HCTZ 75 MG/50 MG TAB PO SCH (09:00)
[2016-10-06] MEDS ORDERED: cloNIDine HCL 0.1 MG TAB PO PRN (09:00)
[2016-10-06] MEDS: ACETAMINOPHEN/HYDROcodone 325 MG/10 MG TAB PO PRN (09:10)
[2016-10-06] MEDS: ALPRAZolam 0.25 MG TAB PO PRN (09:10)
[2016-10-06] MEDS: VANCOMYCIN 500 MG VIAL (FOR ORAL USE ONLY) PO SCH ×2 (09:10→13:44)
[2016-10-06] MEDS: CHOLECALCIFEROL (VIT D3) 1000 UNIT TAB PO SCH (09:10)
[2016-10-06] MEDS: ATENOLOL 50 MG TAB PO SCH (09:10)
[2016-10-06] MEDS: POTASSIUM CHLORIDE 10 MEQ CONTROLLED RELEASE TAB PO SCH (09:10)
[2016-10-06] MEDS: ASCORBIC ACID 500 MG TAB PO SCH (09:10)
[2016-10-06] MEDS: LACTOBACILLUS ACIDOPHILUS TAB PO SCH (09:10)
[2016-10-06] MEDS: PANTOPRAZOLE SOD 40 MG DELAYED RELEASE TAB PO SCH (09:11)
[2016-10-06] MEDS: ASPIRIN EC 81 MG TABEC PO SCH (09:11)
[2016-10-06] MEDS: TOLTERODINE TARTRATE 4 MG CAP LA PO SCH (09:11)
[2016-10-06] MEDS: FIDAXOMICIN 200 MG TAB PO SCH (09:11)
[2016-10-06] MEDS: ALBUTEROL SULFATE 90 MCG/ACT HFA 18 GM INHALER INH SCH ×2 (09:13→13:46)
[2016-10-06] MEDS: TIOTROPIUM BROMIDE 18 MCG INH INH SCH (09:13)
[2016-10-06] MEDS: FERROUS SULFATE 325 MG (65 MG ELEMENTAL IRON) TAB PO SCH (09:15)
[2016-10-06] MEDS: CALCIUM/VITAMIN D 250 MG/125 U TAB PO SCH (09:15)
[2016-10-06] MEDS: REMOVE OLD PATCH T-DERMAL SCH (09:16)
[2016-10-06] MEDS: LIDOCAINE HCL 5% PATCH T-DERMAL SCH (09:16)
--- NOTE | 2016-10-06 09:31 | HHI.PR ---
Subjective Subjective Remarks no stools today BP has been trending upwards no cp no sob no fever very anxious about discharge planning Review of Systems Constitutional Constitutional Remarks 12 point ROS completed, negative except as noted above Musculoskeletal MS: Weakness, Stiffness Psychiatric Psychiatric: Normal Mood, Anxiety Vitals/Results Intake & Output 10/05/16 10/05/16 10/06/16 15:00 23:00 07:00 Intake Total 360 ml 410 ml Output Total 1900 ml 550 ml 1250 ml Balance -1540 ml -550 ml -840 ml Intake Oral 360 ml 240 ml IV Total 170 ml Output Urine Total 1900 ml 550 ml 1250 ml # Voids 1 # Bowel Movements 1 Vital Signs Vital Signs Date Time Temp Pulse Resp B/P Pulse Ox O2 Delivery O2 Flow Rate FiO2 10/06/16 08:00 96.5 61 20 195/82 98 10/06/16 06:00 69 162/79 10/06/16 04:00 96.0 72 16 168/76 98 10/06/16 00:00 97.0 80 17 158/61 97 10/05/16 20:55 80 10/05/16 20:00 98.3 77 16 176/79 94 10/05/16 16:00 97.0 73 18 148/82 98 10/05/16 12:00 97.4 66 18 141/83 97 10/05/16 10:15 16 CBC/BMP: 10/04/16 0530 10/04/16 0530 Physical Exam General General Appearance: Well Nourished, No Acute Distress Eyes Eye Exam: Pupils Equal, Pupils Reactive, Sclera White, Extraocular Movement Intact Ears & Nose Ears & Nose Exam: Nasal Mucosa [place] Throat Throat Exam: Oral Mucosa [place] & Moist Neck Neck Exam: Neck Supple, Trachea Midline Pulmonary Resp Exam: Clear Bilaterally, Breath Sounds Equal, No Distress Cardiology CV Exam: Regular, Normal Sinus Rhythm, Good Perfusion Gastrointestinal/Abdomen GI Exam: Soft, Non-Tender, Bowel Sounds Present Musculoskeletal MS Exam: Joints Intact MS Remarks low back dressing with serous drainage Integumentary Skin Exam: Clear, Warm, Dry, Intact Extremeties Extremities Exam: No Edema, Pedal Pulses Palpable Neurologic Neuro Exam: Alert, Awake, Oriented, Speech Clear, Moving All Extremities, Body Maker Equal, No Focal Deficits Psychiatric Psych Exam: Appropriate Responses VTE Prophylaxis VTE Prophylaxis Device: SCDs Assessment/Plan Problem List: (1) Sepsis (2) Hypokalemia (3) Hyperlipidemia (4) Murmur (5) HTN (hypertension) (6) Hx TIA/stroke w/o resid (7) Elevated troponin I level (8) Hx pulmonary embolism (9) Rigors (10) Thrombocytopenia (11) S/P lumbar laminectomy (12) Clostridium difficile diarrhea (13) Lumbar surgical wound fluid collection (14) Anemia Assessment/Plan Sepsis Positive for C. difficile, continue with by mouth Vanco Appreciate ID input-If culture remains negative, Meropenem until October 24. -Lumbar spine MRI results noted, fluid collection L5-S1. Continue Meropenem IV -Drainage of fluid collection lumbar spine 09/30 -Culture from 09/30 GNR, + ecoli -Per ID recommendation -Continue PO Vancomycin for c. difficile taper while on Meropenem. (125 mg PO Q6H x 7 days then 125 mg PO Q12H x 7 days then 125 mg PO Q24H x 7 days then 125 mg PO Q48H x 7 days. -continues to have lg. volume diarrhea, repeat cdiff pending. Dr. Banks recommends adding Dificid and Asacol. Flagyl IV d/cd. -Continue Questran -continue Diflucan for UTI -diarrhea improving Appreciate Cardiology input, card. signed off -medical management for now INR 1, check daily continue Coumadin, no bridging for now has IVC NO heparin gtt, caused Thrombocytopenia HIT neg Anemia, HH Hbg 13 initially, now 8. Microcytic, hypochromic probable chronic disease L5-S1 disk herniation, S/P Right L5-S1 hemilaminectomy and microdiscectomy 09/03 -post op care. Positive wound culture, 2nd cultures, + ecoli -ID and neurosurgery following -PT for mobility, OOB daily -Lumbar spine MRI results noted, fluid collection L5-S1. drained on 09/30 -LBP improving. -no procedure recommended per neurosurgery History of pulmonary emboli, antiphospholipid syndrome. -Has IVC filter History of TIA, stable monitor closely -continue ASA Thrombocytopenia -plat. better -HIT negative -off Heparin gtt Anxiety -continue Xanax PRN HTN, uncontrolled -inc. atenolol to 50 mg PO BID yesterday -inc. Dyazide to 2 tabs po daily today -Clonidine PRN added Continue OOB, PT DVT prophylaxis: SCD/Coumadin Improving, no fever, diarrhea tapering CM for dc planning, recommend SNF, pt. somewhat agreeable. She is worried about who is frail and has medical issues D/W CM -CIR evaluating D/W RN D/W Dr. Forbes D/W pt. D/W CM This patient was seen by myself and Dr. Forbes, this note is written on her behalf Problem Qualifiers (1) Sepsis: Qualified Code: A41.9 - Sepsis, due to unspecified organism (2) Hyperlipidemia: Qualified Code: E78.5 - Hyperlipidemia, unspecified hyperlipidemia type (3) HTN (hypertension): Qualified Code: I10 - Essential hypertension (4) Lumbar surgical wound fluid collection: Qualified Code: T81.89XA - Lumbar surgical wound fluid collection, initial encounter (5) Anemia: Qualified Code: D64.9 - Anemia, unspecified type Lisa Mcfarland Oct 06, 2016 09:31
[2016-10-06] MEDS ORDERED: INFLUENZA VIRUS VACCINE (QUADRIVALENT) 0.5 ML SYR IM ONE (10:00)
[2016-10-06] MEDS ORDERED: PNEUMOCOCCAL POLYVALENT INJ 25 MCG/0.5 ML SYR IM ONE (10:00)
[2016-10-06] MEDS: FOLIC ACID 1 MG TAB PO SCH (10:04)
[2016-10-06 10:43] LABS: INTERNATIONAL NORMALIZED RATIO 1.6 RATIO
[2016-10-06] MEDS ORDERED: MAXZ PO (12:38)
[2016-10-06] MEDS ORDERED: ATEN25TA PO (12:38)
[2016-10-06] MEDS ORDERED: DIFL100T PO (12:38)
[2016-10-06] MEDS ORDERED: FERR325T20 PO (12:38)
[2016-10-06] MEDS ORDERED: ALPR.25 PO (12:38)
[2016-10-06] MEDS ORDERED: MESA1TAB2 PO (12:38)
[2016-10-06] MEDS ORDERED: ATEN50TA PO (12:38)
[2016-10-06] MEDS ORDERED: VANC500I3 PO (12:38)
[2016-10-06] MEDS ORDERED: POTA-243 PO (12:38)
--- NOTE | 2016-10-06 12:38 | HHI.DCPOC ---
Discharge Care Plan Diagnosis: (1) Hypokalemia (2) Hyperlipidemia (3) Murmur (4) HTN (hypertension) (5) Hx TIA/stroke w/o resid (6) Elevated troponin I level (7) Hx pulmonary embolism (8) Rigors (9) Thrombocytopenia (10) Anemia (11) Clostridium difficile diarrhea (12) Sepsis (13) Lumbar surgical wound fluid collection (14) S/P lumbar laminectomy Your Health Problems Are: Anxiety Difficulty with ADL Skin Breakdown Appetite Changes Inflammation Goals to Promote Your Health * To prevent worsening of your condition and complications * To maintain your health at the optimal level Directions to Meet Your Goals Take your medications as prescribed Follow your dietary instruction Follow activity as directed Keep your appointments as scheduled Take your immunizations and boosters as scheduled If your symptoms worsen call your PCP, if no PCP go to Urgent Care Center or Emergency Room Smoking is Dangerous to Your Health. Avoid second hand smoke Call the 24-hour hour crisis hotline for domestic abuse at Lisa Mcfarland [facility] Oct 06, 2016 12:38
[2016-10-06 12:42] VITALS: BP 143/67; PULSE 67; RESP 20; TEMP 96.7; O2SAT 100
--- NOTE | 2016-10-06 14:33 | HHI.FF ---
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 [] May leave port accessed during therapy. [] May leave peripheral site accessed for duration of therapy. [x] If patient has SOB or respiratory distress, check oxygen saturation. If less than 90% or clinical signs of respiratory distress, administer oxygen at 2 L/min. via nasal cannula and notify physician. [x] Anaphylaxis/Reaction orders: * Stop infusion. * Keep IV line open with saline flush. * Notify physician. * Monitor vital signs every 15 minutes until symptoms resolve. * Check Oxygen saturation; Oxygen at 2 L/min. via nasal cannula if less than 90% or clinical signs of respiratory distress. * Administer diphenhydramine (Benadryl) 25 mg IV STAT, (unless patient has received as pre-med). May repeat once, if necessary. * Solu-Cortef 250 mg IVP over 30-60 seconds, use 100 mg vials for each dissolution. * Epinephrine (1mg/1 ml) 0.3 mg subcutaneously or IVP now with any signs of respiratory distress. * Check with physician for new additional pre-med orders if patient is re- challenged or re-treated. [x] May remove PICC line when treatment complete, after confirming with Physician. [x] If the patient is admitted to the hospital, the ED, or transferred via [facility] , complete transfer form including medication reconciliation order sheet. Laboratory Tests Weekly Labs: BMP, CBC w/diff Julito Albarran MD Oct 06, 2016 14:33
--- NOTE | 2016-10-06 14:45 | HHI.IDPN ---
Note Infectious Disease Note Patient feels better. Still has loose stool 2 a day since yesterday. Says her stools are mixed with urine. No abdominal pain. No chills. Aspirate of back fluid done yesterday 09/30 has e. coli. Previous culture of fluid from back has pseudomonas. Presented to the emergency department after she developed generalized weakness and fell. Noted to have chills on day before admission. PAST MEDICAL HISTORY 1. Coronary artery disease. 2. Hypertension. 3. Arthritis. 4. COPD. 5. Gastroesophageal reflux disease. 6. History of PE. 7. TIA. 8. Radiculopathy. 9. Hypothyroidism. 10.Uterine fibroids. 11.Monoclonal gammopathy. 12.Brain AVM. 13.L5-S1 hemilaminectomy and microdiscectomy. 09/17. 14.Partial gastrectomy. 15.Cervical cancer. 16.Amadeo filter. 17.Tonsillectomy. 18.History of mitral valve prolapse. ALLERGIES No known drug allergies. ANTIBIOTICS: Vancomycin PO. Dificid PO. Meropenem IV. OBJECTIVE: Vital Signs Date Time Temp Pulse Resp B/P Pulse Ox O2 Delivery O2 Flow Rate FiO2 10/06/16 12:42 96.7 67 20 143/67 100 10/06/16 08:25 75 10/06/16 08:00 96.5 61 20 195/82 98 10/06/16 06:00 69 162/79 10/06/16 04:00 96.0 72 16 168/76 98 10/06/16 00:00 97.0 80 17 158/61 97 10/05/16 20:55 80 10/05/16 20:00 98.3 77 16 176/79 94 10/05/16 16:00 97.0 73 18 148/82 98 10/05/16 10/05/16 10/06/16 15:00 23:00 07:00 Intake Total 360 ml 410 ml Output Total 1900 ml 550 ml 1250 ml Balance -1540 ml -550 ml -840 ml Intake Oral 360 ml 240 ml IV Total 170 ml Output Urine Total 1900 ml 550 ml 1250 ml # Voids 1 # Bowel Movements 1 Microbiology Date/Time Procedure Status Source Growth 09/21/16 11:12 Aerobic Blood Culture - Final Complete Blood Peripheral Escherichia Coli Proteus Mirabilis 09/21/16 11:12 Anaerobic Blood Culture - Final Complete Escherichia Coli Proteus Mirabilis 09/21/16 11:20 Urine Culture - Final Complete Urine Clean Catch NO GROWTH IN 48 HOURS. 09/21/16 11:22 Aerobic Blood Culture - Final Complete Blood Peripheral Escherichia Coli Proteus Mirabilis 09/21/16 11:22 Anaerobic Blood Culture - Final Complete Escherichia Coli Proteus Mirabilis 09/22/16 08:30 Stool Occult Blood (LAMAR) - Final Complete Stool Stool HEMOCCULT NEGATIVE 09/23/16 18:30 Aerobic Blood Culture Received Blood Peripheral Pending 09/23/16 18:30 Anaerobic Blood Culture Received Blood Peripheral Pending IMAGING: Lumbar Spine MRI 09/25/16 0000 Signed Impressions: Service Date/Time: September 16:33 - CONCLUSION: 1. No evidence for osteomyelitis or discitis. 2. Large laminectomy defect on the right at L5- S1 with fluid extending into the right lateral recess. There is right lateral recess stenosis and mild enhancement around the right L5 nerve root probably some postsurgical change or early epidural fibrosis. No enhancing fluid collection seen to suggest abscess. There is fluid in the subcutaneous tissues of the lower back as well. Anirudh Hanna MD Chest X-Ray 09/24/16 0000 Signed Impressions: Service Date/Time: Saturday, September 24, 2016 14:20 - CONCLUSION: Adequate placement of right-sided PICC line. Camilo Valdez MD Abdomen/Pelvis CT 09/22/16 0000 Signed Impressions: Service Date/Time: Thursday, September 22, 2016 18:19 - CONCLUSION: 1. Dependent atelectasis in the lungs with small pleural effusions. 2. Hepatosplenomegaly. 3. Mural thickening of sigmoid and rectum most characteristic of a mild colitis and proctitis. 4. Inferior vena cava filter present. Vergara catheter in the bladder. 5. Mild ileus without definite evidence for obstruction. Anirudh Hanna MD Chest X-Ray 09/21/16 1107 Signed Impressions: Service Date/Time: Wednesday, September 21, 2016 11:38 - CONCLUSION: No acute disease. Omi Mora MD Head CT 09/21/16 0000 Signed Impressions: Service Date/Time: Wednesday, September 21, 2016 13:58 - CONCLUSION: No acute disease. Omi Mora MD PHYSICAL EXAMINATION GENERAL: No acute distress. Awake and alert. HEENT: No icterus. Oropharynx no visible lesions. NECK: Supple without adenopathy. LUNGS: Clear. HEART: 2/6 systolic murmur at the left sternal border and URSB. No rubs or gallops. ABDOMEN: Bowel sounds diminished. Distended. Soft, nontender. EXTREMITIES: No clubbing, cyanosis or edema. SKIN: No rash. Warm and moist. NEUROLOGIC: Alert and oriented x3. No gross focal findings. PSYCHIATRIC: Calm, pleasant and cooperative. IMPRESSION 1. Sepsis. Proteus and e. coli. The patient presented with leukocytosis and elevated lactic acid level. 2. C. difficile colitis. continue to have loose stools. Fluctuating. 3. Leukocytosis (secondary to infection, C. difficile). Improved. 4. Pseudomonas lumbar wound infection. Post op. Organism intermediate sensitivity to Aztreonam. Repeat culture has E. coli. RECOMMENDATIONS 1. Continue Meropenem IV and monitor the new culture. If the new culture has no new organisms, I recommend treating with the Meropenem until October 24, 2016. In light of C. diff would avoid Levaquin. 2. Continue PO Vancomycin for c. difficile taper while on Meropenem. (125 mg PO Q6H x 7 days then 125 mg PO Q12H x 7 days then 125 mg PO Q24H x 7 days then 125 mg PO Q48H x 7 days. 3. Monitor temp. [facility] IV antibiotics written on infusion form. See also prescriptions. Julito Albarran MD Oct 06, 2016 14:45
[2016-10-06] MEDS: WARFARIN SOD 7.5 MG TAB PO SCH (15:34)
[2016-10-06] MEDS: FLUCONAZOLE 100 MG TAB PO SCH (15:35)
[2016-10-06] MEDS ORDERED: ASPI-110 PO (18:39)
[2016-10-06] MEDS ORDERED: VITA250T3 PO (18:39)
[2016-10-06] MEDS ORDERED: folic (18:39)
--- NOTE | 2016-10-07 20:22 | HHI.DS ---
Discharge Summary Admission Date September 21, 2016 at 13:07 Discharge Date: Oct 06, 2016 Admitting Diagnosis sepsis, elevated troponin, hypokalemia (1) Sepsis (2) Hypokalemia (3) Elevated troponin I level (4) S/P lumbar laminectomy (5) Hyperlipidemia (6) HTN (hypertension) (7) Hx pulmonary embolism (8) Hx TIA/stroke w/o resid (9) Murmur CBC/BMP: 10/04/16 0530 10/04/16 0530 Significant Findings Laboratory Tests Test 10/06/16 05:50 Prothrombin Time 18.0 SEC (9.8-11.6) Imaging Last Impressions Lumbar Spine MRI 10/02/16 1410 Signed Impressions: Service Date/Time: October 15:18 - CONCLUSION: Postsurgical findings again seen at L5-S1. No change in the appearance of the disc at this level. No evidence of abscess. Central canal diameter is within normal limits. Mild right lateral recess narrowing again seen. The prevertebral/presacral edema/enhancement is slightly more prominent on the current study. This may be due to technical factors. Norbert Steen MD Chest X-Ray 09/30/16 0000 Signed Impressions: Service Date/Time: Friday, September 30, 2016 21:02 - CONCLUSION: Worsening bibasilar infiltrates and bilateral pleural effusions. Modesto Samano Jr., MD Abscess Drainage X-Ray 09/29/16 0000 Signed Impressions: Service Date/Time: Friday, September 30, 2016 15:02 - CONCLUSION: Uncomplicated drainage of midline fluid collection in the lower back. Brent Ricardo MD Consultation 09/26/16 0000 Signed Impressions: Service Date/Time: Monday, September 26, 2016 00:00 - CONCLUSION: The patient's INR is too high. When patient's INR comes below 1.5 image guided drainage catheter can be placed with a new order. Camilo Valdez MD Abdomen/Pelvis CT 09/22/16 0000 Signed Impressions: Service Date/Time: Thursday, September 22, 2016 18:19 - CONCLUSION: 1. Dependent atelectasis in the lungs with small pleural effusions. 2. Hepatosplenomegaly. 3. Mural thickening of sigmoid and rectum most characteristic of a mild colitis and proctitis. 4. Inferior vena cava filter present. Vergara catheter in the bladder. 5. Mild ileus without definite evidence for obstruction. Anirudh Hanna MD Head CT 09/21/16 0000 Signed Impressions: Service Date/Time: Wednesday, September 21, 2016 13:58 - CONCLUSION: No acute disease. Omi Mora MD Hospital Course This is an 81-year-old elderly white female with history of polycythemia vera, murmur, antiphospholipid syndrome, pulmonary emboli, TIA. Patient presented to the emergency room complaining of generalized weakness with the last 2-3 days. Patient denies any fever, chills, has a dry cough, no sputum, no chest week, no shortness of breath. Has occasional dysuria. No diarrhea, no nausea, no vomiting. Patient states that on September 03 she had Right L5-S1 hemilaminectomy and microdiscectomy. Postop she did well, pain was resolving she was ambulatory. In the emergency room, patient was evaluated and laboratory workup was completed. CBC was remarkable for leukocytosis, WBC 14.6, hemoglobin 13, hematocrit 43.7. Platelets 180. BMP remarkable for hypokalemia, potassium 2.9. She was noted dehydrated with BUN of 21, creatinine 1.23. Lactic acid 5.9. Troponin was elevated, 2.68. Urinalysis showed concentrated urine, rare bacteriuria. Cultures pending. Chest x-ray did not reveal acute findings. Patient denies any history of coronary disease, she follows up annually with Dr. Nevarez for regular cardiac checkups. Patient was fluid resuscitated, cultures were obtained and patient was started on empiric antibiotics. Cardiology was contacted and requested a heparin drip to be started. Patient's INR is 1.8. A CT of the head to rule out bleed has been ordered because patient 's weakness and being unsteady. At this time, patient is resting comfortably. She is hemodynamically stable. She was admitted for further evaluation and treatment. 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 Status post Right L5-S1 hemilaminectomy and microdiscectomy 09/03, uneventful postop status. Had been ambulating well. Evaluated in the emergency room, found septic with elevated lactic acid and leukocytosis and bandemia. Urine culture + Patient initially admitted to ICU due to sepsis then was downgraded to regular floor. -Patient fluid resuscitated, lactic acid follow. Continue empiric antibiotics. Initially admitted to the ICU Had diarrhea, Positive for C. difficile, continue with by mouth Vanco -ID was consulted for evaluation. -Initial lumbar spine culture came back positive for Pseudomonas. -Patient was found with a fluid collection via lumbar spine MRI. It was drained in IR on 09/30/2016. The culture came back positive for Escherichia coli. -Patient was put on meropenem -Per ID recommendation -Continue PO Vancomycin for c. difficile taper while on Meropenem. (125 mg PO Q6H x 7 days then 125 mg PO Q12H x 7 days then 125 mg PO Q24H x 7 days then 125 mg PO Q48H x 7 days. -continues to have lg. volume diarrhea.Dr. Banks recommends adding Dificid and Asacol. Flagyl IV d/cd. -Continued Questran -Put on Diflucan for UTI -Diarrhea improved, patient without chills, no fever. L5-S1 disk herniation, S/P Right L5-S1 hemilaminectomy and microdiscectomy 09/03 -Dr. Arana consulted.Recommended MRI lumbar spine. -Lumbar spine MRI results noted, fluid collection L5-S1. drained on 09/30 -pt. went to IR for drainage of fluid collection on 09/30. Coumadin was stopped. -no further procedure recommended per neurosurgery -PT ordered and assisted with mobility -pt. has increase low back pain, given Lidocaine patch which helped Elevated troponin, no chest pain. -Patient initially put on heparin drip. Appreciate Cardiology input, possible elevation of troponins was secondary to sepsis -medical management for now Patient developed thrombocytopenia -Heparin drip was stopped -HIT test was negative -Platelets improved -No bleeding Was found with Anemia, HH Hbg 13 initially, and it down. to. CBC showed anemia Microcytic, hypochromic probable chronic disease - was followed -low iron stores -started on PO iron History of pulmonary emboli, antiphospholipid syndrome. -Has IVC filter -Continue Coumadin History of TIA, stable monitored closely -continued ASA Patient became very anxious, having panic attacks. -Was started on Xanax when necessary. Anxiety improved HTN, uncontrolled -inc. atenolol to 50 mg PO BID yesterday -inc. Dyazide to 2 tabs po daily today -Clonidine PRN added -Lipid pressure stabilized. pt.'s condition improved, no more fever and chills. No CP. Laboratory work stabilized. She was tolerating abx well. She was cleared by all consultants CM consulted for DC planning. Pt. discharged to [facility] in stable condition. Pt Condition on Discharge: Stable Discharge Disposition: Rehab Inpatient Discharge Instructions DIET: Follow Instructions for: Heart Healthy Diet, Coumadin (Warfarin) Diet Activities you can perform: Regular-No Restrictions Follow up Referrals: PCP Follow-up New Medications: Alprazolam (Xanax) 0.25 Mg Tab 0.25 MG PO Q8H PRN ANXIETY #30 TAB Atenolol (Atenolol) 50 Mg Tab 50 MG PO DAILY Blood Pressure Management #30 TAB Atenolol (Atenolol) 25 Mg Tab 50 MG PO HS Blood Pressure Management #30 TAB Ferrous Sulfate (Ferosul) 325 Mg Tablet 325 MG PO BID anemia #60 TAB Fluconazole (Diflucan) 100 Mg Tab 100 MG PO Q24H Infection #[address] (Mesalamine DR) 800 Mg Tab 1600 MG PO Q8HR Diarrhea #15 TAB Potassium Chloride ER (Klor-Con 10) 10 Meq Tab 20 MEQ PO DAILY electrolyte replacement #30 TAB Triamterene-Hydrochlorothiazide (Maxzide) 75-50 Mg Tab 1 TAB PO DAILY Blood Pressure Management #30 TAB Vancomycin Inj (Vancomycin Inj) 500 Mg Inj 250 MG PO QID 125 mg po q 6 x 7 days, then 125 mg po b 12 x 7 days, then 125 mg po q 24hrs. x 7 days, then 125 mg po every 48 hours x 7 days. then stop Diarrhea #70 INJECTION Continued Medications: Calcium Carbonate-Cholecalciferol (Calcium 600 with Vitamin D) 600-400 mg-Unit Tab 1 TAB PO DAILY Calcium Supplement Ref 0 TAB Cholecalciferol (Vitamin D3) 1,000 Unit Tab 1000 UNITS PO DAILY Nutritional Supplement #1 Ref 0 BOTTLE Furosemide (Furosemide) 20 Mg Tab 20 MG PO DAILY SWELLING PRN SEE LABEL COMMENTS #30 Ref 0 TAB Hydrocodone-Acetaminophen (Hydrocodone-Acetaminophen) 10-325 mg Tab 1 TAB PO Q8HR PRN PAIN SCALE 1 TO 10 #90 Ref 0 TAB Ipratropium-Albuterol Inh (Combivent Respimat Inh) 20-[address] Half-[address]/Act Aero 2 PUFF INH QID PRN SHORTNESS OF BREATH #1 Ref 0 INHALER Levothyroxine (Synthroid) 100 Mcg Tab 100 MCG PO EVERY OTHER DAY Thyroid #30 Ref 0 TAB Omeprazole (Omeprazole) 40 Mg Cap 40 MG PO DAILY #30 Ref 0 CAP Pravastatin (Pravachol) 40 Mg Tab 40 MG PO HS Cholesterol Management #30 Ref 0 TAB Solifenacin (Vesicare) 10 Mg Tab 10 MG PO DAILY Urinary Symptom Managemen #30 Ref 0 TAB Warfarin (Warfarin) 5 Mg Tab 7.5 MG PO DIRECTED DOSE VARIES OFTEN PER PT, DR ABRAMS REGULATES DOSE EVERY 2- 4 WEEKS Blood Clot Prevention #30 Ref 0 TAB Discontinued Medications: Atenolol (Atenolol) 50 Mg Tab 50 MG PO DAILY Blood Pressure Management #30 Ref 0 TAB Atenolol (Atenolol) 25 Mg Tab 25 MG PO HS Blood Pressure Management #30 TAB Biotin (Biotin) 5,000 Mcg Subl 5000 MCG SL DAILY Nutritional Supplement #1 Ref 0 BOTTLE Lactobacillus Acidophilus (Probiotic) 1 Cap Cap 1 CAP PO DAILY Nutritional Supplement #90 Ref 0 CAP Potassium Chloride ER (Klor-Con 10) 10 Meq Tab 10 MEQ PO DAILY Electrolyte Replacement #0 Ref 0 TAB Promethazine (Phenergan) 25 Mg Tab 25 MG PO Q6H PRN Nausea/Vomiting #30 Ref 0 TAB Triamterene-Hydrochlorothiazide (Dyazide) 37.5-25 Mg Cap 1 CAP PO DAILY #30 Ref 0 CAP Lisa Mcfarland Oct 07, 2016 20:22
[2016-10-07] MEDS ORDERED: FOLI1TAB6 PO (22:19)
[2016-10-14] MEDS ORDERED: MERO1INJ8 IV (13:12)
[2016-10-14] MEDS ORDERED: GETGO ROLLING W1 MI1 (14:25)
[2016-10-14] MEDS ORDERED: shower tub chair (14:25)
[2016-10-16] MEDS ORDERED: IPRAAER INH (15:32)
[2016-10-16] MEDS ORDERED: ALPR.5 PO (15:32)
[2016-10-16] MEDS ORDERED: MAXZ PO (15:32)
[2016-10-16] MEDS ORDERED: LEVO.1 PO (15:32)
[2016-10-16] MEDS ORDERED: VANC500I3 PO (15:32)
[2016-10-16] MEDS ORDERED: VITA250T3 PO (15:32)
[2016-10-16] MEDS ORDERED: PRAV40TA PO (15:32)
[2016-10-16] MEDS ORDERED: CALC250 PO (15:32)
[2016-10-16] MEDS ORDERED: POTA-243 PO (15:32)
[2016-10-16] MEDS ORDERED: OMEP40CA2 PO (15:32)
[2016-10-16] MEDS ORDERED: COUM4TAB PO (15:32)
[2016-10-16] MEDS ORDERED: SPIRCAP INH (15:32)
[2016-10-16] MEDS ORDERED: FOLI1TAB6 PO (15:32)
[2016-10-16] MEDS ORDERED: VITA100018 PO (15:32)
[2016-10-16] MEDS ORDERED: ATEN50TA PO (15:32)
[2016-10-16] MEDS ORDERED: ASPI-110 PO (15:32)
[2016-10-16] MEDS ORDERED: HYDR-3583 PO (15:32)
[2016-10-16] MEDS ORDERED: VESI10TA PO (15:32)
[2016-10-16] MEDS ORDERED: LACT PO (15:32)
== END 2016-10-06 16:21 | DRG 862 ==
LOC: NEPE 11:04 → NEDA 13:07 → HIME 18:50 → HOCB 09-26 18:34
PROVIDERS: ADMIT Specialist; ATTEND Specialist
PROC: 0J973ZX Drainage of Back Subcutaneous Tissue and Fascia, Percutaneous Approach, Diagnostic (ICD-10-PCS; principal; 2016-09-30)
DX: T81.4XXA Infection following a procedure, initial encounter (principal); A41.51 Sepsis due to Escherichia coli [E. coli]; I21.4 Non-ST elevation (NSTEMI) myocardial infarction; A41.59 Other Gram-negative sepsis; A04.7 Enterocolitis due to Clostridium difficile; Q28.2 Arteriovenous malformation of cerebral vessels; I48.91 Unspecified atrial fibrillation; D45 Polycythemia vera; E86.0 Dehydration; A41.50 Gram-negative sepsis, unspecified; E87.2 Acidosis; E87.1 Hypo-osmolality and hyponatremia; N39.0 Urinary tract infection, site not specified; G43.909 Migraine, unspecified, not intractable, without status migrainosus; D69.6 Thrombocytopenia, unspecified; D47.2 Monoclonal gammopathy; I08.1 Rheumatic disorders of both mitral and tricuspid valves; I10 Essential (primary) hypertension; J44.9 Chronic obstructive pulmonary disease, unspecified; E78.00 Pure hypercholesterolemia, unspecified; E87.6 Hypokalemia; Z85.41 Personal history of malignant neoplasm of cervix uteri; Z92.21 Personal history of antineoplastic chemotherapy; Z92.3 Personal history of irradiation; Z86.73 Personal history of transient ischemic attack (TIA), and cerebral infarction without residual deficits; K21.9 Gastro-esophageal reflux disease without esophagitis; E03.9 Hypothyroidism, unspecified; Z86.711 Personal history of pulmonary embolism; Z87.891 Personal history of nicotine dependence; R30.0 Dysuria; D25.9 Leiomyoma of uterus, unspecified; Z85.00 Personal history of malignant neoplasm of unspecified digestive organ; Z90.3 Acquired absence of stomach [part of]; E78.5 Hyperlipidemia, unspecified; Z82.49 Family history of ischemic heart disease and other diseases of the circulatory system; Z85.42 Personal history of malignant neoplasm of other parts of uterus; M19.90 Unspecified osteoarthritis, unspecified site; I25.10 Atherosclerotic heart disease of native coronary artery without angina pectoris; R68.89 Other general symptoms and signs; F41.9 Anxiety disorder, unspecified; D64.9 Anemia, unspecified; Y83.8 Other surgical procedures as the cause of abnormal reaction of the patient, or of later complication, without mention of misadventure at the time of the procedure; Y92.9 Unspecified place or not applicable; N28.9 Disorder of kidney and ureter, unspecified
CPT/HCPCS: 10160; 36569; 70450; 71010; 72158; 74176; 76937; 76942; 80048; 80053; 80061; 80076; 81001; 82272; 82550; 82552; 82607; 82728; 83540; 83550; 83605; 83735; 84155; 84443; 84484; 85007; 85025; 85027; 85044; 85049; 85610; 85730; 86022; 87040; 87070; 87077; 87086; 87186; 87205; 87493; 87641; 93005; 93306; 94150; 94664; 96374; A9579; J0696; J1642; J1644; J2060; J2185; J2405; J2543; J3370; J3480; J7030; J7050; Q9963

== ENCOUNTER 2016-10-31 13:27 | Inpatient (IN) | payer MEDICARE, OTHER ==
[2016-10-31] VITALS (7 sets, daily range): BP systolic 166–186; BP diastolic 67–74; PULSE 63–67; RESP 15–20; TEMP 97.8–97.9; O2SAT 97–100
[~2016-10-31] VITALS: Ht 165.1 cm; Wt 61.5 kg
[~2016-10-31 13:27] MED LIST changes: +ALPR.5 PO; +ASPI-110 PO; -ASPI1TAB69 PO; -ATEN25TA PO; -BIOT1SUB SL; -CALC1TAB87 PO; +CALC250 PO; +COUM4TAB PO; -DYAZ37.5 PO; -FOLI1TAB4 PO; +FOLI1TAB6 PO; -FURO20TA PO; +GADODIAMIDE PF 287 MG/ML 20 ML VIAL (for RAD MRI) IV ONE; +GETGO ROLLING W1 MI1; -HYOS0.127 PO; +LACT PO; -LACTCAP8 PO; +MAXZ PO; +MERO1INJ8 IV; +POTA-243 PO; -PROM25TA5 PO; +SPIRCAP INH; -SYNT112T PO; +VANC500I3 PO; +VITA250T3 PO; -VITA500T PO; -WARF-23 PO; +shower tub chair
--- NOTE | 2016-10-31 13:40 | PD ---
Physical Exam Time Seen by Provider: 13:38 Narrative 81 Y/O female sent here by Dr. Ramos for evaluation of confusion, weakness, frequent falls, lower back pain which has been progressively getting worse. Dr Ramos would like to be called ([phone]) Vital signs reviewed. Seen at triage desk. Awaiting bed placement. Data Data Last Documented VS Vital Signs Date Time Temp Pulse Resp B/P Pulse Ox O2 Delivery O2 Flow Rate FiO2 10/31/16 13:30 97.8 63 18 171/73 98 Orders Electrocardiogram (10/31/16 13:40) Complete Blood Count With Diff (10/31/16 13:40) Comprehensive Metabolic Panel (10/31/16 13:40) Magnesium (Mg) (10/31/16 13:40) Urinalysis - C+S If Indicated (10/31/16 13:40) MDM Medical Record Reviewed: Yes Supervised Visit with EMELY: Ronaldo Hameed Oct 31, 2016 13:40
[2016-10-31 16:07] LABS: AUTOMATED NEUTROPHIL # 7.1 TH/MM3 (1.8-7.7); BASOPHIL # 0.1 TH/MM3 (0-0.2); BASOPHIL % 0.7 % (0.0-2.0); EOSINOPHIL # 0.2 TH/MM3 (0-0.4); EOSINOPHIL % 1.9 % (0.0-4.0); HEMATOCRIT 33.8 % (35.0-46.0); HEMO FLAGS DIFF FINAL; LYMPH % 8.5 % (9.0-44.0); LYMPHOCYTE # 0.7 TH/MM3 (1.0-4.8); MEAN CELL VOLUME 65.7 FL (80.0-100.0); MEAN CORPUSCULAR HEMOGLOBIN 20.5 PG (27.0-34.0); MEAN CORPUSCULAR HGB CONC 31.2 % (32.0-36.0); MONO % 3.2 % (0.0-8.0); NEUT % 85.7 % (16.0-70.0); PLATELET COUNT 311 TH/MM3 (150-450); RED BLOOD COUNT 5.14 MIL/MM3 (4.00-5.30); RED CELL DISTRIBUTION WIDTH 24.4 % (11.6-17.2); WHITE BLOOD COUNT 8.3 TH/MM3 (4.0-11.0)
[2016-10-31 16:22] LABS: ALT (GPT) 13 U/L (10-53); ANION GAP 9 MEQ/L (5-15); AST (GOT) 14 U/L (15-37); BLOOD UREA NITROGEN 10 MG/DL (7-18); CHLORIDE 101 MEQ/L (98-107); GLOMERULAR FILTRATION RATE 80 ML/MIN (>89); MAGNESIUM 2.2 MG/DL (1.5-2.5); POTASSIUM 4.2 MEQ/L (3.5-5.1); SODIUM (NA) 134 MEQ/L (136-145)
[2016-10-31 16:25] LABS: ALKALINE PHOSPHATASE 101 U/L (45-117); TOTAL BILIRUBIN ADULT 0.7 MG/DL (0.2-1.0)
--- NOTE | 2016-10-31 16:34 | PD ---
HPI Chief Complaint: General Weakness Time Seen by Provider: 16:28 Travel History International Travel<30 days: No Contact w/Intl Traveler<30days: No Traveled to known affect area: No History of Present Illness HPI 81-year-old female that presents to the ED for evaluation of generalized weakness. Patient comes here after she was evaluated by Dr. Ramos her oncologist today. Dr. Ramos evaluate her today for evaluation of a follow up and he got really concerned as the patient's physical exam and mental status. She is well known to him and he was really concerned about the patient. Apparently per patient and Dr. Ruiz is all started after she had surgery on her back by Dr. Arana. Patient had surgery in for 3 weeks she was great but after she developed chills and falls and was brought here for evaluation. Patient was found to have infection on the lumbar spine and admitted for sepsis and was put on antibiotics. Patient was admitted for almost a month. Patient was released to rehabilitation facility and apparently she was just released from the facility yesterday. Per patient she still feels very weak on her legs and she lives by herself. She is not able to ambulate well even with a walker. I do suspect the patient has some degree of confusion as she is not a great historian. Dr. Ramos states that she was altered on his evaluation and he was very concerned about this. Apparently Dr. Ramos even contacted Dr. Arana as well as the primary care doctor for this patient and they recommended the patient be brought here. Dr. Arana recommended MRI with contrast. Patient states that most of her weakness is in the lower legs. 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., FREQ URINATION) Headaches: Yes Hepatitis: No Hiatal Hernia: No Hypertension: Yes Immune Disorder: No Implanted Vascular Access Dvce: Yes Kidney Stones: No Musculoskeletal: Yes (arthritis neck and back problems, LOSS OF BALANCE) Neurologic: Yes (TIA, NUMBNESS IN TOES AND HANDS, NUMBNESS IN R LEG,) Psychiatric: No Reproductive: Yes (HX CERVICAL CA) Respiratory: Yes (PMH PE) Immunizations Current: Yes Migraines: Yes Myocardial Infarction: No Radiation Therapy: Yes Renal Failure: No Seizures: No Sickle Cell Disease: No Sleep Apnea: No Thyroid Disease: Yes (HYPO) Ulcer: No Menopausal: Yes Dilation and Curettage (D&C): Yes Past Surgical History Abdominal Surgery: Yes (paratracheal node remove STOMACH tumor removed) AICD: No Arteriovenous Shunt: No Body Medical Devices: IVC FILTER, Cardiac Surgery: Yes (VENOUS) Ear Surgery: No Endocrine Surgery: No Eye Surgery: Yes (marissa cataract removal) Genitourinary Surgery: No Gynecologic Surgery: Yes (D & C, TANDEM AND OVOID X4) Insulin Pump: No Joint Replacement: No Oral Surgery: Yes (SKIN GRAFT OF GUMS) Pacemaker: No Thoracic Surgery: Yes (right breast benign tumor removed ) Tonsillectomy: Yes Other Surgery: Yes Social History Alcohol Use: Yes (moderate) Tobacco Use: No (QUIT 30 YRS AGO) Substance Use: No Allergies-Medications (Allergen,Severity, Reaction): Coded Allergies: *MDRO Multi-Drug Resistant Organism (Verified Adverse Reaction, Unknown, VRE, 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 Reported Meds & Prescriptions Reported Meds & Active Scripts Active Spiriva Handihaler (Tiotropium Inh) 18 Mcg Cap 18 Mcg INH DAILY 30 Days Acidophilus/l-Sporogenes (Lactobacillus Acidophilus) 1 Tab Tab 1 Tab PO TID Oyster Shell 250 mg + Vit D Tb (Calcium/Vitamin D) 250 Mg Calcium (625 Mg)-125 Unit Tablet 250 Mg PO Q12HR Atenolol 50 Mg Tab 50 Mg PO Q12HR Xanax (Alprazolam) 0.5 Mg Tab 0.5 Mg PO Q8H PRN Coumadin (Warfarin) 4 Mg Tab 4 Mg PO DAILY@16 Vancomycin Inj (Vancomycin HCl) 500 Mg Inj 125 Mg PO BID 19 Days 125 mg PO BID from 10/15 - 10/22 125 mg daily 10/23 - 10/29 125 mg every other day 10/30 - 11/06 Folic Acid 1 Mg Tablet 1 Mg PO DAILY Aspirin 81 (Aspirin) 81 Mg Tabdr 81 Mg PO DAILY Vitamin C (Ascorbic Acid) 250 Mg Tab 500 Mg PO DAILY Maxzide (Triamterene/HCTZ) 75-50 Mg Tab 1 Tab PO DAILY Klor-Con 10 (Potassium Chloride) 10 Meq Tab 20 Meq PO DAILY Hydrocodone-Acetaminophen 10-325 mg Tab 1 Tab PO Q6HR PRN Synthroid (Levothyroxine Sodium) 100 Mcg Tab 100 Mcg PO EVERY OTHER DAY Pravachol (Pravastatin) 40 Mg Tab 40 Mg PO HS Omeprazole 40 Mg Cap 40 Mg PO DAILY Combivent Respimat Inh (Ipratropium-Albuterol Inh) 20-100 Group Home/Act Aero 2 Puff INH QID PRN Vitamin D3 (Cholecalciferol) 1,000 Unit Tab 1,000 Units PO DAILY Vesicare (Solifenacin) 10 Mg Tab 10 Mg PO DAILY [shower tub chair] Ea Walker Rolling/GetGo (Device) 1 Mis Mis 1 Ea .ROUTE DIRECTED Meropenem Inj 1 Gm/50 Ml Bag 1,000 Mg IV Q8H 7 Days Last dose on 10/24/16 Review of Systems Except as stated in HPI: all other systems reviewed are Neg Physical Exam Narrative GENERAL: SKIN: Warm and dry. HEAD: Atraumatic. Normocephalic. EYES: Pupils equal and round. No scleral icterus. No injection or drainage. ENT: No nasal bleeding or discharge. Mucous membranes pink and moist. NECK: Trachea midline. No JVD. CARDIOVASCULAR: Regular rate and rhythm. RESPIRATORY: No accessory muscle use. Clear to auscultation. Breath sounds equal bilaterally. GASTROINTESTINAL: Abdomen soft, non-tender, nondistended. Hepatic and splenic margins not palpable. MUSCULOSKELETAL: Extremities without clubbing, cyanosis, or edema. No obvious deformities. NEUROLOGICAL: Awake and alert. No obvious cranial nerve deficits. Motor grossly within normal limits. Five out of 5 muscle strength in the arms and legs. Normal speech. PSYCHIATRIC: Appropriate mood and affect; insight and judgment normal. Data Data Last Documented VS Vital Signs Date Time Temp Pulse Resp B/P Pulse Ox O2 Delivery O2 Flow Rate FiO2 10/31/16 20:52 65 20 186/74 97 Room Air 10/31/16 13:30 97.8 Orders Electrocardiogram (10/31/16 13:40) Complete Blood Count With Diff (10/31/16 13:40) Comprehensive Metabolic Panel (10/31/16 13:40) Magnesium (Mg) (10/31/16 13:40) Urinalysis - C+S If Indicated (10/31/16 13:40) Ckmb (Isoenzyme) Profile (10/31/16 15:59) Troponin I (10/31/16 15:59) Blood Culture (10/31/16 15:59) Urinalysis - C+S If Indicated (10/31/16 15:59) Thyroid Stimulating Hormone (10/31/16 15:59) C Diff Toxin Pcr (10/31/16 15:59) Chest, Single Ap (10/31/16 15:59) Ct Brain W/O Iv Contrast(Rout) (10/31/16 15:59) Iv Access Insert/Monitor (10/31/16 15:59) Ecg Monitoring (10/31/16 15:59) Oximetry (10/31/16 15:59) Drug Screen, Random Urine (10/31/16 15:59) Mri L Spine W&W/O Contrast (10/31/16 ) Lactic Acid (10/31/16 15:59) C-Reactive Protein (Crp) (10/31/16 15:59) Acetamin-Hydrocod 325-10 Mg ([place] 10-32 (10/31/16 21:00) Atenolol (Tenormin) (10/31/16 21:00) Admit Order (Ed Use Only) (10/31/16 21:18) Labs Laboratory Tests Test 10/31/16 10/31/16 10/31/16 15:45 17:00 19:00 White Blood Count 8.3 TH/MM3 Red Blood Count 5.14 MIL/MM3 Hemoglobin 10.6 GM/DL Hematocrit 33.8 % Mean Corpuscular Volume 65.7 FL Mean Corpuscular Hemoglobin 20.5 PG Mean Corpuscular Hemoglobin 31.2 % Concent Red Cell Distribution Width 24.4 % Platelet Count 311 TH/MM3 Mean Platelet Volume 8.6 FL Neutrophils (%) (Auto) 85.7 % Lymphocytes (%) (Auto) 8.5 % Monocytes (%) (Auto) 3.2 % Eosinophils (%) (Auto) 1.9 % Basophils (%) (Auto) 0.7 % Neutrophils # (Auto) 7.1 TH/MM3 Lymphocytes # (Auto) 0.7 TH/MM3 Monocytes # (Auto) 0.3 TH/MM3 Eosinophils # (Auto) 0.2 TH/MM3 Basophils # (Auto) 0.1 TH/MM3 CBC Comment DIFF FINAL Differential Comment Sodium Level 134 MEQ/L Potassium Level 4.2 MEQ/L Chloride Level 101 MEQ/L Carbon Dioxide Level 24.0 MEQ/L Anion Gap 9 MEQ/L Blood Urea Nitrogen 10 MG/DL Creatinine 0.70 MG/DL Estimat Glomerular Filtration 80 ML/MIN Rate Random Glucose 83 MG/DL Calcium Level 9.0 MG/DL Magnesium Level 2.2 MG/DL Total Bilirubin 0.7 MG/DL Aspartate Amino Transf 14 U/L (AST/SGOT) Alanine Aminotransferase 13 U/L (ALT/SGPT) Alkaline Phosphatase 101 U/L Total Creatine Kinase 39 U/L Troponin I LESS THAN 0.02 NG/ML C-Reactive Protein 11.00 MG/DL Total Protein 7.3 GM/DL Albumin 2.8 GM/DL Thyroid Stimulating Hormone 2.810 uIU/ML 3rd Gen Lactic Acid Level 0.5 mmol/L Urine Color YELLOW Urine Turbidity CLEAR Urine pH 6.0 Urine Specific Faith 1.015 Urine Protein TRACE mg/dL Urine Glucose (UA) NEG mg/dL Urine Ketones NEG mg/dL Urine Occult Blood TRACE Urine Nitrite NEG Urine Bilirubin NEG Urine Urobilinogen LESS THAN 2.0 MG/DL Urine Leukocyte Esterase TRACE Urine RBC 4 /hpf Urine WBC 4 /hpf Urine Squamous Epithelial 2 /hpf Cells Microscopic Urinalysis Comment CULT NOT INDICATED MDM Medical Decision Making Medical Screen Exam Complete: Yes Emergency Medical Condition: Yes Medical Record Reviewed: Yes Interpretation(s) CBC & BMP Diagram 10/31/16 15:45 LFTS WNL Lipase WNL lactic WNL CRp of [address] 10/31/16 1559 Signed Impressions: Service Date/Time: Monday, October 31, 2016 16:17 - CONCLUSION: Negative for acute process. Chele Gamez MD FACR Chest X-Ray 10/31/16 1559 Signed Impressions: Service Date/Time: Monday, October 31, 2016 16:50 - CONCLUSION: Negative for an acute process. Chele Gamez MD FACR Lumbar Spine MRI 10/31/16 0000 Signed Impressions: Service Date/Time: Monday, October 31, 2016 19:51 - CONCLUSION: 1. Post surgical changes again noted at the L5-S1 level status post right laminectomy. Abnormal signal remains in the endplates with enhancement which may be mildly increased. There is no distinct abscess. Fluid remains in the laminectomy defect. The findings are nonspecific. 2. Annular disc bulges and degenerative disc changes with mild flattening of the anterior thecal sac and no new protrusion. Yung Lyons MD troponin and CKMB negative Differential Diagnosis Sepsis versus weakness versus infection versus dehydration versus lower leg weakness versus osteomyelitis versus UTI versus sepsis Narrative Course 81-year-old female that presents to the ED for evaluation of lower leg weakness what appears to be confusion. Patient was properly examined and was found to have signs and symptoms of unclear etiology. Patient does have significant history including recent sepsis and recent surgery to her lower back. Patient was seen by her doctor who knows her very well and he got really concerned about the patient's mental status as well as inability to ambulate even with a walker. I spoke personally with Dr. Ramos over the phone who wanted the patient to be evaluated and he does not feel that she is a safe discharge which I do agree as she lives alone. Labs and imaging were ordered. Dr. Ramos had already spoken with Dr. Arana who wanted an MRI with contrast. This was ordered as well. Labs and imaging showed elevated CRP as well as mild swelling of chronic deformity to the lumbar spine. This was discussed in my attending who agrees with plan. Dr. Arana was contacted and he recommends consult to physical therapy. Case discussed with Dr. Sosa who agrees to admission. Diagnosis Primary Impression: Inability to ambulate due to multiple joints Additional Impression: Altered mental status Qualified Code: R41.82 - Altered mental status, unspecified altered mental status type Admitting Information Admitting Physician Requests: aNm Malhotra Oct 31, 2016 16:34
--- NOTE | 2016-10-31 16:34 | RADRPT ---
EXAM DATE/TIME: 10/31/2016 16:17 [facility] COMPARISON: CT BRAIN W/O CONTRAST, September 21, 2016, 13:58. INDICATIONS : Altered mental status. RADIATION DOSE: 56.35 CTDIvol (mGy) MEDICAL HISTORY : Cardiovascular disease. Hypertension. Carcinoma, bladder.DVT, cervical cancer SURGICAL HISTORY : stomach tumor removed, paratracheal node removed ENCOUNTER: Initial ACUITY: 1 day PAIN SCALE: 0/10 LOCATION: cranial TECHNIQUE: Multiple contiguous axial images were obtained of the head. Using automated exposure control and adj ustment of the mA and/or kV according to patient size, radiation dose was kept as low as reasonably a chievable to obtain optimal diagnostic quality images. DICOM format image data is available electro nically for review and comparison. FINDINGS: CEREBRUM: The ventricles are normal for age. No evidence of midline shift, mass lesion, hemorrhage or acute in farction. No extra-axial fluid collections are seen. POSTERIOR FOSSA: The cerebellum and brainstem are intact. The 4th ventricle is midline. The cerebellopontine angle i s unremarkable. EXTRACRANIAL: The visualized portion of the orbits is intact. SKULL: The calvaria is intact. No evidence of skull fracture. CONCLUSION: Negative for acute process. Chele Gamez MD FACR on October 31, 2016 at 16:31 Board Certified Radiologist. This report was verified electronically.
--- NOTE | 2016-10-31 17:09 | RADRPT ---
EXAM DATE/TIME: 10/31/2016 16:50 [facility] COMPARISON: CHEST SINGLE AP, October 12, 2016, 19:19. INDICATIONS : Chest pressure. MEDICAL HISTORY : None. SURGICAL HISTORY : None. ENCOUNTER: Initial ACUITY: 1 day PAIN SCORE: 10 LOCATION: Bilateral chest FINDINGS: A single view of the chest demonstrates the lungs to be symmetrically aerated without evidence of mas s, infiltrate or effusion. The cardiomediastinal contours are unremarkable. PICC line is in good po sition. Osseous structures are intact. CONCLUSION: Negative for an acute process. Chele Gamez MD FACR on October 31, 2016 at 17:06 Board Certified Radiologist. This report was verified electronically.
--- NOTE | 2016-10-31 17:54 | EKG ---
Date Performed: 10/31/2016 Time Performed: 15:13:19 PTAGE: 81 years EKG: BASELINE ARTIFACT PRESENT. Probable Sinus rhythm No significant change. PREVIOUS TRACING : 09/28/2016 03.21 DOCTOR: Sal Ng Interpretating Date/Time 10/31/2016 17:52:43
[2016-10-31 18:05] LABS: CREATINE KINASE 39 U/L (26-192)
[2016-10-31 20:31] LABS: BLOOD, URINE TRACE (NEG); COMMENT (UR) CULT NOT INDICATED; CULTURE IF INDICATED CULT NOT INDICATED; GLUCOSE,URINE NEG (NEG); KETONE, URINE NEG (NEG); NITRITE,URINE NEG (NEG); SQUAMOUS EPITHELIAL CELL URINE 2 /hpf (0-5); URINE COLOR YELLOW (YELLW/STRAW)
[2016-10-31] MEDS ORDERED: ACETAMINOPHEN/HYDROcodone 325 MG/10 MG TAB PO ONE (21:00)
[2016-10-31] MEDS ORDERED: ATENOLOL 50 MG TAB PO ONE (21:00)
--- NOTE | 2016-10-31 21:14 | RADRPT ---
EXAM DATE/TIME: 10/31/2016 19:51 [facility] COMPARISON: MRI LUMBAR SPINE W & W/O CONTRAST, September 25, 2016, 16:33. MRI LUMBAR SPINE W & W/O CONTRAST, October 02, 2016, 15:18. INDICATIONS : Lower back pain. History of recent right L5-S1 laminectomy approximately 7 weeks ago.. CONTRAST: 11 cc Omniscan (gadodiamide) IV MEDICAL HISTORY : Hypertension. Polycythemia vera. Cervical cancer. SURGICAL HISTORY : GIST removal. Cataracts. ENCOUNTER: Subsequent ACUITY: 1 day PAIN SCORE: 8/10 LOCATION: Lower back. TECHNIQUE: Multiplanar multisequence MRI of the lumbar spine was performed with and without contrast. FINDINGS: The most caudal appearing lumbar vertebra is numbered as L5. VERTEBRAE: The vertebral bodies remain intact with reactive edema involving the endplates at the L5-S1 level. Th is demonstrates mild enhancement. This does not appear significant change. Normal alignment. DISCS: Diffuse degenerative disc changes are again noted with disc space narrowing and desiccation. Mild hyp ertrophic changes are noted. Increased signal is again noted in the L5-S1 disc on the T2-weighted vicki ges. There are postoperative changes involving the posterior soft tissues. There is no enhancement of the discs. CONUS: Normal level and configuration. T12-L1: The thecal sac has a normal diameter. No evidence of disc bulge or protrusion. The neural foramina are patent bilaterally. L1-L2: There is a mild disc bulge with mild flattening of the anterior thecal sac and a focal protrusion. Th ere are mild degenerative changes involving facet joints. The neural foramina are patent bilaterally. L2-L3: There is a mild disc bulge with minimal flattening of the anterior thecal sac and no focal protrusion . There are mild degenerative changes involving the facet joints. The neural foramina are patent bila terally. L3-L4: There is a minimal disc bulge with slight flattening of the anterior thecal sac and no focal protrusi on. There are mild degenerative changes involving the facet joints. The neural foramina are patent bi laterally. L4-L5: There is a minimal disc bulge with slight flattening of the anterior thecal sac and no focal protrusi on. There are mild degenerative changes involving the facet joints. The neural foramina are patent bi laterally. L5-S1: Surgical changes are again noted status post right laminectomy. There is a noted small fluid collecti on in the surgical defect. There is a mild disc bulge again noted with mild flattening of the anterio r thecal sac. There are mild degenerative change involving the left facet joints. The thecal sac is s table in appearance. There is patchy enhancement in this area after gadolinium demonstration. Mild na rrowing of the right lateral recess is again noted. There is increased signal noted in the endplates as well as abnormal enhancement in this area and in the prevertebral soft tissues. This appears sligh tly more prominent. There is no enhancement in the disc. CONCLUSION: 1. Post surgical changes again noted at the L5-S1 level status post right laminectomy. Abnormal signa l remains in the endplates with enhancement which may be mildly increased. There is no distinct absce ss. Fluid remains in the laminectomy defect. The findings are nonspecific. 2. Annular disc bulges and degenerative disc changes with mild flattening of the anterior thecal sac and no new protrusion. Yung Lyons MD on October 31, 2016 at 20:57 Board Certified Radiologist. This report was verified electronically.
[2016-10-31] MEDS ORDERED: SENNOSIDES 8.6 MG TAB PO PRN (21:30)
[2016-10-31] MEDS ORDERED: NALOXONE HCL 0.4 MG/ML AMP IV PRN (21:30)
[2016-10-31] MEDS ORDERED: SODIUM CHLORIDE 0.9% FLUSH 10 ML FLUSH IV FLUSH PRN (21:30)
[2016-10-31] MEDS ORDERED: BISACODYL 10 MG SUPP RECTAL PRN (21:30)
[2016-10-31] MEDS ORDERED: LACTULOSE SYRUP 20 GM/30 ML CUP PO PRN (21:30)
[2016-10-31] MEDS ORDERED: MAGNESIUM HYDROXIDE SUSP 30 ML CUP PO PRN (21:30)
[2016-10-31] MEDS: SODIUM CHLOR 0.45% 1000 ML INJ 1,000 ML IV SCH (22:17)
[2016-10-31] MEDS ORDERED: ALBUTEROL INH PRN (22:30)
[2016-10-31] MEDS ORDERED: IPRATROPIUM INH PRN (22:30)
[2016-11-01] VITALS (8 sets, daily range): BP systolic 164–180; BP diastolic 69–75; PULSE 65–69; RESP 17–18; TEMP 96–97.9; O2SAT 96–99
[2016-11-01] MEDS: ALPRAZolam 0.5 MG TAB PO PRN ×2 (00:14→21:13)
[2016-11-01] MEDS ORDERED: MISCELLANEOUS NURSING INFORMATION PRN (00:30)
[2016-11-01 05:32] LABS: INTERNATIONAL NORMALIZED RATIO 3.6 RATIO; PROTHROMBIN TIME - PATIENT 42.5 SEC (9.8-11.6)
[2016-11-01 05:41] LABS: BICARBONATE 23.2 MEQ/L (21.0-32.0); POTASSIUM 3.8 MEQ/L (3.5-5.1)
[2016-11-01 06:15] LABS: AMPHETAMINE, URINE NEG (NEG); BARBITURATES, URINE NEG (NEG); COCAINE, URINE NEG (NEG)
[2016-11-01 07:07] LABS: AUTOMATED NEUTROPHIL # 5.9 TH/MM3 (1.8-7.7); BASOPHIL # 0.2 TH/MM3 (0-0.2); BASOPHIL % 2.6 % (0.0-2.0); EOSINOPHIL # 0.1 TH/MM3 (0-0.4); EOSINOPHIL % 1.5 % (0.0-4.0); HEMATOCRIT 29.6 % (35.0-46.0); HEMO FLAGS DIFF FINAL; LYMPH % 9.5 % (9.0-44.0); LYMPHOCYTE # 0.7 TH/MM3 (1.0-4.8); MEAN CELL VOLUME 66.1 FL (80.0-100.0); MEAN CORPUSCULAR HEMOGLOBIN 20.9 PG (27.0-34.0); MEAN CORPUSCULAR HGB CONC 31.6 % (32.0-36.0); MONO % 3.6 % (0.0-8.0); NEUT % 82.8 % (16.0-70.0); PLATELET COUNT 252 TH/MM3 (150-450); RED BLOOD COUNT 4.48 MIL/MM3 (4.00-5.30); RED CELL DISTRIBUTION WIDTH 24.1 % (11.6-17.2); WHITE BLOOD COUNT 7.1 TH/MM3 (4.0-11.0)
[2016-11-01] MEDS ORDERED: RESP: ALBUTEROL 2.5 MG/IPRATROPIUM 0.5 MG NEB (SCH) ONE (08:03)
[2016-11-01] MEDS: ACETAMINOPHEN/HYDROcodone 325 MG/10 MG TAB PO PRN ×2 (08:25→17:45)
--- NOTE | 2016-11-01 09:20 | MH ---
cc: RYLEY ABBOTT MD DATE OF ADMISSION: 10/31/2016 DATE OF : 1935 GENERAL COMPLAINT: Leg weakness and generalized weakness. TRAVEL: In the last 30 days, none. HISTORY OF PRESENT ILLNESS: This is a pleasant 81 year-old white female who has been hospitalized or in facilities now for several weeks. She initially had back surgery per Dr Arana and three weeks after her surgery she developed chills, fever and was falling, according to the record and patient she was found to have an infection in her lumbar spine and was placed on antibiotics. She was in the acute care setting for almost a month and was released to rehab, when she was in the hospital for approximately a month which included acute rehabilitation with [facility], she was then transitioned to [facility] for extended care and rehab. The patient also has complications which included a small bowel obstruction and continued to struggle with her ambulation. The patient was picked up per [facility] to discharge on the and [facility] made an appointment for the patient to see Dr. Ramos her oncologist. Dr. Ramos was very concerned about her generalized condition and sent her to the emergency room for further testing. He also contacted Dr. Arana and her Primary care physician who agreed with the plan. Currently the patient is denying any chest pain. She does have some shortness of breath at times but states that she takes Duoneb treatments and it makes her feel better. She has a long history of tobacco use and chronic obstructive pulmonary disease. Currently the patient can overcome resistance in both her legs but is still very weak and struggles to stand or even walk with a walker. 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 She appears to have had some weight loss but it is unknown how much. It was noted in the record that the patient did have some degree of confusion and altered mental status when she saw Dr. Ramos. She currently on this examination is able to answer simple questions and give general and recent situational information. I would list her as a fair historian. The patient has also complained of a decreased appetite. PAST MEDICAL HISTORY: 1. Arthritis. 2. Chronic obstructive pulmonary disease. 3. Polycythemia. 4. Cardiovascular disease with systolic murmur. 5. Cervical, gastrointestinal, bladder tumor. Completed chemotherapy in 2011. 6. History of transient ischemic attacks. 7. 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 8. Headaches. 9. Hypertension. 10. Problems with balance. 11. Neck and back pain, chronic. 12. Pulmonary embolus. 13. Hypothyroid. PAST SURGICAL HISTORY: 1. Dilation and curettage. 2. Paratracheal nodes removed. 3. Stomach tumor removed. 4. IVC filter. 5. Bilateral cataract surgery. 6. Dilation and curettage. 7. Tandem and ovoid times four. 8. Radiation/chemotherapy. 9. Skin grafts to the gum. 10. Benign breast tumor removed. 11. Tonsillectomy. 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 ACTIVE MEDICATIONS: 1. Spiriva 2. Lactobacillus. 3. Oyster shell 4. Calcium 5. vitamin D 6. Atenolol 7. Xanax 8. Coumadin 9. Vancomycin which is still listed p.o. 125 mg every other day from 10/30 to 11/06. 10. Folic acid 11. Aspirin 12. Vitamin C 13. Maxzide 14. Potassium 15. Hydrocodone 16. Synthroid. 17. Pravastatin 18. Omeprazole 19. Combivent 20. Vesicare 21. Meropenem IV, last dose was given 10/24/2016. SOCIAL HISTORY: Before her surgery several months ago she lived at home with her . She did have moderate use of alcohol but has not had anything to drink since the initial surgery of her back. Quit smoking approximately 30 years ago. No substance abuse. Recently the patient had been in the acute care setting, acute rehab setting and [facility] rehab. REVIEW OF SYSTEMS Positives noted; generalized weakness, especially in the lower extremities. Anxiety over current condition. Fair historian, pain mentioned in both her knees, arthritic pain. Decreased appetite. PHYSICAL EXAMINATION: VITAL SIGNS: Temperature 97.9, pulse 65, respirations 18, blood pressure 174/70. Her low is 176/71. Her high was 186/74, last night around 8:00 o'clock p.m. IN GENERAL: Thin, borderline frail, white female, looks to be her stated age resting the bed. She is awake, responsive to simple questions and symptoms and recent events. SKIN: The skin is pale, warm and dry. HEAD, EYES, EARS, NOSE, AND THROAT: Atraumatic, normocephalic, Pupils equal, round, reactive to light and accommodation at two, mucous membranes are pale, pink. Clear, borderline dry. NECK: The neck is clear. CARDIOVASCULAR SYSTEM: S1, S2, rhythm is regular. Systolic murmur. Grade 3-4/6 in the left sternal border. She has no edema and her pulses are intact. EXTREMITIES: Her extremities are warm. ABDOMEN: The abdomen is round, taunt, bowel sounds are soft but active throughout the quadrants. No nausea, no vomiting. MUSCULOSKELETAL: Moves her extremities with purpose but with generalized weakness throughout, upper and lower. She can briefly overcome resistance. NEUROLOGIC: Awake, alert, responsive. A fair historian, oriented to current symptoms and recent events. PSYCHOLOGICAL: Mood and affect are appropriate with some mild anxiety. LUNGS: The lungs are essentially clear anteriorly and posteriorly. She does have some generalized muffled sounds but no wheezes, rhonchi or rales. DIAGNOSTIC DATA: White blood count this a.m. on 11/01/2016 is 7.1. Hemoglobin 9.4, hematocrit 29.6, MCV 66.1, MCH 20.9, MCHC 31.6, RDW 24.1. Platelet count 252, abnormal <<11:42>> neutrophil count although was 82.8, basophil auto count 2.6. PT/INR 3.6. Chemistries; sodium is 132, was 134 on admission this past p.m. potassium 3.8, chloride 100. Glucose 87, blood urea nitrogen and creatinine are normal at 10 and 0.58, calcium is 8.4. Troponin less then 0.02. C-reactive protein 11. Thyroid stimulating hormone 2.810. Urine has a trace of leukocyte esterase otherwise, a trace of protein, otherwise negative, no culture indicated. Toxicology shows her positives being benzodiazepines and opiates which she has prescriptions for. IMAGING STUDIES: Show the chest x-ray to be negative as far as an acute process. Head CT, negative for any acute process. Lumbar spine, MRI. Post surgical changes at L5 and S1, status post right laminectomy. Abnormal signal remains in the Endplate with enhancement which maybe mildly increased but no distinct abscess. Fluid remains in the laminate defect, the findings are nonspecific. Disc bulges and degenerative disc changes with flattening in the anterior thecal sac with no new protrusions. ASSESSMENT AND PLAN: 1. Debility with inability to ambulate, generalized weakness with special attention to her lower extremities. The patient is status post lumbar laminectomy, right lumbar laminectomy of L5-S1 with nonspecific changes noted. 2. Hypertension. 3. Surgical wound infection. 4. Anemia. 5. Elevated PT/INR. 6. Hyponatremia. 7. Hypocalcemia. 8. Elevated C-reactive protein. 9. Chronic obstructive pulmonary disease controlled. PLAN: Our plan is to admit, we will reconcile medications, monitor her labs which include the initial ones done in the emergency room. Blood cultures are pending. Pain management. Coumadin therapy but hold for now. Will be monitored and managed per the pharmacy. Lactulose daily as needed for bowel regimen. The patient had recent small bowel obstruction. Diet will be a regular basic diet, vital signs will be q four hours and as needed. Cardiac monitoring. We will place her currently in observation. We will give her duoneb treatments, maintain IV access. According to the note she should continue vancomycin p.o. 125 mg every other day until 11/06/2016. We will have PT evaluate and treat as well as OT. We will maintain the patient on IV fluids, sodium, normal saline and monitor sodium levels and also for general hydration encourage p.o. fluids. We will consult case management for their expert opinion and begin looking at discharge planning. Currently the patient is unable to live alone. Her is in the hospital himself in the acute rehab unit and we will continue to follow her needs. The patient was noted to have some degree of confusion and altered mental status in the physicians office yesterday and is a documented fair to poor historian. Currently, I see no confusion, but still noted as a fair historian. To my knowledge the patient is full code, full aggressive care. This too will be addressed this admission based on her wishes. Ryley Abbott MD DICTATED BY: MAYITO Jiang /8:12 AM /8:35 AM Patient seen and examined as above Chart was reviewed Some of all records were reviewed Discussed with RN Plan of care discussed with MAYITO Discussed with bottle caser about DC planning Discussed with physical therapist Will follow MTDD
[2016-11-01] MEDS: FOLIC ACID 1 MG TAB PO SCH (10:15)
[2016-11-01] MEDS: ASCORBIC ACID 500 MG TAB PO SCH (10:15)
[2016-11-01] MEDS: TRIAMTERENE/HCTZ 75 MG/50 MG TAB PO SCH (10:15)
[2016-11-01] MEDS: CHOLECALCIFEROL (VIT D3) 1000 UNIT TAB PO SCH (10:16)
[2016-11-01] MEDS: POTASSIUM CHLORIDE 10 MEQ CONTROLLED RELEASE TAB PO SCH (10:16)
[2016-11-01] MEDS: CALCIUM/VITAMIN D 250 MG/125 U TAB PO SCH ×2 (10:17→21:13)
[2016-11-01] MEDS: ATENOLOL 50 MG TAB PO SCH ×2 (10:17→21:13)
[2016-11-01] MEDS: ASPIRIN EC 81 MG TABEC PO SCH (10:17)
[2016-11-01] MEDS: TOLTERODINE TARTRATE 4 MG CAP LA PO SCH (10:17)
[2016-11-01] MEDS: DOCUSATE SODIUM 50 MG/SENNA 8.6 MG TAB PO SCH ×2 (10:17→21:00)
[2016-11-01] MEDS: SODIUM CHLORIDE 0.9% FLUSH 10 ML FLUSH IV FLUSH SCH ×2 (10:18→21:13)
[2016-11-01] MEDS: PANTOPRAZOLE SOD 40 MG DELAYED RELEASE TAB PO SCH (10:22)
[2016-11-01] MEDS: LACTOBACILLUS ACIDOPHILUS TAB PO SCH ×3 (10:22→17:45)
[2016-11-01] MEDS: SODIUM CHLOR 0.45% 1000 ML INJ 1,000 ML IV SCH (10:48)
[2016-11-01] MEDS: TIOTROPIUM BROMIDE 18 MCG INH INH SCH (13:22)
[2016-11-01] MEDS: VANCOMYCIN 500 MG VIAL (FOR ORAL USE ONLY) PO SCH (13:25)
--- NOTE | 2016-11-01 13:30 | PD.CONS ---
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 Physical Exam Vital Signs Vital Signs Date Time Temp Pulse Resp B/P Pulse Ox O2 Delivery O2 Flow Rate FiO2 11/01/16 12:00 96.0 65 18 164/69 99 11/01/16 10:28 20 11/01/16 08:00 96.5 69 18 173/72 98 11/01/16 03:50 97.9 65 17 174/70 96 10/31/16 23:33 98 10/31/16 23:02 97.9 63 18 175/72 98 10/31/16 22:24 66 18 177/67 100 10/31/16 20:52 65 20 186/74 97 Room Air 10/31/16 19:38 66 15 166/71 100 Room Air 10/31/16 18:00 98 Room Air 10/31/16 18:00 67 167/72 98 Laboratory Laboratory Tests Test 10/31/16 10/31/16 10/31/16 11/01/16 15:45 17:00 19:00 04:55 White Blood Count 8.3 7.1 Red Blood Count 5.14 4.48 Hemoglobin 10.6 9.4 Hematocrit 33.8 29.6 Mean Corpuscular Volume 65.7 66.1 Mean Corpuscular Hemoglobin 20.5 20.9 Mean Corpuscular Hemoglobin 31.2 31.6 Concent Red Cell Distribution Width 24.4 24.1 Platelet Count 311 252 Mean Platelet Volume 8.6 8.8 Neutrophils (%) (Auto) 85.7 82.8 Lymphocytes (%) (Auto) 8.5 9.5 Monocytes (%) (Auto) 3.2 3.6 Eosinophils (%) (Auto) 1.9 1.5 Basophils (%) (Auto) 0.7 2.6 Neutrophils # (Auto) 7.1 5.9 Lymphocytes # (Auto) 0.7 0.7 Monocytes # (Auto) 0.3 0.3 Eosinophils # (Auto) 0.2 0.1 Basophils # (Auto) 0.1 0.2 CBC Comment DIFF FINAL DIFF FINAL Differential Comment Sodium Level 134 132 Potassium Level 4.2 3.8 Chloride Level 101 100 Carbon Dioxide Level 24.0 23.2 Anion Gap 9 9 Blood Urea Nitrogen 10 10 Creatinine 0.70 0.58 Estimat Glomerular Filtration 80 100 Rate Random Glucose 83 87 Calcium Level 9.0 8.4 Magnesium Level 2.2 Total Bilirubin 0.7 Aspartate Amino Transf 14 (AST/SGOT) Alanine Aminotransferase 13 (ALT/SGPT) Alkaline Phosphatase 101 Total Creatine Kinase 39 Troponin I LESS THAN 0.02 C-Reactive Protein 11.00 Total Protein 7.3 Albumin 2.8 Thyroid Stimulating Hormone 2.810 3rd Gen Lactic Acid Level 0.5 Urine Color YELLOW Urine Turbidity CLEAR Urine pH 6.0 Urine Specific [place] 1.015 Urine Protein TRACE Urine Glucose (UA) NEG Urine Ketones NEG Urine Occult Blood TRACE Urine Nitrite NEG Urine Bilirubin NEG Urine Urobilinogen LESS THAN 2.0 Urine Leukocyte Esterase TRACE Urine RBC 4 Urine WBC 4 Urine Squamous Epithelial 2 Cells Microscopic Urinalysis Comment CULT NOT INDICATED Urine Opiates Screen POS Urine Barbiturates Screen NEG Urine Amphetamines Screen NEG Urine Benzodiazepines Screen POS Urine Cocaine Screen NEG Urine Cannabinoids Screen NEG Prothrombin Time 42.5 Prothromb Time International 3.6 Ratio Date/Time Procedure Status Source Growth 10/31/16 17:00 Aerobic Blood Culture - Preliminary Resulted Blood Peripheral NO GROWTH IN 1 DAY 10/31/16 17:00 Anaerobic Blood Culture - Preliminary Resulted Blood Peripheral NO GROWTH IN 1 DAY Result Diagram: 11/01/16 0455 11/01/16 0455 Austin Arana MD Nov 01, 2016 13:30
[2016-11-01] MEDS: cefTAZidime INJ 2,000 MG in SODIUM CHLORIDE 0.9% INJ 100 ML IV SCH ×2 (13:56→21:14)
[2016-11-01] MEDS ORDERED: WARFARIN SOD 4 MG TAB PO SCH (16:00)
[2016-11-01] MEDS: PRAVASTATIN SOD 40 MG TAB PO SCH (21:13)
[2016-11-01] MEDS: RESP: ALBUTEROL 2.5 MG/IPRATROPIUM 0.5 MG NEB (PRN) NEB (21:16)
[2016-11-02] VITALS (8 sets, daily range): BP systolic 140–177; BP diastolic 63–74; PULSE 63–81; RESP 17–20; TEMP 96.3–98.3; O2SAT 96–100
[2016-11-02] MEDS: ACETAMINOPHEN/HYDROcodone 325 MG/10 MG TAB PO PRN ×3 (03:29→20:11)
[2016-11-02] MEDS: LEVOTHYROXINE SODIUM 100 MCG TAB PO SCH (05:29)
[2016-11-02] MEDS: SODIUM CHLOR 0.45% 1000 ML INJ 1,000 ML IV SCH ×2 (05:30→12:52)
[2016-11-02] MEDS: cefTAZidime INJ 2,000 MG in SODIUM CHLORIDE 0.9% INJ 100 ML IV SCH ×3 (05:30→21:57)
[2016-11-02] MEDS: FOLIC ACID 1 MG TAB PO SCH (08:45)
[2016-11-02] MEDS: CALCIUM/VITAMIN D 250 MG/125 U TAB PO SCH ×2 (08:46→20:11)
[2016-11-02] MEDS: POTASSIUM CHLORIDE 10 MEQ CONTROLLED RELEASE TAB PO SCH (08:46)
[2016-11-02] MEDS: TOLTERODINE TARTRATE 4 MG CAP LA PO SCH (08:46)
[2016-11-02] MEDS: ATENOLOL 50 MG TAB PO SCH ×2 (08:46→20:11)
[2016-11-02] MEDS: ASCORBIC ACID 500 MG TAB PO SCH (08:46)
[2016-11-02] MEDS: SODIUM CHLORIDE 0.9% FLUSH 10 ML FLUSH IV FLUSH SCH ×2 (08:46→20:13)
[2016-11-02] MEDS: ASPIRIN EC 81 MG TABEC PO SCH (08:46)
[2016-11-02] MEDS: PANTOPRAZOLE SOD 40 MG DELAYED RELEASE TAB PO SCH (08:46)
[2016-11-02] MEDS: TRIAMTERENE/HCTZ 75 MG/50 MG TAB PO SCH (08:46)
[2016-11-02] MEDS: DOCUSATE SODIUM 50 MG/SENNA 8.6 MG TAB PO SCH ×2 (08:46→20:13)
[2016-11-02] MEDS: LACTOBACILLUS ACIDOPHILUS TAB PO SCH ×3 (08:46→17:15)
[2016-11-02] MEDS: CHOLECALCIFEROL (VIT D3) 1000 UNIT TAB PO SCH (08:46)
[2016-11-02] MEDS: TIOTROPIUM BROMIDE 18 MCG INH INH SCH (08:49)
[2016-11-02 09:50] LABS: INTERNATIONAL NORMALIZED RATIO 2.2 RATIO; PROTHROMBIN TIME - PATIENT 25.4 SEC (9.8-11.6)
[2016-11-02] MEDS ORDERED: PNEUMOCOCCAL POLYVALENT INJ 25 MCG/0.5 ML SYR IM ONE (10:00)
--- NOTE | 2016-11-02 14:24 | HHI.PR ---
Objective Objective Results - Vital Signs Date Time Temp Pulse Resp B/P Pulse Ox O2 Delivery O2 Flow Rate FiO2 11/02/16 12:13 96.3 66 18 149/72 100 11/02/16 09:33 67 11/02/16 08:06 96.9 65 18 164/72 96 11/02/16 05:00 158/68 11/02/16 04:29 20 11/02/16 04:22 97.6 63 17 173/74 96 11/02/16 00:08 97.6 74 17 148/64 96 11/01/16 21:17 97 21 11/01/16 20:03 97.5 65 17 164/70 96 11/01/16 20:00 68 11/01/16 16:41 97.1 69 18 180/75 99 11/01/16 16:00 96.3 69 17 173/74 99 I/O 11/01/16 11/01/16 11/01/16 11/02/16 11/02/16 11/02/16 07:00 15:00 23:00 07:00 15:00 23:00 Intake Total 200 ml 2420 ml 1177 ml Balance 200 ml 2420 ml 1177 ml Intake Oral 200 ml 1620 ml 240 ml IV Total 800 ml 937 ml # Voids 9 5 # Bowel Movements 0 Result Diagram: 11/01/16 0455 11/01/16 0455 Other Results Laboratory Tests Test 11/02/16 09:22 Prothrombin Time 25.4 Prothromb Time International 2.2 Ratio Date/Time Procedure Status Source Growth 10/31/16 17:00 Aerobic Blood Culture - Preliminary Resulted Blood Peripheral NO GROWTH IN 2 DAYS 10/31/16 17:00 Anaerobic Blood Culture - Preliminary Resulted Blood Peripheral NO GROWTH IN 2 DAYS Physical Exam Physical Exam IN GENERAL: Thin, borderline frail, white female, looks to be her stated age sitting in bed. She is awake, responsive to simple questions and symptoms and recent events. SKIN: The skin is pale, warm and dry. HEAD, EYES, EARS, NOSE, AND THROAT: Atraumatic, normocephalic, Pupils equal, round, reactive to light and accommodation at two, mucous membranes are pale, pink. Clear, borderline dry. NECK: The neck is clear. CARDIOVASCULAR SYSTEM: S1, S2, rhythm is regular. Systolic murmur. Grade 3-4/6 in the left sternal border. She has no edema and her pulses are intact. EXTREMITIES: Her extremities are warm. ABDOMEN: The abdomen is soft nontender, bowel sounds are soft but active throughout the quadrants. MUSCULOSKELETAL: walking with walker NEUROLOGIC: Awake, alert, responsive. A fair historian, oriented to current symptoms and recent events. PSYCHOLOGICAL: Mood and affect are appropriate with some mild anxiety. LUNGS: The lungs are essentially clear anteriorly and posteriorly. She does have some generalized muffled sounds but no wheezes, rhonchi or rales. A/P Assessment and Plan 1. Debility with inability to ambulate, generalized weakness with special attention to her lower extremities. The patient is status post lumbar laminectomy, right lumbar laminectomy of L5-S1 with nonspecific changes noted. infected sx area 2. Hypertension. 3. Surgical wound infection. 4. Anemia. 5. Elevated PT/INR. 6. Hyponatremia. 7. Hypocalcemia. 8. Elevated C-reactive protein. 9. Chronic obstructive pulmonary disease controlled. PLAN: labs reviewed anemia stable inc crp NSX input awaiting cont abx follow blood culture therapeutic INR Diet will be a regular basic diet meds reviewed cont pt dw Helena Marr MD Nov 02, 2016 14:24
[2016-11-02] MEDS: WARFARIN SOD 4 MG TAB PO SCH (15:25)
[2016-11-02] MEDS: RESP: ALBUTEROL 2.5 MG/IPRATROPIUM 0.5 MG NEB (PRN) NEB (19:19)
[2016-11-02] MEDS: PRAVASTATIN SOD 40 MG TAB PO SCH (20:11)
[2016-11-02] MEDS: ALPRAZolam 0.5 MG TAB PO PRN (20:11)
[2016-11-03] VITALS (8 sets, daily range): BP systolic 117–192; BP diastolic 67–81; PULSE 67–84; RESP 18–21; TEMP 96.9–97.9; O2SAT 93–100
[2016-11-03] MEDS: SODIUM CHLOR 0.45% 1000 ML INJ 1,000 ML IV SCH ×2 (02:48→05:29)
[2016-11-03] MEDS: ACETAMINOPHEN/HYDROcodone 325 MG/10 MG TAB PO PRN ×3 (05:30→18:21)
[2016-11-03] MEDS: cefTAZidime INJ 2,000 MG in SODIUM CHLORIDE 0.9% INJ 100 ML IV SCH ×3 (05:30→22:28)
[2016-11-03 06:22] LABS: PROTHROMBIN TIME - PATIENT 22.8 SEC (9.8-11.6)
[2016-11-03] MEDS: TOLTERODINE TARTRATE 4 MG CAP LA PO SCH (08:08)
[2016-11-03] MEDS: POTASSIUM CHLORIDE 10 MEQ CONTROLLED RELEASE TAB PO SCH (08:08)
[2016-11-03] MEDS: ATENOLOL 50 MG TAB PO SCH ×2 (08:09→20:28)
[2016-11-03] MEDS: CALCIUM/VITAMIN D 250 MG/125 U TAB PO SCH ×2 (08:09→20:28)
[2016-11-03] MEDS: PANTOPRAZOLE SOD 40 MG DELAYED RELEASE TAB PO SCH (08:09)
[2016-11-03] MEDS: LACTOBACILLUS ACIDOPHILUS TAB PO SCH ×3 (08:09→18:10)
[2016-11-03] MEDS: FOLIC ACID 1 MG TAB PO SCH (08:10)
[2016-11-03] MEDS: TRIAMTERENE/HCTZ 75 MG/50 MG TAB PO SCH (08:10)
[2016-11-03] MEDS: ASPIRIN EC 81 MG TABEC PO SCH (08:10)
[2016-11-03] MEDS: CHOLECALCIFEROL (VIT D3) 1000 UNIT TAB PO SCH (08:10)
[2016-11-03] MEDS: ASCORBIC ACID 500 MG TAB PO SCH (08:10)
[2016-11-03] MEDS: SODIUM CHLORIDE 0.9% FLUSH 10 ML FLUSH IV FLUSH SCH ×2 (08:12→20:30)
[2016-11-03] MEDS: DOCUSATE SODIUM 50 MG/SENNA 8.6 MG TAB PO SCH ×2 (08:12→20:30)
[2016-11-03] MEDS: RESP: ALBUTEROL 2.5 MG/IPRATROPIUM 0.5 MG NEB (PRN) NEB ×2 (08:24→15:46)
[2016-11-03] MEDS: TIOTROPIUM BROMIDE 18 MCG INH INH SCH (09:00)
[2016-11-03] MEDS: VANCOMYCIN 500 MG VIAL (FOR ORAL USE ONLY) PO SCH (09:42)
--- NOTE | 2016-11-03 15:36 | HHI.PR ---
Subjective Interval History Alert, oriented, mildly confused, complaining of shortness of breath, no back pain at this time, she is asking for bus trolley and taxi instructor to see her Review of Systems Constitutional Constitutional Remarks No cough, no fever, no sputum, continues to have shortness of breath, 10 systems reviewed otherwise negative Vitals/Results Intake & Output 11/02/16 11/02/16 11/03/16 15:00 23:00 07:00 Intake Total 480 ml 500 ml 875 ml Balance 480 ml 500 ml 875 ml Intake Oral 480 ml 500 ml 875 ml # Voids 3 1 4 # Bowel Movements 0 0 Vital Signs Vital Signs Date Time Temp Pulse Resp B/P Pulse Ox O2 Delivery O2 Flow Rate FiO2 11/03/16 13:33 16 11/03/16 12:27 96.9 71 18 170/72 97 11/03/16 10:24 67 11/03/16 08:25 99 11/03/16 08:06 97.0 69 18 187/79 97 11/03/16 05:30 97.9 68 18 117/67 95 11/02/16 20:42 98.3 81 20 177/70 99 11/02/16 15:56 97.2 67 18 140/63 96 CBC/BMP: 11/01/16 0455 11/01/16 0455 Lab Results Laboratory Tests Test 11/03/16 05:35 Prothrombin Time 22.8 SEC Prothromb Time International 2.0 RATIO Ratio Physical Exam General General Appearance: No Acute Distress, Anxious Eyes Eye Exam: Pupils Reactive Ears & Nose Ears & Nose Exam: Nasal Mucosa [place] Throat Throat Exam: Oral Mucosa [place] & Moist Neck Neck Exam: Trachea Midline Pulmonary Resp Exam: Clear Bilaterally, Breath Sounds Equal Cardiology CV Exam: Normal Sinus Rhythm, Good Perfusion Gastrointestinal/Abdomen GI Exam: Non-Tender, Bowel Sounds Present Musculoskeletal MS Exam: Normal Tone, Good Strength Integumentary Skin Exam: Warm, Dry Skin Remarks Surgical scar from her laminectomy looks clean dry without discoloration, no drainage Neurologic Neuro Exam: Awake, Oriented, Speech Clear VTE Prophylaxis VTE Prophylaxis Meds: Coumadin Assessment/Plan Assessment/Plan Assessment Admitted with chills MRI of the spine shows increase endplate uptake, however no definitive sign of infection Dyspnea of unclear etiology INR therapeutic She is a former smoker Management Continued antibiotics Neurosurgery on consult Get a chest CT scan Arterial blood gas 2-D echo Consult her bus trolley and taxi instructor Discussed with patient Discussed with nurse Baltazar Sosa MD Nov 03, 2016 15:36
[2016-11-03 16:16] LABS: BLOOD GAS BASE EXCESS 1.1 mmol/L (-2-2); BLOOD GAS CARBOXYHEMOGLOBIN 1.8 % (0-4); BLOOD GAS HCO3 24 mmol/L (22-26); BLOOD GAS METHEMOGLOBIN 0.7 % (0-2); BLOOD GAS O2 HGB SATURATION 93 % (90-100); BLOOD GAS OXYGEN CONTENT 12.2 Vol % (12.0-20.0); BLOOD GAS PCO2 33 mmHg (38-42); BLOOD GAS PO2 71 mmHg (61-120); BLOOD GAS TOTAL HGB 9.3 G/DL (12.0-16.0); CRITICAL VALUE NO; DRAW SITE LT RADIAL; FIO2 21 %; NUMBER OF ARTERIAL PUNCTURES 1; STAT YES; TEMP CORR TO 98.6; ULNAR PULSE PRESENT
[2016-11-03] MEDS: WARFARIN SOD 4 MG TAB PO SCH (16:19)
[2016-11-03] MEDS ORDERED: IOHEXOL 350 MG/ML 10 ML VIAL (for RAD DIAG) IV ONE (17:07)
--- NOTE | 2016-11-03 17:28 | RADRPT ---
EXAM DATE/TIME: 11/03/2016 17:04 [facility] COMPARISON: No previous studies available for comparison. INDICATIONS : Shortness of breath. IV CONTRAST: 70 cc Omnipaque 350 (iohexol) IV RADIATION DOSE: 3.33 CTDIvol (mGy) MEDICAL HISTORY : Deep venous thrombosis. Carcinoma, bladder. Carinoma cervix SURGICAL HISTORY : None. ENCOUNTER: Initial ACUITY: 1 day PAIN SCALE: 0/10 LOCATION: chest TECHNIQUE: Volumetric scanning of the chest was performed. Using automated exposure control and adjustment of t he mA and/or kV according to patient size, radiation dose was kept as low as reasonably achievable to obtain optimal diagnostic quality images. DICOM format image data is available electronically for review and comparison. FINDINGS: LUNGS: There is hyperaeration of the lung hernadez. There is some linear atelectasis versus scarring in both l janett bases. There is a minimal small infiltrate in the anterior right upper lung. Otherwise the lungs are grossly clear. No significant acute pulmonary infiltrates are demonstrated. PLEURA: There is no pleural thickening or pleural effusion. MEDIASTINUM: The heart and great vessels demonstrate no acute abnormality. There is no mediastinal or hilar lymph adenopathy. AXILLAE: Within normal limits. No lymphadenopathy. SKELETAL: Within normal limits for patient age. MISCELLANEOUS: The visualized upper abdominal organs demonstrate no acute abnormality. CONCLUSION: 1. Hyperaeration of both lung hernadez with linear atelectasis versus scarring in both lung bases. 2. Small minimal infiltrate in the anterior right upper lung. Vernon Perez MD on November 03, 2016 at 17:24 Board Certified Radiologist. This report was verified electronically.
[2016-11-03] MEDS: PRAVASTATIN SOD 40 MG TAB PO SCH (20:28)
[2016-11-03] MEDS: ALPRAZolam 0.5 MG TAB PO PRN (20:28)
[2016-11-03] MEDS ORDERED: cloNIDine HCL 0.1 MG TAB PO PRN (23:30)
[2016-11-04] VITALS (8 sets, daily range): BP systolic 114–187; BP diastolic 52–80; PULSE 66–74; RESP 18–20; TEMP 95.8–99.5; O2SAT 98–100
[2016-11-04] MEDS: ACETAMINOPHEN/HYDROcodone 325 MG/10 MG TAB PO PRN ×4 (00:42→21:18)
[2016-11-04] MEDS: SODIUM CHLOR 0.45% 1000 ML INJ 1,000 ML IV SCH (05:07)
[2016-11-04] MEDS: cefTAZidime INJ 2,000 MG in SODIUM CHLORIDE 0.9% INJ 100 ML IV SCH ×3 (05:49→22:16)
[2016-11-04] MEDS: LEVOTHYROXINE SODIUM 100 MCG TAB PO SCH (05:49)
[2016-11-04 06:35] LABS: INTERNATIONAL NORMALIZED RATIO 2.3 RATIO; PROTHROMBIN TIME - PATIENT 26.6 SEC (9.8-11.6)
[2016-11-04] MEDS: ALPRAZolam 0.5 MG TAB PO PRN ×2 (06:48→22:14)
[2016-11-04] MEDS: ATENOLOL 50 MG TAB PO SCH ×2 (08:42→20:28)
[2016-11-04] MEDS: TRIAMTERENE/HCTZ 75 MG/50 MG TAB PO SCH (08:43)
[2016-11-04] MEDS: PANTOPRAZOLE SOD 40 MG DELAYED RELEASE TAB PO SCH (08:43)
[2016-11-04] MEDS: LACTOBACILLUS ACIDOPHILUS TAB PO SCH ×3 (08:43→18:29)
[2016-11-04] MEDS: CHOLECALCIFEROL (VIT D3) 1000 UNIT TAB PO SCH (08:43)
[2016-11-04] MEDS: TOLTERODINE TARTRATE 4 MG CAP LA PO SCH (08:43)
[2016-11-04] MEDS: ASPIRIN EC 81 MG TABEC PO SCH (08:43)
[2016-11-04] MEDS: FOLIC ACID 1 MG TAB PO SCH (08:44)
[2016-11-04] MEDS: DOCUSATE SODIUM 50 MG/SENNA 8.6 MG TAB PO SCH ×2 (08:45→20:28)
[2016-11-04] MEDS: CALCIUM/VITAMIN D 250 MG/125 U TAB PO SCH ×2 (08:45→20:28)
[2016-11-04] MEDS: POTASSIUM CHLORIDE 10 MEQ CONTROLLED RELEASE TAB PO SCH (08:45)
[2016-11-04] MEDS: ASCORBIC ACID 500 MG TAB PO SCH (08:45)
[2016-11-04] MEDS: SODIUM CHLORIDE 0.9% FLUSH 10 ML FLUSH IV FLUSH SCH ×2 (09:00→20:30)
[2016-11-04] MEDS: TIOTROPIUM BROMIDE 18 MCG INH INH SCH (09:52)
--- NOTE | 2016-11-04 14:30 | HHI.FF ---
Face to Face Verification Diagnosis: (1) Inability to ambulate due to multiple joints (2) S/P lumbar laminectomy Physical Therapy Order: Evaluate and Treat Home Health Nursing Order: Medical education Nursing assessment with vital signs Director Game Order: To Evaluate: Living conditions/environment, Support services Order: To Provide: Long range planning, Community services I have seen patient Elyse Dougherty on 11/04/16. My clinical findings support the need for the requested home health care services because: Ltd mobility - disease progression Deconditioned w/ increased weakness Need for psychosocial assistance I certify that my clinical findings support that this patient is homebound because: Post-op weakness Need for psychosocial assistance Lisa McfarlandP Nov 04, 2016 14:30
--- NOTE | 2016-11-04 15:54 | HHI.PR ---
Subjective Subjective Remarks low back pain, sometimes sharp with movement anxious to go home no fever no cp no sob no diarrhea Review of Systems Constitutional Constitutional Remarks 12 point ros completed, negative except as noted above Vitals/Results Intake & Output 11/03/16 11/03/16 11/04/16 14:59 22:59 06:59 Intake Total 412 ml Balance 412 ml IV Total 412 ml # Voids 3 # Bowel Movements 0 Vital Signs Vital Signs Date Time Temp Pulse Resp B/P Pulse Ox O2 Delivery O2 Flow Rate FiO2 11/04/16 12:00 96.5 70 20 114/52 98 11/04/16 08:00 99.5 66 20 153/68 98 11/04/16 04:46 97.4 67 18 144/64 99 11/04/16 01:42 18 11/04/16 00:33 97.5 74 20 177/74 98 11/04/16 00:01 72 19 187/80 99 11/03/16 20:31 84 19 184/79 100 11/03/16 20:01 97.0 84 21 192/81 93 11/03/16 16:05 97.2 70 18 165/70 98 CBC/BMP: 11/01/16 0455 11/01/16 0455 Lab Results Laboratory Tests Test 11/03/16 11/04/16 16:06 05:55 Blood Gas Puncture Site LT RADIAL Blood Gas Patient Temperature 98.6 Blood Gas HCO3 24 mmol/L Blood Gas Base Excess 1.1 mmol/L Blood Gas Oxygen Saturation 93 % Arterial Blood pH 7.48 Arterial Blood Partial 33 mmHg Pressure CO2 Arterial Blood Partial 71 mmHg Pressure O2 Arterial Blood Oxygen Content 12.2 Vol % Arterial Blood 1.8 % Carboxyhemoglobin Arterial Blood Methemoglobin 0.7 % Blood Gas Hemoglobin 9.3 G/DL Blood Gas Inspired Oxygen 21 % Prothrombin Time 26.6 SEC Prothromb Time International 2.3 RATIO Ratio Total Creatine Kinase 11 U/L Thyroid Stimulating Hormone 8.580 uIU/ML 3rd Gen Physical Exam General General Appearance: Well Developed, No Acute Distress, Anxious Eyes Eye Exam: Pupils Equal, Pupils Reactive Ears & Nose Ears & Nose Exam: Nasal Mucosa [place] Throat Throat Exam: Oral Mucosa [place] & Moist Neck Neck Exam: Trachea Midline Pulmonary Resp Exam: Clear Bilaterally, Breath Sounds Equal Cardiology CV Exam: Regular, Normal Sinus Rhythm, Good Perfusion Gastrointestinal/Abdomen GI Exam: Soft, Non-Tender, Bowel Sounds Present, Non-Distended Musculoskeletal MS Exam: Normal Tone, Good Strength Integumentary Skin Exam: Warm, Dry Neurologic Neuro Exam: Alert, Awake, Oriented, Speech Clear, Moving All Extremities, No Focal Deficits Psychiatric Psych Exam: Appropriate Responses VTE Prophylaxis VTE Prophylaxis Meds: Coumadin Assessment/Plan Assessment/Plan Admitted with chills MRI of the spine shows increase endplate uptake, however no definitive sign of infection Dyspnea of unclear etiology INR therapeutic Recent surgical site infection, completed abx recent cdiff Deconditioned, was in CIR and then SNF, now improving HTN, at times uncontrolled Management Continued antibiotics for now cultures neg. Neurosurgery on consult, input appreciated-no further recommendations chest CT scan small infiltrate RUL Cardiology consult pending Echo done in September 2016, LVF stable, EF 60% BP control, at times elevated DC IVF continue home meds TSH 8.5 Continue physical therapy, out of bed Physical therapy recommends home health care and PT Case management consultation for home health care and discharge planning possibly tomorrow. States they have private caregiver as well, just got out of rehabilitation on Thursday. Continue with Coumadin, INR therapeutic Labs in the morning Discussed with patient Discussed with nurse Discussed with Dr. Sosa This patient was seen by myself and Dr. Sosa, this note is written on his behalf Lisa Mcfarland Nov 04, 2016 15:54
[2016-11-04] MEDS: WARFARIN SOD 4 MG TAB PO SCH (16:38)
[2016-11-04] MEDS: PRAVASTATIN SOD 40 MG TAB PO SCH (20:29)
[2016-11-05] VITALS: BP 166/72; PULSE 66; RESP 17; TEMP 97.6; O2SAT 100
[2016-11-05] MEDS: ACETAMINOPHEN/HYDROcodone 325 MG/10 MG TAB PO PRN ×3 (02:07→16:42)
[2016-11-05 04:00] VITALS: BP 146/65; PULSE 61; RESP 18; TEMP 96; O2SAT 98
[2016-11-05] MEDS: cefTAZidime INJ 2,000 MG in SODIUM CHLORIDE 0.9% INJ 100 ML IV SCH ×2 (06:21→14:00)
[2016-11-05 07:19] LABS: INTERNATIONAL NORMALIZED RATIO 2.7 RATIO
[2016-11-05 07:45] LABS: FREE T3 1.77 PG/ML (2.18-3.98); FREE T4 1.16 NG/DL (0.76-1.46)
[2016-11-05 08:05] VITALS: BP 166/71; PULSE 65; RESP 18; TEMP 96.2; O2SAT 98
[2016-11-05] MEDS: DOCUSATE SODIUM 50 MG/SENNA 8.6 MG TAB PO SCH (09:00)
[2016-11-05] MEDS: SODIUM CHLORIDE 0.9% FLUSH 10 ML FLUSH IV FLUSH SCH (09:00)
[2016-11-05] MEDS: TIOTROPIUM BROMIDE 18 MCG INH INH SCH (09:00)
[2016-11-05] MEDS: ATENOLOL 50 MG TAB PO SCH (09:00)
[2016-11-05] MEDS: ASPIRIN EC 81 MG TABEC PO SCH (09:37)
[2016-11-05] MEDS: TRIAMTERENE/HCTZ 75 MG/50 MG TAB PO SCH (09:37)
[2016-11-05] MEDS: FOLIC ACID 1 MG TAB PO SCH (09:37)
[2016-11-05] MEDS: CALCIUM/VITAMIN D 250 MG/125 U TAB PO SCH (09:37)
[2016-11-05] MEDS: TOLTERODINE TARTRATE 4 MG CAP LA PO SCH (09:37)
[2016-11-05] MEDS: PANTOPRAZOLE SOD 40 MG DELAYED RELEASE TAB PO SCH (09:38)
[2016-11-05] MEDS: ASCORBIC ACID 500 MG TAB PO SCH (09:38)
[2016-11-05] MEDS: CHOLECALCIFEROL (VIT D3) 1000 UNIT TAB PO SCH (09:38)
[2016-11-05] MEDS: POTASSIUM CHLORIDE 10 MEQ CONTROLLED RELEASE TAB PO SCH (09:38)
[2016-11-05] MEDS: LACTOBACILLUS ACIDOPHILUS TAB PO SCH ×2 (09:46→14:00)
[2016-11-05] MEDS: ALPRAZolam 0.5 MG TAB PO PRN (10:21)
[2016-11-05] MEDS: VANCOMYCIN 500 MG VIAL (FOR ORAL USE ONLY) PO SCH (10:21)
[2016-11-05 12:05] VITALS: BP 166/70; PULSE 64; RESP 18; TEMP 97.6; O2SAT 98
[2016-11-05] MEDS ORDERED: CEFT250S PO (14:11)
[2016-11-05] MEDS ORDERED: WARFARIN SOD 2 MG TAB PO SCH (16:00)
== END 2016-11-05 17:11 | disposition home health service (06) | DRG 92 ==
LOC: NEPC 13:27 → NEDA 21:21 → NEPFCDU 22:33 → OBSVTOIN 11-01 13:48 → N05B 11-01 16:24
PROVIDERS: ADMIT Specialist; ATTEND Specialist
DX: R26.89 Other abnormalities of gait and mobility (principal); E87.1 Hypo-osmolality and hyponatremia; J44.9 Chronic obstructive pulmonary disease, unspecified; R54 Age-related physical debility; D64.9 Anemia, unspecified; R53.1 Weakness; Z98.890 Other specified postprocedural states; I10 Essential (primary) hypertension; R79.1 Abnormal coagulation profile; E83.51 Hypocalcemia; R79.82 Elevated C-reactive protein (CRP); E03.9 Hypothyroidism, unspecified; Z85.41 Personal history of malignant neoplasm of cervix uteri; Z85.51 Personal history of malignant neoplasm of bladder; Z85.00 Personal history of malignant neoplasm of unspecified digestive organ; Z92.21 Personal history of antineoplastic chemotherapy; Z92.3 Personal history of irradiation; Z86.73 Personal history of transient ischemic attack (TIA), and cerebral infarction without residual deficits; Z86.711 Personal history of pulmonary embolism; Z79.01 Long term (current) use of anticoagulants; Z79.82 Long term (current) use of aspirin; Z87.891 Personal history of nicotine dependence
CPT/HCPCS: 36600; 70450; 71010; 71260; 72158; 80048; 80053; 80307; 81001; 82550; 82805; 83605; 83735; 84439; 84443; 84481; 84484; 85025; 85610; 86140; 87040; 93005; 94640; 94664; A9579; G0378; G8987-GO; G8987-GP; G8988-GO; G8988-GP; J0713; J1642; Q9967

== ENCOUNTER 2016-11-06 14:55 | Inpatient (IN) | payer MEDICARE, OTHER ==
[~2016-11-06] VITALS: Ht 165.1 cm; Wt 60.0 kg
[~2016-11-06 14:55] MED LIST changes: +CEFT250S PO; -GADODIAMIDE PF 287 MG/ML 20 ML VIAL (for RAD MRI) IV ONE; -MERO1INJ8 IV
[2016-11-06 15:05] VITALS: BP 192/74; PULSE 80; RESP 24; TEMP 97.4; O2SAT 100
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
--- NOTE | 2016-11-06 16:22 | RADRPT ---
EXAM DATE/TIME: 11/06/2016 15:48 [facility] COMPARISON: CHEST SINGLE AP, October 31, 2016, 16:50. INDICATIONS : Short of breath MEDICAL HISTORY : Hypertension. Confusion SURGICAL HISTORY : PICC line recently removed ENCOUNTER: Initial ACUITY: 1 day PAIN SCORE: Non-responsive. LOCATION: Bilateral chest FINDINGS: Portable AP view of the chest demonstrates a normal-sized cardiac silhouette with calcification of th e aorta. No effusion, consolidation, or pneumothorax is visualized. The bones and soft tissues demons trate no acute abnormality. Multiple lines overlie the patient. CONCLUSION: No acute cardiopulmonary abnormality is identified. Dariel Noe MD on November 06, 2016 at 16:13 Board Certified Radiologist. This report was verified electronically.
[2016-11-06 16:36] LABS: AUTOMATED NEUTROPHIL # 6.1 TH/MM3 (1.8-7.7); BASOPHIL # 0.1 TH/MM3 (0-0.2); BASOPHIL % 1.1 % (0.0-2.0); EOSINOPHIL % 0.4 % (0.0-4.0); HEMATOCRIT 31.5 % (35.0-46.0); LYMPH % 5.5 % (9.0-44.0); LYMPHOCYTE # 0.4 TH/MM3 (1.0-4.8); MEAN CELL VOLUME 65.6 FL (80.0-100.0); MEAN CORPUSCULAR HEMOGLOBIN 21.1 PG (27.0-34.0); MEAN CORPUSCULAR HGB CONC 32.1 % (32.0-36.0); MONO % 2.7 % (0.0-8.0); NEUT % 90.3 % (16.0-70.0); PLATELET COUNT 288 TH/MM3 (150-450); RED BLOOD COUNT 4.79 MIL/MM3 (4.00-5.30); RED CELL DISTRIBUTION WIDTH 23.3 % (11.6-17.2); WHITE BLOOD COUNT 6.8 TH/MM3 (4.0-11.0)
[2016-11-06 16:44] LABS: HEMO FLAGS DIFF FINAL
[2016-11-06 16:46] LABS: INTERNATIONAL NORMALIZED RATIO 2.3 RATIO; PROTHROMBIN TIME - PATIENT 25.8 SEC (9.8-11.6)
[2016-11-06 16:53] LABS: ALT (GPT) 10 U/L (10-53); ANION GAP 12 MEQ/L (5-15); AST (GOT) 11 U/L (15-37); BICARBONATE 21.5 MEQ/L (21.0-32.0); BLOOD UREA NITROGEN 11 MG/DL (7-18); CHLORIDE 93 MEQ/L (98-107); GLOMERULAR FILTRATION RATE 73 ML/MIN (>89); MAGNESIUM 1.7 MG/DL (1.5-2.5); POTASSIUM 3.9 MEQ/L (3.5-5.1); SODIUM (NA) 126 MEQ/L (136-145)
[2016-11-06 17:07] LABS: ALKALINE PHOSPHATASE 103 U/L (45-117); TOTAL BILIRUBIN ADULT 0.6 MG/DL (0.2-1.0)
[2016-11-06 17:08] LABS: CREATINE KINASE 27 U/L (26-192)
[2016-11-06] MEDS ORDERED: PANTOPRAZOLE SODIUM 40 MG VIAL IVP ONE (17:15)
[2016-11-06] MEDS ORDERED: SODIUM CHLORID 0.9% 500 ML INJ 500 ML IV ONE (18:15)
[2016-11-06] MEDS ORDERED: IOHEXOL 350 MG/ML 10 ML VIAL (for RAD DIAG) IV ONE (18:28)
--- NOTE | 2016-11-06 18:54 | RADRPT ---
EXAM DATE/TIME: 11/06/2016 18:21 [facility] COMPARISON: CT ABDOMEN & PELVIS W/O CONTRAST, September 22, 2016, 18:19. INDICATIONS : Shortness of breath, evaluate for embolus. IV CONTRAST: 60 cc Omnipaque 350 (iohexol) IV RADIATION DOSE: 6.40 CTDIvol (mGy) MEDICAL HISTORY : Carcinoma, bladder. history of PE SURGICAL HISTORY : None. ENCOUNTER: Initial ACUITY: 1 day PAIN SCALE: 3/10 LOCATION: Bilateral chest TECHNIQUE: Volumetric scanning of the chest was performed using a pulmonary embolism protocol MIP images were re constructed. Using automated exposure control and adjustment of the mA and/or kV according to patien t size, radiation dose was kept as low as reasonably achievable to obtain optimal diagnostic quality images. DICOM format image data is available electronically for review and comparison. FINDINGS: PULMONARY ARTERIES: No filling defects are seen in the pulmonary arteries through the segmental level. LUNGS: There is some linear areas of scarring in the right lower lung; prior CT scan in September 2016 had demonst rated bibasilar atelectasis and moderate pleural effusions. There is no pleural effusion seen today. PLEURAE: There is no pleural thickening or pleural effusion. MEDIASTINUM: There is good visualization of the great vessels of the middle mediastinum. No evidence of mediastin al or hilar adenopathy/mass. CONCLUSION: 1. The study is negative for pulmonary embolism. 2. Chronic scarring at the right lung base. No evidence of pleural effusion. Modesto Herr MD on November 06, 2016 at 18:46 Board Certified Radiologist. This report was verified electronically.
[2016-11-06 19:12] VITALS: BP 168/87; PULSE 82; RESP 20; O2SAT 97
[2016-11-06] MEDS ORDERED: SENNOSIDES 8.6 MG TAB PO PRN (21:00)
[2016-11-06] MEDS ORDERED: ACETAMINOPHEN 325 MG TAB PO PRN (21:00)
[2016-11-06] MEDS ORDERED: LACTULOSE SYRUP 20 GM/30 ML CUP PO PRN (21:00)
[2016-11-06] MEDS ORDERED: SODIUM CHLORIDE 0.9% FLUSH 10 ML FLUSH IV FLUSH PRN (21:00)
[2016-11-06] MEDS ORDERED: NALOXONE HCL 0.4 MG/ML AMP IV PRN (21:00)
[2016-11-06] MEDS ORDERED: ONDANSETRON HCL 4 MG/2 ML VIAL IVP PRN (21:00)
[2016-11-06] MEDS: DOCUSATE SODIUM 50 MG/SENNA 8.6 MG TAB PO SCH (21:00)
[2016-11-06] MEDS ORDERED: BISACODYL 10 MG SUPP RECTAL PRN (21:00)
[2016-11-06] MEDS ORDERED: MAGNESIUM HYDROXIDE SUSP 30 ML CUP PO PRN (21:00)
[2016-11-06] MEDS ORDERED: ENALAPRILAT 1.25 MG/ML VIAL IV PUSH PRN (21:45)
[2016-11-06] MEDS ORDERED: ALBUTEROL SULFATE 90 MCG/ACT HFA 18 GM INHALER INH PRN (21:45)
[2016-11-06] MEDS ORDERED: CEFUROXIME AXETIL SUSP 250 MG/5 ML 50 ML BTL PO SCH (21:45)
[2016-11-06 22:17] VITALS: BP 155/74
[2016-11-06] MEDS: SODIUM CHLOR 0.9% 1000 ML INJ 1,000 ML IV SCH (23:24)
[2016-11-06] MEDS: SODIUM CHLORIDE 0.9% FLUSH 10 ML FLUSH IV FLUSH SCH (23:24)
[2016-11-06] MEDS: PRAVASTATIN SOD 40 MG TAB PO SCH (23:24)
[2016-11-06] MEDS: FAMOTIDINE 20 MG TAB PO SCH (23:25)
[2016-11-06] MEDS: ATENOLOL 50 MG TAB PO SCH (23:25)
--- NOTE | 2016-11-06 23:55 | HHI.HP ---
HPI Service [facility] Primary Care Physician Unknown Admission Diagnosis GI bleed, hyponatremia Diagnoses: Chief Complaint: sob, chest pressure, black stools Travel History International Travel<30 Days: No Contact w/Intl Traveler <30 Da: No Traveled to Known Affected Are: No History of Present Illness This a pleasant 81-year-old female with recent hospitalizations and complications after she underwent an elective L5-S1 hemilaminectomy laminectomy and microdiscectomy September 17, 2016. Patient was initially admitted to [facility] from 09/21/2016 to October 06, 2016 with sepsis, was found with fluid collection the lumbar site. IR drained the fluid collection. She grew Pseudomonas and was treated with antibiotics per ID recommendations. During that admission, she was also found with non-STEMI and was evaluated by cardiology and required heparin drip. It was thought that the elevation in troponin was due to sepsis. She also developed C. difficile with severe diarrhea. Patient was eventually discharged to [facility] for further therapy. After [facility], patient went to subacute rehabilitation for more strengthening and was eventually discharged. Patient was readmitted shortly after on November 01, 2016 after she was noted very weak and deconditioned by Dr. Ramos when she went for a scheduled appointment. Patient was evaluated, had another MRI of the lumbar showed increased and the uptake, however patient had no definitive signs of infection. Cultures were obtained, patient was put on antibiotics. She was discharge on November 05 on oral antibiotics in stable condition with resumption of home health care and physical therapy at home. Patient returns back to the emergency room today for evaluation of shortness of breath. Patient indicates that today while the home health care nurse was in to visit her she complained of chest heaviness with some shortness of breath and feeling clammy. Chest discomfort was nonradiating. She did her inhaler with some relief. Her home health care nurse contacted her vehicle return associate Dr. Pinon who instructed her to come to the emergency room. She is also noted that her stools have become more darker than usual. Her clinical data analyst is Dr. Mayer. Indicates that her stools are usually dark and she's had previous GI workup, the last time 4-5 years ago. She is on Coumadin and her INR is therapeutic. She denies any hematemesis. She is complaining of mild right lower quadrant tenderness, abdomen slightly distended. Appetite has been okay. Indicates that she is very anxious, she didn't think she was cannot be admitted and was hoping to be discharged directly from the emergency room. She denies any fever, but always has chills. She continues to complain of back pain which appears to have become more of a chronic issue at this time. There is no radiculopathy. Indicates she has been ambulating more and is not using any assistive devices. Dr. Pinon was contacted from the emergency room and requested d-dimer and further workup if positive. CTA was negative for pulmonary embolism. She was noted with heme-positive stools. HH is stable, hemoglobin 10.1, hematocrit 31.5. INR 2.3. Troponin was negative. BNP 74. She was found hyponatremic, sodium 126. Patient is somewhat anxious at this time, again she wants to go home. She indicates that the chest pressure and shortness of breath was likely due to anxiety as she had previous episodes before. I have explained to her that we will need to admit her at least overnight to rule out acute coronary syndrome and to have gastroenterology evaluate her. She agrees with admission. Patient is admitted for further evaluation and treatment. Review of Systems Constitutional: DENIES: Diaphoretic episodes, Fatigue, Fever, Weight gain, Weight loss, Chills, Dizziness, Change in appetite, Night Sweats Endocrine: DENIES: Abnorml menstrual pattern, Heat/cold intolerance, Polydipsia , Polyuria, Polyphagia Eyes: DENIES: Blurred vision, Diplopia, Eye inflammation, Eye pain, Vision loss , Photosensitivity, Double Vision Ears, nose, mouth, throat: DENIES: Tinnitus, Hearing loss, Vertigo, Nasal discharge, Oral lesions, Throat pain, Hoarseness, Ear Pain, Running Nose, Epistaxis, Sinus Pain, Toothache, Odynophagia Respiratory: COMPLAINS OF: Shortness of breath, DENIES: Apneas, Cough, Snoring , Wheezing, Hemoptysis, Sputum production Cardiovascular: COMPLAINS OF: Chest pain Gastrointestinal: COMPLAINS OF: Abdominal pain, Black stools, DENIES: Bloody stools, Constipation, Diarrhea, Nausea, Vomiting, Difficulty Swallowing, Anorexia Genitourinary: DENIES: Abnormal vaginal bleeding, Dysmenorrhea, Dyspareunia, Sexual dysfunction, Urinary frequency, Urinary incontinence, Urgency, Hematuria , Dysuria, Nocturia, Vaginal discharge Musculoskeletal: COMPLAINS OF: Back pain (low back pain), DENIES: Joint pain, Muscle aches, Stiffness, Joint Swelling, Neck pain Integumentary: DENIES: Abnormal pigmentation, Pruritus, Rash, Nail changes, Breast masses, Breast skin changes, Nipple discharge Hematologic/lymphatic: DENIES: Bruising, Lymphadenopathy Immunologic/allergic: DENIES: Eczema, Urticaria Neurologic: DENIES: Abnormal gait, Headache, Localized weakness, Paresthesias, Seizures, Speech Problems, Tremor, Poor Balance Psychiatric: COMPLAINS OF: Anxiety ( recently hospitalized after CABG, both were in rehab. ), DENIES: Confusion, Mood changes, Depression, Hallucinations, Agitation, Suicidal Ideation, Homicidal Ideation, Delusions Past Family Social History Past Medical History Polycythemia vera History of PE , antiphospholipid syndrome-on chronic anticoagulation with Coumadin TIA Radiculopathy Arthritis Cervical cancer, status post radiation and chemotherapy in 2010. 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 IR drained the fluid collection. Grew Pseudomonas and was treated with antibiotics. Developed Cdiff. Also + non-STEMI Past Surgical History Right L5-S1 hemilaminectomy and microdiscectomy 09/03 Breast biopsy Tonsillectomy Mediastinoscopy Partial gastrectomy Biopsy of cervix Amadeo filter in 2011 Mediastinoscopy IR drainage of lumbar fluid collection October Reported Medications Reported Meds & Active Scripts Active Ceftin Liq (Cefuroxime Axetil) 250 Mg/5 Ml Susp 250 Mg PO BID 15 Days Spiriva Handihaler (Tiotropium Inh) 18 Mcg Cap 18 Mcg INH DAILY 30 Days Acidophilus/l-Sporogenes (Lactobacillus Acidophilus) 1 Tab Tab 1 Tab PO TID Oyster Shell 250 mg + Vit D Tb (Calcium/Vitamin D) 250 Mg Calcium (625 Mg)-125 Unit Tablet 250 Mg PO Q12HR Atenolol 50 Mg Tab 50 Mg PO Q12HR Xanax (Alprazolam) 0.5 Mg Tab 0.5 Mg PO Q8H PRN Coumadin (Warfarin) 4 Mg Tab 4 Mg PO DAILY@16 Vancomycin Inj (Vancomycin HCl) 500 Mg Inj 125 Mg PO BID 19 Days 125 mg PO BID from 10/15 - 10/22 125 mg daily 10/23 - 10/29 125 mg every other day 10/30 - 11/06 Folic Acid 1 Mg Tablet 1 Mg PO DAILY Aspirin 81 (Aspirin) 81 Mg Tabdr 81 Mg PO DAILY Vitamin C (Ascorbic Acid) 250 Mg Tab 500 Mg PO DAILY Maxzide (Triamterene/HCTZ) 75-50 Mg Tab 1 Tab PO DAILY Klor-Con 10 (Potassium Chloride) 10 Meq Tab 20 Meq PO DAILY Hydrocodone-Acetaminophen 10-325 mg Tab 1 Tab PO Q6HR PRN Synthroid (Levothyroxine Sodium) 100 Mcg Tab 100 Mcg PO EVERY OTHER DAY Pravachol (Pravastatin) 40 Mg Tab 40 Mg PO HS Omeprazole 40 Mg Cap 40 Mg PO DAILY Combivent Respimat Inh (Ipratropium-Albuterol Inh) 20-100 Halfway/Act Aero 2 Puff INH QID PRN Vitamin D3 (Cholecalciferol) 1,000 Unit Tab 1,000 Units PO DAILY Vesicare (Solifenacin) 10 Mg Tab 10 Mg PO DAILY [shower tub chair] Ea Walker Rolling/GetGo (Device) 1 Mis Mis 1 Ea .ROUTE DIRECTED Allergies: Coded Allergies: *MDRO Multi-Drug Resistant Organism (Verified Adverse Reaction, Unknown, VRE, 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 Ordered Medications Inpatient Medications Acetaminophen (Tylenol) 650 mg Q4H PRN PO TEMP > 100.4; Start 11/06/16 at 21:00 Acetaminophen/ Hydrocodone Bitart ([place] 10-325 Mg) 1 tab Q6H PRN PO FOR PAIN 7 -10; Start 11/06/16 at 21:45 Albuterol Sulfate (Ventolin Hfa Inh) 2 puff QID PRN INH SHORTNESS OF BREATH; Start 11/06/16 at 21:45 Alprazolam (Xanax) 0.5 mg Q8H PRN PO FOR ANXIETY; Start 11/06/16 at 21:45 Ascorbic Acid (Vitamin C) 500 mg DAILY PO NS; Start 11/07/16 at 09:00 Atenolol (Tenormin) 50 mg Q12HR PO ; Start 11/06/16 at 21:45 Bisacodyl (Dulcolax Supp) 10 mg DAILY PRN RECTAL SEVERE CONSITIPATION; Start at 21:00 Cefuroxime Axetil (Ceftin 250 Mg/5 ml Liq) 250 mg BID PO ; Start 11/06/16 at 21: 45 Enalaprilat (Vasotec Inj) 1.25 mg Q6H PRN IV PUSH SBP>160, DBP>90; Start at 21:45 Folic Acid (Folate) 1 mg DAILY PO ; Start 11/07/16 at 09:00 Lactobacillus Acidophilus (Lactinex) 1 tab TID PO ; Start 11/07/16 at 09:00 Lactulose (Lactulose Liq) 30 ml DAILY PRN PO SEVERE CONSITIPATION; Start at 21:00 Levothyroxine Sodium (Synthroid) 100 mcg Q48H PO ; Start 11/08/16 at 06:00 Magnesium Hydroxide (Milk Of Magnesia Liq) 30 ml Q12H PRN PO MILD - MODERATE CONSTIPATION; Start 11/06/16 at 21:00 Naloxone HCl (Narcan Inj) 0.4 mg UNSCH PRN IV SEE LABEL COMMENTS; Start at 21:00 Ondansetron HCl (Zofran Inj) 4 mg Q6H PRN IVP NAUSEA OR VOMITING; Start at 21:00 Pantoprazole Sodium 40 mg 40 mg ONCE ONCE IVP Last administered on 11/06/16t 17 :15; Start 11/06/16 at 17:15; Stop 11/06/16 at 17:16; Status DC Pravastatin Sodium (Pravachol) 40 mg HS PO ; Start 11/06/16 at 21:45 Senna/Docusate Sodium (Leonarda-Colace) 1 tab BID PO ; Start 11/06/16 at 21:00 Sennosides (Senokot) 17.2 mg Q12H PRN PO MODERATE - SEVERE CONSTIPATION; Start 11/06/16 at 21:00 Sodium Chloride (NS 1000 ml Inj) 1,000 ml @ 100 mls/hr Q10H IV ; Start 11/06/16 at 20:49 Sodium Chloride (NS Flush) 2 ml BID IV FLUSH ; Start 11/06/16 at 21:00 Tiotropium [place] (Spiriva Inh) 18 mcg DAILY INH ; Start 11/07/16 at 09:00 Tolterodine Tartrate (Detrol La) 4 mg DAILY PO ; Start 11/07/16 at 09:00 Warfarin Sodium (Coumadin) 4 mg DAILY@16 PO ; Start 11/07/16 at 16:00 Family History Reviewed, non contributory Social History Lives with , no tobacco, no EtOH, no substance abuse. Physical Exam Vital Signs Vital Signs Date Time Temp Pulse Resp B/P Pulse Ox O2 Delivery O2 Flow Rate FiO2 11/06/16 22:17 76 20 155/74 97 11/06/16 19:12 82 20 168/87 97 Room Air 11/06/16 16:56 24 97 Room Air 11/06/16 15:05 97.4 80 24 192/74 100 Physical Exam GENERAL: This is a well-nourished, well-developed patient, in no apparent distress. SKIN: No rashes, ecchymoses or lesions. Cool and dry. HEAD: Atraumatic. Normocephalic. No temporal or scalp tenderness. EYES: Pupils equal round and reactive. Extraocular motions intact. No scleral icterus. No injection or drainage. ENT: Nose without bleeding, purulent drainage or septal hematoma. Throat without erythema, tonsillar hypertrophy or exudate. Uvula midline. Airway patent. NECK: Trachea midline. No JVD or lymphadenopathy. Supple, nontender, no meningeal signs. CARDIOVASCULAR: Regular rate and rhythm without murmurs, gallops, or rubs. RESPIRATORY: Clear to auscultation. Breath sounds equal bilaterally. No wheezes , rales, or rhonchi. GASTROINTESTINAL: Round, soft, mildly tender RLQ, normoactive BS x 4. No hepatosplenomegaly. MUSCULOSKELETAL: Extremities without clubbing, cyanosis, or edema. No joint tenderness, effusion, or edema noted. No calf tenderness. Negative Homans sign bilaterally. NEUROLOGICAL: Awake, alert, oriented, x 3. No focal deficits. Laboratory Laboratory Tests Test 11/06/16 16:05 White Blood Count 6.8 Red Blood Count 4.79 Hemoglobin 10.1 Hematocrit 31.5 Mean Corpuscular Volume 65.6 Mean Corpuscular Hemoglobin 21.1 Mean Corpuscular Hemoglobin 32.1 Concent Red Cell Distribution Width 23.3 Platelet Count 288 Mean Platelet Volume 8.9 Neutrophils (%) (Auto) 90.3 Lymphocytes (%) (Auto) 5.5 Monocytes (%) (Auto) 2.7 Eosinophils (%) (Auto) 0.4 Basophils (%) (Auto) 1.1 Neutrophils # (Auto) 6.1 Lymphocytes # (Auto) 0.4 Monocytes # (Auto) 0.2 Eosinophils # (Auto) 0.0 Basophils # (Auto) 0.1 CBC Comment DIFF FINAL Differential Comment Prothrombin Time 25.8 Prothromb Time International 2.3 Ratio Activated Partial 56.0 Thromboplast Time D-Dimer Quantitative (PE/DVT) 0.69 Sodium Level 126 Potassium Level 3.9 Chloride Level 93 Carbon Dioxide Level 21.5 Anion Gap 12 Blood Urea Nitrogen 11 Creatinine 0.76 Estimat Glomerular Filtration 73 Rate Random Glucose 99 Calcium Level 9.3 Magnesium Level 1.7 Total Bilirubin 0.6 Aspartate Amino Transf 11 (AST/SGOT) Alanine Aminotransferase 10 (ALT/SGPT) Alkaline Phosphatase 103 Total Creatine Kinase 27 Troponin I LESS THAN 0.02 B-Type Natriuretic Peptide 74 Total Protein 7.2 Albumin 2.6 Lipase 54 Blood Type A POSITIVE Antibody Screen NEGATIVE Result Diagram: 11/06/16 1605 11/06/16 [address] Angiography 11/06/16 1715 Signed Impressions: Service Date/Time: November 18:21 - CONCLUSION: 1. The study is negative for pulmonary embolism. 2. Chronic scarring at the right lung base. No evidence of pleural effusion. Modesto Herr MD Chest X-Ray 11/06/16 1536 Signed Impressions: Service Date/Time: November 15:48 - CONCLUSION: No acute cardiopulmonary abnormality is identified. Dariel Noe MD Assessment and Plan Problem List: (1) Shortness of breath (2) Chest pressure (3) Black stool (4) Presence of IVC filter (5) Hx pulmonary embolism (6) Chronic radiation cystitis (7) S/P lumbar laminectomy (8) HTN (hypertension) (9) Antiphospholipid antibody syndrome (10) Hx TIA/stroke w/o resid (11) Anemia (12) hx recent infection lumbar surgical site (13) Low back pain (14) Anxiety (15) Chronic anticoagulation Assessment and Plan Admit to Dr. Sosa 81-year-old elderly female presented to emergency room with complaint of chest heaviness, shortness of breath, feeling clammy. Also has noted increase black stools, chronically anticoagulated with Coumadin. Complains of right lower quadrant tenderness and abdominal distension. Chest pressure with shortness of shortness of breath, rule out acute coronary syndrome. Patient with recent non-STEMI demand mediated due to sepsis. CTA negative for pulmonary emboli. Continue with serial troponin Consult dr. Nevarez for evaluation -Continue with beta meir -ASA on hold due to heme positive stools -Dr. Pinon has been consulted. Heme-positive stools, right lower abdomen pain. On chronic anticoagulation and ASA. History of radiation colitis -Consult GI for evaluation, Dr. Mayer has been contacted. Request that the patient be kept nothing by mouth after midnight Pepcid 20 mg PO twice a day Monitor H&H closely -Monitor for bleeding -Hold ASA and Coumadin History of L5-S1 disc herniation,S/P Right L5-S1 hemilaminectomy and microdiscectomy 09/03. Had subsequent development of fluid collection that was positive for Pseudomonas. Required IV antibiotics which she has completed. No recent fever, no chills. Had another MRI recently of lumbar spine that showed increased and the uptake, however patient had no definitive signs of infection. Was dc on Ceftin Low back pain, appears to have become chronic Physical debility, improving. Continue with hydrocodone 02/03/25 one tab by mouth every 6 when necessary -Continue with Ceftin for now Anxiety, patient at times becomes very panicky with shortness of breath. Continue Xanax 0.5 mg by mouth every 8 when necessary Hypertension, stable Continue home medications -Add Vasotec when necessary for elevated blood pressure 160 greater than 90 Hyperlipidemia, stable Continue home medications History of pulmonary emboli, antiphospholipid syndrome. Has IVC filter Patient on Coumadin, therapeutic INR 2.3 -Hold Coumadin for now Home medications reviewed, initiated as indicated Pepcid for GI profile Continue with Coumadin for DVT prophylaxis Plan of care has been discussed with the patient,, attending and RN. Further management of the patient will be dependent on the hospital course This patient was seen by myself and Dr. Sosa, this H&P is written his behalf Problem Qualifiers (1) HTN (hypertension): Qualified Code: I10 - Essential hypertension (2) Anemia: Qualified Code: D64.9 - Anemia, unspecified type (3) Low back pain: Qualified Code: M54.5 - Chronic low back pain without sciatica, unspecified back pain laterality Lisa Mcfarland 6, 2017 23:55
[2016-11-07] VITALS (7 sets, daily range): BP systolic 135–175; BP diastolic 57–75; PULSE 61–75; RESP 16–18; TEMP 95.8–98.1; O2SAT 94–97
[2016-11-07] MEDS: ACETAMINOPHEN/HYDROcodone 325 MG/10 MG TAB PO PRN ×3 (00:28→18:07)
[2016-11-07 00:41] LABS: CREATINE KINASE 31 U/L (26-192)
[2016-11-07] MEDS: CEFUROXIME AXETIL SUSP 250 MG/5 ML 50 ML BTL PO SCH ×3 (01:45→22:58)
[2016-11-07 05:40] LABS: AUTOMATED NEUTROPHIL # 6.5 TH/MM3 (1.8-7.7); BASOPHIL # 0.1 TH/MM3 (0-0.2); BASOPHIL % 0.8 % (0.0-2.0); EOSINOPHIL # 0.1 TH/MM3 (0-0.4); HEMATOCRIT 28.8 % (35.0-46.0); HEMO FLAGS DIFF FINAL; LYMPH % 5.4 % (9.0-44.0); LYMPHOCYTE # 0.4 TH/MM3 (1.0-4.8); MEAN CELL VOLUME 66.2 FL (80.0-100.0); MEAN CORPUSCULAR HEMOGLOBIN 20.6 PG (27.0-34.0); MEAN CORPUSCULAR HGB CONC 31.2 % (32.0-36.0); MONO % 2.7 % (0.0-8.0); NEUT % 90.1 % (16.0-70.0); PLATELET COUNT 245 TH/MM3 (150-450); RED BLOOD COUNT 4.36 MIL/MM3 (4.00-5.30); WHITE BLOOD COUNT 7.3 TH/MM3 (4.0-11.0)
[2016-11-07 05:46] LABS: INTERNATIONAL NORMALIZED RATIO 2.2 RATIO; PROTHROMBIN TIME - PATIENT 25.2 SEC (9.8-11.6)
[2016-11-07 05:59] LABS: BICARBONATE 24.6 MEQ/L (21.0-32.0); POTASSIUM 3.7 MEQ/L (3.5-5.1)
[2016-11-07 06:03] LABS: CREATINE KINASE 21 U/L (26-192)
[2016-11-07] MEDS: SODIUM CHLOR 0.9% 1000 ML INJ 1,000 ML IV SCH ×2 (06:49→16:49)
[2016-11-07] MEDS: SODIUM CHLORIDE 0.9% FLUSH 10 ML FLUSH IV FLUSH SCH ×2 (09:00→21:00)
[2016-11-07] MEDS: DOCUSATE SODIUM 50 MG/SENNA 8.6 MG TAB PO SCH ×2 (09:00→21:00)
[2016-11-07] MEDS: TIOTROPIUM BROMIDE 18 MCG INH INH SCH (09:00)
[2016-11-07] MEDS: FAMOTIDINE 20 MG TAB PO SCH ×2 (09:00→22:58)
--- NOTE | 2016-11-07 09:17 | MB ---
cc: JESSICAPRAVEENFLOWER DATE OF CONSULTATION 11/07/2016 DATE OF 1935 REASON FOR GI CONSULT Evaluation for dark stools, heme-positive stools. HISTORY OF PRESENT ILLNESS This is an 81-year-old female who is had readmission to this institution and she is status post elective surgery in early October with L5-S1 laminectomy and microdiscectomy. She was admitted to [facility] recently with sepsis and a fluid collection at the lumbar site. This was drained by Interventional Radiology. She grew out Pseudomonas organism treated with antibiotics and followed by ID. During that admission she had a non-ST [place]. She also developed C-diff with diarrhea and she eventually improved and was sent to rehabilitation. The patient was discharged on antibiotics at that time with home health care and she came back to the emergency room because of shortness of breath, weakness, chest heaviness. Cardiology is evaluating her at this time. She is known to us from the GI standpoint as she has a long GI history of borborygmi, abdominal bloating, gas, intermittent diarrhea and intermittent dark stools. She had upper endoscopy in 2013, colonoscopy to 2015. She has a history of cervical cancer in the past with radiation therapy to the lower abdomen with resultant radiation cystitis and radiation proctocolitis. In 2014 she had ablation of the vascular lesions in the lower colon and rectosigmoid area. At this admission she is also noted to be hyponatremic with sodium of 126. She is on Coumadin and INR is 2.3. Troponin was negative. The patient states that she would like to go home, does not want to stay in the hospital further and would like to proceed in the least invasive method possible. We discussed the possibility of evaluating her with upper endoscopy. She would like to defer that at this time unless absolutely necessary. Hemoglobin was 10 on admission. is currently 9.0. She denies abdominal pain or vomiting. PAST HISTORY Quite extensive and includes - 1. Polycythemia vera. 2. Pulmonary emboli with previous IVC filter insertion. 3. TIA. 4. Radiculopathy. 5. COPD. 6. Gastroesophageal reflux disease. 7. Esophagitis. 8. Myelofibrosis. 9. Hypothyroidism. 10. 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 12. Cerebral AVM in the past. 13. Recent IR drainage of fluid collection in the back. MEDICATIONS Quite extensive as well, includes - 1. Ceftin. 2. Spiriva. 3. Acidophilus. 4. Atenolol. 5. Xanax. 6. Coumadin. 7. Vancomycin. 8. Folic acid. 9. Aspirin. 10. Vitamin C. 11. Maxzide. 12. Hydrocodone. 13. Synthroid. 14. Pravachol. 15. Omeprazole. 16. Vitamin D3. 17. Vesicare. ALLERGIES As stated in the chart. FAMILY HISTORY From a GI standpoint was noncontributory. SOCIAL HISTORY Denies smoking, alcohol or illicit drug use. PHYSICAL EXAMINATION GENERAL: A pleasant well-developed female, alert and oriented x 3, in no acute distress. VITAL SIGNS: She is afebrile. Vital signs stable. HEENT EXAM: Normocephalic. Sclerae anicteric. Oral mucosa dry. NECK: Supple. CARDIAC EXAM: S1, S2. I did appreciate a holosystolic murmur. CHEST: The chest is clear. ABDOMEN: Soft, nontender with minimal distension. Bowel sounds are present. No masses. EXTREMITIES: Without clubbing, cyanosis or edema. LABORATORY DATA The rest of the labs revealed white count of 6.8. Liver enzymes are completely normal. Lipase was normal. CT angiography was negative. IMPRESSION An 81-year-old female who presents to the emergency room with shortness of breath, chest heaviness. The patient is anticoagulated on Coumadin which is therapeutic. She has a history of dark stools, heme-positive at this time. Certainly this could be multifactorial due to radiation-induced angiodysplastic disease. Although in the past proctocolitis was present, I would expect the patient have more bright red rectal bleeding rather than melena. I cannot rule out upper GI pathology at this time, gastritis, ulcer disease, etc. PLAN I have discussed with the patient the possibility of proceeding with EGD and she wants to proceed conservatively in the least invasive way possible. She would like to actually be discharged and go home and does not want to stay in the hospital. I would follow up with H&H later today and see where her hemoglobin stands. We will continue PPI therapy. If there is further progression or trend downward, we can revisit the issue of proceeding with upper endoscopy for further evaluation. However, once again the patient prefers to proceed conservatively at this point. The patient also is being evaluated by Cardiology at this time for their recommendations. We will be glad to follow the patient accordingly. I will recheck CBC for 12 noon today and the patient will be informed of that result. I would keep the patient n.p.o. for now. Thank you kindly for this consult. MD NEREIDA Charlton/FRANDY /8:39 AM 8:57 AM
--- NOTE | 2016-11-07 09:47 | MB ---
cc: CAMILO WILLIS M.D., MARIA I. M.D. DATE OF CONSULTATION 11/07/2016 REASON FOR CONSULTATION Chest tightness. HISTORY OF PRESENT ILLNESS An 81-year-old white female who was seen at the emergency room with complaints of shortness of breath associated with chest tightness that alleviates with the use of inhalers. The patient also mentioned that she was having diarrhea and dark stools. Her stools were heme-positive and the patient was admitted for further evaluation. Her workup so far has included a CT of the chest that was negative for pulmonary embolism. Her admission hemoglobin was 10 and then with a drop to 9. Her EKG showed a normal sinus rhythm with an old septal infarct but no acute ischemic changes and her troponins x 3 were below 0.02. At the time of my evaluation the patient is in no acute distress and is adamant about being discharged home to take care of her who is recovering from bypass surgery. She has no acute complaints and is willing to continue any needed workup as an outpatient. PAST MEDICAL HISTORY Extensive and includes - 1. Polycythemia vera. 2. History of pulmonary embolism with antiphospholipid syndrome and on chronic Coumadin therapy. 3. TIA. 4. Radiculopathy status post back surgery complicated with Pseudomonas infection. 5. Cervical cancer status post radiation and chemotherapy in 2010. 6. COPD. 7. Gastroesophageal reflux disease. 8. Hypertension. 9. Monoclonal gammopathy. 10. Hypothyroidism. 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 12. Brain AV malformations. PAST SURGICAL HISTORY 1. L5-S1 laminectomy. 2. Tonsillectomy. 3. Partial gastrectomy. 4. A [place] filter in 2011. 5. Mediastinoscopy. 6. Drainage of lumbar fluid collection. SOCIAL HISTORY The patient is and lives at home with her . She does not smoke or drink. ALLERGIES Unknown. CURRENT ACTIVE MEDICATIONS 1. Spiriva. 2. Atenolol 50 mg every 12 hours. 3. Xanax. 4. Coumadin as directed. 5. Aspirin 91 mg daily. 6. Maxzide 75/50 mg daily. 7. Potassium chloride 10-20 mEq p.o. daily. 8. Synthroid 100 mcg daily. 9. Pravachol 4 mg daily. 10. Combivent Respimat as directed. 11. Vesicare 10 mg daily. REVIEW OF SYSTEMS As stated in the History of Present Illness. PHYSICAL EXAMINATION GENERAL: As mentioned the patient is in no acute distress. VITAL SIGNS: Her blood pressure has been ranging from 150-170 systolic/68-70 diastolic, heart rate between 67 and 75. She has remained a febrile with oxygen saturation of 94-97. HEAD AND NECK: Without JVD or carotid bruits. LUNGS: Clear to auscultation. HEART: Normal S1-S2 with a 3/6 apical systolic murmur. ABDOMEN: Benign with positive bowel sounds and no visceromegaly or bruits. EXTREMITIES: With no edema. DATA Sodium of 133, potassium 3.7, BUN 7, creatinine 0.57, GFR 102, calcium 8.3. Troponins less than 0.02 x 3. Total protein 7.2, albumin 2.6. PT 25, INR 2.2. CBC with a white count of 7.3, hemoglobin of 9, platelet count of 245. EKG As mentioned with normal sinus rhythm and an old septal infarct. PULMONARY CTA Negative for embolism. IMPRESSION 1. Atypical chest pain likely secondary to reactive airway disease, ACS ruled out. 2. Abnormal EKG with suggestion of an old septal infarct. 3. Hyponatremia with large doses of hydrochlorothiazide. 4. Heme-positive stools with anemia. RECOMMENDATIONS 1. The patient can follow up with Dr. Willis for an outpatient stress test. 2. I will decrease Dyazide to 37.5/25 mg p.o. daily to see if hyponatremia improves further. 3. I will start a calcium channel meir for better blood pressure control. 4. She can be discharged from a cardiac standpoint. 5. For the heme-positive stools, Dr. Mayer will recheck the hemoglobin at noontime and if stable the patient can also be discharged home from the GI standpoint. Thank you. MD EULA Lopez/FRANDY /8:52 AM /9:38 AM
[2016-11-07] MEDS ORDERED: PILL SPLITTER OTHER PRN (10:00)
[2016-11-07] MEDS: LACTOBACILLUS ACIDOPHILUS TAB PO SCH ×3 (10:28→17:50)
[2016-11-07] MEDS: ASCORBIC ACID 500 MG TAB PO SCH (10:29)
[2016-11-07] MEDS: ATENOLOL 50 MG TAB PO SCH ×2 (10:29→22:58)
[2016-11-07] MEDS: FOLIC ACID 1 MG TAB PO SCH (10:29)
[2016-11-07] MEDS: TOLTERODINE TARTRATE 4 MG CAP LA PO SCH (10:29)
[2016-11-07 12:47] LABS: HEMATOCRIT 28.5 % (35.0-46.0); MEAN CELL VOLUME 65.8 FL (80.0-100.0); MEAN CORPUSCULAR HEMOGLOBIN 20.7 PG (27.0-34.0); MEAN CORPUSCULAR HGB CONC 31.4 % (32.0-36.0); PLATELET COUNT 262 TH/MM3 (150-450); RED BLOOD COUNT 4.33 MIL/MM3 (4.00-5.30); RED CELL DISTRIBUTION WIDTH 23.7 % (11.6-17.2); REVIEW FLAG FINAL; WHITE BLOOD COUNT 6.9 TH/MM3 (4.0-11.0)
--- NOTE | 2016-11-07 13:33 | EKG ---
Date Performed: 11/06/2016 Time Performed: 17:06:35 PTAGE: 81 years EKG: Sinus rhythm ABNORMAL ECG PREVIOUS TRACING 11/06/2016 No change compared to the prior study. DOCTOR: Gallo Parsons Interpretating Date/Time 11/07/2016 13:30:56
[2016-11-07] MEDS: amLODIPine BESYLATE 5 MG TAB PO SCH (13:45)
--- NOTE | 2016-11-07 13:56 | HHI.PR ---
Subjective Interval History Alert, verbal, oriented, very upset, paranoid statements, no abdominal pain, somewhat confused Review of Systems Constitutional Constitutional Remarks 10 systems reviewed and otherwise negative however not reliable Vitals/Results Intake & Output 11/06/16 11/06/16 11/07/16 15:00 23:00 07:00 Intake Total 100 ml Output Total 500 ml Balance -400 ml Intake IV Total 100 ml Output Urine Total 500 ml # Bowel Movements 0 Vital Signs Vital Signs Date Time Temp Pulse Resp B/P Pulse Ox O2 Delivery O2 Flow Rate FiO2 11/07/16 12:00 96.2 64 16 148/65 97 11/07/16 08:00 97.6 65 17 175/72 94 11/07/16 04:00 97.1 67 18 161/70 94 11/07/16 00:00 98.1 75 16 154/68 97 11/06/16 22:17 76 20 155/74 97 11/06/16 19:12 82 20 168/87 97 Room Air 11/06/16 16:56 24 97 Room Air 11/06/16 15:05 97.4 80 24 192/74 100 CBC/BMP: 11/07/16 1158 11/07/16 0522 Lab Results Laboratory Tests Test 11/06/16 11/07/16 11/07/16 11/07/16 16:05 00:03 05:22 11:58 White Blood Count 6.8 TH/MM3 7.3 TH/MM3 6.9 TH/MM3 Red Blood Count 4.79 MIL/MM3 4.36 MIL/MM3 4.33 MIL/MM3 Hemoglobin 10.1 GM/DL 9.0 GM/DL 9.0 GM/DL Hematocrit 31.5 % 28.8 % 28.5 % Mean Corpuscular Volume 65.6 FL 66.2 FL 65.8 FL Mean Corpuscular Hemoglobin 21.1 PG 20.6 PG 20.7 PG Mean Corpuscular Hemoglobin 32.1 % 31.2 % 31.4 % Concent Red Cell Distribution Width 23.3 % 23.0 % 23.7 % Platelet Count 288 TH/MM3 245 TH/MM3 262 TH/MM3 Mean Platelet Volume 8.9 FL 8.9 FL 8.8 FL Neutrophils (%) (Auto) 90.3 % 90.1 % Lymphocytes (%) (Auto) 5.5 % 5.4 % Monocytes (%) (Auto) 2.7 % 2.7 % Eosinophils (%) (Auto) 0.4 % 1.0 % Basophils (%) (Auto) 1.1 % 0.8 % Neutrophils # (Auto) 6.1 TH/MM3 6.5 TH/MM3 Lymphocytes # (Auto) 0.4 TH/MM3 0.4 TH/MM3 Monocytes # (Auto) 0.2 TH/MM3 0.2 TH/MM3 Eosinophils # (Auto) 0.0 TH/MM3 0.1 TH/MM3 Basophils # (Auto) 0.1 TH/MM3 0.1 TH/MM3 CBC Comment DIFF FINAL DIFF FINAL Differential Comment Prothrombin Time 25.8 SEC 25.2 SEC Prothromb Time International 2.3 RATIO 2.2 RATIO Ratio Activated Partial 56.0 SEC Thromboplast Time D-Dimer Quantitative (PE/DVT) 0.69 MG/L FEU Sodium Level 126 MEQ/L 133 MEQ/L Potassium Level 3.9 MEQ/L 3.7 MEQ/L Chloride Level 93 MEQ/L 101 MEQ/L Carbon Dioxide Level 21.5 MEQ/L 24.6 MEQ/L Anion Gap 12 MEQ/L 7 MEQ/L Blood Urea Nitrogen 11 MG/DL 7 MG/DL Creatinine 0.76 MG/DL 0.57 MG/DL Estimat Glomerular Filtration 73 ML/MIN 102 ML/MIN Rate Random Glucose 99 MG/DL 97 MG/DL Calcium Level 9.3 MG/DL 8.3 MG/DL Magnesium Level 1.7 MG/DL Total Bilirubin 0.6 MG/DL Aspartate Amino Transf 11 U/L (AST/SGOT) Alanine Aminotransferase 10 U/L (ALT/SGPT) Alkaline Phosphatase 103 U/L Total Creatine Kinase 27 U/L 31 U/L 21 U/L Troponin I LESS THAN 0.02 LESS THAN 0.02 LESS THAN 0.02 NG/ML NG/ML NG/ML B-Type Natriuretic Peptide 74 PG/ML Total Protein 7.2 GM/DL Albumin 2.6 GM/DL Lipase 54 U/L Blood Type A POSITIVE Antibody Screen NEGATIVE Physical Exam General General Appearance: Well Developed, Anxious Eyes Eye Exam: Pupils Reactive Ears & Nose Ears & Nose Exam: Nasal Mucosa [place] Throat Throat Exam: Oral Mucosa [place] & Moist Neck Neck Exam: Trachea Midline Pulmonary Resp Exam: Breath Sounds Equal Cardiology CV Exam: Normal Sinus Rhythm, Good Perfusion Gastrointestinal/Abdomen GI Exam: Non-Tender, Bowel Sounds Present Musculoskeletal MS Exam: Normal Tone Integumentary Skin Exam: Warm, Dry Neurologic Neuro Exam: Alert, Awake, Oriented, Speech Clear, Moving All Extremities, Feed Handler Equal, No Focal Deficits VTE Prophylaxis VTE Prophylaxis Device: SCDs Assessment/Plan Assessment/Plan Assessment Admitted with shortness of breath Chest pressure, no evidence of NH or pulmonary emboli Heme positive stools On Coumadin, and this now on hold Chronic radiation cystitis Antiphospholipid syndrome Recently admitted with question of infection at the lumbar surgery site Management Coumadin and antiplatelet on hold Seen by GI Discussed with Dr. Mayer According to Dr. Mayer, the patient refused an endoscopy Check hemoglobin level every 6 hours Discussed with patient Discussed with nurse In my view the patient would benefit from psychiatry evaluation She is voicing paranoid statements and also has some delusions/falls beliefs 35 minutes spent Baltazar Sosa MD Nov 07, 2016 13:56
[2016-11-07] MEDS: ALPRAZolam 0.5 MG TAB PO PRN (15:43)
[2016-11-07] MEDS ORDERED: WARFARIN SOD 4 MG TAB PO SCH (16:00)
--- NOTE | 2016-11-07 16:41 | MB ---
cc: Juan Diego BARBER M.D. DATE OF CONSULTATION 11/07/16 HISTORY Mrs. Dougherty is an 81-year-old white female whom I have known for about a decade, with mild COPD. She really has had no difficulty related to that specifically. I was asked to see her because the day of admission she had called my office complaining of severe shortness of breath and in a brief review of some hospital records that I obtained since I had not seen her since July, it was apparent to me that since September she has had multiple medical issues after an operation and sepsis, so I referred her to the emergency room. I spoke with the PA in the emergency room and it was decided that she needed a CTA to rule out thromboembolic disease, pneumonia and heart failure. As it turned out the CTA was negative. There is no acute pulmonary dysfunction. The patient was admitted to the hospital though for observation because she had a heme-positive stool, anemia, hyponatremia and GI and cardiology saw her. There is no evidence that she has myocardial ischemia or heart failure and I believe she is scheduled to have an upper endoscopy to rule out upper GI blood loss, particularly since she is on Coumadin. She does have a history of recurrent pulmonary embolism with antiphospholipid syndrome and she also has an IVC filter in place. She has had no pulmonary embolism or thromboembolic disease since I have known her. PHYSICAL EXAMINATION Today at the time of this exam she is comfortable. She would really like to go home. The breathing difficulty is passed and she feels in retrospect that that may have been anxiety because she has been overwhelmed by the medical problems that she has had and trying to take care of her at home who has recently had a bypass operation. Additional past history polycythemia, radiculopathy due to back pain. She had recent surgery complicated by a Pseudomonas infection. She has had cervical cancer and chemotherapy in the past. Chronic gastroesophageal reflux disease. A monoclonal gammopathy followed by oncology/hematology. Hypothyroidism, previous tonsillectomy, partial gastrectomy. The [place] filter was placed in about 2011. She had a previous mediastinoscopy for lymph node enlargement which revealed granulomatous inflammation and she has a distant history of a positive PPD but has never required therapy. ALLERGIES None. MEDICATIONS Medications were reviewed in the EMR. SOCIAL HISTORY She is , living with her . Nonsmoker, does not drink alcohol. REVIEW OF SYSTEMS On admission basically she was complaining of shortness of breath and a heaviness in her chest. She is also quite debilitated after nearly 2 months of repeated medical problems. She had had no chest pain. No hemoptysis. No purulent sputum or fever. She has had no swelling in her legs. PHYSICAL EXAMINATION GENERAL: Awake, alert, comfortable. VITAL SIGNS: Afebrile, blood pressure 160/70, pulse is 70 and respirations are 18. Her O2 sat on room air is 97%. HEENT: Sclerae anicteric. NECK: Neck veins are flat. CHEST: Chest is completely clear. HEART: Regular rhythm with no harsh murmur or audible S3. EXTREMITIES: She has no peripheral edema, calf tenderness or cyanosis. DATA The CT angiogram revealed some scarring at the right base but no effusions. No embolism or pneumonia. Her white count 6900, hemoglobin is 9, platelet counts normal. INR is 2.2 and her electrolytes have improved, sodium is up from 126 to 133. DISCUSSION Mrs. Dougherty presented with a heaviness in her chest and dyspnea which have resolved. It is probably a consequence of several comorbidities but at this point she is stable with no obvious ongoing pulmonary pathology. COPD has been a minor problem for her in the past and probably does not warrant any additional therapy. I will follow her up in the office once she is discharged which is being considered today. She knows she can call the office if problems arise prior to that. R. MD BUBBA Randolph/OBEY /3:15 PM /4:33 PM
[2016-11-07 18:07] LABS: MEAN CELL VOLUME 67.1 FL (80.0-100.0); MEAN CORPUSCULAR HEMOGLOBIN 20.8 PG (27.0-34.0); PLATELET COUNT 266 TH/MM3 (150-450); RED BLOOD COUNT 4.32 MIL/MM3 (4.00-5.30); REVIEW FLAG FINAL; WHITE BLOOD COUNT 7.1 TH/MM3 (4.0-11.0)
[2016-11-07] MEDS: PRAVASTATIN SOD 40 MG TAB PO SCH (22:58)
[2016-11-08] MEDS: ACETAMINOPHEN/HYDROcodone 325 MG/10 MG TAB PO PRN ×2 (05:43→12:12)
[2016-11-08 05:46] LABS: HEMATOCRIT 27.6 % (35.0-46.0); MEAN CORPUSCULAR HGB CONC 31.8 % (32.0-36.0); PLATELET COUNT 267 TH/MM3 (150-450); RED BLOOD COUNT 4.18 MIL/MM3 (4.00-5.30); RED CELL DISTRIBUTION WIDTH 23.2 % (11.6-17.2); WHITE BLOOD COUNT 6.8 TH/MM3 (4.0-11.0)
[2016-11-08 05:52] LABS: REVIEW FLAG FINAL
[2016-11-08] MEDS ORDERED: LEVOTHYROXINE SODIUM 100 MCG TAB PO SCH (06:00)
[2016-11-08] MEDS: ALPRAZolam 0.5 MG TAB PO PRN (06:18)
[2016-11-08 08:00] VITALS: BP 140/65; PULSE 58; RESP 17; TEMP 96.2; O2SAT 96
[2016-11-08] MEDS: ATENOLOL 50 MG TAB PO SCH (09:16)
[2016-11-08] MEDS: FAMOTIDINE 20 MG TAB PO SCH (09:16)
[2016-11-08] MEDS: DOCUSATE SODIUM 50 MG/SENNA 8.6 MG TAB PO SCH (09:16)
[2016-11-08] MEDS: TOLTERODINE TARTRATE 4 MG CAP LA PO SCH (09:16)
[2016-11-08] MEDS: amLODIPine BESYLATE 5 MG TAB PO SCH (09:16)
[2016-11-08] MEDS: LACTOBACILLUS ACIDOPHILUS TAB PO SCH ×2 (09:16→12:09)
[2016-11-08] MEDS: ASCORBIC ACID 500 MG TAB PO SCH (09:16)
[2016-11-08] MEDS: FOLIC ACID 1 MG TAB PO SCH (09:16)
[2016-11-08] MEDS: CEFUROXIME AXETIL SUSP 250 MG/5 ML 50 ML BTL PO SCH (09:17)
[2016-11-08] MEDS: SODIUM CHLORIDE 0.9% FLUSH 10 ML FLUSH IV FLUSH SCH (09:24)
--- NOTE | 2016-11-08 10:09 | HHI.GIFU ---
Subjective Remarks alert Nad ...... wants to go home... tolerating clears...hb 8.8 no active GI Bleed no further bms Objective Vitals I&O Vital Signs Date Time Temp Pulse Resp B/P Pulse Ox O2 Delivery O2 Flow Rate FiO2 11/08/16 08:00 96.2 58 17 140/65 96 11/07/16 23:29 96.3 61 17 155/57 97 11/07/16 20:16 96.9 65 17 135/62 95 11/07/16 16:00 95.8 70 18 175/75 97 11/07/16 12:00 96.2 64 16 148/65 97 I/O 11/07/16 11/07/16 11/07/16 11/08/16 11/08/16 11/08/16 07:00 15:00 23:00 07:00 15:00 23:00 Intake Total 100 ml 0 ml 480 ml 360 ml Output Total 500 ml 800 ml 600 ml Balance -400 ml -800 ml -120 ml 360 ml Intake Oral 0 ml 480 ml 360 ml IV Total 100 ml 0 ml 0 ml Output Urine Total 500 ml 800 ml 600 ml # Voids 2 # Bowel Movements 0 0 Laboratory Laboratory Tests Test 11/07/16 11/07/16 11/08/16 11:58 17:47 04:32 White Blood Count 6.9 7.1 6.8 Red Blood Count 4.33 4.32 4.18 Hemoglobin 9.0 9.0 8.8 Hematocrit 28.5 29.0 27.6 Mean Corpuscular Volume 65.8 67.1 66.0 Mean Corpuscular Hemoglobin 20.7 20.8 21.0 Mean Corpuscular Hemoglobin 31.4 31.0 31.8 Concent Red Cell Distribution Width 23.7 23.0 23.2 Platelet Count 262 266 267 Mean Platelet Volume 8.8 8.9 8.7 Physical Exam CHEST: Chest is clear to auscultation and percussion. CARDIAC: Regular rate and rhythm with no murmur gallop or rubs. ABDOMEN: Soft, nondistended, nontender; no hepatosplenomegaly; bowel sounds are present in all four quadrants. EXTREMITIES: No clubbing, cyanosis, or edema. SKIN: Normal; no rash; no jaundice. Assessment and Plan Assessment: (1) Anemia (2) Heme + stool Plan Hb appears stable pt again states she wants to defer endo evaluation and wants to go home can consider outpt w/u with egd and or c scope Problem Qualifiers (1) Anemia: Qualified Code: D64.9 - Anemia, unspecified type Leonid Mayer MD Nov 08, 2016 10:09
[2016-11-08 12:00] VITALS: BP 144/65; PULSE 61; RESP 16; TEMP 96.4; O2SAT 98
[2016-11-08] MEDS: TIOTROPIUM BROMIDE 18 MCG INH INH SCH (12:09)
--- NOTE | 2016-11-08 14:13 | HHI.PR ---
Subjective Subjective Remarks Resting in bed Does get up and ambulate with walker to bathroom and in room when she feels like it No chest pain no shortness of breath Afebrile (Arti Villa) Review of Systems Constitutional Constitutional: Fatigue, Weakness (Arti Villa) Pulmonary Respiratory: Shortness of Breath (debility and COPD) (Arti Villa) GI/Abdomen GI/Abdominal Exam: Positive Bowel Movement (on Coumadin has been on hold) ( Arti Villa) Musculoskeletal MS: Weakness, Stiffness (Arti Villa) Psychiatric Psychiatric Remarks Currently he understands where she is and that she has been in and out of the hospital, states she was only home for 1 day (Arti Villa) Vitals/Results Intake & Output 11/07/16 11/07/16 11/08/16 15:00 23:00 07:00 Intake Total 0 ml 480 ml 360 ml Output Total 800 ml 600 ml Balance -800 ml -120 ml 360 ml Intake Oral 0 ml 480 ml 360 ml IV Total 0 ml 0 ml Output Urine Total 800 ml 600 ml # Voids 2 # Bowel Movements 0 Vital Signs Vital Signs Date Time Temp Pulse Resp B/P Pulse Ox O2 Delivery O2 Flow Rate FiO2 11/08/16 12:00 96.4 61 16 144/65 98 11/08/16 08:00 96.2 58 17 140/65 96 11/07/16 23:29 96.3 61 17 155/57 97 11/07/16 20:16 96.9 65 17 135/62 95 11/07/16 16:00 95.8 70 18 175/75 97 (Arti Villa) CBC/BMP: 11/08/16 0432 11/07/16 0522 Lab Results Laboratory Tests Test 11/07/16 11/08/16 17:47 04:32 White Blood Count 7.1 TH/MM3 6.8 TH/MM3 Red Blood Count 4.32 MIL/MM3 4.18 MIL/MM3 Hemoglobin 9.0 GM/DL 8.8 GM/DL Hematocrit 29.0 % 27.6 % Mean Corpuscular Volume 67.1 FL 66.0 FL Mean Corpuscular Hemoglobin 20.8 PG 21.0 PG Mean Corpuscular Hemoglobin 31.0 % 31.8 % Concent Red Cell Distribution Width 23.0 % 23.2 % Platelet Count 266 TH/MM3 267 TH/MM3 Mean Platelet Volume 8.9 FL 8.7 FL Current Medications Administered Medications Medications (Trade) Dose Ordered Sig/Gypsy Route PRN Reason Start Time Stop Time Status Last Admin Dose Admin Sodium Chloride (NS 1000 ml Inj) 1,000 ml @ 100 mls/hr Q10H IV 11/06/16 20:49 11/06/16 23:24 Sodium Chloride (NS Flush) 2 ml BID IV FLUSH 11/06/16 21:00 11/08/16 09:24 Senna/Docusate Sodium (Leonarda-Colace) 1 tab BID PO 11/06/16 21:00 11/08/16 09:16 Atenolol (Tenormin) 50 mg Q12HR PO 11/06/16 21:45 11/08/16 09:16 Folic Acid (Folate) 1 mg DAILY PO 11/07/16 09:00 11/08/16 09:16 Lactobacillus Acidophilus (Lactinex) 1 tab TID PO 11/07/16 09:00 11/08/16 12:09 Levothyroxine Sodium (Synthroid) 100 mcg Q48H PO 11/08/16 06:00 11/08/16 05:43 Pravastatin Sodium (Pravachol) 40 mg HS PO 11/06/16 21:45 11/07/16 22:58 Tiotropium [place] (Spiriva Inh) 18 mcg DAILY INH 11/07/16 09:00 11/08/16 12:09 Ascorbic Acid (Vitamin C) 500 mg DAILY PO NS 11/07/16 09:00 11/08/16 09:16 Tolterodine Tartrate (Detrol La) 4 mg DAILY PO 11/07/16 09:00 11/08/16 09:16 Alprazolam (Xanax) 0.5 mg Q8H PRN PO FOR ANXIETY 11/06/16 21:45 11/08/16 06:18 Acetaminophen/ Hydrocodone Bitart ([place] 10-325 Mg) 1 tab Q6H PRN PO FOR PAIN 7-10 11/06/16 21:45 11/08/16 12:12 Famotidine (Pepcid) 20 mg BID PO 11/06/16 23:00 11/08/16 09:16 Cefuroxime Axetil (Ceftin 250 Mg/5 ml Liq) 250 mg BID PO 11/07/16 01:30 11/08/16 09:17 Amlodipine Besylate (Norvasc) 2.5 mg DAILY PO 11/07/16 10:00 11/08/16 09:16 (Arti VillaP) Physical Exam General General Appearance: Well Developed, Anxious (Arti Villa. DIRECTOR SUPPLIER QUALITY) Eyes Eye Exam: Pupils Reactive (Arti Villa. DIRECTOR SUPPLIER QUALITY) Ears & Nose Ears & Nose Exam: Nasal Mucosa [place] (Arti Villa. DIRECTOR SUPPLIER QUALITY) Throat Throat Exam: Oral Mucosa [place] & Moist (Arti Villa. DIRECTOR SUPPLIER QUALITY) Neck Neck Exam: Trachea Midline (Arti Villa. DIRECTOR SUPPLIER QUALITY) Pulmonary Resp Exam: Breath Sounds Equal (Arti Villa. DIRECTOR SUPPLIER QUALITY) Cardiology CV Exam: Normal Sinus Rhythm, Good Perfusion, Bradycardia (mild but asymptomatic) (Arti Villa. DIRECTOR SUPPLIER QUALITY) Gastrointestinal/Abdomen GI Exam: Non-Tender, Bowel Sounds Present (Arti Villa M. DIRECTOR SUPPLIER QUALITY) Musculoskeletal MS Exam: Normal Tone MS Remarks Ambulates with walker (Arti Villa. DIRECTOR SUPPLIER QUALITY) Integumentary Skin Exam: Warm, Dry (Arti Villa M. DIRECTOR SUPPLIER QUALITY) Neurologic Neuro Exam: Alert, Awake, Oriented, Speech Clear, Moving All Extremities, Physical Therapy Nurse Equal, No Focal Deficits (Arti Villa M. DIRECTOR SUPPLIER QUALITY) VTE Prophylaxis VTE Prophylaxis Device: SCDs (Arti Villa M. DIRECTOR SUPPLIER QUALITY) Assessment/Plan Assessment/Plan Signs reviewed, pulse 58 to the 60s, asymptomatic Labs reviewed, anemia stable with 8.8, hyponatremia mild 133, encourage by mouth fluids and increase appetite Dyspnea on admission, now resolved, no shortness of breath at rest With multiple recent hospital stays patient has had some debility and has had rehabilitation and physical therapy Appreciate input from pulmonary, we'll follow her on an outpatient basis Chest pressure, no evidence of CT or pulmonary emboli, appreciate cardiac input we'll see her as an outpatient Heme positive stools On Coumadin, and this now on hold, appreciate GI input, patient is refusing any further testing Chronic radiation cystitis, no complaints urinary frequency or retention Antiphospholipid syndrome, medical management Recently admitted with question of infection at the lumbar surgery site, will follow up with her physicians as as an outpatient Discussed with sister in room, patient threatened to walk out of the hospital, tired of hospital stays Discussed with patient Discussed with Dr. Sosa, seen on his behalf Discharge planning, chiefly to follow-up with her physicians on an outpatient basis, CT ruled out, discharge pending today or possible a.m. (Arti Villa) Assessment/Plan seen, examined by myself, Dr Sosa, today Discussed with patient and nurse Cleared for discharge from GI and from psychiatry Discharge home today Follow with primary physician Discussed with mid level provider The exam, history, and the medical decision-making described in the above note were completed with the assistance of the mid-level provider. I reviewed the findings presented. I attest that I had a [id number] encounter with the patient on the same day, and personally performed and documented my assessment and findings in the medical record. (Baltazar Sosa MD) Arti Villa Nov 08, 2016 14:12 Baltazar Sosa MD Nov 08, 2016 18:23
--- NOTE | 2016-11-08 15:51 | PD.PSY.CON ---
Provisional Diagnosis Admission Date Nov 06, 2016 at 19:26 [place] I. Delirium FO5 History of Present Illness Service Psychiatry Consult Requested By Attending James Reason for Consult Assessment Primary Care Physician SALOMÓN Patient is an 81-year-old white female admitted to medical [facility] for continuing treatment of multiple various medical issues as to see because of feelings that the patient showed signs of paranoia and delusions. The seen in her room with RN present throughout session. Patient is alert well oriented thin slender white female appearing somewhat younger than her stated age she is calm and cooperative with me she denies suicidality homicidality voices or visions she denies any prior psychiatric contact hospitalization her psychotropic medications she does acknowledge having some significant stressors the of her 60-year-old daughter also but 24-year-old granddaughter. However she appears to live quite independently and is active in her community. At this time I see no signs of psychosis or delusions. She may have had delirious episode that is now resolving. At this time I see no need for psychotropic medications for further assessment. As okay by psych for discharge patient medically clear and stable thanks for consult I will sign off the present time Review of Systems Constitutional: DENIES: Diaphoretic episodes, Fatigue, Fever, Weight gain, Weight loss, Chills, Dizziness, Change in appetite, Night Sweats Endocrine: DENIES: Abnorml menstrual pattern, Heat/cold intolerance, Polydipsia , Polyuria, Polyphagia Ears, nose, mouth, throat: DENIES: Tinnitus, Hearing loss, Vertigo, Nasal discharge, Oral lesions, Throat pain, Hoarseness, Ear Pain, Running Nose, Epistaxis, Sinus Pain, Toothache, Odynophagia Respiratory: DENIES: Apneas, Cough, Snoring, Wheezing, Hemoptysis, Sputum production, Shortness of breath Cardiovascular: DENIES: Chest pain, Palpitations, Syncope, Dyspnea on Exertion , PND, Lower Extremity Edema, Orthopnea, Claudication Gastrointestinal: DENIES: Abdominal pain, Black stools, Bloody stools, Constipation, Diarrhea, Nausea, Vomiting, Difficulty Swallowing, Anorexia Genitourinary: DENIES: Abnormal vaginal bleeding, Dysmenorrhea, Dyspareunia, Sexual dysfunction, Urinary frequency, Urinary incontinence, Urgency, Hematuria , Dysuria, Nocturia, Vaginal discharge Musculoskeletal: DENIES: Joint pain, Muscle aches, Stiffness, Joint Swelling, Back pain, Neck pain Integumentary: DENIES: Abnormal pigmentation, Pruritus, Rash, Nail changes, Breast masses, Breast skin changes, Nipple discharge Hematologic/lymphatic: DENIES: Bruising, Lymphadenopathy Immunologic/allergic: DENIES: Eczema, Urticaria Neurologic: DENIES: Abnormal gait, Headache, Localized weakness, Paresthesias, Seizures, Speech Problems, Tremor, Poor Balance Psychiatric: DENIES: Anxiety, Confusion, Mood changes, Depression, Hallucinations, Agitation, Suicidal Ideation, Homicidal Ideation, Delusions Past Family Social History Coded Allergies: *MDRO Multi-Drug Resistant Organism (Verified Adverse Reaction, Unknown, VRE, 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 Past Medical History C MedSurg Active Scripts Cefuroxime Liq (Ceftin Liq)250 Mg/5 Ml [id number] Mg PO BID 15 Days Ref 0 Prov:Baltazar Sosa MD 11/05/16 Tiotropium Inh (Spiriva Handihaler)18 Mcg Cap18 Mcg INH DAILY 30 Days Prov:Payam Bliss MD 10/16/16 Lactobacillus Acidophilus (Acidophilus/l-Sporogenes)1 Tab Tab1 Tab PO TID #90 TAB Prov:Payam Bliss MD 10/16/16 Calcium/Vitamin D (Oyster Shell 250 mg + Vit D Tb)250 Mg Calcium (625 Mg)-125 Unit [id number] Mg PO Q12HR #60 Prov:Payam Bliss MD 10/16/16 Atenolol 50 Mg Tab50 Mg PO Q12HR #60 TAB Prov:Payam Bliss MD 10/16/16 Alprazolam (Xanax)0.5 Mg Tab0.5 Mg PO Q8H PRN (ANXIETY) #60 TAB Prov:Payam Bliss MD 10/16/16 Warfarin (Coumadin)4 Mg Tab4 Mg PO DAILY@16 #30 TAB Prov:Payam Bliss MD 10/16/16 Vancomycin Inj 500 Mg [id number] Mg PO BID 19 Days 125 mg PO BID from 10/15 - 10/22 125 mg daily 10/23 - 10/29 125 mg every other day 10/30 - 11/06 Prov:Payam Bliss MD 10/16/16 Folic Acid 1 Mg Tablet1 Mg PO DAILY #30 Prov:Payam Bliss MD 10/16/[address] (Aspirin 81)81 Mg Tabdr81 Mg PO DAILY #30 TAB Ref 0 Prov:Payam Bliss MD 10/16/16 Ascorbic Acid (Vitamin C)250 Mg Wmq466 Mg PO DAILY #30 TAB Ref 0 Prov:Payam Bliss MD 10/16/16 Triamterene-Hydrochlorothiazide (Maxzide)75-50 Mg Tab1 Tab PO DAILY #30 TAB Prov:Payam Bliss MD 10/16/16 Potassium Chloride ER (Klor-Con 10)10 Meq Tab20 Meq PO DAILY #30 TAB Prov:Payam Bliss MD 10/16/16 Hydrocodone-Acetaminophen 10-325 mg Tab1 Tab PO Q6HR PRN (PAIN SCALE 1 TO 10) # 40 TAB Ref 0 Prov:Payam Bliss MD 10/16/16 Levothyroxine (Synthroid)100 Mcg Lkc437 Mcg PO EVERY OTHER DAY #30 TAB Ref 0 Prov:Payam Bliss MD 10/16/16 Pravastatin (Pravachol)40 Mg Tab40 Mg PO HS #30 TAB Ref 0 Prov:Payam Bliss MD 10/16/16 Omeprazole 40 Mg Cap40 Mg PO DAILY #30 CAP Ref 0 Prov:Payam Bliss MD 10/16/16 Ipratropium-Albuterol Inh (Combivent Respimat Inh)20-100 Fpc/Act Aero2 Puff INH QID PRN (SHORTNESS OF BREATH) #1 INHALER Ref 0 Prov:Payam Bliss MD 10/16/16 Cholecalciferol (Vitamin D3)1,000 Unit Tab1,000 Units PO DAILY #1 BOTTLE Ref 0 Prov:Payam Bliss MD 10/16/16 Solifenacin (Vesicare)10 Mg Tab10 Mg PO DAILY #30 TAB Ref 0 Prov:Payam Bliss MD 10/16/16 [shower tub chair] No Conflict Check #1 Ea Prov:Danilo Falk 10/14/16 Walker Rolling/GetGo 1 Mis Mis #1 Ea .route As Directed Prov:Danilo Falk 10/14/16 Discontinued Scripts Meropenem Inj 1 Gm/50 Ml Bag1,000 Mg IV Q8H 7 Days Ref 0 Last dose on 10/24/16 Prov:Payam Bliss MD 10/14/16 Current Medications Medications (Trade) Dose Ordered Sig/Gypsy Route Start Time Stop Time Status Last Admin (NS 1000 ml Inj) 1,000 ml @ 100 mls/hr Q10H IV 11/06/16 20:49 11/06/16 23:24 (NS Flush) 2 ml UNSCH PRN IV FLUSH 11/06/16 21:00 (NS Flush) 2 ml BID IV FLUSH 11/06/16 21:00 11/08/16 09:24 (Tylenol) 650 mg Q4H PRN PO 11/06/16 21:00 (Zofran Inj) 4 mg Q6H PRN IVP 11/06/16 21:00 (Narcan Inj) 0.4 mg UNSCH PRN IV 11/06/16 21:00 (Leonarda-Colace) 1 tab BID PO 11/06/16 21:00 11/08/16 09:16 (Milk Of Magnesia Liq) 30 ml Q12H PRN PO 11/06/16 21:00 (Senokot) 17.2 mg Q12H PRN PO 11/06/16 21:00 (Dulcolax Supp) 10 mg DAILY PRN RECTAL 11/06/16 21:00 (Lactulose Liq) 30 ml DAILY PRN PO 11/06/16 21:00 (Tenormin) 50 mg Q12HR PO 11/06/16 21:45 11/08/16 09:16 (Folate) 1 mg DAILY PO 11/07/16 09:00 11/08/16 09:16 (Lactinex) 1 tab TID PO 11/07/16 09:00 11/08/16 12:09 (Synthroid) 100 mcg Q48H PO 11/08/16 06:00 11/08/16 05:43 (Pravachol) 40 mg HS PO 11/06/16 21:45 11/07/16 22:58 (Spiriva Inh) 18 mcg DAILY INH 11/07/16 09:00 11/08/16 12:09 (Coumadin) 4 mg DAILY@16 PO 11/07/16 16:00 Hold (Vitamin C) 500 mg DAILY PO 11/07/16 09:00 11/08/16 09:16 (Ventolin Hfa Inh) 2 puff QID PRN INH 11/06/16 21:45 (Detrol La) 4 mg DAILY PO 11/07/16 09:00 11/08/16 09:16 (Vasotec Inj) 1.25 mg Q6H PRN IV PUSH 11/06/16 21:45 (Xanax) 0.5 mg Q8H PRN PO 11/06/16 21:45 11/08/16 06:18 ([place] 10-325 Mg) 1 tab Q6H PRN PO 11/06/16 21:45 11/08/16 12:12 (Pepcid) 20 mg BID PO 11/06/16 23:00 11/08/16 09:16 (Ceftin 250 Mg/5 ml Liq) 250 mg BID PO 11/07/16 01:30 11/08/16 09:17 (Norvasc) 2.5 mg DAILY PO 11/07/16 10:00 11/08/16 09:16 (Pill Splitter) 1 ea UNSCH PRN OTHER 11/07/16 10:00 Family History Patient denies any mental illness or substance abuse and family Social History Patient has one surviving daughter Patient's Strengths (min. 2) Patient verbal cooperative pleasant Physical Exam Please see [facility] assessments Vital Signs Vital Signs Date Time Temp Pulse Resp B/P Pulse Ox O2 Delivery O2 Flow Rate FiO2 11/08/16 12:00 96.4 61 16 144/65 98 11/06/16 19:12 Room Air I/O 11/07/16 11/07/16 11/08/16 08:00 16:00 00:00 Intake Total 100 ml 0 ml 480 ml Output Total 500 ml 800 ml 600 ml Balance -400 ml -800 ml -120 ml Mental Status Examination Alert oriented white female appears younger than stated age lying quietly in bed she is calm cooperative with good eye contact Appearance Clean the Speech: Unremarkable Orientation: x3 Memory: Unremarkable Thought Process: Logical, Organized Thought Content: Unremarkable Language Fair to good Fund of Knowledge Fair to good Hallucination Type: None Attention and Concentration: Good Suicidal Ideation: No Previous Suicide Attempts: No Homicidal Ideation: No Previous Homicide Attempts: No Insight: Fair Judgment: WNL (fair) Affect: Other (good range intense) Mood: Euthymic (to somewhat "feisty") Motor Activity: Normal gait Assessment & Plan Problem List: (1) Delirium due to another medical condition ICD Code: F05 Assessment & Plan Estimated LOS: days I see no signs of mental health issues at this time. Is okay by psych for discharge when she medically clear and stable, no Rx by me, follow-up with her PCP Discharge Planning See above Request HC Surrog/Guard Advoc?: No Dariel Mcneill MD Nov 08, 2016 15:51
[2016-11-08 16:00] VITALS: BP 151/69; PULSE 60; RESP 17; TEMP 97.2; O2SAT 99
--- NOTE | 2016-11-08 16:12 | HHI.FF ---
Face to Face Verification Diagnosis: (1) Antiphospholipid antibody syndrome (2) Chest pressure (3) HTN (hypertension) (4) Anemia (5) Shortness of breath (6) Surgical wound infection (7) Inability to ambulate due to multiple joints (8) S/P lumbar laminectomy Physical Therapy Order: Evaluate and Treat, Improve ambulation Occupational Therapy Order: Evaluate and Treat, Improve ADL, Gross motor coordination, Fine motor coordination Speech Therapy Order: To Improve: Cognitive skills Home Health Nursing Order: Nursing assessment with vital signs I have seen patient Elyse Dougherty on 11/08/16. My clinical findings support the need for the requested home health care services because: Ltd mobility - disease progression Patient has SOB Deconditioned w/ increased weakness Impaired cognition/judgement I certify that my clinical findings support that this patient is homebound because: Impaired cognitive ability/safety Hx COPD- exertion dyspnea/weakness Unsteady gait/balance Need for psychosocial assistance Arti Villa Nov 08, 2016 16:12
--- NOTE | 2016-11-08 17:11 | HHI.DS ---
Discharge Summary Admission Date Nov 06, 2016 at 19:26 Discharge Date: Nov 08, 2016 Admitting Diagnosis GI bleed, hyponatremia (1) Shortness of breath Diagnosis: Principal (2) Chest pressure Diagnosis: Principal (3) Black stool Diagnosis: Secondary (4) Presence of IVC filter Diagnosis: Secondary (5) Hx pulmonary embolism Diagnosis: Secondary (6) Chronic radiation cystitis Diagnosis: Secondary (7) S/P lumbar laminectomy Diagnosis: Secondary (8) HTN (hypertension) Diagnosis: Secondary (9) Antiphospholipid antibody syndrome Diagnosis: Secondary (10) Hx TIA/stroke w/o resid Diagnosis: Secondary (11) Anemia Diagnosis: Secondary (12) hx recent infection lumbar surgical site Diagnosis: Secondary (13) Low back pain Diagnosis: Secondary (14) Anxiety Diagnosis: Secondary (15) Chronic anticoagulation Diagnosis: Secondary Brief History This was a pleasant 81-year-old female with recent hospitalizations and complications after she underwent an elective L5-S1 hemilaminectomy laminectomy and microdiscectomy September 17, 2016. Patient was initially admitted to [place] from 09/21/2016 to October 06, 2016 with sepsis, was found with fluid collection the lumbar site. IR drained the fluid collection. She grew Pseudomonas and was treated with antibiotics per ID recommendations. During that admission, she was also found with non-STEMI and was evaluated by cardiology and required heparin drip. It was thought that the elevation in troponin was due to sepsis. She also developed C. difficile with severe diarrhea. Patient was eventually discharged to [facility] for further therapy. After [facility], patient went to subacute rehabilitation for more strengthening and was eventually discharged. Patient was readmitted shortly after on November 01, 2016 after she was noted very weak and deconditioned by Dr. Ramos when she went for a scheduled appointment. Patient was evaluated, had another MRI of the lumbar showed increased and the uptake, however patient had no definitive signs of infection. Cultures were obtained, patient was put on antibiotics. She was discharge on November 05 on oral antibiotics in stable condition with resumption of home health care and physical therapy at home. Patient returns back to the emergency room today for evaluation of shortness of breath. Patient indicated that today while the home health care nurse was in to visit her she complained of chest heaviness with some shortness of breath and feeling clammy. Chest discomfort was nonradiating. She did her inhaler with some relief. Her home health care nurse contacted her marketing services manager Dr. Pinon who instructed her to come to the emergency room. She is also noted that her stools have become more darker than usual. Her financial service representative is Dr. Mayer. Indicates that her stools are usually dark and she's had previous GI workup, the last time 4-5 years ago. She was on Coumadin and her INR is therapeutic. She denied any hematemesis. She was complaining of mild right lower quadrant tenderness, abdomen slightly distended. Appetite has been okay. Indicates that she was very anxious, she didn't think she was cannot be admitted and was hoping to be discharged directly from the emergency room. CBC/BMP: 11/08/16 0432 11/07/16 0522 Significant Findings Laboratory Tests Test 11/06/16 11/07/16 11/07/16 11/07/16 16:05 00:03 05:22 11:58 Prothrombin Time 25.8 SEC 25.2 SEC (9.8-11.6) (9.8-11.6) Activated Partial 56.0 SEC Thromboplast Time (24.3-30.1) D-Dimer Quantitative (PE/DVT) 0.69 MG/L FEU (0.00-0.50) Sodium Level 126 MEQ/L 133 MEQ/L (136-145) (136-145) Chloride Level 93 MEQ/L (98-107) Estimat Glomerular Filtration 73 ML/MIN (>89) Rate Aspartate Amino Transf 11 U/L (15-37) (AST/SGOT) Troponin I LESS THAN 0.02 LESS THAN 0.02 LESS THAN 0.02 NG/ML NG/ML NG/ML (0.02-0.05) (0.02-0.05) (0.02-0.05) Albumin 2.6 GM/DL (3.4-5.0) Lipase 54 U/L (73-393) Hemoglobin 10.1 GM/DL 9.0 GM/DL 9.0 GM/DL (11.6-15.3) (11.6-15.3) (11.6-15.3) Hematocrit 31.5 % 28.8 % 28.5 % (35.0-46.0) (35.0-46.0) (35.0-46.0) Mean Corpuscular Volume 65.6 FL 66.2 FL 65.8 FL (80.0-100.0) (80.0-100.0) (80.0-100.0) Mean Corpuscular Hemoglobin 21.1 PG 20.6 PG 20.7 PG (27.0-34.0) (27.0-34.0) (27.0-34.0) Red Cell Distribution Width 23.3 % 23.0 % 23.7 % (11.6-17.2) (11.6-17.2) (11.6-17.2) Neutrophils (%) (Auto) 90.3 % 90.1 % (16.0-70.0) (16.0-70.0) Lymphocytes (%) (Auto) 5.5 % 5.4 % (9.0-44.0) (9.0-44.0) Lymphocytes # (Auto) 0.4 TH/MM3 0.4 TH/MM3 (1.0-4.8) (1.0-4.8) Mean Corpuscular Hemoglobin 31.2 % 31.4 % Concent (32.0-36.0) (32.0-36.0) Calcium Level 8.3 MG/DL (8.5-10.1) Total Creatine Kinase 21 U/L (26-192) Test 11/07/16 11/08/16 17:47 04:32 Hemoglobin 9.0 GM/DL 8.8 GM/DL (11.6-15.3) (11.6-15.3) Hematocrit 29.0 % 27.6 % (35.0-46.0) (35.0-46.0) Mean Corpuscular Volume 67.1 FL 66.0 FL (80.0-100.0) (80.0-100.0) Mean Corpuscular Hemoglobin 20.8 PG 21.0 PG (27.0-34.0) (27.0-34.0) Mean Corpuscular Hemoglobin 31.0 % 31.8 % Concent (32.0-36.0) (32.0-36.0) Red Cell Distribution Width 23.0 % 23.2 % (11.6-17.2) (11.6-17.2) Imaging Last Impressions CT Angiography 11/06/16 1715 Signed Impressions: Service Date/Time: November 18:21 - CONCLUSION: 1. The study is negative for pulmonary embolism. 2. Chronic scarring at the right lung base. No evidence of pleural effusion. Modesto Herr MD Chest X-Ray 11/06/16 1536 Signed Impressions: Service Date/Time: November 15:48 - CONCLUSION: No acute cardiopulmonary abnormality is identified. Dariel Noe MD PE at Discharge General Appearance: Well Developed, Anxious Eyes Eye Exam: Pupils Reactive Ears & Nose Ears & Nose Exam: Nasal Mucosa [place] Throat Throat Exam: Oral Mucosa [place] & Moist Neck Neck Exam: Trachea Midline Pulmonary Resp Exam: Breath Sounds Equal Cardiology CV Exam: Normal Sinus Rhythm, Good Perfusion, Bradycardia (mild but asymptomatic) Gastrointestinal/Abdomen GI Exam: Non-Tender, Bowel Sounds Present Musculoskeletal MS Exam: Normal Tone MS Remarks Ambulates with walker Integumentary Skin Exam: Warm, Dry Neurologic Neuro Exam: Alert, Awake, Oriented, Speech Clear, Moving All Extremities, Controls Designer Equal, No Focal Deficits VTE Prophylaxis VTE Prophylaxis [facility] In the [facility], She denied any fever, but always had chills. She continued to complain of back pain which appears to have become more of a chronic issue at this time. There is no radiculopathy. Indicated she has been ambulating more and is not using any assistive devices. Dr. Pinon was contacted from the emergency room and requested d-dimer and further workup if positive. CTA was negative for pulmonary embolism. She was noted with heme-positive stools. HH is stable, hemoglobin 10.1, hematocrit 31.5. INR 2.3. Troponin was negative. BNP 74. She was found hyponatremic, sodium 126. Patient is somewhat anxious at this time, again she wanted to go home. She indicated that the chest pressure and shortness of breath was likely due to anxiety as she had previous episodes before. I have explained to her that we will need to admit her at least overnight to rule out acute coronary syndrome and to have gastroenterology evaluate her. She agrees with admission. Patient was admitted for further evaluation and treatment. Patient was seen per cardiology and Pulmonary. He followed on an outpatient basis. Patient was ruled out from [place], she is medically stable to discharge back home with PT, OT and ST added. Patient is to be maintained on Coumadin therapy, hemoglobin will be monitored Pt Condition on Discharge: Stable Discharge Disposition: Disch w/ Home Health Serv Discharge Instructions DIET: Follow Instructions for: Heart Healthy Diet Activities you can perform: Weight Bearing as Mary Carmen Follow up Referrals: PCP Follow-up - 1 Week Continued Medications: Alprazolam (Xanax) 0.5 Mg Tab 0.5 MG PO Q8H PRN ANXIETY #60 TAB Ascorbic Acid (Vitamin C) 250 Mg Tab 500 MG PO DAILY Nutritional Supplement #30 Ref [address] (Aspirin 81) 81 Mg Tabdr 81 MG PO DAILY #30 Ref 0 TAB Atenolol (Atenolol) 50 Mg Tab 50 MG PO Q12HR #60 TAB Calcium/Vitamin D (Oyster Shell 250 mg + Vit D Tb) 250 Mg Calcium (625 Mg)-125 Unit Tablet 250 MG PO Q12HR #60 Cholecalciferol (Vitamin D3) 1,000 Unit Tab 1000 UNITS PO DAILY Nutritional Supplement #1 Ref 0 BOTTLE Folic Acid (Folic Acid) 1 Mg Tablet 1 MG PO DAILY #30 Hydrocodone-Acetaminophen (Hydrocodone-Acetaminophen) 10-325 mg Tab 1 TAB PO Q6HR PRN PAIN SCALE 1 TO 10 #40 Ref 0 TAB Ipratropium-Albuterol Inh (Combivent Respimat Inh) 20-100 Correction/Act Aero 2 PUFF INH QID PRN SHORTNESS OF BREATH #1 Ref 0 INHALER Lactobacillus Acidophilus (Acidophilus/l-Sporogenes) 1 Tab Tab 1 TAB PO TID #90 TAB Levothyroxine (Synthroid) 100 Mcg Tab 100 MCG PO EVERY OTHER DAY Thyroid #30 Ref 0 TAB Omeprazole (Omeprazole) 40 Mg Cap 40 MG PO DAILY #30 Ref 0 CAP Potassium Chloride ER (Klor-Con 10) 10 Meq Tab 20 MEQ PO DAILY electrolyte replacement #30 TAB Pravastatin (Pravachol) 40 Mg Tab 40 MG PO HS Cholesterol Management #30 Ref 0 TAB Solifenacin (Vesicare) 10 Mg Tab 10 MG PO DAILY Urinary Symptom Managemen #30 Ref 0 TAB Tiotropium Inh (Spiriva Handihaler) 18 Mcg Cap 18 MCG INH DAILY Days 30 CAP Triamterene-Hydrochlorothiazide (Maxzide) 75-50 Mg Tab 1 TAB PO DAILY Blood Pressure Management #30 TAB Vancomycin Inj (Vancomycin Inj) 500 Mg Inj 125 MG PO BID 125 mg PO BID from 10/15 - 10/22 125 mg daily 10/23 - 10/29 125 mg every other day 10/30 - 11/06 Days 19 INJECTION Walker Rolling/GetGo (Walker Rolling/GetGo) 1 Mis Mis 1 EA .ROUTE DIRECTED #1 EA Warfarin (Coumadin) 4 Mg Tab 4 MG PO DAILY@16 #30 TAB ([shower tub chair]) EA #1 Discontinued Medications: Cefuroxime Liq (Ceftin Liq) 250 Mg/5 Ml Susp 250 MG PO BID Infection Days 15 Ref 0 ML Arti Villa Nov 08, 2016 17:11
[2016-11-09] MEDS ORDERED: ALPR.25 PO (12:56)
[2016-11-09] MEDS ORDERED: WARF-20 PO ×2 (12:56→12:57)
[2016-11-11] MEDS ORDERED: NEUR300C PO (16:48)
== END 2016-11-08 17:36 | disposition home or self-care (01) | DRG 378 ==
LOC: NEPC 14:55 → NEDA 19:26 → N07B 22:24
PROVIDERS: ADMIT Specialist; ATTEND Specialist
DX: K92.2 Gastrointestinal hemorrhage, unspecified (principal); N30.40 Irradiation cystitis without hematuria; D68.61 Antiphospholipid syndrome; K52.0 Gastroenteritis and colitis due to radiation; D45 Polycythemia vera; D47.2 Monoclonal gammopathy; E87.1 Hypo-osmolality and hyponatremia; D64.9 Anemia, unspecified; Z79.01 Long term (current) use of anticoagulants; J44.9 Chronic obstructive pulmonary disease, unspecified; R07.89 Other chest pain; I10 Essential (primary) hypertension; Z86.711 Personal history of pulmonary embolism; Z86.73 Personal history of transient ischemic attack (TIA), and cerebral infarction without residual deficits; M54.5 Low back pain; F41.9 Anxiety disorder, unspecified; I25.2 Old myocardial infarction; E78.5 Hyperlipidemia, unspecified; E03.9 Hypothyroidism, unspecified; K21.9 Gastro-esophageal reflux disease without esophagitis; Z92.21 Personal history of antineoplastic chemotherapy; Z92.3 Personal history of irradiation; Z85.41 Personal history of malignant neoplasm of cervix uteri
CPT/HCPCS: 71010; 71275; 80048; 80053; 82550; 83690; 83735; 83880; 84484; 85025; 85027; 85379; 85610; 85730; 86850; 86900; 86901; 93005; 96374; C9113; J7030; J7040; Q9967

== ENCOUNTER 2016-11-22 13:54 | Inpatient (IN) | payer MEDICARE, OTHER ==
[~2016-11-22] VITALS: Ht 165.1 cm; Wt 56.2 kg
[~2016-11-22 13:54] MED LIST changes: +ALPR.25 PO; -ALPR.5 PO; -CEFT250S PO; -COUM4TAB PO; +MEDR4PAK PO; +NEUR300C PO; +WARF-20 PO
[2016-11-22 14:04] VITALS: BP 149/67; PULSE 60; RESP 16; TEMP 97.7; O2SAT 99
[2016-11-22 14:30] VITALS: RESP 16; O2SAT 94
[2016-11-22] MEDS ORDERED: MORPHINE SULFATE 4 MG/ML INJ IV PUSH ONE (14:30)
[2016-11-22] MEDS ORDERED: SODIUM CHLORIDE 0.9% FLUSH 10 ML FLUSH IV FLUSH PRN (14:30)
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
[2016-11-22 15:34] LABS: AUTOMATED NEUTROPHIL # 8.2 TH/MM3 (1.8-7.7); BASOPHIL # 0.1 TH/MM3 (0-0.2); BASOPHIL % 1.4 % (0.0-2.0); EOSINOPHIL # 0.1 TH/MM3 (0-0.4); EOSINOPHIL % 0.7 % (0.0-4.0); HEMATOCRIT 31.9 % (35.0-46.0); HEMO FLAGS DIFF FINAL; LYMPH % 5.7 % (9.0-44.0); LYMPHOCYTE # 0.5 TH/MM3 (1.0-4.8); MEAN CELL VOLUME 68.1 FL (80.0-100.0); MEAN CORPUSCULAR HGB CONC 32.3 % (32.0-36.0); NEUT % 89.2 % (16.0-70.0); PLATELET COUNT 241 TH/MM3 (150-450); RED BLOOD COUNT 4.69 MIL/MM3 (4.00-5.30); WHITE BLOOD COUNT 9.2 TH/MM3 (4.0-11.0)
[2016-11-22 15:55] LABS: BLOOD, URINE NEG (NEG); COMMENT (UR) CULT NOT INDICATED; CULTURE IF INDICATED CULT NOT INDICATED; GLUCOSE,URINE NEG (NEG); KETONE, URINE NEG (NEG); NITRITE,URINE NEG (NEG); PH, URINE 6.5 (5.0-8.5); SQUAMOUS EPITHELIAL CELL URINE 1 /hpf (0-5); URINE COLOR YELLOW (YELLW/STRAW)
[2016-11-22 16:13] LABS: BICARBONATE 25.2 MEQ/L (21.0-32.0); POTASSIUM 4.5 MEQ/L (3.5-5.1)
[2016-11-22] MEDS ORDERED: GADODIAMIDE PF 287 MG/ML 10 ML VIAL (for RAD MRI) IV ONE (19:09)
--- NOTE | 2016-11-22 19:11 | PD ---
Physical Exam Date Seen by Provider: Nov 22, 2016 Time Seen by Provider: 19:10 Narrative accepted transfer of care from Dr. Black Data Data Last Documented VS Vital Signs Date Time Temp Pulse Resp B/P Pulse Ox O2 Delivery O2 Flow Rate FiO2 11/22/16 15:16 16 11/22/16 14:30 94 Room Air 11/22/16 14:06 61 11/22/16 14:04 97.7 149/67 Orders Mri L Spine W&W/O Contrast (11/22/16 ) Basic Metabolic Panel (Bmp) (11/22/16 14:29) Complete Blood Count With Diff (11/22/16 14:29) Urinalysis - C+S If Indicated (11/22/16 14:29) Iv Access Insert/Monitor (11/22/16 14:29) Ecg Monitoring (11/22/16 14:29) Oximetry (11/22/16 14:29) Sodium Chloride 0.9% Flush (Ns Flush) (11/22/16 14:30) Morphine Inj (Morphine Inj) (11/22/16 14:30) Creatine Kinase (Cpk) (11/22/16 14:30) Gadodiamide Pf Inj (Omniscan Pf Inj) (11/22/16 19:09) Labs Laboratory Tests Test 11/22/16 11/22/16 14:30 14:45 White Blood Count 9.2 TH/MM3 Red Blood Count 4.69 MIL/MM3 Hemoglobin 10.3 GM/DL Hematocrit 31.9 % Mean Corpuscular Volume 68.1 FL Mean Corpuscular Hemoglobin 22.0 PG Mean Corpuscular Hemoglobin 32.3 % Concent Red Cell Distribution Width 22.0 % Platelet Count 241 TH/MM3 Mean Platelet Volume 8.8 FL Neutrophils (%) (Auto) 89.2 % Lymphocytes (%) (Auto) 5.7 % Monocytes (%) (Auto) 3.0 % Eosinophils (%) (Auto) 0.7 % Basophils (%) (Auto) 1.4 % Neutrophils # (Auto) 8.2 TH/MM3 Lymphocytes # (Auto) 0.5 TH/MM3 Monocytes # (Auto) 0.3 TH/MM3 Eosinophils # (Auto) 0.1 TH/MM3 Basophils # (Auto) 0.1 TH/MM3 CBC Comment DIFF FINAL Differential Comment Sodium Level 126 MEQ/L Potassium Level 4.5 MEQ/L Chloride Level 92 MEQ/L Carbon Dioxide Level 25.2 MEQ/L Anion Gap 9 MEQ/L Blood Urea Nitrogen 13 MG/DL Creatinine 0.61 MG/DL Estimat Glomerular Filtration 94 ML/MIN Rate Random Glucose 95 MG/DL Calcium Level 8.7 MG/DL Total Creatine Kinase 31 U/L Urine Color YELLOW Urine Turbidity CLEAR Urine pH 6.5 Urine Specific [place] 1.012 Urine Protein TRACE mg/dL Urine Glucose (UA) NEG mg/dL Urine Ketones NEG mg/dL Urine Occult Blood NEG Urine Nitrite NEG Urine Bilirubin NEG Urine Urobilinogen LESS THAN 2.0 MG/DL Urine Leukocyte Esterase SMALL Urine RBC LESS THAN 1 /hpf Urine WBC 6 /hpf Urine Squamous Epithelial 1 /hpf Cells Microscopic Urinalysis Comment CULT NOT INDICATED MDM Medical Record Reviewed: Yes Supervised Visit with EMELY: No Interpretation(s) Last Impressions Lumbar Spine MRI 11/22/16 0000 Signed Impressions: Service Date/Time: Tuesday, November 22, 2016 18:53 - CONCLUSION: 1. Postsurgical changes with laminectomy defect on the right. Diffuse abnormal signal with enhancement in the laminectomy defect with fluid tracking posteriorly in the right paraspinal region. This fluid collection has increased in size and there is loculated appearance with enhancement. This is concerning for abscess. 2. Suspected discitis at L5-S1 with osteomyelitis within the adjacent endplates. There is also a small fluid collection/abscess anterior to the disc space at L5-S1. Camilo Valdez MD Differential Diagnosis accepted transfer of care from Dr. Black; please refer to his dictation Narrative Course accepted transfer of care from Dr. Black; ED eval by NS for disposition MR resulted concerning for fluid collection concerning for lumbar epidural abscess fluid collection and L/S discitis ---per Dr Byrne will admit to his service no antibiotics per Dr Byrne as specimen collection planned first Physician Communication Physician Communication discussed with Dr Byrne ---will admit to his service 5N no antibiotics -wants specimen first and has ordered CT guided specimen collection for the AM Diagnosis Primary Impression: Discitis Qualified Code: M46.47 - Discitis of lumbosacral region Additional Impression: Epidural abscess Admitting Information Admitting Physician Requests: Admit Mirta Sarkar MD Nov 22, 2016 19:11
--- NOTE | 2016-11-22 20:03 | RADRPT ---
EXAM DATE/TIME: 11/22/2016 18:53 [facility] COMPARISON: MRI LUMBAR SPINE W & W/O CONTRAST, October 31, 2016, 19:51. INDICATIONS : Inability to ambulate. CONTRAST: 10 cc Omniscan (gadodiamide) IV MEDICAL HISTORY : Hypertension. SURGICAL HISTORY : Discectomy, lumbar. ENCOUNTER: Initial ACUITY: 1 day PAIN SCORE: 4/10 LOCATION: Paraspinal TECHNIQUE: Multiplanar multisequence MRI of the lumbar spine was performed with and without contr ast. FINDINGS: The most caudal appearing lumbar vertebra is numbered as L5. There is T2 bright signal within the disc at L5-S1 with adjacent bright signal within the lower endpl ate at L5 and superior endplate at S1 consistent with discitis and adjacent osteomyelitis. Reactive c hanges are seen throughout L5 and S1. There is abnormal enhancement of the prevertebral soft tissues at L5-S1 measuring 4.4 x 1.9 cm Laminectomy defect again noted on the right at L5 with a tract going posteriorly. This fluid collection is larger on current study and now measures 5.1 x 3.3 cm. Post enh ancement images demonstrates peripheral loculated enhancement of this fluid collection which is large r on current study. T12-L1: The thecal sac has a normal diameter. No evidence of disc bulge or protrusion. The neural foramina are patent bilaterally. L1-L2: Minimal disc bulge is unchanged. The neural foramina are patent bilaterally. L2-L3: Mild disc bulge is unchanged. Mild facet arthropathy. The neural foramina are patent bilatera lly. L3-L4: Mild disc bulge and facet arthropathy are unchanged. The neural foramina are patent bilaterall y. L4-L5: Mild disc bulge and facet arthropathy are unchanged. The neural foramina are patent bilateral ly. L5-S1: Postlaminectomy changes on the right are again noted. Fluid is again noted to track posteriorl y with paraspinal fluid collection larger on current study. There is enhancement within the right lat eral recess extending into the laminectomy defect and within the posterior soft tissues. There is enh ancement throughout the right neural foramen there is severe neuroforaminal encroachment bilaterally. . Moderate facet arthropathy. CONCLUSION: 1. Postsurgical changes with laminectomy defect on the right. Diffuse abnormal signal with enhancemen t in the laminectomy defect with fluid tracking posteriorly in the right paraspinal region. This flui d collection has increased in size and there is loculated appearance with enhancement. This is concer miladys for abscess. 2. Suspected discitis at L5-S1 with osteomyelitis within the adjacent endplates. There is also a smal l fluid collection/abscess anterior to the disc space at L5-S1. Camilo Valdez MD on November 22, 2016 at 19:48 Board Certified Radiologist. This report was verified electronically.
[2016-11-22] MEDS ORDERED: ALBUTEROL SULFATE 90 MCG/ACT HFA 8 GM INHALER INH PRN (20:30)
[2016-11-22] MEDS ORDERED: SODIUM CHLORIDE 0.9% FLUSH 10 ML FLUSH IVF PRN (20:30)
[2016-11-22] MEDS ORDERED: SODIUM CHLORIDE 0.9% FLUSH 5 ML FLUSH IVF PRN (20:45)
[2016-11-22 21:00] VITALS: BP 134/74; PULSE 67; RESP 16; O2SAT 95
[2016-11-22] MEDS: SODIUM CHLORIDE 0.9% FLUSH 5 ML FLUSH IVF SCH (21:00)
[2016-11-22] MEDS: SODIUM CHLORIDE 0.9% FLUSH 10 ML FLUSH IV FLUSH SCH (21:00)
--- NOTE | 2016-11-22 21:14 | HHI.HP ---
[facility] Service Neurosurgery Primary Care Physician Chris Bedolla MD Chief Complaint: Progressive right lower extremity pain History of Present Illness 81-year-old female presents to the emergency room today with complaint of severe progressive right lower extremity pain. The patient indicates that in approximately May 2016 she developed progressive right lower extremity pain. She underwent an MRI of the lumbar spine in August 2016 and was seen by neurosurgery for evaluation with findings of a right L5-S1 herniated nucleus pulposus. She underwent right L5-S1 microdiscectomy on 09/03/16. She states that she did very well for for approximately 3 weeks postoperative, and then states that she developed generalized weakness. She was seen in the emergency room and admitted with a diagnosis of sepsis, hypokalemia, elevated troponin 1. She was seen by infectious disease and treated for gram-negative sepsis and C. difficile. An MRI 09/25/16 revealed some fluid in the paraspinous region but no definite enhancement or abscess formation. She developed abdominal distention and was seen by gastroenterology. The patient was discharged to [facility] on meropenem and vancomycin until 10/24/16, with Dificid until . She states that after inpatient rehabilitation, she was discharged for short period of time to the senior living facility. She has been home since then, with an assistant professor of english to help her. She states that she has had persistent and progressive right posterior lower extremity pain over the past few weeks. She was last seen for neurosurgery follow-up on 11/11/16 and a follow-up MRI of the spine from 10/31/16 was reviewed which did not reveal any definite abscess formation. The patient presents to the emergency room today due to progressive pain. She has not been able to eat well. She is not ambulating except for a short distance. She states that she feels as if she is not emptying her bladder fully. No bowel dysfunction. No recent fevers chills or sweats. Review of Systems Constitutional: COMPLAINS OF: Fatigue, Weight loss, Change in appetite, DENIES : Fever Eyes: COMPLAINS OF: Blurred vision, Diplopia, DENIES: Eye pain Ears, nose, mouth, throat: DENIES: Vertigo, Throat pain Respiratory: COMPLAINS OF: Cough, DENIES: Shortness of breath Cardiovascular: DENIES: Chest pain, Palpitations Gastrointestinal: DENIES: Abdominal pain, Diarrhea, Nausea, Vomiting Genitourinary: COMPLAINS OF: Urinary frequency, DENIES: Urinary incontinence Musculoskeletal: COMPLAINS OF: Muscle aches, Neck pain, DENIES: Joint pain, Back pain Hematologic/lymphatic: DENIES: Bruising Neurologic: COMPLAINS OF: Headache, DENIES: Abnormal gait, Localized weakness Psychiatric: DENIES: Anxiety, Confusion Past Family Social History Allergies: Coded Allergies: *MDRO Multi-Drug Resistant Organism (Verified Adverse Reaction, Unknown, VRE, 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 Gout Hypothyroidism Dyslipidemia Past Surgical History L5-S1 microdiscectomy September 2016 Biopsy cervix IVC filter Partial gastrectomy for stomach cancer Tonsillectomy Bilateral cataract surgery Reported Medications Reported Meds & Active Scripts Active Neurontin (Gabapentin) 300 Mg Cap 300 Mg PO TID start 1 tab daily x 3 days, then 1 tab bid x 3 days, then 1 tab tid. if any side effect stop medication and call office. Warfarin 4 Mg Tab 4 Mg PO DAILY Xanax (Alprazolam) 0.25 Mg Tab 0.25 Mg PO Q8H PRN Spiriva Handihaler (Tiotropium Inh) 18 Mcg Cap 18 Mcg INH DAILY 30 Days Acidophilus/l-Sporogenes (Lactobacillus Acidophilus) 1 Tab Tab 1 Tab PO TID Oyster Shell 250 mg + Vit D Tb (Calcium/Vitamin D) 250 Mg Calcium (625 Mg)-125 Unit Tablet 250 Mg PO Q12HR Atenolol 50 Mg Tab 50 Mg PO Q12HR Folic Acid 1 Mg Tablet 1 Mg PO DAILY Aspirin 81 (Aspirin) 81 Mg Tabdr 81 Mg PO DAILY Vitamin C (Ascorbic Acid) 250 Mg Tab 500 Mg PO DAILY Maxzide (Triamterene/HCTZ) 75-50 Mg Tab 1 Tab PO DAILY Klor-Con 10 (Potassium Chloride) 10 Meq Tab 20 Meq PO DAILY Hydrocodone-Acetaminophen 10-325 mg Tab 1 Tab PO Q6HR PRN Synthroid (Levothyroxine Sodium) 100 Mcg Tab 100 Mcg PO EVERY OTHER DAY Pravachol (Pravastatin) 40 Mg Tab 40 Mg PO HS Omeprazole 40 Mg Cap 40 Mg PO DAILY Combivent Respimat Inh (Ipratropium-Albuterol Inh) 20-100 Long Term/Act Aero 2 Puff INH QID PRN Vitamin D3 (Cholecalciferol) 1,000 Unit Tab 1,000 Units PO DAILY Vesicare (Solifenacin) 10 Mg Tab 10 Mg PO DAILY Family History Negative diabetes neurologic disorders Her mother had uterine cancer. Social History Drinks alcohol occasionally Does not smoke cigarettes for the past 35 years Physical Exam Vital Signs Vital Signs Date Time Temp Pulse Resp B/P Pulse Ox O2 Delivery O2 Flow Rate FiO2 11/22/16 15:16 16 11/22/16 14:30 16 94 Room Air 11/22/16 14:06 61 16 11/22/16 14:04 97.7 60 16 149/67 99 Room Air Physical Exam GENERAL: This is a somewhat thin patient, appears moderately uncomfortable during the examination. SKIN: No abrasions, contusion, rash noted. Skin warm and dry. Lumbar incision is dry and intact. Mild to moderate erythema along the lower lumbar region. No drainage. HEAD: Atraumatic. Normocephalic. No temporal or scalp tenderness. EYES: Sclerae are clear and nonicteric ENT: No facial edema or ecchymosis. Oropharynx is clear NECK: Trachea midline. No cervical spine tenderness. CARDIOVASCULAR: Regular rate and rhythm very slight systolic murmur, no gallops , or rubs. No carotid bruit RESPIRATORY: Clear to auscultation. Breath sounds equal bilaterally. No wheezes , rales, or rhonchi. GASTROINTESTINAL: Abdomen soft, non-tender, nondistended. No hepato-splenomegaly , or palpable masses. No guarding. MUSCULOSKELETAL: Extremities without cyanosis, or edema. No joint tenderness, or edema noted. No calf tenderness. Dorsalis pedis pulses 2+ bilateral NEUROLOGICAL: Awake and alert Oriented X 3 Speech is clear Conversant and appropriate Follow simple commands well Answers questions appropriately Reasonable judgment and insight Recent and remote memory are intact No evidence of anxiety or depression Pupils are equal and reactive to accommodation. Extra-ocular movements, visual hernadez to confrontation, facial sensorimotor, tongue, palate, sternocleidomastoid testing, hearing to finger rub testing, and bilateral shoulder shrug are all intact. Sensation is intact to light touch in all extremities Strength normal major flexion and extension groups all extremities except for 2+ /5 right tibialis anterior, peroneus longus and brevis, tibialis posterior, extensor hallucis longus. 5/5 right gastrocsoleus. Noelle's absent bilaterally No ankle clonus Plantar responses absent bilateral Fine motor movements intact upper extremities Laboratory Laboratory Tests Test 11/22/16 11/22/16 14:30 14:45 White Blood Count 9.2 Red Blood Count 4.69 Hemoglobin 10.3 Hematocrit 31.9 Mean Corpuscular Volume 68.1 Mean Corpuscular Hemoglobin 22.0 Mean Corpuscular Hemoglobin 32.3 Concent Red Cell Distribution Width 22.0 Platelet Count 241 Mean Platelet Volume 8.8 Neutrophils (%) (Auto) 89.2 Lymphocytes (%) (Auto) 5.7 Monocytes (%) (Auto) 3.0 Eosinophils (%) (Auto) 0.7 Basophils (%) (Auto) 1.4 Neutrophils # (Auto) 8.2 Lymphocytes # (Auto) 0.5 Monocytes # (Auto) 0.3 Eosinophils # (Auto) 0.1 Basophils # (Auto) 0.1 CBC Comment DIFF FINAL Differential Comment Sodium Level 126 Potassium Level 4.5 Chloride Level 92 Carbon Dioxide Level 25.2 Anion Gap 9 Blood Urea Nitrogen 13 Creatinine 0.61 Estimat Glomerular Filtration 94 Rate Random Glucose 95 Calcium Level 8.7 Total Creatine Kinase 31 Urine Color YELLOW Urine Turbidity CLEAR Urine pH 6.5 Urine Specific Sharon 1.012 Urine Protein TRACE Urine Glucose (UA) NEG Urine Ketones NEG Urine Occult Blood NEG Urine Nitrite NEG Urine Bilirubin NEG Urine Urobilinogen LESS THAN 2.0 Urine Leukocyte Esterase SMALL Urine RBC LESS THAN 1 Urine WBC 6 Urine Squamous Epithelial 1 Cells Microscopic Urinalysis Comment CULT NOT INDICATED Result Diagram: 11/22/16 1430 11/22/16 1430 Imaging 11/22/16 MRI lumbar spine images are reviewed and compared to prior studies of August 2016 and October 31, 2016. Compared to the most recent study, there is increasing paraspinous fluid collection at the right L5-S1 level with what appears to be increased enhancement along the thecal sac and right neural foramen. There is also increased erosion of the inferior L5 endplate suggestive of discitis. Lumbar Spine MRI 11/22/16 0000 Signed Impressions: Service Date/Time: Tuesday, November 22, 2016 18:53 - CONCLUSION: 1. Postsurgical changes with laminectomy defect on the right. Diffuse abnormal signal with enhancement in the laminectomy defect with fluid tracking posteriorly in the right paraspinal region. This fluid collection has increased in size and there is loculated appearance with enhancement. This is concerning for abscess. 2. Suspected discitis at L5-S1 with osteomyelitis within the adjacent endplates. There is also a small fluid collection/abscess anterior to the disc space at L5-S1. Camilo Valdez MD Assessment and Plan Assessment and Plan Impression: 1. Findings suspicious for L5-S1 discitis, osteomyelitis with enlarging right paraspinous fluid collection suggestive of abscess formation. 2. Polycythemia-on Coumadin 3. Hypertension 4. Hypothyroidism 5. History of cervical cancer 6. Right L5 distribution motor deficit with significant right foot drop. This appears to be new since her most recent neurosurgery evaluation on on 11/11/18. Plan: Findings were discussed at length with the patient. She will be admitted for close neurologic checks and observation. Coumadin, aspirin has been held pending a CT-guided aspiration of the L5-S1 cyst. Medical consultation requested to assist with medical management including management of anticoagulation. Physical therapy Continuing all other home medications Will hold antibiotics pending CT aspiration of lumbar cystic region. Following CT aspiration, plan to reconsult infectious disease. Alfredito Byrne MD Nov 22, 2016 21:14
[2016-11-22] MEDS: D5-1/2 NS + KCL 20 MEQ INJ 1,000 ML IV SCH (21:33)
[2016-11-22] MEDS: ATENOLOL 50 MG TAB PO SCH (21:33)
[2016-11-22] MEDS: CALCIUM/VITAMIN D 250 MG/125 U TAB PO SCH (21:33)
[2016-11-22 22:00] LABS: APTT (PATIENT) 29.1 SEC (24.3-30.1); INTERNATIONAL NORMALIZED RATIO 1.7 RATIO; PROTHROMBIN TIME - PATIENT 19.8 SEC (9.8-11.6)
[2016-11-22] MEDS: ACETAMINOPHEN/HYDROcodone 325 MG/10 MG TAB PO PRN (23:02)
[2016-11-22] MEDS: ALPRAZolam 0.25 MG TAB PO PRN (23:02)
[2016-11-23] VITALS (10 sets, daily range): BP systolic 135–189; BP diastolic 61–79; PULSE 60–66; RESP 14–18; TEMP 96–97.9; O2SAT 96–99
[2016-11-23] MEDS: ACETAMINOPHEN/HYDROcodone 325 MG/10 MG TAB PO PRN ×3 (05:10→17:19)
[2016-11-23] MEDS: ALPRAZolam 0.25 MG TAB PO PRN ×2 (06:39→17:19)
[2016-11-23] MEDS: TIOTROPIUM BROMIDE 18 MCG INH INH SCH (09:00)
[2016-11-23] MEDS: SODIUM CHLORIDE 0.9% FLUSH 10 ML FLUSH IV FLUSH SCH ×2 (09:00→20:36)
[2016-11-23] MEDS: ATENOLOL 50 MG TAB PO SCH ×2 (09:00→20:28)
[2016-11-23] MEDS: SODIUM CHLORIDE 0.9% FLUSH 5 ML FLUSH IVF SCH ×2 (09:00→20:36)
[2016-11-23] MEDS: GABAPENTIN 300 MG CAP PO SCH ×3 (09:36→16:08)
[2016-11-23] MEDS: ASCORBIC ACID 500 MG TAB PO SCH (09:36)
[2016-11-23] MEDS: CHOLECALCIFEROL (VIT D3) 1000 UNIT TAB PO SCH (09:36)
[2016-11-23] MEDS: PANTOPRAZOLE SOD 40 MG DELAYED RELEASE TAB PO SCH (09:36)
[2016-11-23] MEDS: CALCIUM/VITAMIN D 250 MG/125 U TAB PO SCH ×2 (09:36→20:26)
[2016-11-23] MEDS: TRIAMTERENE/HCTZ 75 MG/50 MG TAB PO SCH (09:36)
[2016-11-23] MEDS: TOLTERODINE TARTRATE 4 MG CAP LA PO SCH (09:37)
[2016-11-23] MEDS: POTASSIUM CHLORIDE 10 MEQ CONTROLLED RELEASE TAB PO SCH (09:37)
[2016-11-23] MEDS: LACTOBACILLUS ACIDOPHILUS TAB PO SCH ×3 (09:37→16:08)
[2016-11-23] MEDS: FOLIC ACID 1 MG TAB PO SCH (09:37)
--- NOTE | 2016-11-23 09:41 | PD.CONS ---
[facility] By Dr. Byrne Reason for Consult Medical management Primary Care Physician Chris Bedolla MD Diagnoses: History of Present Illness This a pleasant 81-year-old female with recent hospitalizations and complications after she underwent an elective L5-S1 hemilaminectomy laminectomy and microdiscectomy September 17, 2016. Patient was initially admitted to [facility] from 09/21/2016 to October 06, 2016 with sepsis, was found with fluid collection the lumbar site. IR drained the fluid collection. She grew Pseudomonas and was treated with antibiotics per ID recommendations. Patient was eventually discharged to [place] for comprehensive rehabilitation and after that she when to an SNF for more strengthening and was eventually discharged home with home health care. Since then, she has been readmitted twice, on November 01 after she was noted very weak and deconditioned. At that time she had an MRI of the lumbar spine that showed increase uptake but patient had no definitive signs of infection. Patient had cultures taken and put on empiric antibiotics. She was eventually discharged on oral antibiotics on November 05 in stable condition. She came back the next day November 06 with shortness of breath, chest pain and heme- positive stools. Was evaluated by pulmonology cardiology and GI. She declined GI evaluation and was discharged home in stable condition. Patient presented back to the emergency room yesterday with increasing weakness, inability to ambulate and pain radiating from the lumbar spine down the right leg. Patient was ambulating with walker but for the last 2 weeks she's no longer able to do so. She does have a living caregiver as her was recently hospitalized as well. She did follow up with Dr. Arana on November 14, 2016 and at that time had refill of her pain medications and was found in stable condition. Patient denies any recent fever, no chills. She complained of not being able to empty her bladder.. Has normal bowel function. In the emergency room, patient was evaluated, laboratory workup was completed. Remarkable for hyponatremia, sodium 126. She had a lumbar spine MRI that showed postsurgical changes with laminectomy defect on the right, diffuse abnormal signal with enhancement in the laminectomy defect with fluid tracking posteriorly in the right paraspinal region. This foot collection has increased in size and there is loculated appearance with enhancement. This is concerning for abscess. Suspected discitis at L5 to S1 with osteomyelitis within the adjacent endplates. There is also a small fluid collection/abscess anterior to the disc space at L5/S1. Dr. Byrne was contacted and has admitted patient. At this time, antibiotics are on hold. The plan is for possible CT aspiration of the lumbar area. Patient is on Coumadin and aspirin which are currently on hold. INR is 1.7. Patient is evaluated, she is very frustrated and at times forgetful. Indicates her pain is well-controlled at this time. Does have frequent episodes of anxiety and at times panic attack and did have one this morning. Patient does have significant weakness to the right lower extremity and is noted with right foot drop. Hospitalist services are requested for medical management. Review of Systems Constitutional: DENIES: Diaphoretic episodes, Fatigue, Fever, Weight gain, Weight loss, Chills, Dizziness, Change in appetite, Night Sweats Endocrine: DENIES: Abnorml menstrual pattern, Heat/cold intolerance, Polydipsia , Polyuria, Polyphagia Eyes: DENIES: Blurred vision, Diplopia, Eye inflammation, Eye pain, Vision loss , Photosensitivity, Double Vision Ears, nose, mouth, throat: DENIES: Tinnitus, Hearing loss, Vertigo, Nasal discharge, Oral lesions, Throat pain, Hoarseness, Ear Pain, Running Nose, Epistaxis, Sinus Pain, Toothache, Odynophagia Respiratory: COMPLAINS OF: Shortness of breath, DENIES: Apneas, Cough, Snoring , Wheezing, Hemoptysis, Sputum production Cardiovascular: DENIES: Chest pain, Palpitations, Syncope, Dyspnea on Exertion , PND, Lower Extremity Edema, Orthopnea, Claudication Gastrointestinal: DENIES: Abdominal pain, Black stools, Bloody stools, Constipation, Diarrhea, Nausea, Vomiting, Difficulty Swallowing, Anorexia Genitourinary: DENIES: Abnormal vaginal bleeding, Dysmenorrhea, Dyspareunia, Sexual dysfunction, Urinary frequency, Urinary incontinence, Urgency, Hematuria , Dysuria, Nocturia, Vaginal discharge Musculoskeletal: DENIES: Joint pain, Muscle aches, Stiffness, Joint Swelling, Back pain, Neck pain Integumentary: DENIES: Abnormal pigmentation, Pruritus, Rash, Nail changes, Breast masses, Breast skin changes, Nipple discharge Hematologic/lymphatic: DENIES: Bruising, Lymphadenopathy Immunologic/allergic: DENIES: Eczema, Urticaria Neurologic: COMPLAINS OF: Abnormal gait, Localized weakness, Poor Balance Psychiatric: COMPLAINS OF: Anxiety Past Family Social History Past Medical History Polycythemia vera History of PE , antiphospholipid syndrome-on chronic anticoagulation with Coumadin TIA Radiculopathy Arthritis Cervical cancer, status post radiation and chemotherapy in 2010. 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 IR drained the fluid collection. Grew Pseudomonas and was treated with antibiotics. Developed Cdiff. Also + non-STEMI Admitted on 11/06 for heme + stools, declined GI evaluation Past Surgical History Right L5-S1 hemilaminectomy and microdiscectomy 09/03 Breast biopsy Tonsillectomy Mediastinoscopy Partial gastrectomy Biopsy of cervix [place] filter in 2011 Mediastinoscopy IR drainage of lumbar fluid collection October Reported Medications Reported Meds & Active Scripts Active Neurontin (Gabapentin) 300 Mg Cap 300 Mg PO TID start 1 tab daily x 3 days, then 1 tab bid x 3 days, then 1 tab tid. if any side effect stop medication and call office. Warfarin 4 Mg Tab 4 Mg PO DAILY Xanax (Alprazolam) 0.25 Mg Tab 0.25 Mg PO Q8H PRN Spiriva Handihaler (Tiotropium Inh) 18 Mcg Cap 18 Mcg INH DAILY 30 Days Acidophilus/l-Sporogenes (Lactobacillus Acidophilus) 1 Tab Tab 1 Tab PO TID Oyster Shell 250 mg + Vit D Tb (Calcium/Vitamin D) 250 Mg Calcium (625 Mg)-125 Unit Tablet 250 Mg PO Q12HR Atenolol 50 Mg Tab 50 Mg PO Q12HR Folic Acid 1 Mg Tablet 1 Mg PO DAILY Aspirin 81 (Aspirin) 81 Mg Tabdr 81 Mg PO DAILY Vitamin C (Ascorbic Acid) 250 Mg Tab 500 Mg PO DAILY Maxzide (Triamterene/HCTZ) 75-50 Mg Tab 1 Tab PO DAILY Klor-Con 10 (Potassium Chloride) 10 Meq Tab 20 Meq PO DAILY Hydrocodone-Acetaminophen 10-325 mg Tab 1 Tab PO Q6HR PRN Synthroid (Levothyroxine Sodium) 100 Mcg Tab 100 Mcg PO EVERY OTHER DAY Pravachol (Pravastatin) 40 Mg Tab 40 Mg PO HS Omeprazole 40 Mg Cap 40 Mg PO DAILY Combivent Respimat Inh (Ipratropium-Albuterol Inh) 20-100 Longterm/Act Aero 2 Puff INH QID PRN Vitamin D3 (Cholecalciferol) 1,000 Unit Tab 1,000 Units PO DAILY Vesicare (Solifenacin) 10 Mg Tab 10 Mg PO DAILY Allergies: Coded Allergies: *MDRO Multi-Drug Resistant Organism (Verified Adverse Reaction, Unknown, VRE, 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 Postsurgical changes with laminectomy defect on the right. Diffuse abnormal signal with enhancement in the laminectomy defect with fluid tracking posteriorly in the right paraspinal region. This fluid collection has increased in size and there is loculated appearance with enhancement. This is concerning for abscess. 2. Suspected discitis at L5-S1 with osteomyelitis within the adjacent endplates. There is also a small fluid collection/abscess anterior to the disc space at L5-S1. Camilo Valdez MD Family History Reviewed, non contributory Social History Lives with , no tobacco, no EtOH, no substance abuse. Physical Exam Vital Signs Vital Signs Date Time Temp Pulse Resp B/P Pulse Ox O2 Delivery O2 Flow Rate FiO2 11/23/16 08:00 96.3 62 16 186/77 99 11/23/16 06:46 96.0 60 14 168/74 98 11/23/16 04:00 97.2 60 14 189/74 98 11/23/16 00:00 97.8 65 15 135/61 96 11/22/16 21:00 67 16 134/74 95 Room Air 11/22/16 15:16 16 11/22/16 14:30 16 94 Room Air 11/22/16 14:06 61 16 11/22/16 14:04 97.7 60 16 149/67 99 Room Air Physical Exam GENERAL: This is a well-nourished, well-developed patient, in no apparent distress. SKIN: No rashes, ecchymoses or lesions. Cool and dry. HEAD: Atraumatic. Normocephalic. No temporal or scalp tenderness. EYES: Pupils equal round and reactive. Extraocular motions intact. No scleral icterus. No injection or drainage. ENT: Nose without bleeding, purulent drainage or septal hematoma. Throat without erythema, tonsillar hypertrophy or exudate. Uvula midline. Airway patent. NECK: Trachea midline. No JVD or lymphadenopathy. Supple, nontender, no meningeal signs. CARDIOVASCULAR: Regular rate and rhythm without murmurs, gallops, or rubs. RESPIRATORY: Clear to auscultation. Breath sounds equal bilaterally. No wheezes , rales, or rhonchi. GASTROINTESTINAL: Abdomen soft, non-tender, nondistended. No hepato-splenomegaly , or palpable masses. No guarding. MUSCULOSKELETAL: Extremities without clubbing, cyanosis, or edema. Pedal pulses 2+ bilat. No joint tenderness, effusion, or edema noted. No calf tenderness. Negative Homans sign bilaterally. Lower back incision, no erythema, no exudate. NEUROLOGICAL: Awake and alert, oriented x 3. Forgetful. Following commands. Weaker to Right leg, distal, foot drop noted. Intact sensation. BUE strength 5/5 Laboratory Laboratory Tests Test 11/22/16 11/22/16 11/22/16 14:30 14:45 21:32 White Blood Count 9.2 Red Blood Count 4.69 Hemoglobin 10.3 Hematocrit 31.9 Mean Corpuscular Volume 68.1 Mean Corpuscular Hemoglobin 22.0 Mean Corpuscular Hemoglobin 32.3 Concent Red Cell Distribution Width 22.0 Platelet Count 241 Mean Platelet Volume 8.8 Neutrophils (%) (Auto) 89.2 Lymphocytes (%) (Auto) 5.7 Monocytes (%) (Auto) 3.0 Eosinophils (%) (Auto) 0.7 Basophils (%) (Auto) 1.4 Neutrophils # (Auto) 8.2 Lymphocytes # (Auto) 0.5 Monocytes # (Auto) 0.3 Eosinophils # (Auto) 0.1 Basophils # (Auto) 0.1 CBC Comment DIFF FINAL Differential Comment Sodium Level 126 Potassium Level 4.5 Chloride Level 92 Carbon Dioxide Level 25.2 Anion Gap 9 Blood Urea Nitrogen 13 Creatinine 0.61 Estimat Glomerular Filtration 94 Rate Random Glucose 95 Calcium Level 8.7 Total Creatine Kinase 31 Urine Color YELLOW Urine Turbidity CLEAR Urine pH 6.5 Urine Specific [place] 1.012 Urine Protein TRACE Urine Glucose (UA) NEG Urine Ketones NEG Urine Occult Blood NEG Urine Nitrite NEG Urine Bilirubin NEG Urine Urobilinogen LESS THAN 2.0 Urine Leukocyte Esterase SMALL Urine RBC LESS THAN 1 Urine WBC 6 Urine Squamous Epithelial 1 Cells Microscopic Urinalysis Comment CULT NOT INDICATED Prothrombin Time 19.8 Prothromb Time International 1.7 Ratio Activated Partial 29.1 Thromboplast Time Result Diagram: 11/22/16 1430 11/22/16 1430 Imaging Last Impressions Lumbar Spine MRI 11/22/16 0000 Signed Impressions: Service Date/Time: Tuesday, November 22, 2016 18:53 - CONCLUSION: 1. Postsurgical changes with laminectomy defect on the right. Diffuse abnormal signal with enhancement in the laminectomy defect with fluid tracking posteriorly in the right paraspinal region. This fluid collection has increased in size and there is loculated appearance with enhancement. This is concerning for abscess. 2. Suspected discitis at L5-S1 with osteomyelitis within the adjacent endplates. There is also a small fluid collection/abscess anterior to the disc space at L5-S1. Camilo Valdez MD A/P Diagnosis: (1) Low back pain Plan: acute on chronic (2) Discitis (3) Epidural abscess (4) S/P lumbar laminectomy (5) hx recent infection lumbar surgical site (6) Hx pulmonary embolism (7) Hx TIA/stroke w/o resid (8) Chronic anticoagulation (9) Antiphospholipid antibody syndrome (10) HTN (hypertension) (11) Anxiety (12) Presence of IVC filter (13) Decreased ambulation status (14) Hyperlipidemia (15) Hyponatremia Assessment and Plan Thank you for this consultation, we will assist with medical management 81-year-old elderly female with history of L5-S1 microdiscectomy in September complicated by surgical site infection that required drainage by IR, prior cultures positive for Escherichia coli and Pseudomonas. Was treated with antibiotics. Patient now presents with worsening weakness and pain radiating to the right leg, now noted with foot drop. Lumbar spine MRI finding suspicions for L5-S1 discitis, osteomyelitis with enlarging right paraspinous fluid collection suggestive of abscess formation. No fever, no chills. No leukocytosis. -Dr Byrne is following, the plan is for CT-guided aspiration. -Antibiotics on hold until CT-guided aspiration is done and cultures obtained, ID will be consulted after as well. Coumadin on hold, INR pending -Continue with pain management Physical therapy when patient stable. Hyponatremia Monitor BMP History of pulmonary emboli, antiphospholipid syndrome. Has IVC filter Patient on Coumadin, INR 1.7. At this time on hold until CT guided aspiration is done. -Will need bridging with Lovenox, patient unable to have heparin as she developed thrombocytopenia during prior admission. -Monitor INR Anxiety, patient at times becomes very panicky with shortness of breath. Continue Xanax 0.5 mg by mouth every 8 when necessary Hypertension, elevated Continue home medications -Add Vasotec when necessary for elevated blood pressure 160 greater than 90 Hyperlipidemia, stable Continue home medications Recent admission for heme-positive stools. H&H stable. Patient declined GI evaluation. -Monitor CBC. Home medications reviewed, initiated as indicated Protonix for GI profile SCDs for DVT prophylaxis Plan of care has been discussed with the patient, attending and RN. Further management of the patient will be dependent on the hospital course This patient was seen by myself and Dr. Forbes, this H&P is written his behalf Problem Qualifiers (1) Low back pain: Qualified Code: M54.5 - Acute right-sided low back pain, with sciatica presence unspecified (2) Discitis: Qualified Code: M46.47 - Discitis of lumbosacral region (3) HTN (hypertension): Qualified Code: I10 - Essential hypertension (4) Hyperlipidemia: Qualified Code: E78.5 - Hyperlipidemia, unspecified hyperlipidemia type Lisa Mcfarland Nov 23, 2016 09:41
[2016-11-23] MEDS ORDERED: RESP: ALBUTEROL 2.5 MG/IPRATROPIUM 0.5 MG NEB (PRN) NEB (09:45)
[2016-11-23] MEDS ORDERED: Vancomycin Consult Pharmacy 1 EA OTHER SCH (10:00)
[2016-11-23] MEDS ORDERED: VANCOMYCIN INJ 1,000 MG in SODIUM CHLOR 0.9% 250 ML INJ 250 ML IV ONE (10:00)
[2016-11-23 12:09] LABS: INTERNATIONAL NORMALIZED RATIO 1.9 RATIO; PROTHROMBIN TIME - PATIENT 21.2 SEC (9.8-11.6)
--- NOTE | 2016-11-23 12:12 | HHI.PR ---
Objective Objective Results - Vital Signs Date Time Temp Pulse Resp B/P Pulse Ox O2 Delivery O2 Flow Rate FiO2 11/23/16 08:00 96.3 62 16 186/77 99 11/23/16 06:46 96.0 60 14 168/74 98 11/23/16 04:00 97.2 60 14 189/74 98 11/23/16 00:00 97.8 65 15 135/61 96 11/22/16 21:00 67 16 134/74 95 Room Air 11/22/16 15:16 16 11/22/16 14:30 16 94 Room Air 11/22/16 14:06 61 16 11/22/16 14:04 97.7 60 16 149/67 99 Room Air I/O 11/22/16 11/22/16 11/22/16 11/23/16 11/23/16 11/23/16 07:00 15:00 23:00 07:00 15:00 23:00 Intake Total 957 ml Output Total 50 ml 400 ml Balance -50 ml -400 ml 957 ml Intake Oral 720 ml IV Total 237 ml Output Urine Total 50 ml 400 ml # Voids 1 4 3 Result Diagram: 11/22/16 1430 11/22/16 1430 Imaging Last Impressions Lumbar Spine MRI 11/22/16 0000 Signed Impressions: Service Date/Time: Tuesday, November 22, 2016 18:53 - CONCLUSION: 1. Postsurgical changes with laminectomy defect on the right. Diffuse abnormal signal with enhancement in the laminectomy defect with fluid tracking posteriorly in the right paraspinal region. This fluid collection has increased in size and there is loculated appearance with enhancement. This is concerning for abscess. 2. Suspected discitis at L5-S1 with osteomyelitis within the adjacent endplates. There is also a small fluid collection/abscess anterior to the disc space at L5-S1. Camilo Valdez MD Other Results Laboratory Tests Test 11/22/16 11/22/16 11/22/16 11/23/16 14:30 14:45 21:32 11:25 White Blood Count 9.2 Red Blood Count 4.69 Hemoglobin 10.3 Hematocrit 31.9 Mean Corpuscular Volume 68.1 Mean Corpuscular Hemoglobin 22.0 Mean Corpuscular Hemoglobin 32.3 Concent Red Cell Distribution Width 22.0 Platelet Count 241 Mean Platelet Volume 8.8 Neutrophils (%) (Auto) 89.2 Lymphocytes (%) (Auto) 5.7 Monocytes (%) (Auto) 3.0 Eosinophils (%) (Auto) 0.7 Basophils (%) (Auto) 1.4 Neutrophils # (Auto) 8.2 Lymphocytes # (Auto) 0.5 Monocytes # (Auto) 0.3 Eosinophils # (Auto) 0.1 Basophils # (Auto) 0.1 CBC Comment DIFF FINAL Differential Comment Sodium Level 126 Potassium Level 4.5 Chloride Level 92 Carbon Dioxide Level 25.2 Anion Gap 9 Blood Urea Nitrogen 13 Creatinine 0.61 Estimat Glomerular Filtration 94 Rate Random Glucose 95 Calcium Level 8.7 Total Creatine Kinase 31 Urine Color YELLOW Urine Turbidity CLEAR Urine pH 6.5 Urine Specific [place] 1.012 Urine Protein TRACE Urine Glucose (UA) NEG Urine Ketones NEG Urine Occult Blood NEG Urine Nitrite NEG Urine Bilirubin NEG Urine Urobilinogen LESS THAN 2.0 Urine Leukocyte Esterase SMALL Urine RBC LESS THAN 1 Urine WBC 6 Urine Squamous Epithelial 1 Cells Microscopic Urinalysis Comment CULT NOT INDICATED Prothrombin Time 19.8 21.2 Prothromb Time International 1.7 1.9 Ratio Activated Partial 29.1 Thromboplast Time Physical Exam Physical Exam PHYSICAL EXAMINATION GENERAL: This is a well-developed, well-nourished female who appears to be in no acute distress. She is alert and awake, []. HEAD: Normocephalic without any lesion or mass noted. Facial features appear symmetric. EYES: Perrla, Normal eye movement, [] Icterus. [] Conj congestion. OROPHARYNGEAL: Oropharynx without erythema or edema. MOUTH/THROAT: Tongue midline []. Buccal mucosa is moist []. NECK: Supple. No nuchal rigidity or lymphadenopathy. Trachea midline without deviation. Thyroid not palpable, no bruits appreciated. CARDIAC: Regular rhythm, regular rate, S1 and S2 are heard. Murmur []; no gallops or rubs. LUNGS: Clear to auscultation bilaterally. [] wheeze, [] rhonchi or [] rale. No use of accessory muscles on inspiration or expiration. ABDOMEN: Soft, nontender, no organomegaly or masses. Bowel sounds are heard in all four quadrants. No rebound. No guarding. EXTREMITIES: [] edema. Pulses equal bilateral. [] cyanosis. NEUROLOGICAL: Patient mood and affect appropriate. Cranial nerves II through XII grossly intact. Muscle strength 5/5 in the upper and lower extremities bilaterally. Deep tendon reflexes are 2+ in the upper and lower extremities bilaterally. SKIN:Warm and moist PSYCH: Mood and affect appropriate A/P Assessment and Plan patient seen and examined Please refer to full consult for details Plan for CT guided drainage of lumbar abscess Follow cultures holding off antibiotics will consult ID, pending cultures holding off anticoagulation, (patient has h/o Antiphospholipid antibody) plan on starting Lovenox after drainage of abscess plan of care discussed with patient, nursing staff plan of care discussed with Lisa martínez in Monique Forbes MD Nov 23, 2016 12:12
[2016-11-23] MEDS ORDERED: LIDOCAINE 1%/EPINEPHrine 1:100,000 SOLN 20 ML VIAL ONE (13:55)
--- NOTE | 2016-11-23 14:32 | PD.RAD ---
Post CT Procedure Prog Note Pre Procedure Diagnosis: (1) Epidural abscess (2) Discitis Post Procedure Diagnosis: (1) Epidural abscess (2) Discitis Procedure Date: Nov 23, 2016 Supervising Radiologist: Sundeep Bryant Anesthesia: Local Plan of Activity Patient to Unit: Nursing Unit Patient Condition: Good Additional Comments: Purulent fluid aspirated (5ml). Placed 8F pigtail cath as temporizing measure. See PACS Report for procedural detail/treatment Sundeep Bryant MD Nov 23, 2016 14:32
--- NOTE | 2016-11-23 15:52 | HHI.NSPN ---
History Chief Complaint: pack pain Interval History 81-year-old female presents to the emergency room today with complaint of severe progressive right lower extremity pain. The patient indicates that in approximately May 2016 she developed progressive right lower extremity pain. She underwent an MRI of the lumbar spine in August 2016 and was seen by neurosurgery for evaluation with findings of a right L5-S1 herniated nucleus pulposus. She underwent right L5-S1 microdiscectomy on 09/03/16. She states that she did very well for for approximately 3 weeks postoperative, and then states that she developed generalized weakness. She was seen in the emergency room and admitted with a diagnosis of sepsis, hypokalemia, elevated troponin 1. She was seen by infectious disease and treated for gram-negative sepsis and C. difficile. An MRI 09/25/16 revealed some fluid in the paraspinous region but no definite enhancement or abscess formation. She developed abdominal distention and was seen by gastroenterology. The patient was discharged to [place] [facility] on meropenem and vancomycin until 10/24/16, with Dificid until . She states that after inpatient rehabilitation, she was [facility] She has been home since then, with an dietary assistant to help her. She states that she has had persistent and progressive right posterior lower extremity pain over the past few weeks. She was last seen for neurosurgery follow-up on 11/11/16 and a follow-up MRI of the spine from 10/31/16 was reviewed which did not reveal any definite abscess formation. The patient presents to the emergency room today due to progressive pain. She has not been able to eat well. She is not ambulating except for a short distance. She states that she feels as if she is not emptying her bladder fully. No bowel dysfunction. No recent fevers chills or sweats. 11/23/16: CT guided aspiration of right lower lumbar paraspinous fluid collection. 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 Exam Results Vital Signs Date Time Temp Pulse Resp B/P Pulse Ox O2 Delivery O2 Flow Rate FiO2 11/23/16 15:00 97.6 66 16 184/79 97 11/23/16 08:31 21 11/22/16 21:00 Room Air Intake and Output 11/22/16 11/22/16 11/23/16 08:00 16:00 00:00 Intake Total 240 ml Output Total 50 ml 400 ml Balance -50 ml -160 ml Physical Examination General: Patient appears moderately uncomfortable examination today Respirations: Clear to auscultation Cardiac: Regular-no murmur Abdomen: Soft, nontender Extremities: No cyanosis or edema. Posterior tibial pulse 2+ bilateral Neurologic: Awake alert oriented conversant and appropriate Speech is clear Reasonable judgment and insight Strength is 5/5 left lower extremity major flexion and extension groups Strength is diminished in the right lower extremity 2+/5 tibialis anterior peroneus longus and brevis tibialis posterior and extensor hallucis longus. 5/ 5 right gastrocsoleus. Lab, Micro, Other Results Microbiology Date/Time Procedure Status Source Growth 11/23/16 12:25 Gram Stain Received Abscess Back Pending 11/23/16 12:25 Wound Culture Received Abscess Back Pending Laboratory Tests Test 11/22/16 11/23/16 21:32 11:25 Prothrombin Time 19.8 SEC 21.2 SEC Prothromb Time International 1.7 RATIO 1.9 RATIO Ratio Activated Partial 29.1 SEC Thromboplast Time Medical Decision Making Impression and Plan Impression: 1. Right lower lumbar postoperative wound site infection with paraspinous abscess. No definite epidural abscess. Positive enhancing epidural and foraminal tissue on MRI. Plan: A catheter was left in place per radiology. Continue present pain medications Physical therapy Mobilize out of bed as tolerated Infectious disease consultation Alfredito Byrne MD Nov 23, 2016 15:52
[2016-11-23] MEDS: ENALAPRILAT 1.25 MG/ML VIAL IV PUSH PRN (16:09)
[2016-11-23] MEDS: ENOXAPARIN SODIUM 60 MG/0.6 ML SYRINGE SQ SCH (20:36)
[2016-11-23] MEDS: D5-1/2 NS + KCL 20 MEQ INJ 1,000 ML IV SCH (20:36)
[2016-11-24] VITALS (8 sets, daily range): BP systolic 116–178; BP diastolic 54–79; PULSE 58–67; RESP 17–20; TEMP 96.9–98; O2SAT 95–99
[2016-11-24] MEDS: LEVOTHYROXINE SODIUM 100 MCG TAB PO SCH (04:54)
[2016-11-24] MEDS: ENALAPRILAT 1.25 MG/ML VIAL IV PUSH PRN ×2 (04:54→11:47)
[2016-11-24] MEDS: ACETAMINOPHEN/HYDROcodone 325 MG/10 MG TAB PO PRN ×3 (04:57→18:52)
[2016-11-24 05:30] LABS: HEMATOCRIT 31.9 % (35.0-46.0); MEAN CORPUSCULAR HEMOGLOBIN 21.7 PG (27.0-34.0); MEAN CORPUSCULAR HGB CONC 31.9 % (32.0-36.0); PLATELET COUNT 276 TH/MM3 (150-450); REVIEW FLAG FINAL; WHITE BLOOD COUNT 6.6 TH/MM3 (4.0-11.0)
[2016-11-24 05:39] LABS: INTERNATIONAL NORMALIZED RATIO 1.8 RATIO; PROTHROMBIN TIME - PATIENT 20.8 SEC (9.8-11.6)
[2016-11-24 05:56] LABS: BICARBONATE 26.6 MEQ/L (21.0-32.0); POTASSIUM 4.1 MEQ/L (3.5-5.1)
[2016-11-24] MEDS: TIOTROPIUM BROMIDE 18 MCG INH INH SCH ×2 (09:00→10:26)
[2016-11-24] MEDS: SODIUM CHLORIDE 0.9% FLUSH 10 ML FLUSH IV FLUSH SCH ×2 (09:00→22:46)
[2016-11-24] MEDS: SODIUM CHLORIDE 0.9% FLUSH 5 ML FLUSH IVF SCH ×2 (09:00→21:00)
[2016-11-24] MEDS: ATENOLOL 50 MG TAB PO SCH ×2 (09:00→21:00)
[2016-11-24] MEDS: GABAPENTIN 300 MG CAP PO SCH ×3 (09:45→18:49)
[2016-11-24] MEDS: POTASSIUM CHLORIDE 10 MEQ CONTROLLED RELEASE TAB PO SCH (09:46)
[2016-11-24] MEDS: TOLTERODINE TARTRATE 4 MG CAP LA PO SCH (09:46)
[2016-11-24] MEDS: TRIAMTERENE/HCTZ 75 MG/50 MG TAB PO SCH (09:46)
[2016-11-24] MEDS: PANTOPRAZOLE SOD 40 MG DELAYED RELEASE TAB PO SCH (09:46)
[2016-11-24] MEDS: CHOLECALCIFEROL (VIT D3) 1000 UNIT TAB PO SCH (09:46)
[2016-11-24] MEDS: LACTOBACILLUS ACIDOPHILUS TAB PO SCH ×2 (09:46→21:00)
[2016-11-24] MEDS: CALCIUM/VITAMIN D 250 MG/125 U TAB PO SCH ×2 (09:46→22:45)
[2016-11-24] MEDS: ENOXAPARIN SODIUM 60 MG/0.6 ML SYRINGE SQ SCH ×2 (09:47→22:45)
[2016-11-24] MEDS: ASCORBIC ACID 500 MG TAB PO SCH (09:47)
[2016-11-24] MEDS: FOLIC ACID 1 MG TAB PO SCH (09:47)
[2016-11-24] MEDS: MAGNESIUM HYDROXIDE SUSP 30 ML CUP PO PRN (10:29)
[2016-11-24] MEDS ORDERED: Vancomycin Consult Pharmacy 1 EA OTHER SCH (12:45)
--- NOTE | 2016-11-24 13:36 | PD.ID.CON ---
History of Present Illness Service ID Consult Requested By Reason for Consult Evaluation and Mment of Epidural abscess. Primary Care Physician Chris Bedolla MD Diagnoses: History of Present Illness Ms. Dougherty is a pleasant 81-year-old female with recent hospitalizations and complications after she underwent an elective L5-S1 hemilaminectomy laminectomy and microdiscectomy September 17, 2016. Patient was initially admitted to [facility] from 09/21/2016 to October 06, 2016 with sepsis, was found with fluid collection the lumbar site. IR drained the fluid collection. Her blood cultures from 2016 grew E.coli and Proteus Mirabilis. She grew Pseudomonas from surgical site fluid collection and subsequently E.coli. She grew Pseudomonas and was treated with antibiotics per ID recommendations. Patient was eventually discharged to [facility] for comprehensive rehabilitation and after that she when to a SNF for more strengthening and was eventually discharged home with home health care. Patient has since been readmitted twice, on November 01 after she was noted very weak and deconditioned. At that time she had an MRI of the lumbar spine that showed increase uptake but patient had no definitive signs of infection. Patient had cultures taken and put on empiric antibiotics. She was eventually discharged on oral antibiotics on November 05 in stable condition. She came back the next day November 06 with shortness of breath, chest pain and heme-positive stools. Was evaluated by pulmonology cardiology and GI. She declined GI evaluation and was discharged home in stable condition. Patient presented back to the emergency room yesterday with increasing weakness, inability to ambulate and pain radiating from the lumbar spine down the right leg. Patient was ambulating with walker but for the last 2 weeks she's no longer able to do so. She does have a living caregiver as her was recently hospitalized as well. She did follow up with Dr. Arana on November 14, 2016 and at that time had refill of her pain medications and was found in stable condition. In the emergency room, patient was evaluated, laboratory workup was completed. Remarkable for hyponatremia, sodium 126. She had a lumbar spine MRI that showed postsurgical changes with laminectomy defect on the right, diffuse abnormal signal with enhancement in the laminectomy defect with fluid tracking posteriorly in the right paraspinal region. This fluid collection has increased in size and there is loculated appearance with enhancement which was concerning for abscess. Suspected discitis at L5 to S1 with osteomyelitis within the adjacent endplates. There is also a small fluid collection/abscess anterior to the disc space at L5/S1. At this time, antibiotics are on hold. The plan is for possible CT aspiration of the lumbar area. Patient is on Coumadin and aspirin which are currently on hold. INR is 1.7. Patient does have significant weakness to the right lower extremity and is noted with right foot drop. Patient denies any recent fever, no chills but off note she has been on oral antibiotics off and on. She complained of not being able to empty her bladder. Has normal bowel function. Id consulted for evaluation and Mment of recurrent or non resolving epidural abscess. Review of Systems Constitutional: DENIES: Diaphoretic episodes, Fatigue, Fever, Weight gain, Weight loss, Chills, Dizziness, Change in appetite, Night Sweats Endocrine: DENIES: Abnorml menstrual pattern, Heat/cold intolerance, Polydipsia , Polyuria, Polyphagia Eyes: DENIES: Blurred vision, Diplopia, Eye inflammation, Eye pain, Vision loss , Photosensitivity, Double Vision Ears, nose, mouth, throat: DENIES: Tinnitus, Hearing loss, Vertigo, Nasal discharge, Oral lesions, Throat pain, Hoarseness, Ear Pain, Running Nose, Epistaxis, Sinus Pain, Toothache, Odynophagia Respiratory: DENIES: Apneas, Cough, Snoring, Wheezing, Hemoptysis, Sputum production, Shortness of breath Cardiovascular: DENIES: Chest pain, Palpitations, Syncope, Dyspnea on Exertion , PND, Lower Extremity Edema, Orthopnea, Claudication Gastrointestinal: DENIES: Abdominal pain, Black stools, Bloody stools, Constipation, Diarrhea, Nausea, Vomiting, Difficulty Swallowing, Anorexia Genitourinary: DENIES: Abnormal vaginal bleeding, Dysmenorrhea, Dyspareunia, Sexual dysfunction, Urinary frequency, Urinary incontinence, Urgency, Hematuria , Dysuria, Nocturia, Vaginal discharge Musculoskeletal: COMPLAINS OF: Back pain, DENIES: Joint pain, Muscle aches, Stiffness, Joint Swelling, Neck pain Integumentary: DENIES: Abnormal pigmentation, Pruritus, Rash, Nail changes, Breast masses, Breast skin changes, Nipple discharge Hematologic/lymphatic: COMPLAINS OF: Bruising, DENIES: Lymphadenopathy Immunologic/allergic: DENIES: Eczema, Urticaria Neurologic: COMPLAINS OF: Abnormal gait, Localized weakness, Poor Balance Psychiatric: COMPLAINS OF: Anxiety, DENIES: Confusion, Mood changes, Depression, Hallucinations, Agitation, Suicidal Ideation, Homicidal Ideation, Delusions Past Family Social History Allergies: Coded Allergies: *MDRO Multi-Drug Resistant Organism (Verified Adverse Reaction, Unknown, VRE, 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 IR drained the fluid collection. Grew Pseudomonas and was treated with antibiotics. Developed Cdiff. Also + non-STEMI Admitted on 11/06 for heme + stools, declined GI evaluation Past Surgical History Right L5-S1 hemilaminectomy and microdiscectomy 09/03 Breast biopsy Tonsillectomy Mediastinoscopy Partial gastrectomy Biopsy of cervix Guffey filter in 2011 Mediastinoscopy IR drainage of lumbar fluid collection October Reported Medications Reported Meds & Active Scripts Active Neurontin (Gabapentin) 300 Mg Cap 300 Mg PO TID start 1 tab daily x 3 days, then 1 tab bid x 3 days, then 1 tab tid. if any side effect stop medication and call office. Warfarin 4 Mg Tab 4 Mg PO DAILY Xanax (Alprazolam) 0.25 Mg Tab 0.25 Mg PO Q8H PRN Spiriva Handihaler (Tiotropium Inh) 18 Mcg Cap 18 Mcg INH DAILY 30 Days Acidophilus/l-Sporogenes (Lactobacillus Acidophilus) 1 Tab Tab 1 Tab PO TID Oyster Shell 250 mg + Vit D Tb (Calcium/Vitamin D) 250 Mg Calcium (625 Mg)-125 Unit Tablet 250 Mg PO Q12HR Atenolol 50 Mg Tab 50 Mg PO Q12HR Folic Acid 1 Mg Tablet 1 Mg PO DAILY Aspirin 81 (Aspirin) 81 Mg Tabdr 81 Mg PO DAILY Vitamin C (Ascorbic Acid) 250 Mg Tab 500 Mg PO DAILY Maxzide (Triamterene/HCTZ) 75-50 Mg Tab 1 Tab PO DAILY Klor-Con 10 (Potassium Chloride) 10 Meq Tab 20 Meq PO DAILY Hydrocodone-Acetaminophen 10-325 mg Tab 1 Tab PO Q6HR PRN Synthroid (Levothyroxine Sodium) 100 Mcg Tab 100 Mcg PO EVERY OTHER DAY Pravachol (Pravastatin) 40 Mg Tab 40 Mg PO HS Omeprazole 40 Mg Cap 40 Mg PO DAILY Combivent Respimat Inh (Ipratropium-Albuterol Inh) 20-100 Snf/Act Aero 2 Puff INH QID PRN Vitamin D3 (Cholecalciferol) 1,000 Unit Tab 1,000 Units PO DAILY Vesicare (Solifenacin) 10 Mg Tab 10 Mg PO DAILY Active Ordered Medications Current Medications Medications (Trade) Dose Ordered Sig/Gypsy Route Start Time Stop Time Status Last Admin (Xanax) 0.25 mg Q8H PRN PO 11/22/16 20:30 11/23/16 17:19 (Tenormin) 50 mg Q12HR PO 11/22/16 21:00 11/24/16 09:00 (Oscal-D 250-125) 250 mg Q12HR PO 11/22/16 21:00 11/24/16 09:46 (Vitamin D3) 1,000 units DAILY PO 11/23/16 09:00 11/24/16 09:46 (Folate) 1 mg DAILY PO 11/23/16 09:00 11/24/16 09:47 (Neurontin) 300 mg TID PO 11/23/16 09:00 11/24/16 09:45 ([place] 10-325 Mg) 1 tab Q6HR PRN PO 11/22/16 20:30 11/24/16 11:50 (Lactinex) 1 tab TID PO 11/23/16 09:00 11/24/16 09:46 (Synthroid) 100 mcg Q2D PO 11/24/16 06:00 11/24/16 04:54 (KCl) 20 meq DAILY PO 11/23/16 09:00 11/24/16 09:46 (Spiriva Inh) 18 mcg DAILY INH 11/23/16 09:00 11/24/16 10:26 (Maxzide 75-50 Mg) 1 tab DAILY PO 11/23/16 09:00 11/24/16 09:46 (Vitamin C) 500 mg DAILY PO 11/23/16 09:00 11/24/16 09:47 (Proair Hfa Inh) 2 puff QID PRN INH 11/22/16 20:30 (Protonix) 40 mg DAILY PO 11/23/16 09:00 11/24/16 09:46 (Detrol La) 4 mg DAILY PO 11/23/16 09:00 11/24/16 09:46 (NS Flush) 2 ml BID IV FLUSH 11/22/16 21:00 11/23/16 20:36 (NS Flush) 2 ml UNSCH PRN IVF 11/22/16 20:30 (NS Flush) 2 ml UNSCH PRN IVF 11/22/16 20:45 IV Flush 2 ml 2 ml BID IVF 11/22/16 21:00 11/22/16 21:00 (D5-1/2 NS + KCl 20 Meq Inj) 1,000 ml @ 30 mls/hr Q24H IV 11/22/16 22:00 11/23/16 20:36 (Vasotec Inj) 1.25 mg Q6H PRN IV PUSH 11/23/16 09:45 11/24/16 11:47 (Milk Of Eve Liq) 30 ml DAILY PRN PO 11/23/16 09:45 11/24/16 10:29 Enoxaparin Sodium 60 mg 60 mg Q12H SQ 11/23/16 21:00 11/24/16 09:47 Ceftazidime 2000 mg/Sodium Chloride 100 ml @ 200 mls/hr Q8H IV 11/24/16 14:00 (Vancomycin Consult Pharmacy) 0 ml @ 0 mls/hr UNSCH OTHER 11/24/16 12:45 Family History reviewed and NC to current ID problems. Social History Denies alcohol, smoking and drugs. Lives at home with (he is post op from cardiac surgery and needs care) Has biological child in [place] and other step children. Patient reports she has a living will. Prior to this spinal surgery she reports being very active and traveling abroad etc. Physical Exam Vital Signs Vital Signs Date Time Temp Pulse Resp B/P Pulse Ox O2 Delivery O2 Flow Rate FiO2 11/24/16 12:00 96.9 58 19 178/79 97 11/24/16 08:00 96.9 58 19 178/79 97 11/24/16 04:00 96.9 61 18 172/74 99 11/24/16 03:02 95 11/24/16 00:00 96.9 60 18 174/72 95 11/23/16 20:00 97.9 63 18 142/63 97 11/23/16 16:00 96.5 66 17 180/78 96 11/23/16 15:00 97.6 66 16 184/79 97 Physical Exam GENERAL: This is a well-nourished, well-developed patient, in no apparent distress. SKIN: No rashes, ecchymoses or lesions. Cool and dry. Bruising from falls. HEAD: Atraumatic. Normocephalic. No temporal or scalp tenderness. EYES: Pupils equal round and reactive. Extraocular motions intact. No scleral icterus. No injection or drainage. ENT: Nose without bleeding, purulent drainage or septal hematoma. Throat without erythema, tonsillar hypertrophy or exudate. Uvula midline. Airway patent. NECK: Trachea midline. Supple, nontender, no meningeal signs. CARDIOVASCULAR: Regular rate and rhythm without murmurs. RESPIRATORY: Clear to auscultation. Breath sounds equal bilaterally. No wheezes , rales, or rhonchi. GASTROINTESTINAL: Abdomen soft, non-tender, nondistended. MUSCULOSKELETAL: Extremities without clubbing, cyanosis, or edema. Right foot drop. NEUROLOGICAL: Awake and alert. Grossly non focal Psych: cooperative, anxiety IV line sites with no e.o infection. Laboratory Laboratory Tests Test 11/24/16 05:07 White Blood Count 6.6 Red Blood Count 4.70 Hemoglobin 10.2 Hematocrit 31.9 Mean Corpuscular Volume 68.0 Mean Corpuscular Hemoglobin 21.7 Mean Corpuscular Hemoglobin 31.9 Concent Red Cell Distribution Width 22.0 Platelet Count 276 Mean Platelet Volume 8.2 Prothrombin Time 20.8 Prothromb Time International 1.8 Ratio Sodium Level 129 Potassium Level 4.1 Chloride Level 95 Carbon Dioxide Level 26.6 Anion Gap 7 Blood Urea Nitrogen 6 Creatinine 0.37 Estimat Glomerular Filtration 168 Rate Random Glucose 94 Calcium Level 8.8 Date/Time Procedure Status Source Growth 11/23/16 12:25 Gram Stain - Final Resulted Abscess Back 11/23/16 12:25 Wound Culture Resulted Abscess Back Pending Result Diagram: 11/24/16 0507 11/24/16 0507 Imaging Last Impressions Lumbar Spine MRI 11/22/16 0000 Signed Impressions: Service Date/Time: Tuesday, November 22, 2016 18:53 - CONCLUSION: 1. Postsurgical changes with laminectomy defect on the right. Diffuse abnormal signal with enhancement in the laminectomy defect with fluid tracking posteriorly in the right paraspinal region. This fluid collection has increased in size and there is loculated appearance with enhancement. This is concerning for abscess. 2. Suspected discitis at L5-S1 with osteomyelitis within the adjacent endplates. There is also a small fluid collection/abscess anterior to the disc space at L5-S1. Camilo Valdez MD Assessment and Plan Assessment and Plan L5-S1 discitis, osteomyelitis with enlarging right paraspinous fluid collection suggestive of abscess formation. s/p IR guided drain placement. Right L5 distribution motor deficit with significant right foot drop. E.coli and Proteus bacteremia history in November 2016 PSAE and E.coli epidural abscess s/p 6 weeks IV antibiotics. Polycythemia-on Coumadin History of cervical cancer Recs Add tests for AFB and Fungus for Fluid aspirate. Blood cultures x 2 stat UA with reflex to urine culture. Start Ceftazidime (GNR in gram stain). Start Vanco pharmacy consult target trough 15-20. Follow cultures Follow clinically. Check CRP. d/w Lisa POMPA. d.w Patient plan to restart 8-12 week course. Will d.w no hardware in place. Fluid is paraspinal. d/w him neuro deficit. No current plans for neurosurgery. Jaycee Banks MD Nov 24, 2016 13:36 Jaycee Banks MD Nov 24, 2016 13:36
--- NOTE | 2016-11-24 14:13 | HHI.PR ---
Subjective Remarks went for CT guided drainage of abscess yesterday, tolerated well has a drain in place inc. pain with sitting and moving leg, did not want to work with PT but will try tomorrow wants to eat regular meal, on liquids no cp no sob c/o "urinary burning" anxious about rehospitalization, infection and back pain Objective Objective Results - Vital Signs Date Time Temp Pulse Resp B/P Pulse Ox O2 Delivery O2 Flow Rate FiO2 11/24/16 12:00 96.9 58 19 178/79 97 11/24/16 08:00 96.9 58 19 178/79 97 11/24/16 04:00 96.9 61 18 172/74 99 11/24/16 03:02 95 11/24/16 00:00 96.9 60 18 174/72 95 11/23/16 20:00 97.9 63 18 142/63 97 11/23/16 16:00 96.5 66 17 180/78 96 11/23/16 15:00 97.6 66 16 184/79 97 I/O 11/23/16 11/23/16 11/23/16 11/24/16 11/24/16 11/24/16 06:59 14:59 22:59 06:59 14:59 22:59 Intake Total 957 ml 622 ml 569 ml 411 ml 120 ml Output Total 0 ml 615 ml Balance 957 ml 622 ml 569 ml -204 ml 120 ml Intake Oral 720 ml 360 ml 240 ml 240 ml 120 ml IV Total 237 ml 262 ml 329 ml 171 ml Output Urine Total 600 ml Drainage Total 0 ml 15 ml # Voids 3 3 1 # Bowel Movements 0 0 0 Result Diagram: 11/24/16 0507 11/24/16 0507 Imaging Last Impressions Lumbar Spine MRI 11/22/16 0000 Signed Impressions: Service Date/Time: Tuesday, November 22, 2016 18:53 - CONCLUSION: 1. Postsurgical changes with laminectomy defect on the right. Diffuse abnormal signal with enhancement in the laminectomy defect with fluid tracking posteriorly in the right paraspinal region. This fluid collection has increased in size and there is loculated appearance with enhancement. This is concerning for abscess. 2. Suspected discitis at L5-S1 with osteomyelitis within the adjacent endplates. There is also a small fluid collection/abscess anterior to the disc space at L5-S1. Camilo Valdez MD Other Results Laboratory Tests Test 11/24/16 05:07 White Blood Count 6.6 Red Blood Count 4.70 Hemoglobin 10.2 Hematocrit 31.9 Mean Corpuscular Volume 68.0 Mean Corpuscular Hemoglobin 21.7 Mean Corpuscular Hemoglobin 31.9 Concent Red Cell Distribution Width 22.0 Platelet Count 276 Mean Platelet Volume 8.2 Prothrombin Time 20.8 Prothromb Time International 1.8 Ratio Sodium Level 129 Potassium Level 4.1 Chloride Level 95 Carbon Dioxide Level 26.6 Anion Gap 7 Blood Urea Nitrogen 6 Creatinine 0.37 Estimat Glomerular Filtration 168 Rate Random Glucose 94 Calcium Level 8.8 Date/Time Procedure Status Source Growth 11/23/16 12:25 Gram Stain - Final Resulted Abscess Back 11/23/16 12:25 Wound Culture Resulted Abscess Back Pending ROS General: Weakness HEENT: No: Sore Throat, Dysphagia Cardiac: No: Chest Pain, Edema, Palpitations Pulmonary: No: Cough, SOB, Wheezing GI: No: Abdominal Pain, BM, Diarrhea, N/V /[employer]ER: No: Dysuria, Urgency Neuro/[place]: Other (right lower back and leg pain, difficult moving, lifting off bed ) Psych: Anxiety Skin: No: Itching, Rash Physical Exam Physical Exam GENERAL: This is a well-nourished, well-developed patient, in no apparent distress. SKIN: No rashes, ecchymoses or lesions. Cool and dry. HEAD: Atraumatic. Normocephalic. No temporal or scalp tenderness. EYES: Pupils equal round and reactive. Extraocular motions intact. No scleral icterus. No injection or drainage. ENT: Nose without bleeding, purulent drainage or septal hematoma. Throat without erythema, tonsillar hypertrophy or exudate. Uvula midline. Airway patent. NECK: Trachea midline. No JVD or lymphadenopathy. Supple, nontender, no meningeal signs. CARDIOVASCULAR: Regular rate and rhythm without murmurs, gallops, or rubs. RESPIRATORY: Clear to auscultation. Breath sounds equal bilaterally. No wheezes , rales, or rhonchi. GASTROINTESTINAL: Abdomen soft, non-tender, nondistended. No hepato-splenomegaly , or palpable masses. No guarding. MUSCULOSKELETAL: Extremities without clubbing, cyanosis, or edema. Pedal pulses 2+ bilat. No joint tenderness, effusion, or edema noted. No calf tenderness. Negative Homans sign bilaterally. Lower back incision, no erythema, no exudate. Drain from lumbar area with SS fluid noted, small amount NEUROLOGICAL: Awake and alert, oriented x 3. Forgetful. Following commands. Weaker to Right leg, distal, foot drop noted. Intact sensation. BUE strength 5/5 Urinary Catheter: No Vascular Central Line Catheter: No A/P Diagnosis: (1) Low back pain Plan: acute on chronic (2) Discitis (3) Epidural abscess (4) S/P lumbar laminectomy (5) hx recent infection lumbar surgical site (6) Hx pulmonary embolism (7) Hx TIA/stroke w/o resid (8) Chronic anticoagulation (9) Antiphospholipid antibody syndrome (10) HTN (hypertension) (11) Anxiety (12) Presence of IVC filter (13) Decreased ambulation status (14) Hyperlipidemia (15) Hyponatremia Assessment and Plan 81-year-old elderly female with history of L5-S1 microdiscectomy in September complicated by surgical site infection that required drainage by IR, prior cultures positive for Escherichia coli and Pseudomonas. Was treated with antibiotics. Patient now presents with worsening weakness and pain radiating to the right leg, now noted with foot drop. Lumbar spine MRI finding suspicions for L5-S1 discitis, osteomyelitis with enlarging right paraspinous fluid collection suggestive of abscess formation. No fever, no chills. No leukocytosis. -Dr Byrne is following -S/P CT guided aspiration of fluid in IR 11/23, drain left in place -ID consulted for abx management, d/w Dr. Banks -continue to follow cultures, negative so far. -Coumadin has been resumed. -Continue with pain management Physical therapy, OOB. D/W pt and RN, premedicate before therapy Hyponatremia Sodium coming up Monitor BMP History of pulmonary emboli, antiphospholipid syndrome. Has IVC filter Resume Coumadin today, Lovenox to bridge-dc when INR >2. -INR today 1.8. -INR daily Anxiety, patient at times becomes very panicky with shortness of breath. Continue Xanax 0.5 mg by mouth every 8 when necessary Hypertension, elevated Continue home medications -continue with Vasotec when necessary for elevated blood pressure 160 greater than 90 Hyperlipidemia, stable Continue home medications Recent admission for heme-positive stools. H&H stable. Patient declined GI evaluation. -Monitor CBC. -HH stable Protonix for GI profile SCDs for DVT prophylaxis c/o dysuria, UA/UC now Continue with [email or web address] activity as tolerated start regular diet D/W Dr. Forbes, Dr. Banks D/W pt D/W RN This patient was seen by myself and Dr. Forbes, this note is written his behalf Problem Qualifiers (1) Low back pain: Qualified Code: M54.5 - Acute right-sided low back pain, with sciatica presence unspecified (2) Discitis: Qualified Code: M46.47 - Discitis of lumbosacral region (3) HTN (hypertension): Qualified Code: I10 - Essential hypertension (4) Hyperlipidemia: Qualified Code: E78.5 - Hyperlipidemia, unspecified hyperlipidemia type Lisa Mcfarland Nov 24, 2016 14:13
[2016-11-24] MEDS: WARFARIN SOD 4 MG TAB PO SCH (14:35)
[2016-11-24] MEDS: VANCOMYCIN 1,000 MG/NS 250 ML IV SCH ×2 (14:36)
[2016-11-24] MEDS: ALPRAZolam 0.25 MG TAB PO PRN (15:52)
[2016-11-24] MEDS: cefTAZidime INJ 2,000 MG in SODIUM CHLORIDE 0.9% INJ 100 ML IV SCH ×2 (15:52→22:45)
--- NOTE | 2016-11-24 17:24 | HHI.NSPN ---
(Asha Salas) Note Status Status: Progress Note (Asha Salas) Interval History Interval History 81-year-old female presents to the emergency room today with complaint of severe progressive right lower extremity pain. The patient indicates that in approximately May 2016 she developed progressive right lower extremity pain. She underwent an MRI of the lumbar spine in August 2016 and was seen by neurosurgery for evaluation with findings of a right L5-S1 herniated nucleus pulposus. She underwent right L5-S1 microdiscectomy on 09/03/16. She states that she did very well for for approximately 3 weeks postoperative, and then states that she developed generalized weakness. She was seen in the emergency room and admitted with a diagnosis of sepsis, hypokalemia, elevated troponin 1. She was seen by infectious disease and treated for gram-negative sepsis and C. difficile. An MRI 09/25/16 revealed some fluid in the paraspinous region but no definite enhancement or abscess formation. She developed abdominal distention and was seen by gastroenterology. The patient was discharged to [facility] on meropenem and vancomycin until 10/24/16, with Dificid until . She states that after inpatient rehabilitation, she was discharged for short period of time to the custodial facility. She has been home since then, with an assistant professor of religion to help her. She states that she has had persistent and progressive right posterior lower extremity pain over the past few weeks. She was last seen for neurosurgery follow-up on 11/11/16 and a follow-up MRI of the spine from 10/31/16 was reviewed which did not reveal any definite abscess formation. The patient presents to the emergency room today due to progressive pain. She has not been able to eat well. She is not ambulating except for a short distance. She states that she feels as if she is not emptying her bladder fully. No bowel dysfunction. No recent fevers chills or sweats. 11/23/16: CT guided aspiration of right lower lumbar paraspinous fluid collection. 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 11/24/16: pt complains of pain radiating down her right leg laterally to the foot , worsened when she tries to bear weight onto the right foot. (Asha Salas) Labs, Micro, & Vital Signs Results Date Time Temp Pulse Resp B/P Pulse Ox O2 Delivery O2 Flow Rate FiO2 11/24/16 16:00 97.0 63 20 173/70 96 11/24/16 12:00 96.9 58 19 178/79 97 11/24/16 08:00 96.9 58 19 178/79 97 11/24/16 04:00 96.9 61 18 172/74 99 11/24/16 03:02 95 11/24/16 00:00 96.9 60 18 174/72 95 11/23/16 20:00 97.9 63 18 142/63 97 11/24/16 07:00 Intake Total 1602 ml Output Total 615 ml Balance 987 ml Constitutional Vital Signs Date Time Temp Pulse Resp B/P Pulse Ox O2 Delivery O2 Flow Rate FiO2 11/24/16 16:00 97.0 63 20 173/70 96 11/24/16 12:00 96.9 58 19 178/79 97 11/24/16 08:00 96.9 58 19 178/79 97 11/24/16 04:00 96.9 61 18 172/74 99 11/24/16 03:02 95 11/24/16 00:00 96.9 60 18 174/72 95 11/23/16 20:00 97.9 63 18 142/63 97 11/24/16 07:00 Intake Total 1602 ml Output Total 615 ml Balance 987 ml (Asha Salas) Review of Systems/Exam Exam Awake, no apparent distress laying in bed. Conversing properly. Speech is fluent. Pigtail catheter in place draining purulent material CN: pupils equal b/l, facial motor symmetric Neck: soft, supple Motor: today her exam showed 5/5 bilateral tibialis anterior, gastrocnemius and reports no focal weakness in her legs and feet Plantars downgoing b/l. No ankle clonus (Asha Salas) Exam Ms Dougherty is awake, no apparent distress laying in bed. Conversing properly. Speech is fluent. Pigtail catheter in place draining purulent material CN: pupils equal b/l, facial motor symmetric Neck: soft, supple Motor: today her exam showed 5/5 bilateral tibialis anterior, gastrocnemius and reports no focal weakness in her legs and feet Plantars downgoing b/l. No ankle clonus (Austin Arana MD) Medications Current Medications Current Medications Medications (Trade) Dose Ordered Sig/Gypsy Route PRN Reason Start Time Stop Time Status Last Admin Dose Admin Alprazolam (Xanax) 0.25 mg Q8H PRN PO ANXIETY 11/22/16 20:30 11/24/16 15:52 Atenolol (Tenormin) 50 mg Q12HR PO 11/22/16 21:00 11/24/16 09:00 Calcium/Vitamin D (Oscal-D 250-125) 250 mg Q12HR PO 11/22/16 21:00 11/24/16 09:46 Cholecalciferol (Vitamin D3) 1,000 units DAILY PO 11/23/16 09:00 11/24/16 09:46 Folic Acid (Folate) 1 mg DAILY PO 11/23/16 09:00 11/24/16 09:47 Gabapentin (Neurontin) 300 mg TID PO 11/23/16 09:00 11/24/16 14:34 Acetaminophen/ Hydrocodone Bitart ([place]ster 10-325 Mg) 1 tab Q6HR PRN PO PAIN SCALE 1 TO 10 11/22/16 20:30 11/24/16 11:50 Levothyroxine Sodium (Synthroid) 100 mcg Q2D PO 11/24/16 06:00 11/24/16 04:54 Potassium Chloride (KCl) 20 meq DAILY PO 11/23/16 09:00 11/24/16 09:46 Tiotropium [place] (Spiriva Inh) 18 mcg DAILY INH 11/23/16 09:00 11/24/16 10:26 Triamterene/HCTZ (Maxzide 75-50 Mg) 1 tab DAILY PO 11/23/16 09:00 11/24/16 09:46 Ascorbic Acid (Vitamin C) 500 mg DAILY PO 11/23/16 09:00 11/24/16 09:47 Albuterol Sulfate (Proair Hfa Inh) 2 puff QID PRN INH SHORTNESS OF BREATH 11/22/16 20:30 Pantoprazole Sodium (Protonix) 40 mg DAILY PO 11/23/16 09:00 11/24/16 09:46 Tolterodine Tartrate (Detrol La) 4 mg DAILY PO 11/23/16 09:00 11/24/16 09:46 Sodium Chloride (NS Flush) 2 ml BID IV FLUSH 11/22/16 21:00 11/23/16 20:36 Sodium Chloride (NS Flush) 2 ml UNSCH PRN IVF FLUSH AFTER USING IV ACCESS 11/22/16 20:30 IV Flush (NS Flush) 2 ml UNSCH PRN IVF FLUSH AFTER USING IV ACCESS 11/22/16 20:45 IV Flush 2 ml 2 ml BID IVF 11/22/16 21:00 11/22/16 21:00 Potassium Chloride/Dextrose/ Sod Cl (D5-1/2 NS + KCl 20 Meq Inj) 1,000 ml @ 30 mls/hr Q24H IV 11/22/16 22:00 11/23/16 20:36 Enalaprilat (Vasotec Inj) 1.25 mg Q6H PRN IV PUSH SBP>160, DBP>90 11/23/16 09:45 11/24/16 11:47 Magnesium Hydroxide (Milk Of Magnheather Liq) 30 ml DAILY PRN PO CONSTIPATION 11/23/16 09:45 11/24/16 10:29 Enoxaparin Sodium 60 mg 60 mg Q12H SQ 11/23/16 21:00 11/24/16 09:47 Ceftazidime 2000 mg/Sodium Chloride 100 ml @ 200 mls/hr Q8H IV 11/24/16 14:00 11/24/16 15:52 Pharmacy Profile Note 0 ml @ 0 mls/hr UNSCH OTHER 11/24/16 12:45 Vancomycin HCl/ Sodium Chloride (Vancomycin Inj/ NS 250 ml Inj) 250 ml @ 250 mls/hr Q24H IV 11/24/16 14:00 11/24/16 14:36 Miscellaneous Information SPECIFIC LAB TO BE [facility]... ONCE ONCE .XX 11/27/16 13:45 11/27/16 13:46 Warfarin Sodium (Coumadin) 4 mg DAILY@16 PO 11/24/16 16:00 11/24/16 14:35 Lactobacillus Acidophilus (Lactinex) 1 tab Q12HR PO 11/24/16 21:00 (Asha Salas) Current Medications Current Medications Sodium Chloride (NS Flush) 2 ml UNSCH PRN IV FLUSH FLUSH AFTER USING IV ACCESS ; Start 11/22/16 at 14:30; Stop 11/22/16 at 20:33; Status DC Morphine Sulfate (Morphine Inj) 4 mg ONCE ONCE IV PUSH Last administered on 14:54; Start 11/22/16 at 14:30; Stop 11/22/16 at 14:31; Status DC Gadodiamide (Omniscan Pf Inj) 10 ml STK-MED ONCE IV Last administered on 19:09; Start 11/22/16 at 19:09; Stop 11/22/16 at 19:10; Status DC Alprazolam (Xanax) 0.25 mg Q8H PRN PO ANXIETY Last administered on 11/27/16 00 :43; Start 11/22/16 at 20:30; Stop 11/27/16 at 16:20; Status DC Atenolol (Tenormin) 50 mg Q12HR PO Last administered on 11/27/16 09:11; Start 11/22/16 at 21:00; Stop 11/27/16 at 16:20; Status DC Calcium/Vitamin D (Oscal-D 250-125) 250 mg Q12HR PO Last administered on 09:10; Start 11/22/16 at 21:00; Stop 11/27/16 at 16:20; Status DC Cholecalciferol (Vitamin D3) 1,000 units DAILY PO Last administered on 09:10; Start 11/23/16 at 09:00; Stop 11/27/16 at 16:20; Status DC Folic Acid (Folate) 1 mg DAILY PO Last administered on 11/27/16 09:10; Start 11/23/16 at 09:00; Stop 11/27/16 at 16:20; Status DC Gabapentin (Neurontin) 300 mg TID PO Last administered on 11/27/16 12:03; Start 11/23/16 at 09:00; Stop 11/27/16 at 16:20; Status DC Acetaminophen/ Hydrocodone Bitart ([place] 10-325 Mg) 1 tab Q6HR PRN PO PAIN SCALE 1 TO 10 Last administered on 11/27/16 12:02; Start 11/22/16 at 20:30; Stop 11/27/16 at 16:20; Status DC Lactobacillus Acidophilus (Lactinex) 1 tab TID PO Last administered on 09:46; Start 11/23/16 at 09:00; Stop 11/24/16 at 15:52; Status DC Levothyroxine Sodium (Synthroid) 100 mcg Q2D PO Last administered on 11/26/16 05:23; Start 11/24/16 at 06:00; Stop 11/27/16 at 16:20; Status DC Potassium Chloride (KCl) 20 meq DAILY PO Last administered on 11/27/16 09:11; Start 11/23/16 at 09:00; Stop 11/27/16 at 16:20; Status DC Tiotropium [place] (Spiriva Inh) 18 mcg DAILY INH Last administered on 09:12; Start 11/23/16 at 09:00; Stop 11/27/16 at 16:20; Status DC Triamterene/HCTZ (Maxzide 75-50 Mg) 1 tab DAILY PO Last administered on 09:10; Start 11/23/16 at 09:00; Stop 11/27/16 at 16:20; Status DC Ascorbic Acid (Vitamin C) 500 mg DAILY PO Last administered on 11/27/16 09:09 ; Start 11/23/16 at 09:00; Stop 11/27/16 at 16:20; Status DC Albuterol Sulfate (Proair Hfa Inh) 2 puff QID PRN INH SHORTNESS OF BREATH; Start 11/22/16 at 20:30; Stop 11/27/16 at 16:20; Status DC Pantoprazole Sodium (Protonix) 40 mg DAILY PO Last administered on 11/27/16 09 :10; Start 11/23/16 at 09:00; Stop 11/27/16 at 16:20; Status DC Tolterodine Tartrate (Detrol La) 4 mg DAILY PO Last administered on 11/27/16 09:10; Start 11/23/16 at 09:00; Stop 11/27/16 at 16:20; Status DC Sodium Chloride (NS Flush) 2 ml BID IV FLUSH Last administered on 11/24/16 22: 46; Start 11/22/16 at 21:00; Stop 11/26/16 at 15:20; Status DC Sodium Chloride (NS Flush) 2 ml UNSCH PRN IVF FLUSH AFTER USING IV ACCESS; Start 11/22/16 at 20:30; Stop 11/26/16 at 15:20; Status DC IV Flush (NS Flush) 2 ml UNSCH PRN IVF FLUSH AFTER USING IV ACCESS; Start 11/22 at 20:45; Stop 11/27/16 at 16:20; Status DC IV Flush 2 ml 2 ml BID IVF Last administered on 11/27/16 09:00; Start at 21:00; Stop 11/27/16 at 16:20; Status DC Potassium Chloride/Dextrose/ Sod Cl (D5-1/2 NS + KCl 20 Meq Inj) 1,000 ml @ 30 mls/hr Q24H IV Last administered on 11/26/16 00:59; Start 11/22/16 at 22:00; Stop 11/26/16 at 14:38; Status DC Enalaprilat (Vasotec Inj) 1.25 mg Q6H PRN IV PUSH SBP>160, DBP>90 Last administered on 11/27/16 03:39; Start 11/23/16 at 09:45; Stop 11/27/16 at 16:20 ; Status DC Magnesium Hydroxide (Milk Of Magnesia Liq) 30 ml DAILY PRN PO CONSTIPATION Last administered on 11/27/16 10:12; Start 11/23/16 at 09:45; Stop 11/27/16 at 16:20; Status DC Albuterol/ Ipratropium 1 ampule 1 ampule Q6HR NEB PRN NEB WHEEZING; Start 11/23 at 09:45; Stop 11/27/16 at 16:20; Status DC Vancomycin HCl 1000 mg/Sodium Chloride 250 ml @ 250 mls/hr ONCE ONCE IV ; Start 11/23/16 at 10:00; Stop 11/23/16 at 10:17; Status DC Pharmacy Profile Note (Vancomycin Consult Pharmacy) 0 ml @ 0 mls/hr UNSCH OTHER ; Start 11/23/16 at 10:00; Stop 11/23/16 at 10:17; Status DC Lidocaine/ Epinephrine (Xylocaine-Epi 1%-1:100,000 Inj) 20 ml STK-MED ONCE .ROUTE Last administered on 11/23/16 13:55; Start 11/23/16 at 13:55; Stop at 13:56; Status DC Fentanyl Citrate (fentaNYL INJ) 100 mcg STK-MED ONCE .ROUTE Last administered on 11/23/16 13:57; Start 11/23/16 at 13:57; Stop 11/23/16 at 13:58; Status DC Enoxaparin Sodium 60 mg 60 mg Q12H SQ Last administered on 11/27/16 09:09; Start 11/23/16 at 21:00; Stop 11/27/16 at 16:20; Status DC Ceftazidime 2000 mg/Sodium Chloride 100 ml @ 200 mls/hr Q8H IV Last administered on 11/25/16 06:00; Start 11/24/16 at 14:00; Stop 11/25/16 at 15:08 ; Status DC Pharmacy Profile Note 0 ml @ 0 mls/hr UNSCH OTHER ; Start 11/24/16 at 12:45; Stop 11/25/16 at 15:08; Status DC Vancomycin HCl/ Sodium Chloride (Vancomycin Inj/ NS 250 ml Inj) 250 ml @ 250 mls/hr Q24H IV Last administered on 11/25/16 14:00; Start 11/24/16 at 14:00; Stop 11/25/16 at 15:08; Status DC Miscellaneous Information SPECIFIC LAB TO BE [facility]... ONCE ONCE .XX ; Start 11/27 at 13:45; Stop 11/27/16 at 13:46; Status Cancel Warfarin Sodium (Coumadin) 4 mg DAILY@16 PO Last administered on 11/27/16 15: 12; Start 11/24/16 at 16:00; Stop 11/27/16 at 16:20; Status DC Patient Medication Teaching (Coumadin Booklet) 1 ONCE ONCE .XX ; Start at 16:00; Stop 11/24/16 at 16:01; Status DC Lactobacillus Acidophilus 1 tab 1 tab Q12HR PO Last administered on 11/27/16 09:09; Start 11/24/16 at 21:00; Stop 11/27/16 at 16:20; Status DC Cefepime HCl/ Sodium Chloride (Maxipime Inj/NS Inj) 100 ml @ 200 mls/hr Q8H IV Last administered on 11/27/16 15:12; Start 11/25/16 at 16:00; Stop 11/27/16 at 16:20; Status DC Clonidine (Catapres) 0.1 mg UNSCH X1 PO Last administered on 11/26/16 05:23; Start 11/26/16 at 04:37; Stop 11/26/16 at 05:30; Status DC Lisinopril (Prinivil) 10 mg DAILY PO Last administered on 11/26/16 17:14; Start 11/26/16 at 15:30; Stop 11/27/16 at 07:50; Status DC Hydralazine HCl (Apresoline) 25 mg Q8HR PRN PO SBP> 170 Last administered on 00:43; Start 11/26/16 at 14:45; Stop 11/27/16 at 16:20; Status DC Sodium Chloride (Sodium Chloride) 1 gm BID PO Last administered on 11/27/16 09 :10; Start 11/26/16 at 21:00; Stop 11/27/16 at 16:20; Status DC Lisinopril (Prinivil) 20 mg DAILY PO Last administered on 11/27/16 09:12; Start 11/27/16 at 09:00; Stop 11/27/16 at 16:20; Status DC Magnesium Citrate (Citroma Liq) 300 ml ONCE ONCE PO ; Start 11/27/16 at 10:00; Stop 11/27/16 at 10:40; Status DC Bisacodyl (Dulcolax Supp) 10 mg ONCE ONCE RECTAL Last administered on 15:11; Start 11/27/16 at 10:45; Stop 11/27/16 at 10:46; Status DC (Austin Arana MD) Medical Decision Making MDM Remarks 81 y/o female with intractable lumbar pain, paraspinous abscess, discitis, osteomyelitis at L5-S1 on MRI L spine, s/p CT guided aspiration with placement of pigtail drain, recent L5-S1 laminectomy microdiscectomy on 09/03/16 recent gram-negative sepsis and C. difficile, MRI L spine on 09/25/16 revealed some fluid in the paraspinous region but no definite enhancement or abscess formation treated with meropenem and vancomycin until 10/24/16, with Dificid until 10/14/16 follow-up MRI L spine from 10/31/16 again no revealed no definite abscess formation, no enhancement in the disc, this was previous reviewed by Dr. Arana ( Asha Salas) MDM Remarks Last Impressions Chest X-Ray 11/27/16 0000 Signed Impressions: Service Date/Time: November 15:08 - CONCLUSION: 1. Right upper extremity PICC line with the tip projecting over the central venous system. 2. Lungs are clear. Brent Ricardo MD Abscess Drainage CT 11/23/16 0000 Signed Impressions: Service Date/Time: Wednesday, November 23, 2016 14:14 - CONCLUSION: 1. CT-guided aspiration of right posterior paravertebral fluid collection yielded purulent fluid. Therefore, 8 Italian pigtail catheter was placed in the collection. Approximately 25 mL of purulent appearing fluid was removed immediately following catheter placement and sample submitted for laboratory analysis per request. Sundeep Bryant MD Lumbar Spine MRI 11/22/16 0000 Signed Impressions: Service Date/Time: Tuesday, November 22, 2016 18:53 - CONCLUSION: 1. Postsurgical changes with laminectomy defect on the right. Diffuse abnormal signal with enhancement in the laminectomy defect with fluid tracking posteriorly in the right paraspinal region. This fluid collection has increased in size and there is loculated appearance with enhancement. This is concerning for abscess. 2. Suspected discitis at L5-S1 with osteomyelitis within the adjacent endplates. There is also a small fluid collection/abscess anterior to the disc space at L5-S1. Camilo Valdez MD (Austin Arana MD) Plan Plan Remarks new MRI L spine reviewed by Dr. Arana, recommending continuing nonsurgical management with IV antibiotics per ID, lumbar brace when out of bed follow up cultures (Asha Salas) Attending Statement As above. Continue neuro checks Pulmonary. aggressive pulmonary toilette, nasotracheal suction, and breathing treatments with nebulizers. Daily PT and OT Nutrition. Oral diet Renal. monitor closely urine output, BUN and creatinine Endocrine. Monitor serial Acu checks and SSI as needed in detail ID monitor for signs of infection Protonix for stress ulcer prophylaxis Jeb hose and SCD's for DVT prophylaxis The exam, history, and the medical decision-making described in the above note were completed with the assistance of the mid-level provider. I reviewed and agree with the findings presented. I attest that I had a [id number] encounter with the patient on the same day, and personally performed and documented my assessment and findings in the medical record. (Austin Arana MD) Asha Salas Nov 24, 2016 17:24 Austin Arana MD Nov 29, 2016 14:44
[2016-11-24] MEDS: D5-1/2 NS + KCL 20 MEQ INJ 1,000 ML IV SCH (22:47)
[2016-11-25 00:29] LABS: BLOOD, URINE NEG (NEG); GLUCOSE,URINE NEG (NEG); KETONE, URINE NEG (NEG); NITRITE,URINE NEG (NEG); URINE COLOR YELLOW (YELLW/STRAW)
[2016-11-25] MEDS: ALPRAZolam 0.25 MG TAB PO PRN ×3 (00:30→19:23)
[2016-11-25 00:32] LABS: COMMENT (UR) CATH-CULT NOT IND; CULTURE IF INDICATED CATH CULTURE NOT IND
[2016-11-25] MEDS: ACETAMINOPHEN/HYDROcodone 325 MG/10 MG TAB PO PRN ×3 (06:00→17:45)
[2016-11-25] MEDS: cefTAZidime INJ 2,000 MG in SODIUM CHLORIDE 0.9% INJ 100 ML IV SCH (06:00)
[2016-11-25 07:45] LABS: HEMATOCRIT 32.5 % (35.0-46.0); MEAN CELL VOLUME 68.2 FL (80.0-100.0); MEAN CORPUSCULAR HEMOGLOBIN 21.7 PG (27.0-34.0); MEAN CORPUSCULAR HGB CONC 31.8 % (32.0-36.0); PLATELET COUNT 257 TH/MM3 (150-450); RED BLOOD COUNT 4.77 MIL/MM3 (4.00-5.30); RED CELL DISTRIBUTION WIDTH 21.9 % (11.6-17.2); REVIEW FLAG FINAL; WHITE BLOOD COUNT 6.4 TH/MM3 (4.0-11.0)
[2016-11-25 07:49] LABS: INTERNATIONAL NORMALIZED RATIO 1.6 RATIO
[2016-11-25 08:00] VITALS: BP 184/81; PULSE 62; RESP 16; TEMP 96.4; O2SAT 95
[2016-11-25 08:15] LABS: BICARBONATE 25.6 MEQ/L (21.0-32.0); POTASSIUM 4.3 MEQ/L (3.5-5.1)
[2016-11-25] MEDS: TIOTROPIUM BROMIDE 18 MCG INH INH SCH (09:00)
[2016-11-25] MEDS: ATENOLOL 50 MG TAB PO SCH ×2 (09:00→20:27)
[2016-11-25] MEDS: SODIUM CHLORIDE 0.9% FLUSH 5 ML FLUSH IVF SCH ×2 (09:00→20:25)
[2016-11-25] MEDS: SODIUM CHLORIDE 0.9% FLUSH 10 ML FLUSH IV FLUSH SCH ×2 (09:00→20:25)
[2016-11-25] MEDS: ENOXAPARIN SODIUM 60 MG/0.6 ML SYRINGE SQ SCH ×2 (09:18→20:27)
[2016-11-25] MEDS: POTASSIUM CHLORIDE 10 MEQ CONTROLLED RELEASE TAB PO SCH (09:18)
[2016-11-25] MEDS: GABAPENTIN 300 MG CAP PO SCH ×3 (09:18→16:49)
[2016-11-25] MEDS: CHOLECALCIFEROL (VIT D3) 1000 UNIT TAB PO SCH (09:19)
[2016-11-25] MEDS: LACTOBACILLUS ACIDOPHILUS TAB PO SCH ×2 (09:19→20:27)
[2016-11-25] MEDS: FOLIC ACID 1 MG TAB PO SCH (09:19)
[2016-11-25] MEDS: ASCORBIC ACID 500 MG TAB PO SCH (09:19)
[2016-11-25] MEDS: PANTOPRAZOLE SOD 40 MG DELAYED RELEASE TAB PO SCH (09:19)
[2016-11-25] MEDS: TRIAMTERENE/HCTZ 75 MG/50 MG TAB PO SCH (09:19)
[2016-11-25] MEDS: TOLTERODINE TARTRATE 4 MG CAP LA PO SCH (09:19)
[2016-11-25] MEDS: CALCIUM/VITAMIN D 250 MG/125 U TAB PO SCH ×2 (09:20→20:27)
[2016-11-25 12:00] VITALS: BP 186/77; PULSE 60; RESP 16; TEMP 97.3; O2SAT 98
[2016-11-25] MEDS: VANCOMYCIN 1,000 MG/NS 250 ML IV SCH ×2 (14:00)
--- NOTE | 2016-11-25 14:27 | HHI.NSPN ---
(Asha Salas) Note Status Status: Progress Note (Asha Salas) Interval History Interval History 81-year-old female presents to the emergency room today with complaint of severe progressive right lower extremity pain. The patient indicates that in approximately May 2016 she developed progressive right lower extremity pain. She underwent an MRI of the lumbar spine in August 2016 and was seen by neurosurgery for evaluation with findings of a right L5-S1 herniated nucleus pulposus. She underwent right L5-S1 microdiscectomy on 09/03/16. She states that she did very well for for approximately 3 weeks postoperative, and then states that she developed generalized weakness. She was seen in the emergency room and admitted with a diagnosis of sepsis, hypokalemia, elevated troponin 1. She was seen by infectious disease and treated for gram-negative sepsis and C. difficile. An MRI 09/25/16 revealed some fluid in the paraspinous region but no definite enhancement or abscess formation. She developed abdominal distention and was seen by gastroenterology. The patient was discharged to [facility] on meropenem and vancomycin until 10/24/16, with Dificid until . She states that after inpatient rehabilitation, she was discharged for short period of time to the snf facility. She has been home since then, with an assistant inventory manager to help her. She states that she has had persistent and progressive right posterior lower extremity pain over the past few weeks. She was last seen for neurosurgery follow-up on 11/11/16 and a follow-up MRI of the spine from 10/31/16 was reviewed which did not reveal any definite abscess formation. The patient presents to the emergency room today due to progressive pain. She has not been able to eat well. She is not ambulating except for a short distance. She states that she feels as if she is not emptying her bladder fully. No bowel dysfunction. No recent fevers chills or sweats. 11/23/16: CT guided aspiration of right lower lumbar paraspinous fluid collection. 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 11/24/16: pt complains of pain radiating down her right leg laterally to the foot , worsened when she tries to bear weight onto the right foot. 11/25/16: clinically stable overnight, would like discharge plan for [facility] (Asha Salas) Labs, Micro, & Vital Signs Results Date Time Temp Pulse Resp B/P Pulse Ox O2 Delivery O2 Flow Rate FiO2 11/25/16 12:00 97.3 60 16 186/77 98 11/25/16 08:00 96.4 62 16 184/81 95 11/24/16 23:41 99 11/24/16 20:00 97.4 67 17 116/54 99 11/24/16 16:00 97.0 63 20 173/70 96 11/25/16 07:00 Intake Total 2075 ml Output Total 3240 ml Balance -1165 ml Constitutional Vital Signs Date Time Temp Pulse Resp B/P Pulse Ox O2 Delivery O2 Flow Rate FiO2 11/25/16 12:00 97.3 60 16 186/77 98 11/25/16 08:00 96.4 62 16 184/81 95 11/24/16 23:41 99 11/24/16 20:00 97.4 67 17 116/54 99 11/24/16 16:00 97.0 63 20 173/70 96 11/25/16 07:00 Intake Total 2075 ml Output Total 3240 ml Balance -1165 ml (Asha Salas) Review of Systems/Exam Exam Awake, no apparent distress laying in bed. Conversing properly. Speech is fluent. CN: pupils equal b/l, facial motor symmetric Neck: soft, supple Motor: today her exam showed 5/5 bilateral tibialis anterior, gastrocnemius Plantars downgoing b/l. No ankle clonus (Asha Salas) Exam Ms Dougherty is alert, awake and oriented to time, place and person. Speech is fluent. Cranial nerve examination: pupils to be equal, round and reactive to light. Extra-ocular movements are intact. Facial motor and sensory function are normal and symmetrical. Gross hearing appears intact. Sternocleidomastoid and trapezius muscles are symmetrical. Other cranial nerves are intact. Neck is soft and supple with a good range of motion without pain. Muscle strength is normal in all muscle groups of both upper and lower extremities. Sensory examination is intact to light touch and pin prick in both the upper and lower extremities. Deep tendon reflexes are symmetrical in both upper and lower extremities. There is a bilateral plantar flexion response. Cerebellar examination is unremarkable, without deficits. (Austin Arana MD) Medications Current Medications Current Medications Medications (Trade) Dose Ordered Sig/Gypsy Route PRN Reason Start Time Stop Time Status Last Admin Dose Admin Alprazolam (Xanax) 0.25 mg Q8H PRN PO ANXIETY 11/22/16 20:30 11/25/16 10:27 Atenolol (Tenormin) 50 mg Q12HR PO 11/22/16 21:00 11/25/16 09:00 Calcium/Vitamin D (Oscal-D 250-125) 250 mg Q12HR PO 11/22/16 21:00 11/25/16 09:20 Cholecalciferol (Vitamin D3) 1,000 units DAILY PO 11/23/16 09:00 11/25/16 09:19 Folic Acid (Folate) 1 mg DAILY PO 11/23/16 09:00 11/25/16 09:19 Gabapentin (Neurontin) 300 mg TID PO 11/23/16 09:00 11/25/16 12:45 Acetaminophen/ Hydrocodone Bitart ([place] 10-325 Mg) 1 tab Q6HR PRN PO PAIN SCALE 1 TO 10 11/22/16 20:30 11/25/16 12:45 Levothyroxine Sodium (Synthroid) 100 mcg Q2D PO 11/24/16 06:00 11/24/16 04:54 Potassium Chloride (KCl) 20 meq DAILY PO 11/23/16 09:00 11/25/16 09:18 Tiotropium [place] (Spiriva Inh) 18 mcg DAILY INH 11/23/16 09:00 11/25/16 09:00 Triamterene/HCTZ (Maxzide 75-50 Mg) 1 tab DAILY PO 11/23/16 09:00 11/25/16 09:19 Ascorbic Acid (Vitamin C) 500 mg DAILY PO 11/23/16 09:00 11/25/16 09:19 Albuterol Sulfate (Proair Hfa Inh) 2 puff QID PRN INH SHORTNESS OF BREATH 11/22/16 20:30 Pantoprazole Sodium (Protonix) 40 mg DAILY PO 11/23/16 09:00 11/25/16 09:19 Tolterodine Tartrate (Detrol La) 4 mg DAILY PO 11/23/16 09:00 11/25/16 09:19 Sodium Chloride (NS Flush) 2 ml BID IV FLUSH 11/22/16 21:00 11/24/16 22:46 Sodium Chloride (NS Flush) 2 ml UNSCH PRN IVF FLUSH AFTER USING IV ACCESS 11/22/16 20:30 IV Flush (NS Flush) 2 ml UNSCH PRN IVF FLUSH AFTER USING IV ACCESS 11/22/16 20:45 IV Flush 2 ml 2 ml BID IVF 11/22/16 21:00 11/22/16 21:00 Potassium Chloride/Dextrose/ Sod Cl (D5-1/2 NS + KCl 20 Meq Inj) 1,000 ml @ 30 mls/hr Q24H IV 11/22/16 22:00 11/24/16 22:47 Enalaprilat (Vasotec Inj) 1.25 mg Q6H PRN IV PUSH SBP>160, DBP>90 11/23/16 09:45 11/24/16 11:47 Magnesium Hydroxide (Milk Of Eve Liq) 30 ml DAILY PRN PO CONSTIPATION 11/23/16 09:45 11/24/16 10:29 Enoxaparin Sodium 60 mg 60 mg Q12H SQ 11/23/16 21:00 11/25/16 09:18 Ceftazidime 2000 mg/Sodium Chloride 100 ml @ 200 mls/hr Q8H IV 11/24/16 14:00 11/25/16 06:00 Pharmacy Profile Note 0 ml @ 0 mls/hr UNSCH OTHER 11/24/16 12:45 Vancomycin HCl/ Sodium Chloride (Vancomycin Inj/ NS 250 ml Inj) 250 ml @ 250 mls/hr Q24H IV 11/24/16 14:00 11/24/16 14:36 Miscellaneous Information SPECIFIC LAB TO BE [facility]... ONCE ONCE .XX 11/27/16 13:45 11/27/16 13:46 Warfarin Sodium (Coumadin) 4 mg DAILY@16 PO 11/24/16 16:00 11/24/16 14:35 Lactobacillus Acidophilus (Lactinex) 1 tab Q12HR PO 11/24/16 21:00 11/25/16 09:19 (Asha Salas) Current Medications Current Medications Sodium Chloride (NS Flush) 2 ml UNSCH PRN IV FLUSH FLUSH AFTER USING IV ACCESS ; Start 11/22/16 at 14:30; Stop 11/22/16 at 20:33; Status DC Morphine Sulfate (Morphine Inj) 4 mg ONCE ONCE IV PUSH Last administered on 14:54; Start 11/22/16 at 14:30; Stop 11/22/16 at 14:31; Status DC Gadodiamide (Omniscan Pf Inj) 10 ml STK-MED ONCE IV Last administered on 19:09; Start 11/22/16 at 19:09; Stop 11/22/16 at 19:10; Status DC Alprazolam (Xanax) 0.25 mg Q8H PRN PO ANXIETY Last administered on 11/27/16 00 :43; Start 11/22/16 at 20:30; Stop 11/27/16 at 16:20; Status DC Atenolol (Tenormin) 50 mg Q12HR PO Last administered on 11/27/16 09:11; Start 11/22/16 at 21:00; Stop 11/27/16 at 16:20; Status DC Calcium/Vitamin D (Oscal-D 250-125) 250 mg Q12HR PO Last administered on 09:10; Start 11/22/16 at 21:00; Stop 11/27/16 at 16:20; Status DC Cholecalciferol (Vitamin D3) 1,000 units DAILY PO Last administered on 09:10; Start 11/23/16 at 09:00; Stop 11/27/16 at 16:20; Status DC Folic Acid (Folate) 1 mg DAILY PO Last administered on 11/27/16 09:10; Start 11/23/16 at 09:00; Stop 11/27/16 at 16:20; Status DC Gabapentin (Neurontin) 300 mg TID PO Last administered on 11/27/16 12:03; Start 11/23/16 at 09:00; Stop 11/27/16 at 16:20; Status DC Acetaminophen/ Hydrocodone Bitart ([place] 10-325 Mg) 1 tab Q6HR PRN PO PAIN SCALE 1 TO 10 Last administered on 11/27/16 12:02; Start 11/22/16 at 20:30; Stop 11/27/16 at 16:20; Status DC Lactobacillus Acidophilus (Lactinex) 1 tab TID PO Last administered on 09:46; Start 11/23/16 at 09:00; Stop 11/24/16 at 15:52; Status DC Levothyroxine Sodium (Synthroid) 100 mcg Q2D PO Last administered on 11/26/16 05:23; Start 11/24/16 at 06:00; Stop 11/27/16 at 16:20; Status DC Potassium Chloride (KCl) 20 meq DAILY PO Last administered on 11/27/16 09:11; Start 11/23/16 at 09:00; Stop 11/27/16 at 16:20; Status DC Tiotropium [place] (Spiriva Inh) 18 mcg DAILY INH Last administered on 09:12; Start 11/23/16 at 09:00; Stop 11/27/16 at 16:20; Status DC Triamterene/HCTZ (Maxzide 75-50 Mg) 1 tab DAILY PO Last administered on 09:10; Start 11/23/16 at 09:00; Stop 11/27/16 at 16:20; Status DC Ascorbic Acid (Vitamin C) 500 mg DAILY PO Last administered on 11/27/16 09:09 ; Start 11/23/16 at 09:00; Stop 11/27/16 at 16:20; Status DC Albuterol Sulfate (Proair Hfa Inh) 2 puff QID PRN INH SHORTNESS OF BREATH; Start 11/22/16 at 20:30; Stop 11/27/16 at 16:20; Status DC Pantoprazole Sodium (Protonix) 40 mg DAILY PO Last administered on 11/27/16 09 :10; Start 11/23/16 at 09:00; Stop 11/27/16 at 16:20; Status DC Tolterodine Tartrate (Detrol La) 4 mg DAILY PO Last administered on 11/27/16 09:10; Start 11/23/16 at 09:00; Stop 11/27/16 at 16:20; Status DC Sodium Chloride (NS Flush) 2 ml BID IV FLUSH Last administered on 11/24/16 22: 46; Start 11/22/16 at 21:00; Stop 11/26/16 at 15:20; Status DC Sodium Chloride (NS Flush) 2 ml UNSCH PRN IVF FLUSH AFTER USING IV ACCESS; Start 11/22/16 at 20:30; Stop 11/26/16 at 15:20; Status DC IV Flush (NS Flush) 2 ml UNSCH PRN IVF FLUSH AFTER USING IV ACCESS; Start 11/22 at 20:45; Stop 11/27/16 at 16:20; Status DC IV Flush 2 ml 2 ml BID IVF Last administered on 11/27/16 09:00; Start at 21:00; Stop 11/27/16 at 16:20; Status DC Potassium Chloride/Dextrose/ Sod Cl (D5-1/2 NS + KCl 20 Meq Inj) 1,000 ml @ 30 mls/hr Q24H IV Last administered on 11/26/16 00:59; Start 11/22/16 at 22:00; Stop 11/26/16 at 14:38; Status DC Enalaprilat (Vasotec Inj) 1.25 mg Q6H PRN IV PUSH SBP>160, DBP>90 Last administered on 11/27/16 03:39; Start 11/23/16 at 09:45; Stop 11/27/16 at 16:20 ; Status DC Magnesium Hydroxide (Milk Of Magnesia Liq) 30 ml DAILY PRN PO CONSTIPATION Last administered on 11/27/16 10:12; Start 11/23/16 at 09:45; Stop 11/27/16 at 16:20; Status DC Albuterol/ Ipratropium 1 ampule 1 ampule Q6HR NEB PRN NEB WHEEZING; Start 11/23 at 09:45; Stop 11/27/16 at 16:20; Status DC Vancomycin HCl 1000 mg/Sodium Chloride 250 ml @ 250 mls/hr ONCE ONCE IV ; Start 11/23/16 at 10:00; Stop 11/23/16 at 10:17; Status DC Pharmacy Profile Note (Vancomycin Consult Pharmacy) 0 ml @ 0 mls/hr UNSCH OTHER ; Start 11/23/16 at 10:00; Stop 11/23/16 at 10:17; Status DC Lidocaine/ Epinephrine (Xylocaine-Epi 1%-1:100,000 Inj) 20 ml STK-MED ONCE .ROUTE Last administered on 11/23/16 13:55; Start 11/23/16 at 13:55; Stop at 13:56; Status DC Fentanyl Citrate (fentaNYL INJ) 100 mcg STK-MED ONCE .ROUTE Last administered on 11/23/16 13:57; Start 11/23/16 at 13:57; Stop 11/23/16 at 13:58; Status DC Enoxaparin Sodium 60 mg 60 mg Q12H SQ Last administered on 11/27/16 09:09; Start 11/23/16 at 21:00; Stop 11/27/16 at 16:20; Status DC Ceftazidime 2000 mg/Sodium Chloride 100 ml @ 200 mls/hr Q8H IV Last administered on 11/25/16 06:00; Start 11/24/16 at 14:00; Stop 11/25/16 at 15:08 ; Status DC Pharmacy Profile Note 0 ml @ 0 mls/hr UNSCH OTHER ; Start 11/24/16 at 12:45; Stop 11/25/16 at 15:08; Status DC Vancomycin HCl/ Sodium Chloride (Vancomycin Inj/ NS 250 ml Inj) 250 ml @ 250 mls/hr Q24H IV Last administered on 11/25/16 14:00; Start 11/24/16 at 14:00; Stop 11/25/16 at 15:08; Status DC Miscellaneous Information SPECIFIC LAB TO BE [facility]... ONCE ONCE .XX ; Start 11/27 at 13:45; Stop 11/27/16 at 13:46; Status Cancel Warfarin Sodium (Coumadin) 4 mg DAILY@16 PO Last administered on 11/27/16 15: 12; Start 11/24/16 at 16:00; Stop 11/27/16 at 16:20; Status DC Patient Medication Teaching (Coumadin Booklet) 1 ONCE ONCE .XX ; Start at 16:00; Stop 11/24/16 at 16:01; Status DC Lactobacillus Acidophilus 1 tab 1 tab Q12HR PO Last administered on 11/27/16 09:09; Start 11/24/16 at 21:00; Stop 11/27/16 at 16:20; Status DC Cefepime HCl/ Sodium Chloride (Maxipime Inj/NS Inj) 100 ml @ 200 mls/hr Q8H IV Last administered on 11/27/16 15:12; Start 11/25/16 at 16:00; Stop 11/27/16 at 16:20; Status DC Clonidine (Catapres) 0.1 mg UNSCH X1 PO Last administered on 11/26/16 05:23; Start 11/26/16 at 04:37; Stop 11/26/16 at 05:30; Status DC Lisinopril (Prinivil) 10 mg DAILY PO Last administered on 11/26/16 17:14; Start 11/26/16 at 15:30; Stop 11/27/16 at 07:50; Status DC Hydralazine HCl (Apresoline) 25 mg Q8HR PRN PO SBP> 170 Last administered on 00:43; Start 11/26/16 at 14:45; Stop 11/27/16 at 16:20; Status DC Sodium Chloride (Sodium Chloride) 1 gm BID PO Last administered on 11/27/16 09 :10; Start 11/26/16 at 21:00; Stop 11/27/16 at 16:20; Status DC Lisinopril (Prinivil) 20 mg DAILY PO Last administered on 11/27/16 09:12; Start 11/27/16 at 09:00; Stop 11/27/16 at 16:20; Status DC Magnesium Citrate (Citroma Liq) 300 ml ONCE ONCE PO ; Start 11/27/16 at 10:00; Stop 11/27/16 at 10:40; Status DC Bisacodyl (Dulcolax Supp) 10 mg ONCE ONCE RECTAL Last administered on 15:11; Start 11/27/16 at 10:45; Stop 11/27/16 at 10:46; Status DC (Austin Arana MD) Medical Decision Making MDM Remarks 81 y/o female with intractable lumbar pain, paraspinous abscess, discitis, osteomyelitis at L5-S1 on MRI L spine, s/p CT guided aspiration with placement of pigtail drain, cultures positive for Proteus Mirabilis recent L5-S1 laminectomy microdiscectomy on 09/03/16 recent gram-negative sepsis and C. difficile, MRI L spine on 09/25/16 revealed some fluid in the paraspinous region but no definite enhancement or abscess formation treated with meropenem and vancomycin until 10/24/16, with Dificid until 10/14/16 follow-up MRI L spine from 10/31/16 again no revealed no definite abscess formation, no enhancement in the disc, this was previous reviewed by Dr. Arana ( Asha Salas) Plan Plan Remarks continue IV antibiotics, mgt per ID, cont supportive care lumbar brace when out of bed cont PT, pt would like to be discharge again to [facility] PICC placement ordered (Asha Salas) Attending Statement As above. Continue neuro checks Pulmonary. aggressive pulmonary toilette, nasotracheal suction, and breathing treatments with nebulizers. Daily PT and OT Nutrition. Oral diet Renal. monitor closely urine output, BUN and creatinine Endocrine. Monitor serial Acu checks and SSI as needed in detail ID monitor for signs of infection Protonix for stress ulcer prophylaxis Jeb hose and SCD's for DVT prophylaxis The exam, history, and the medical decision-making described in the above note were completed with the assistance of the mid-level provider. I reviewed and agree with the findings presented. I attest that I had a [id number] encounter with the patient on the same day, and personally performed and documented my assessment and findings in the medical record. (Austin Arana MD) Asha Salas Nov 25, 2016 14:27 Austin Arana MD Nov 29, 2016 14:53
--- NOTE | 2016-11-25 15:04 | HHI.IDPN ---
Subjective Subjective Remarks Ms. Dougherty is a pleasant 81-year-old female with recent hospitalizations and complications after she underwent an elective L5-S1 hemilaminectomy laminectomy and microdiscectomy September 17, 2016. Patient was initially admitted to [facility] from 09/21/2016 to October 06, 2016 with sepsis, was found with fluid collection the lumbar site. IR drained the fluid collection. Her blood cultures from 2016 grew E.coli and Proteus Mirabilis. She grew Pseudomonas from surgical site fluid collection and subsequently E.coli. She grew Pseudomonas and was treated with antibiotics per ID recommendations. Patient was eventually discharged to [place] for comprehensive rehabilitation and after that she when to a SNF for more strengthening and was eventually discharged home with home health care. Patient has since been readmitted twice, on November 01 after she was noted very weak and deconditioned. At that time she had an MRI of the lumbar spine that showed increase uptake but patient had no definitive signs of infection. Patient had cultures taken and put on empiric antibiotics. She was eventually discharged on oral antibiotics on November 05 in stable condition. She came back the next day November 06 with shortness of breath, chest pain and heme-positive stools. Was evaluated by pulmonology cardiology and GI. She declined GI evaluation and was discharged home in stable condition. Patient presented back to the emergency room yesterday with increasing weakness, inability to ambulate and pain radiating from the lumbar spine down the right leg. Patient was ambulating with walker but for the last 2 weeks she's no longer able to do so. She does have a living caregiver as her was recently hospitalized as well. She did follow up with Dr. Arana on November 14, 2016 and at that time had refill of her pain medications and was found in stable condition. In the emergency room, patient was evaluated, laboratory workup was completed. Remarkable for hyponatremia, sodium 126. She had a lumbar spine MRI that showed postsurgical changes with laminectomy defect on the right, diffuse abnormal signal with enhancement in the laminectomy defect with fluid tracking posteriorly in the right paraspinal region. This fluid collection has increased in size and there is loculated appearance with enhancement which was concerning for abscess. Suspected discitis at L5 to S1 with osteomyelitis within the adjacent endplates. There is also a small fluid collection/abscess anterior to the disc space at L5/S1. At this time, antibiotics are on hold. The plan is for possible CT aspiration of the lumbar area. Patient is on Coumadin and aspirin which are currently on hold. INR is 1.7. Patient does have significant weakness to the right lower extremity and is noted with right foot drop. Patient denies any recent fever, no chills but off note she has been on oral antibiotics off and on. She complained of not being able to empty her bladder. Has normal bowel function. Id consulted for evaluation and Mment of recurrent or non resolving epidural abscess. Antibiotics Ceftazidime IV Vanco IV Lines Line sites with no e.o infection. Past Medical History Polycythemia vera History of PE , antiphospholipid syndrome-on chronic anticoagulation with Coumadin TIA Radiculopathy Arthritis Cervical cancer, status post radiation and chemotherapy in 2010. 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 IR drained the fluid collection. Grew Pseudomonas and was treated with antibiotics. Developed Cdiff. 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 Vital Signs Date Time Temp Pulse Resp B/P Pulse Ox O2 Delivery O2 Flow Rate FiO2 11/25/16 12:00 97.3 60 16 186/77 98 11/25/16 08:00 96.4 62 16 184/81 95 11/24/16 23:41 99 11/24/16 20:00 97.4 67 17 116/54 99 11/24/16 16:00 97.0 63 20 173/70 96 11/24/16 11/24/16 11/25/16 14:59 22:59 06:59 Intake Total 1080 ml 515 ml 480 ml Output Total 1200 ml 630 ml 1410 ml Balance -120 ml -115 ml -930 ml Intake Oral 1080 ml 240 ml 240 ml IV Total 275 ml 240 ml Output Urine Total 1200 ml 600 ml 1400 ml Drainage Total 30 ml 10 ml # Bowel Movements 0 . Laboratory Tests Test 11/24/16 11/25/16 05:07 06:40 White Blood Count 6.6 TH/MM3 6.4 TH/MM3 Red Blood Count 4.70 MIL/MM3 4.77 MIL/MM3 Hemoglobin 10.2 GM/DL 10.3 GM/DL Hematocrit 31.9 % 32.5 % Mean Corpuscular Volume 68.0 FL 68.2 FL Mean Corpuscular Hemoglobin 21.7 PG 21.7 PG Mean Corpuscular Hemoglobin 31.9 % 31.8 % Concent Red Cell Distribution Width 22.0 % 21.9 % Platelet Count 276 TH/MM3 257 TH/MM3 Mean Platelet Volume 8.2 FL 8.6 FL Laboratory Tests Test 11/24/16 11/25/16 05:07 06:40 Sodium Level 129 MEQ/L 132 MEQ/L Potassium Level 4.1 MEQ/L 4.3 MEQ/L Chloride Level 95 MEQ/L 98 MEQ/L Carbon Dioxide Level 26.6 MEQ/L 25.6 MEQ/L Anion Gap 7 MEQ/L 8 MEQ/L Blood Urea Nitrogen 6 MG/DL 7 MG/DL Creatinine 0.37 MG/DL 0.55 MG/DL Estimat Glomerular Filtration 168 ML/MIN 106 ML/MIN Rate Random Glucose 94 MG/DL 90 MG/DL Calcium Level 8.8 MG/DL 8.6 MG/DL C-Reactive Protein 7.70 MG/DL Microbiology Date/Time Procedure Status Source Growth 11/23/16 12:25 Gram Stain - Final Complete Abscess Back 11/23/16 12:25 Wound Culture - Final Complete Proteus Mirabilis 11/24/16 14:35 Aerobic Blood Culture - Preliminary Resulted Blood Peripheral NO GROWTH IN 1 DAY 11/24/16 14:35 Anaerobic Blood Culture - Preliminary Resulted Blood Peripheral NO GROWTH IN 1 DAY 11/24/16 14:44 Aerobic Blood Culture - Preliminary Resulted Blood Peripheral NO GROWTH IN 1 DAY 11/24/16 14:44 Anaerobic Blood Culture - Preliminary Resulted Blood Peripheral NO GROWTH IN 1 DAY Imaging Last Impressions Lumbar Spine MRI 11/22/16 0000 Signed Impressions: Service Date/Time: Tuesday, November 22, 2016 18:53 - CONCLUSION: 1. Postsurgical changes with laminectomy defect on the right. Diffuse abnormal signal with enhancement in the laminectomy defect with fluid tracking posteriorly in the right paraspinal region. This fluid collection has increased in size and there is loculated appearance with enhancement. This is concerning for abscess. 2. Suspected discitis at L5-S1 with osteomyelitis within the adjacent endplates. There is also a small fluid collection/abscess anterior to the disc space at L5-S1. Camilo Valdez MD Physical Exam GENERAL: This is a well-nourished, well-developed patient, in no apparent distress. SKIN: No rashes, ecchymoses or lesions. Cool and dry. Bruising from falls. HEAD: Atraumatic. Normocephalic. No temporal or scalp tenderness. EYES: Pupils equal round and reactive. Extraocular motions intact. No scleral icterus. No injection or drainage. ENT: Nose without bleeding, purulent drainage or septal hematoma. Throat without erythema, tonsillar hypertrophy or exudate. Uvula midline. Airway patent. NECK: Trachea midline. Supple, nontender, no meningeal signs. CARDIOVASCULAR: Regular rate and rhythm without murmurs. RESPIRATORY: Clear to auscultation. Breath sounds equal bilaterally. No wheezes , rales, or rhonchi. GASTROINTESTINAL: Abdomen soft, non-tender, nondistended. MUSCULOSKELETAL: Extremities without clubbing, cyanosis, or edema. Right foot drop. NEUROLOGICAL: Awake and alert. Grossly non focal Psych: cooperative, anxiety IV line sites with no e.o infection. Assessment & Plan Remarks L5-S1 discitis, osteomyelitis with enlarging right paraspinous fluid collection suggestive of abscess formation. s/p IR guided drain placement. Right L5 distribution motor deficit with significant right foot drop. E.coli and Proteus bacteremia history in November 2016 PSAE and E.coli epidural abscess s/p 6 weeks IV antibiotics. Polycythemia-on Coumadin History of cervical cancer Recs Follow [facility] for Fluid aspirate. Blood cultures x 2 stat UA with reflex to urine culture. DC Ceftazidime (GNR in gram stain). DC Vanco IV Start Cefepime IV (Proteus Epidural abscess duration 8 weeks IV Cefepime) PT/OT to assess rehab vs home. [facility] consult per patient request. She prefers [facility]. d/w No current plans for neurosurgery per . Ready for discharge from ID standpoint. Please call me once place of disposition decided. Jaycee Banks MD Nov 25, 2016 15:03
[2016-11-25 16:00] VITALS: BP 184/78; PULSE 64; RESP 16; TEMP 97; O2SAT 99
[2016-11-25] MEDS: ENALAPRILAT 1.25 MG/ML VIAL IV PUSH PRN (16:49)
[2016-11-25] MEDS: WARFARIN SOD 4 MG TAB PO SCH (16:49)
--- NOTE | 2016-11-25 17:04 | HHI.PR ---
Subjective Remarks Resting in bed Anxiety mild to moderate over current condition Also worried about her Afebrile (Arti Villa) Objective Objective Results - Vital Signs Date Time Temp Pulse Resp B/P Pulse Ox O2 Delivery O2 Flow Rate FiO2 11/25/16 16:00 97.0 64 16 184/78 99 11/25/16 12:00 97.3 60 16 186/77 98 11/25/16 08:00 96.4 62 16 184/81 95 11/24/16 23:41 99 11/24/16 20:00 97.4 67 17 116/54 99 I/O 11/24/16 11/24/16 11/24/16 11/25/16 11/25/16 11/25/16 07:00 15:00 23:00 07:00 15:00 23:00 Intake Total 411 ml 1080 ml 515 ml 480 ml 120 ml Output Total 615 ml 1200 ml 630 ml 1410 ml 425 ml Balance -204 ml -120 ml -115 ml -930 ml -305 ml Intake Oral 240 ml 1080 ml 240 ml 240 ml 120 ml IV Total 171 ml 275 ml 240 ml Output Urine Total 600 ml 1200 ml 600 ml 1400 ml 425 ml Drainage Total 15 ml 30 ml 10 ml # Bowel Movements 0 0 0 (Arti Villa) Result Diagram: 11/25/1640 11/25/16 0640 ROS General: Other (10 point ROS done positives noted) Neuro/MS: Other (drain in disc, lower back abscess, continues with debility) ( Arti Villa) Physical Exam Physical Exam PHYSICAL EXAMINATION GENERAL: This is a thin borderline frail female Resting in bed She is alert and awake, mildly anxious HEAD: Normocephalic without any lesion or mass noted. Facial features appear symmetric. OROPHARYNGEAL: Oropharynx clear NECK: Supple. Trachea midline without deviation. CARDIAC: Regular rhythm, regular rate, S1 and S2 are heard. LUNGS: Clear to auscultation bilaterally. Volumes low to low normal ABDOMEN: Soft, nontender, no organomegaly or masses. Bowel sounds are heard in all four quadrants. No rebound. No guarding. EXTREMITIES: no edema. Pulses equal bilateral. Drain in lower back for chronic discitis NEUROLOGICAL: Patient mood and affect mild to moderate anxiety ., Continues with debility SKIN:Warm and moist (Arti Villa) A/P Assessment and Plan Diagnosis: (1) Low back pain , acute on chronic (2) Discitis (3) Epidural abscess (4) S/P lumbar laminectomy (5) hx recent infection lumbar surgical site (6) Hx pulmonary embolism (7) Hx TIA/stroke w/o resid (8) Chronic anticoagulation (9) Antiphospholipid antibody syndrome (10) HTN (hypertension) (11) Anxiety (12) Presence of IVC filter (13) Decreased ambulation status (14) Hyperlipidemia (15) Hyponatremia Vital signs reviewed afebrile, BP systolic trends greater than 180 at times, IV Vasotec ordered as needed Labs reviewed -S/P CT guided aspiration of fluid in IR 11/23, we'll continue to leave drains in place, plan is for medical management and long-term IV antibiotics -ID consulted for abx management, d/w Dr. Banks, appreciate input, will need long-term antibiotics Pain management, physical therapy, will continue to be needed for patient's debility Hyponatremia, gradual trends monitor, Sodium coming up Monitor BMP History of pulmonary emboli, antiphospholipid syndrome. Has IVC filter Resume Coumadin today, Lovenox to bridge-dc when INR >2. -INR today 1.6 -INR daily, appreciate pharmacy input Anxiety, continues to be anxious over continuous medical illness and dilemma, supportive care Protonix, PUD prophylaxis SCDs for DVT prophylaxis Encourage nutrition, mobility with PT Discharge planning possibly tomorrow for acute rehabilitation, [facility] and then possible rehabilitation's SNF, Case management working with plan and discharge planning, spoke to patient today about her options D/W Dr. Forbes, seen on her behalf D/W pt D/W RN (Arti Villa) Assessment and Plan patient seen and examined agree with above assessment and plan anticipate discharge to [facility] soon discussed with patient discussed with Arti lyons family at bedside on lovenox and coumadin check labs in am (Monique Forbes MD) Arti Villa Nov 25, 2016 17:04 Monique Forbes MD Nov 25, 2016 18:13 Arti Villa Nov 25, 2016 17:04 Monique Forbes MD Nov 25, 2016 18:13
[2016-11-25] MEDS: CEFEPIME INJ 2,000 MG in SODIUM CHLORIDE 0.9% INJ 100 ML IV SCH (17:44)
[2016-11-25 19:18] LABS: INDIRECT BILIRUBIN 0.3 MG/DL (0.0-0.8); TOTAL BILIRUBIN ADULT 0.4 MG/DL (0.2-1.0)
[2016-11-25 20:00] VITALS: BP 155/68; PULSE 98; RESP 16; TEMP 97.1; O2SAT 98
[2016-11-25] MEDS: D5-1/2 NS + KCL 20 MEQ INJ 1,000 ML IV SCH (20:26)
[2016-11-26] VITALS (8 sets, daily range): BP systolic 140–197; BP diastolic 63–83; PULSE 57–119; RESP 18–20; TEMP 95.4–98.6; O2SAT 93–100
[2016-11-26] MEDS: D5-1/2 NS + KCL 20 MEQ INJ 1,000 ML IV SCH (00:59)
[2016-11-26] MEDS: CEFEPIME INJ 2,000 MG in SODIUM CHLORIDE 0.9% INJ 100 ML IV SCH ×3 (01:01→14:36)
[2016-11-26] MEDS: ENALAPRILAT 1.25 MG/ML VIAL IV PUSH PRN ×2 (01:03→14:36)
[2016-11-26] MEDS ORDERED: cloNIDine HCL 0.1 MG TAB PO SCH (04:37)
[2016-11-26] MEDS: LEVOTHYROXINE SODIUM 100 MCG TAB PO SCH (05:23)
[2016-11-26] MEDS: ACETAMINOPHEN/HYDROcodone 325 MG/10 MG TAB PO PRN ×2 (05:24→13:42)
[2016-11-26] MEDS: ALPRAZolam 0.25 MG TAB PO PRN ×2 (06:34→14:36)
[2016-11-26 07:18] LABS: AUTOMATED NEUTROPHIL # 5.2 TH/MM3 (1.8-7.7); BASOPHIL % 0.6 % (0.0-2.0); EOSINOPHIL # 0.1 TH/MM3 (0-0.4); EOSINOPHIL % 1.7 % (0.0-4.0); HEMATOCRIT 31.5 % (35.0-46.0); HEMO FLAGS DIFF FINAL; LYMPH % 7.9 % (9.0-44.0); LYMPHOCYTE # 0.5 TH/MM3 (1.0-4.8); MEAN CELL VOLUME 68.5 FL (80.0-100.0); MEAN CORPUSCULAR HEMOGLOBIN 21.7 PG (27.0-34.0); MEAN CORPUSCULAR HGB CONC 31.7 % (32.0-36.0); MONO % 2.6 % (0.0-8.0); NEUT % 87.2 % (16.0-70.0); PLATELET COUNT 227 TH/MM3 (150-450); RED BLOOD COUNT 4.61 MIL/MM3 (4.00-5.30); RED CELL DISTRIBUTION WIDTH 21.9 % (11.6-17.2)
[2016-11-26 07:25] LABS: INTERNATIONAL NORMALIZED RATIO 1.4 RATIO; PROTHROMBIN TIME - PATIENT 15.2 SEC (9.8-11.6)
[2016-11-26 07:39] LABS: BICARBONATE 24.2 MEQ/L (21.0-32.0); POTASSIUM 4.4 MEQ/L (3.5-5.1)
[2016-11-26] MEDS: SODIUM CHLORIDE 0.9% FLUSH 5 ML FLUSH IVF SCH ×2 (09:00→20:36)
[2016-11-26] MEDS: SODIUM CHLORIDE 0.9% FLUSH 10 ML FLUSH IV FLUSH SCH (09:00)
[2016-11-26] MEDS: TIOTROPIUM BROMIDE 18 MCG INH INH SCH (09:00)
[2016-11-26] MEDS: TOLTERODINE TARTRATE 4 MG CAP LA PO SCH (09:04)
[2016-11-26] MEDS: ATENOLOL 50 MG TAB PO SCH ×2 (09:04→20:36)
[2016-11-26] MEDS: CHOLECALCIFEROL (VIT D3) 1000 UNIT TAB PO SCH (09:04)
[2016-11-26] MEDS: FOLIC ACID 1 MG TAB PO SCH (09:04)
[2016-11-26] MEDS: ENOXAPARIN SODIUM 60 MG/0.6 ML SYRINGE SQ SCH ×2 (09:04→20:36)
[2016-11-26] MEDS: TRIAMTERENE/HCTZ 75 MG/50 MG TAB PO SCH (09:04)
[2016-11-26] MEDS: CALCIUM/VITAMIN D 250 MG/125 U TAB PO SCH ×2 (09:05→20:36)
[2016-11-26] MEDS: GABAPENTIN 300 MG CAP PO SCH ×3 (09:05→17:14)
[2016-11-26] MEDS: LACTOBACILLUS ACIDOPHILUS TAB PO SCH ×2 (09:05→20:36)
[2016-11-26] MEDS: PANTOPRAZOLE SOD 40 MG DELAYED RELEASE TAB PO SCH (09:05)
[2016-11-26] MEDS: POTASSIUM CHLORIDE 10 MEQ CONTROLLED RELEASE TAB PO SCH (09:05)
[2016-11-26] MEDS: ASCORBIC ACID 500 MG TAB PO SCH (09:05)
--- NOTE | 2016-11-26 09:28 | RADRPT ---
EXAM DATE/TIME: 11/23/2016 14:14 [facility] COMPARISON: No previous studies available for comparison. INDICATIONS : 81 year-old female with history of lumbar laminectomy with findings concerning for discitis at L5-S1 and associated paraspinal abscess. CT-guided aspiration/drainage has been requested. SEDATION TIME: 15 minutes MEDICATION(S): 1.) 100 mcg fentanyl (Sublimaze) IV DEVICE(S): 1.) 8 Fr Skater 2.) 18 gauge Anand blunt needle FLUID: Total volume of 25 cc of courtney fluid was removed. Fluid was sent for laboratory ordered studies. MEDICAL HISTORY : Hypertension. deep vein thrombosis SURGICAL HISTORY : L4-L5 laminectomy ENCOUNTER: Initial ACUITY: 1 day PAIN SCORE: 0/10 LOCATION: Bilateral lower back PROCEDURE: 1.) Conscious sedation with continuous EKG and oximetry monitoring. 2.) EKG and oximetry remained stable throughout the procedure. PROCEDURE : 1. CT guided drainage of right posterior paraspinal fluid collection 2. Conscious sedation with continuous EKG and oximetry monitoring. The risks, benefits and alternatives to the procedure were explained and verbal and written consent w as obtained. Using automated exposure control and adjustment of the mA and/or kV according to patient size, radiation dose was kept as low as reasonably achievable to obtain optimal diagnostic quality i mages. The site was prepped in sterile fashion. Full sterile technique was used, including cap, ma sk, sterile gloves and gown and a large sterile sheet. Hand hygiene and 2% chlorhexidine and/or beta dine/alcohol prep was utilized per protocol for cutaneous antisepsis. The skin and subcutaneous tiss ues were infiltrated with local anesthetic solution. DICOM format image data is available electronic ally for review and comparison. Using CT guidance the prescribed site was localized. 18 gauge half needle was advanced into the diego ection under careful CT guidance. Purulent appearing fluid was aspirated and therefore decision was m shantell to proceed with catheter drainage. Drainage was performed using the prescribed catheter. The patient tolerated the procedure well and there were no complications. Conscious sedation was per formed with the prescribed dosages and duration as above in the presence of an independent trained ra diology nurse to assist in the monitoring of the patient. EKG and oximetry remained stable throughou t the procedure. The patient tolerated the procedure well and there were no complications. The patient was sent to pos t anesthesia recovery in stable condition. CONCLUSION: 1. CT-guided aspiration of right posterior paravertebral fluid collection yielded purulent fluid. The refore, 8 [place] pigtail catheter was placed in the collection. Approximately 25 mL of purulent appea ring fluid was removed immediately following catheter placement and sample submitted for laboratory a nalysis per request. Sundeep Bryant MD on November 26, 2016 at 9:21 Board Certified Radiologist. This report was verified electronically.
[2016-11-26] MEDS: WARFARIN SOD 4 MG TAB PO SCH (14:36)
[2016-11-26] MEDS ORDERED: hydrALAZINE HCL 25 MG TAB PO PRN (14:45)
[2016-11-26] MEDS ORDERED: LISINOPRIL 10 MG TAB PO SCH (15:30)
--- NOTE | 2016-11-26 17:08 | HHI.PR ---
Subjective Remarks Resting in bed Anxiety mild to moderate over current condition Also worried about her Afebrile Objective Objective Results - Vital Signs Date Time Temp Pulse Resp B/P Pulse Ox O2 Delivery O2 Flow Rate FiO2 11/26/16 15:11 97.3 58 20 140/65 98 11/26/16 12:00 95.4 59 20 183/75 96 11/26/16 10:23 96 21 11/26/16 08:00 95.6 57 20 141/63 96 11/26/16 04:00 95.8 119 18 197/83 100 11/26/16 00:00 98.6 99 18 194/81 100 11/25/16 20:00 97.1 98 16 155/68 98 I/O 11/25/16 11/25/16 11/25/16 11/26/16 11/26/16 11/26/16 06:59 14:59 22:59 06:59 14:59 22:59 Intake Total 480 ml 564 ml 240 ml 402 ml 480 ml Output Total 1410 ml 425 ml 350 ml 30 ml 1300 ml Balance -930 ml 139 ml -110 ml 372 ml -820 ml Intake Oral 240 ml 120 ml 240 ml 480 ml IV Total 240 ml 444 ml 402 ml Output Urine Total 1400 ml 425 ml 350 ml 1300 ml Drainage Total 10 ml 30 ml # Voids 2 1 # Bowel Movements 0 0 Result Diagram: 11/26/1662911/26/16629 Physical Exam Physical Exam PHYSICAL EXAMINATION GENERAL: This is a well-developed, well-nourished female who appears to be in no acute distress. She is alert and awake, []. HEAD: Normocephalic without any lesion or mass noted. Facial features appear symmetric. OROPHARYNGEAL: Oropharynx without erythema or edema. NECK: Supple. No nuchal rigidity or lymphadenopathy. Trachea midline without deviation. CARDIAC: Regular rhythm, regular rate, S1 and S2 are heard. Murmur []; no gallops or rubs. LUNGS: Clear to auscultation bilaterally. [] wheeze, [] rhonchi or [] rale. No use of accessory muscles on inspiration or expiration. ABDOMEN: Soft, nontender, no organomegaly or masses. Bowel sounds are heard in all four quadrants. No rebound. No guarding. EXTREMITIES: [] edema. Pulses equal bilateral. [] cyanosis. NEUROLOGICAL: Patient mood and affect appropriate. No focal deficit SKIN:Warm and moist A/P Assessment and Plan Diagnosis: (1) Low back pain , acute on chronic (2) Discitis (3) Epidural abscess (4) S/P lumbar laminectomy (5) hx recent infection lumbar surgical site (6) Hx pulmonary embolism (7) Hx TIA/stroke w/o resid (8) Chronic anticoagulation (9) Antiphospholipid antibody syndrome (10) HTN (hypertension) (11) Anxiety (12) Presence of IVC filter (13) Decreased ambulation status (14) Hyperlipidemia (15) Hyponatremia Vital signs reviewed afebrile,HR labile, increased with activity , low at rest, possibly secondary to debility Labs reviewed, stable at 10, sodium 130 -S/P CT guided aspiration of fluid in IR 11/23, we'll continue to leave drains in place, planned for 8 weeks of IV antibiotics -ID consulted for abx management, d/w Dr. Banks, appreciate input, Pain management, physical therapy, will continue to be needed for patient's debility Patient states she worked very hard with her therapist today, but felt like she had a positive results from the therapy Hyponatremia, trends up and down, Add by mouth sodium 1 gm. BID , recheck in am History of pulmonary emboli, antiphospholipid syndrome. Has IVC filter Resume Coumadin today, Lovenox to bridge-dc when INR >2. -INR today 1. 4 -INR daily, appreciate pharmacy input Anxiety, continues to be anxious over continuous medical illness and dilemma, supportive care Smiling today and seems to be better today with her plan of care and getting better. Protonix, PUD prophylaxis SCDs for DVT prophylaxis Encourage nutrition, mobility with PT Discharge planning in the works, patient and are requesting [facility] to reevaluate her for a 2 week time frame and then discharge her home for the rest of her IV antibiotics. Other facilities also be and evaluated , SNF rehabilitation Case management working with kristel D/W Dr. Forbes, seen on her behalf D/W pt and her D/W Arti Beltre Nov 26, 2016 17:08
[2016-11-26] MEDS: SODIUM CHLORIDE 1 GRAM TAB PO SCH (20:36)
[2016-11-27] VITALS: BP 189/81; PULSE 67; RESP 18; TEMP 97; O2SAT 95
[2016-11-27] MEDS: CEFEPIME INJ 2,000 MG in SODIUM CHLORIDE 0.9% INJ 100 ML IV SCH ×3 (00:17→15:12)
[2016-11-27] MEDS: ALPRAZolam 0.25 MG TAB PO PRN (00:43)
[2016-11-27] MEDS: ENALAPRILAT 1.25 MG/ML VIAL IV PUSH PRN (03:39)
[2016-11-27] MEDS: ACETAMINOPHEN/HYDROcodone 325 MG/10 MG TAB PO PRN ×2 (04:43→12:02)
[2016-11-27 04:50] VITALS: BP 150/70
[2016-11-27 05:30] LABS: INTERNATIONAL NORMALIZED RATIO 1.3 RATIO; PROTHROMBIN TIME - PATIENT 14.7 SEC (9.8-11.6)
[2016-11-27 05:47] LABS: BICARBONATE 23.8 MEQ/L (21.0-32.0)
[2016-11-27 08:00] VITALS: BP 150/67; PULSE 57; RESP 17; TEMP 98.7; O2SAT 97
--- NOTE | 2016-11-27 08:44 | HHI.NSPN ---
(Asha Salas) Note Status Status: Progress Note (Asha Salas) Interval History Interval History THIS NOTE IS FOR 11/26/16, WHEN PATIENT SEEN AND EXAMINED, NOTE WAS NOT SAVED PROPERLY. 81-year-old female presents to the emergency room today with complaint of severe progressive right lower extremity pain. The patient indicates that in approximately May 2016 she developed progressive right lower extremity pain. She underwent an MRI of the lumbar spine in August 2016 and was seen by neurosurgery for evaluation with findings of a right L5-S1 herniated nucleus pulposus. She underwent right L5-S1 microdiscectomy on 09/03/16. She states that she did very well for for approximately 3 weeks postoperative, and then states that she developed generalized weakness. She was seen in the emergency room and admitted with a diagnosis of sepsis, hypokalemia, elevated troponin 1. She was seen by infectious disease and treated for gram-negative sepsis and C. difficile. An MRI 09/25/16 revealed some fluid in the paraspinous region but no definite enhancement or abscess formation. She developed abdominal distention and was seen by gastroenterology. The patient was discharged to [facility] on meropenem and vancomycin until 10/24/16, with Dificid until . She states that after inpatient rehabilitation, she was [facility] She has been home since then, with an permit review assistant to help her. She states that she has had persistent and progressive right posterior lower extremity pain over the past few weeks. She was last seen for neurosurgery follow-up on 11/11/16 and a follow-up MRI of the spine from 10/31/16 was reviewed which did not reveal any definite abscess formation. The patient presents to the emergency room today due to progressive pain. She has not been able to eat well. She is not ambulating except for a short distance. She states that she feels as if she is not emptying her bladder fully. No bowel dysfunction. No recent fevers chills or sweats. 11/23/16: CT guided aspiration of right lower lumbar paraspinous fluid collection. 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 11/24/16: pt complains of pain radiating down her right leg laterally to the foot , worsened when she tries to bear weight onto the right foot. 11/25/16: clinically stable overnight, would like discharge plan for [facility] 11/26/16: was not [facility], case mgt in room working on dc planning to different rehab facility. continues with IV antibiotics. (Asha Salas) Labs, Micro, & Vital Signs Results Date Time Temp Pulse Resp B/P Pulse Ox O2 Delivery O2 Flow Rate FiO2 11/27/16 04:50 150/70 Automatic Cuff 11/27/16 00:00 97.0 67 18 189/81 95 11/26/16 21:37 94 21 11/26/16 20:00 97.9 117 18 183/76 93 11/26/16 15:11 97.3 58 20 140/65 98 11/26/16 12:00 95.4 59 20 183/75 96 11/26/16 10:23 96 Ventilator 21 11/27/16 07:00 Intake Total 1085 ml Output Total 1570 ml Balance -485 ml Constitutional Vital Signs Date Time Temp Pulse Resp B/P Pulse Ox O2 Delivery O2 Flow Rate FiO2 11/27/16 04:50 150/70 Automatic Cuff 11/27/16 00:00 97.0 67 18 189/81 95 11/26/16 21:37 94 21 11/26/16 20:00 97.9 117 18 183/76 93 11/26/16 15:11 97.3 58 20 140/65 98 11/26/16 12:00 95.4 59 20 183/75 96 11/26/16 10:23 96 Ventilator 21 11/27/16 07:00 Intake Total 1085 ml Output Total 1570 ml Balance -485 ml (Asha Salas) Review of Systems/Exam Exam THIS NOTE IS FOR 11/26/16, WHEN PATIENT SEEN AND EXAMINED, NOTE WAS NOT SAVED. Alert, oriented x 3. Speech appropriate. Follows commands well. CN: pupils 4 mm equal b/l, facial motor symmetric Neck: soft, supple, no meningismus or nuchal rigidity Motor: moving all major muscle groups of upper and lower extremities well Plantars downgoing b/l. No ankle clonus Pigtail drain in place with minimal drainage. (Asha Salas) Exam Ms Dougherty is alert, awake and oriented to time, place and person. Speech is fluent. Cranial nerve examination: pupils to be equal, round and reactive to light. Extra-ocular movements are intact. Facial motor and sensory function are normal and symmetrical. Gross hearing appears intact. Sternocleidomastoid and trapezius muscles are symmetrical. Other cranial nerves are intact. Neck is soft and supple with a good range of motion without pain. Muscle strength is normal in all muscle groups of both upper and lower extremities. lumbar region intact, Pigtail drain in place with minimal drainage. Sensory examination is intact to light touch and pin prick in both the upper and lower extremities. Deep tendon reflexes are symmetrical in both upper and lower extremities. There is a bilateral plantar flexion response. Cerebellar examination is unremarkable, without deficits. (Austin Arana MD) Medications Current Medications Current Medications Medications (Trade) Dose Ordered Sig/Gypsy Route PRN Reason Start Time Stop Time Status Last Admin Dose Admin Alprazolam (Xanax) 0.25 mg Q8H PRN PO ANXIETY 11/22/16 20:30 11/27/16 00:43 Atenolol (Tenormin) 50 mg Q12HR PO 11/22/16 21:00 11/27/16 09:11 Calcium/Vitamin D (Oscal-D 250-125) 250 mg Q12HR PO 11/22/16 21:00 11/27/16 09:10 Cholecalciferol (Vitamin D3) 1,000 units DAILY PO 11/23/16 09:00 11/27/16 09:10 Folic Acid (Folate) 1 mg DAILY PO 11/23/16 09:00 11/27/16 09:10 Gabapentin (Neurontin) 300 mg TID PO 11/23/16 09:00 11/27/16 09:09 Acetaminophen/ Hydrocodone Bitart ([place] 10-325 Mg) 1 tab Q6HR PRN PO PAIN SCALE 1 TO 10 11/22/16 20:30 11/27/16 04:43 Levothyroxine Sodium (Synthroid) 100 mcg Q2D PO 11/24/16 06:00 11/26/16 05:23 Potassium Chloride (KCl) 20 meq DAILY PO 11/23/16 09:00 11/27/16 09:11 Tiotropium Palo (Spiriva Inh) 18 mcg DAILY INH 11/23/16 09:00 11/27/16 09:12 Triamterene/HCTZ (Maxzide 75-50 Mg) 1 tab DAILY PO 11/23/16 09:00 11/27/16 09:10 Ascorbic Acid (Vitamin C) 500 mg DAILY PO 11/23/16 09:00 11/27/16 09:09 Albuterol Sulfate (Proair Hfa Inh) 2 puff QID PRN INH SHORTNESS OF BREATH 11/22/16 20:30 Pantoprazole Sodium (Protonix) 40 mg DAILY PO 11/23/16 09:00 11/27/16 09:10 Tolterodine Tartrate (Detrol La) 4 mg DAILY PO 11/23/16 09:00 11/27/16 09:10 IV Flush (NS Flush) 2 ml UNSCH PRN IVF FLUSH AFTER USING IV ACCESS 11/22/16 20:45 IV Flush (NS Flush) 2 ml BID IVF 11/22/16 21:00 11/27/16 09:00 Enalaprilat (Vasotec Inj) 1.25 mg Q6H PRN IV PUSH SBP>160, DBP>90 11/23/16 09:45 11/27/16 03:39 Magnesium Hydroxide (Milk Of Eve Liq) 30 ml DAILY PRN PO CONSTIPATION 11/23/16 09:45 11/27/16 10:12 Enoxaparin Sodium (Lovenox Inj) 60 mg Q12H SQ 11/23/16 21:00 11/27/16 09:09 Warfarin Sodium (Coumadin) 4 mg DAILY@16 PO 11/24/16 16:00 11/26/16 14:36 Lactobacillus Acidophilus 1 tab 1 tab Q12HR PO 11/24/16 21:00 11/27/16 09:09 Cefepime HCl/ Sodium Chloride (Maxipime Inj/NS Inj) 100 ml @ 200 mls/hr Q8H IV 11/25/16 16:00 11/27/16 09:08 Hydralazine HCl (Apresoline) 25 mg Q8HR PRN PO SBP> 170 11/26/16 14:45 11/27/16 00:43 Sodium Chloride (Sodium Chloride) 1 gm BID PO 11/26/16 21:00 11/27/16 09:10 Lisinopril (Prinivil) 20 mg DAILY PO 11/27/16 09:00 11/27/16 09:12 Magnesium Citrate (Citroma Liq) 300 ml ONCE ONCE PO 11/27/16 10:00 11/27/16 10:01 UNV (Asha Salas) Current Medications Current Medications Sodium Chloride (NS Flush) 2 ml UNSCH PRN IV FLUSH FLUSH AFTER USING IV ACCESS ; Start 11/22/16 at 14:30; Stop 11/22/16 at 20:33; Status DC Morphine Sulfate (Morphine Inj) 4 mg ONCE ONCE IV PUSH Last administered on 14:54; Start 11/22/16 at 14:30; Stop 11/22/16 at 14:31; Status DC Gadodiamide (Omniscan Pf Inj) 10 ml STK-MED ONCE IV Last administered on 19:09; Start 11/22/16 at 19:09; Stop 11/22/16 at 19:10; Status DC Alprazolam (Xanax) 0.25 mg Q8H PRN PO ANXIETY Last administered on 11/27/16 00 :43; Start 11/22/16 at 20:30; Stop 11/27/16 at 16:20; Status DC Atenolol (Tenormin) 50 mg Q12HR PO Last administered on 11/27/16 09:11; Start 11/22/16 at 21:00; Stop 11/27/16 at 16:20; Status DC Calcium/Vitamin D (Oscal-D 250-125) 250 mg Q12HR PO Last administered on 09:10; Start 11/22/16 at 21:00; Stop 11/27/16 at 16:20; Status DC Cholecalciferol (Vitamin D3) 1,000 units DAILY PO Last administered on 09:10; Start 11/23/16 at 09:00; Stop 11/27/16 at 16:20; Status DC Folic Acid (Folate) 1 mg DAILY PO Last administered on 11/27/16 09:10; Start 11/23/16 at 09:00; Stop 11/27/16 at 16:20; Status DC Gabapentin (Neurontin) 300 mg TID PO Last administered on 11/27/16 12:03; Start 11/23/16 at 09:00; Stop 11/27/16 at 16:20; Status DC Acetaminophen/ Hydrocodone Bitart ([place] 10-325 Mg) 1 tab Q6HR PRN PO PAIN SCALE 1 TO 10 Last administered on 11/27/16 12:02; Start 11/22/16 at 20:30; Stop 11/27/16 at 16:20; Status DC Lactobacillus Acidophilus (Lactinex) 1 tab TID PO Last administered on 09:46; Start 11/23/16 at 09:00; Stop 11/24/16 at 15:52; Status DC Levothyroxine Sodium (Synthroid) 100 mcg Q2D PO Last administered on 11/26/16 05:23; Start 11/24/16 at 06:00; Stop 11/27/16 at 16:20; Status DC Potassium Chloride (KCl) 20 meq DAILY PO Last administered on 11/27/16 09:11; Start 11/23/16 at 09:00; Stop 11/27/16 at 16:20; Status DC Tiotropium Palo (Spiriva Inh) 18 mcg DAILY INH Last administered on 09:12; Start 11/23/16 at 09:00; Stop 11/27/16 at 16:20; Status DC Triamterene/HCTZ (Maxzide 75-50 Mg) 1 tab DAILY PO Last administered on 09:10; Start 11/23/16 at 09:00; Stop 11/27/16 at 16:20; Status DC Ascorbic Acid (Vitamin C) 500 mg DAILY PO Last administered on 11/27/16 09:09 ; Start 11/23/16 at 09:00; Stop 11/27/16 at 16:20; Status DC Albuterol Sulfate (Proair Hfa Inh) 2 puff QID PRN INH SHORTNESS OF BREATH; Start 11/22/16 at 20:30; Stop 11/27/16 at 16:20; Status DC Pantoprazole Sodium (Protonix) 40 mg DAILY PO Last administered on 11/27/16 09 :10; Start 11/23/16 at 09:00; Stop 11/27/16 at 16:20; Status DC Tolterodine Tartrate (Detrol La) 4 mg DAILY PO Last administered on 11/27/16 09:10; Start 11/23/16 at 09:00; Stop 11/27/16 at 16:20; Status DC Sodium Chloride (NS Flush) 2 ml BID IV FLUSH Last administered on 11/24/16 22: 46; Start 11/22/16 at 21:00; Stop 11/26/16 at 15:20; Status DC Sodium Chloride (NS Flush) 2 ml UNSCH PRN IVF FLUSH AFTER USING IV ACCESS; Start 11/22/16 at 20:30; Stop 11/26/16 at 15:20; Status DC IV Flush (NS Flush) 2 ml UNSCH PRN IVF FLUSH AFTER USING IV ACCESS; Start 11/22 at 20:45; Stop 11/27/16 at 16:20; Status DC IV Flush 2 ml 2 ml BID IVF Last administered on 11/27/16 09:00; Start at 21:00; Stop 11/27/16 at 16:20; Status DC Potassium Chloride/Dextrose/ Sod Cl (D5-1/2 NS + KCl 20 Meq Inj) 1,000 ml @ 30 mls/hr Q24H IV Last administered on 11/26/16 00:59; Start 11/22/16 at 22:00; Stop 11/26/16 at 14:38; Status DC Enalaprilat (Vasotec Inj) 1.25 mg Q6H PRN IV PUSH SBP>160, DBP>90 Last administered on 11/27/16 03:39; Start 11/23/16 at 09:45; Stop 11/27/16 at 16:20 ; Status DC Magnesium Hydroxide (Milk Of Magnesia Liq) 30 ml DAILY PRN PO CONSTIPATION Last administered on 11/27/16 10:12; Start 11/23/16 at 09:45; Stop 11/27/16 at 16:20; Status DC Albuterol/ Ipratropium 1 ampule 1 ampule Q6HR NEB PRN NEB WHEEZING; Start 11/23 at 09:45; Stop 11/27/16 at 16:20; Status DC Vancomycin HCl 1000 mg/Sodium Chloride 250 ml @ 250 mls/hr ONCE ONCE IV ; Start 11/23/16 at 10:00; Stop 11/23/16 at 10:17; Status DC Pharmacy Profile Note (Vancomycin Consult Pharmacy) 0 ml @ 0 mls/hr UNSCH OTHER ; Start 11/23/16 at 10:00; Stop 11/23/16 at 10:17; Status DC Lidocaine/ Epinephrine (Xylocaine-Epi 1%-1:100,000 Inj) 20 ml STK-MED ONCE .ROUTE Last administered on 11/23/16 13:55; Start 11/23/16 at 13:55; Stop at 13:56; Status DC Fentanyl Citrate (fentaNYL INJ) 100 mcg STK-MED ONCE .ROUTE Last administered on 11/23/16 13:57; Start 11/23/16 at 13:57; Stop 11/23/16 at 13:58; Status DC Enoxaparin Sodium 60 mg 60 mg Q12H SQ Last administered on 11/27/16 09:09; Start 11/23/16 at 21:00; Stop 11/27/16 at 16:20; Status DC Ceftazidime 2000 mg/Sodium Chloride 100 ml @ 200 mls/hr Q8H IV Last administered on 11/25/16 06:00; Start 11/24/16 at 14:00; Stop 11/25/16 at 15:08 ; Status DC Pharmacy Profile Note 0 ml @ 0 mls/hr UNSCH OTHER ; Start 11/24/16 at 12:45; Stop 11/25/16 at 15:08; Status DC Vancomycin HCl/ Sodium Chloride (Vancomycin Inj/ NS 250 ml Inj) 250 ml @ 250 mls/hr Q24H IV Last administered on 11/25/16 14:00; Start 11/24/16 at 14:00; Stop 11/25/16 at 15:08; Status DC Miscellaneous Information SPECIFIC LAB TO BE [facility]RI[facility]... ONCE ONCE .XX ; Start 11/27 at 13:45; Stop 11/27/16 at 13:46; Status Cancel Warfarin Sodium (Coumadin) 4 mg DAILY@16 PO Last administered on 11/27/16 15: 12; Start 11/24/16 at 16:00; Stop 11/27/16 at 16:20; Status DC Patient Medication Teaching (Coumadin Booklet) 1 ONCE ONCE .XX ; Start at 16:00; Stop 11/24/16 at 16:01; Status DC Lactobacillus Acidophilus 1 tab 1 tab Q12HR PO Last administered on 11/27/16 09:09; Start 11/24/16 at 21:00; Stop 11/27/16 at 16:20; Status DC Cefepime HCl/ Sodium Chloride (Maxipime Inj/NS Inj) 100 ml @ 200 mls/hr Q8H IV Last administered on 11/27/16 15:12; Start 11/25/16 at 16:00; Stop 11/27/16 at 16:20; Status DC Clonidine (Catapres) 0.1 mg UNSCH X1 PO Last administered on 11/26/16 05:23; Start 11/26/16 at 04:37; Stop 11/26/16 at 05:30; Status DC Lisinopril (Prinivil) 10 mg DAILY PO Last administered on 11/26/16 17:14; Start 11/26/16 at 15:30; Stop 11/27/16 at 07:50; Status DC Hydralazine HCl (Apresoline) 25 mg Q8HR PRN PO SBP> 170 Last administered on 00:43; Start 11/26/16 at 14:45; Stop 11/27/16 at 16:20; Status DC Sodium Chloride (Sodium Chloride) 1 gm BID PO Last administered on 11/27/16 09 :10; Start 11/26/16 at 21:00; Stop 11/27/16 at 16:20; Status DC Lisinopril (Prinivil) 20 mg DAILY PO Last administered on 11/27/16 09:12; Start 11/27/16 at 09:00; Stop 11/27/16 at 16:20; Status DC Magnesium Citrate (Citroma Liq) 300 ml ONCE ONCE PO ; Start 11/27/16 at 10:00; Stop 11/27/16 at 10:40; Status DC Bisacodyl (Dulcolax Supp) 10 mg ONCE ONCE RECTAL Last administered on 15:11; Start 11/27/16 at 10:45; Stop 11/27/16 at 10:46; Status DC (Austin Arana MD) Medical Decision Making MDM Remarks THIS NOTE IS FOR 11/26/16, WHEN PATIENT SEEN AND EXAMINED, NOTE WAS NOT SAVED. 81 y/o female with intractable lumbar pain, paraspinous abscess, discitis, osteomyelitis at L5-S1 on MRI L spine, s/p CT guided aspiration with placement of pigtail drain, cultures positive for Proteus Mirabilis recent L5-S1 laminectomy microdiscectomy on 09/03/16 recent gram-negative sepsis and C. difficile, MRI L spine on 09/25/16 revealed some fluid in the paraspinous region but no definite enhancement or abscess formation treated with meropenem and vancomycin until 10/24/16, with Dificid until 10/14/16 follow-up MRI L spine from 10/31/16 again no revealed no definite abscess formation, no enhancement in the disc, this was previous reviewed by Dr. Arana ( Asha Salas) [facility] Remarks Last Impressions Abscess Drainage CT 11/23/16 0000 Signed Impressions: Service Date/Time: Wednesday, November 23, 2016 14:14 - CONCLUSION: 1. CT-guided aspiration of right posterior paravertebral fluid collection yielded purulent fluid. Therefore, 8 Romansh pigtail catheter was placed in the collection. Approximately 25 mL of purulent appearing fluid was removed immediately following catheter placement and sample submitted for laboratory analysis per request. Sundeep Bryant MD Lumbar Spine MRI 11/22/16 0000 Signed Impressions: Service Date/Time: Tuesday, November 22, 2016 18:53 - CONCLUSION: 1. Postsurgical changes with laminectomy defect on the right. Diffuse abnormal signal with enhancement in the laminectomy defect with fluid tracking posteriorly in the right paraspinal region. This fluid collection has increased in size and there is loculated appearance with enhancement. This is concerning for abscess. 2. Suspected discitis at L5-S1 with osteomyelitis within the adjacent endplates. There is also a small fluid collection/abscess anterior to the disc space at L5-S1. Camilo Valdez MD (Austin Arana MD) Plan Plan Remarks THIS NOTE IS FOR 11/26/16, WHEN PATIENT SEEN AND EXAMINED, NOTE WAS NOT SAVED. continuing IV antibiotics per ID, 8 weeks of IV Cefepime, cleared for dc from their standpoint still awaiting PICC line placement cont PT,lumbar brace when out of bed medical physician following case mgt working on dc planning to inpatient rehab, dc once PICC placed and accepted to rehab Dr. Arana dw patient, , and caregiver in room (Asha Salas) Attending Statement As above. Continue neuro checks Pulmonary. aggressive pulmonary toilette, nasotracheal suction, and breathing treatments with nebulizers. Daily PT and OT Nutrition. Oral diet Renal. monitor closely urine output, BUN and creatinine Endocrine. Monitor serial Acu checks and SSI as needed in detail ID monitor for signs of infection Protonix for stress ulcer prophylaxis Jeb hose and SCD's for DVT prophylaxis The exam, history, and the medical decision-making described in the above note were completed with the assistance of the mid-level provider. I reviewed and agree with the findings presented. I attest that I had a [id number] encounter with the patient on the same day, and personally performed and documented my assessment and findings in the medical record. (Austin Arana MD) Asha Salas Nov 27, 2016 08:44 Austin Arana MD Nov 29, 2016 15:58
[2016-11-27] MEDS: SODIUM CHLORIDE 0.9% FLUSH 5 ML FLUSH IVF SCH (09:00)
[2016-11-27] MEDS ORDERED: LISINOPRIL 20 MG TAB PO SCH (09:00)
[2016-11-27] MEDS: ASCORBIC ACID 500 MG TAB PO SCH (09:09)
[2016-11-27] MEDS: GABAPENTIN 300 MG CAP PO SCH ×2 (09:09→12:03)
[2016-11-27] MEDS: LACTOBACILLUS ACIDOPHILUS TAB PO SCH (09:09)
[2016-11-27] MEDS: ENOXAPARIN SODIUM 60 MG/0.6 ML SYRINGE SQ SCH (09:09)
[2016-11-27] MEDS: TOLTERODINE TARTRATE 4 MG CAP LA PO SCH (09:10)
[2016-11-27] MEDS: PANTOPRAZOLE SOD 40 MG DELAYED RELEASE TAB PO SCH (09:10)
[2016-11-27] MEDS: TRIAMTERENE/HCTZ 75 MG/50 MG TAB PO SCH (09:10)
[2016-11-27] MEDS: SODIUM CHLORIDE 1 GRAM TAB PO SCH (09:10)
[2016-11-27] MEDS: FOLIC ACID 1 MG TAB PO SCH (09:10)
[2016-11-27] MEDS: CHOLECALCIFEROL (VIT D3) 1000 UNIT TAB PO SCH (09:10)
[2016-11-27] MEDS: CALCIUM/VITAMIN D 250 MG/125 U TAB PO SCH (09:10)
[2016-11-27] MEDS: ATENOLOL 50 MG TAB PO SCH (09:11)
[2016-11-27] MEDS: POTASSIUM CHLORIDE 10 MEQ CONTROLLED RELEASE TAB PO SCH (09:11)
[2016-11-27] MEDS: TIOTROPIUM BROMIDE 18 MCG INH INH SCH (09:12)
[2016-11-27] MEDS ORDERED: MAGNESIUM CITRATE SOLN 300 ML BTL PO ONE (10:00)
[2016-11-27] MEDS: MAGNESIUM HYDROXIDE SUSP 30 ML CUP PO PRN (10:12)
[2016-11-27] MEDS ORDERED: BISACODYL 10 MG SUPP RECTAL ONE (10:45)
--- NOTE | 2016-11-27 10:51 | HHI.PR ---
Subjective Remarks Resting in bed Smiling this morning and motivated to get home soon Has been accepted per Brad for her first part of her rehabilitation Encouraged and supported to get better Bowel regimen, no BM in third day (Arti Villa) Objective Objective Results - Vital Signs Date Time Temp Pulse Resp B/P Pulse Ox O2 Delivery O2 Flow Rate FiO2 11/27/16 08:00 98.7 57 17 150/67 97 11/27/16 04:50 150/70 Automatic Cuff 11/27/16 00:00 97.0 67 18 189/81 95 11/26/16 21:37 94 21 11/26/16 20:00 97.9 117 18 183/76 93 11/26/16 15:11 97.3 58 20 140/65 98 11/26/16 12:00 95.4 59 20 183/75 96 I/O 11/26/16 11/26/16 11/26/16 11/27/16 11/27/16 11/27/16 07:00 15:00 23:00 07:00 15:00 23:00 Intake Total 402 ml 480 ml 505 ml 100 ml 240 ml Output Total 30 ml 1300 ml 250 ml 20 ml Balance 372 ml -820 ml 255 ml 80 ml 240 ml Intake Oral 480 ml 240 ml IV Total 402 ml 505 ml 100 ml Output Urine Total 1300 ml 250 ml Drainage Total 30 ml 0 ml 20 ml # Voids 1 2 3 # Bowel Movements 0 (Arti Villa) Result Diagram: 11/26/16 0630 11/27/16 0442 ROS General: Fatigue, Weakness, Other (10 point ROS done positives noted) GI: Other (constipation) Neuro/MS: Other (back pain, lower) (Arti Villa) Physical Exam Physical Exam PHYSICAL EXAMINATION GENERAL: This is a thin elderly female who appears to be in no acute distress while resting in bed She is alert and awake, HEAD: Normocephalic, atraumatic Facial features appear symmetric. OROPHARYNGEAL: Oropharynx clear NECK: Supple. Trachea midline without deviation. CARDIAC: Regular rhythm, regular rate, S1 and S2 are heard. LUNGS: Clear to auscultation bilaterally or itch to turn cough and deep breathe ABDOMEN: Soft, taut, nontender, Bowel sounds are heard in all four quadrants. EXTREMITIES: no edema. Pulses equal bilateral. , Drain lower back, dressing dry and intact NEUROLOGICAL: Patient mood and affect appropriate. Motivated and smiling today SKIN:Warm and moist (Arti Villa) A/P Assessment and Plan Diagnosis: (1) Low back pain , acute on chronic (2) Discitis (3) Epidural abscess (4) S/P lumbar laminectomy (5) hx recent infection lumbar surgical site (6) Hx pulmonary embolism (7) Hx TIA/stroke w/o resid (8) Chronic anticoagulation (9) Antiphospholipid antibody syndrome (10) HTN (hypertension) (11) Anxiety (12) Presence of IVC filter (13) Decreased ambulation status (14) Hyperlipidemia (15) Hyponatremia Vital signs reviewed afebrile, BP this am, 189/81, then 150/70 Labs reviewed, INR 1.3 -S/P CT guided aspiration of fluid in IR 11/23, we'll continue to leave drains in place, planned for 8 weeks of IV antibiotics -ID consulted for abx management, d/w Dr. Banks, appreciate input, Pain management, physical therapy, patient motivated to get better so she can go home. Up in chair, walked short distance and got up to BSC with SBA. Bowel regimen, initially ordered mag citrate so patient could transfer to [facility] , but patient complains of laxative medications having and around for several days, we'll change to Dulcolax suppository to alleviate cramping Hypertension, systolic BP wax and wane and but does get over 180, increased lisinopril dose to 20 mg daily, she is also on beta meir Hyponatremia, trends up and down, Add by mouth sodium 1 gm. BID , recheck in am History of pulmonary emboli, antiphospholipid syndrome. Has IVC filter Resume Coumadin today, Lovenox to bridge-dc when INR >2. -INR today 1. 4 -INR daily, appreciate pharmacy input Anxiety, continues to be anxious over continuous medical illness and dilemma, supportive care Smiling today and seems to be better today with her plan of care and getting better. Protonix, PUD prophylaxis SCDs for DVT prophylaxis Encourage nutrition, mobility with PT Discharge planning in the works, patient and are requesting [facility] to reevaluate her for a 2 week time frame and then discharge her home for the rest of her IV antibiotics. This a.m. [facility] excepted the patient for her two-week stay approximately, patient is aware of cane plan and is motivated to get better so she can go home and receive the rest of her antibiotics Case management Elissa assisting with transition, PICC line has been ordered Bowel regimen for BM before transfer D/W Dr. Forbes, seen on her behalf D/W pt D/W RN (Arti Villa) Assessment and Plan patient seen and examined s/p PICC line IR to d/c drain today accepted at [facility] worked with Pt earlier in good spirits ok to d/c to [facility] rehab discussed with patient no family at bedside discussed with Arti EDMOND (Monique Forbes MD) Arti Villa Nov 27, 2016 10:51 Monique Forbes MD Nov 27, 2016 14:49
--- NOTE | 2016-11-27 10:56 | HHI.DCPOC ---
Discharge Care Plan Diagnosis: (1) Discitis (2) Osteomyelitis (3) Paraspinal abscess Goals to Promote Your Health * To prevent worsening of your condition and complications * To maintain your health at the optimal level Directions to Meet Your Goals Take your medications as prescribed Follow your dietary instruction Follow activity as directed Keep your appointments as scheduled Take your immunizations and boosters as scheduled If your symptoms worsen call your PCP, if no PCP go to Urgent Care Center or Emergency Room Smoking is Dangerous to Your Health. Avoid second hand smoke Call the 24-hour hour crisis hotline for domestic abuse at Asha Salas Nov 27, 2016 10:56
[2016-11-27 12:00] VITALS: BP 176/74; PULSE 65; RESP 19; TEMP 97.8; O2SAT 97
[2016-11-27] MEDS ORDERED: PHARMACY ORDERED LAB ONE (13:45)
[2016-11-27] MEDS ORDERED: SOLU250I IV PUSH (14:30)
[2016-11-27] MEDS ORDERED: CEFE2INJ9 IV (14:30)
[2016-11-27] MEDS ORDERED: EPIN1INJ21 SQ (14:30)
[2016-11-27] MEDS ORDERED: EPIN1INJ21 IV PUSH (14:30)
--- NOTE | 2016-11-27 14:38 | HHI.FF ---
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 [] May leave port accessed during therapy. [] May leave peripheral site accessed for duration of therapy. [x] If patient has SOB or respiratory distress, check oxygen saturation. If less than 90% or clinical signs of respiratory distress, administer oxygen at 2 L/min. via nasal cannula and notify physician. [x] Anaphylaxis/Reaction orders: * Stop infusion. * Keep IV line open with saline flush. * Notify physician. * Monitor vital signs every 15 minutes until symptoms resolve. * Check Oxygen saturation; Oxygen at 2 L/min. via nasal cannula if less than 90% or clinical signs of respiratory distress. * Administer diphenhydramine (Benadryl) 25 mg IV STAT, (unless patient has received as pre-med). May repeat once, if necessary. * Solu-Cortef 250 mg IVP over 30-60 seconds, use 100 mg vials for each dissolution. * Epinephrine (1mg/1 ml) 0.3 mg subcutaneously or IVP now with any signs of respiratory distress. * Check with physician for new additional pre-med orders if patient is re- challenged or re-treated. [x] May remove PICC line when treatment complete, after confirming with Physician. [x] If the patient is admitted to the hospital, the ED, or transferred via [facility] , complete transfer form including medication reconciliation order sheet. Laboratory Tests Weekly Labs: CBC w/diff, Creatinine, LFT's (Hepatic function test) Jaycee Banks MD Nov 27, 2016 14:38
[2016-11-27] MEDS ORDERED: LACT PO (14:52)
[2016-11-27] MEDS ORDERED: HYDR-3583 PO (14:52)
[2016-11-27] MEDS ORDERED: LISI-515 PO (14:52)
[2016-11-27] MEDS ORDERED: HYDR-3799 PO (14:53)
[2016-11-27] MEDS ORDERED: ALPR.25 PO (14:53)
[2016-11-27] MEDS ORDERED: ENOX60P SQ (14:53)
[2016-11-27] MEDS ORDERED: [UNRECOGNIZED DRUG - REMARK] (14:56)
[2016-11-27] MEDS: WARFARIN SOD 4 MG TAB PO SCH (15:12)
[2016-11-27 15:21] VITALS: BP 150/68
--- NOTE | 2016-11-27 15:37 | RADRPT ---
EXAM DATE/TIME: 11/27/2016 15:08 [facility] COMPARISON: CHEST SINGLE AP, November 06, 2016, 15:48. INDICATIONS : Picc line placement. MEDICAL HISTORY : Hypertension. SURGICAL HISTORY : Discectomy, lumbar. ENCOUNTER: Subsequent ACUITY: 4 - 6 days PAIN SCORE: 8/10 LOCATION: Bilateral chest FINDINGS: A single view of the chest demonstrates the patient is slightly rotated rightward which distorts the mediastinal structures. Accounting for rotation, heart size is normal. Both lungs are clear of acute infiltrate. There are no effusions. Interval placement of a right upper extremity PICC line with the tip projecting over the central venous system. Osseous structures are intact. CONCLUSION: 1. Right upper extremity PICC line with the tip projecting over the central venous system. 2. Lungs are clear. Brent Ricardo MD on November 27, 2016 at 15:33 Board Certified Radiologist. This report was verified electronically.
== END 2016-11-27 16:19 | DRG 862 ==
LOC: NEPC 13:54 → NEDA 20:31 → N07B 22:25
PROVIDERS: ADMIT Neurological Surgery; ATTEND Neurological Surgery
PROC: 009U30Z Drainage of Spinal Canal with Drainage Device, Percutaneous Approach (ICD-10-PCS; principal; 2016-11-23)
DX: T81.4XXA Infection following a procedure, initial encounter (principal); G06.1 Intraspinal abscess and granuloma; D68.61 Antiphospholipid syndrome; E87.1 Hypo-osmolality and hyponatremia; M86.9 Osteomyelitis, unspecified; J44.9 Chronic obstructive pulmonary disease, unspecified; D45 Polycythemia vera; M46.47 Discitis, unspecified, lumbosacral region; E03.9 Hypothyroidism, unspecified; E78.5 Hyperlipidemia, unspecified; F41.0 Panic disorder [episodic paroxysmal anxiety]; I10 Essential (primary) hypertension; K21.9 Gastro-esophageal reflux disease without esophagitis; M10.9 Gout, unspecified; R30.0 Dysuria; B96.4 Proteus (mirabilis) (morganii) as the cause of diseases classified elsewhere; M21.371 Foot drop, right foot; Z79.01 Long term (current) use of anticoagulants; Z87.891 Personal history of nicotine dependence; Z79.82 Long term (current) use of aspirin; Z86.711 Personal history of pulmonary embolism; Z86.73 Personal history of transient ischemic attack (TIA), and cerebral infarction without residual deficits; Z92.21 Personal history of antineoplastic chemotherapy; Z92.3 Personal history of irradiation
CPT/HCPCS: 36569; 71010; 72158; 75989; 76937; 80048; 80076; 81001; 82550; 85025; 85027; 85610; 85730; 86140; 87015; 87040; 87070; 87077; 87186; 87205; 94150; 96374; A9579; C1729; C1769; J0692; J0713; J1650; J2270; J3010; J3370; J3480; J7050; L0484